=== PATIENT | male | born 1970 | race Caucasian/White ===

== ENCOUNTER 2020-09-10 17:21 | Inpatient (IN) ==
[2020-09-10] MEDS ORDERED: SODIUM CHLORIDE 0.9% 1000ML 1,000 ML IV STA (17:40)
[2020-09-10] MEDS ORDERED: CEFEPIME 2,000 MG/20 ML VIAL IV STA (17:40)
[2020-09-10] MEDS ORDERED: ACETAMINOPHEN 500 MG TAB PO STA (17:42)
[2020-09-10] MEDS ORDERED: SODIUM CHLORIDE 0.9% 1000ML 1,000 ML IV ONE (17:42)
--- NOTE | 2020-09-10 17:47 | Emergency Department Note ---
Impression & Plan Fever, Acute hypotension ED Provider Note INFORMANT: Patient ED PROVIDER(S): Bryan Alvarado MD CHIEF COMPLAINT: Fever PLAN: Disposition: Admitted Condition: Good Outpatient prescription management: none Referral: None MEDICAL DECISION MAKING: Patient presented to the emergency department because of fever and abnormal labs. He was told he was neutropenic. The patient had an IV established. Blood work was obtained. He had a culture obtained peripherally as well as through the PICC line. He was given a dose of empiric cefepime. His white blood cell count was extremely low at 420. The patient was anemic as well as thrombocytopenic. He was mildly hypokalemic. This was repleted. He did receive saline hydration. He was given Tylenol and a dose of Motrin for his fever. Consultation was made with Dr. Glenn Philippe of the [facility] service. Patient was evaluated in the ER for further management. Triage Nursing notes reviewed and agree them. Vital Signs: reviewed and remarkable for no significant abnormalities Differential diagnosis: Febrile neutropenia, viral syndrome, otitis, pharyngitis, pneumonia, influenza, meningitis, urinary tract infection, sepsis, bacteremia, as well as other pathologies. Diagnostics interpreted by me: ECG: none Cardiac Monitoring: Cardiac monitoring ordered by me: The patient was placed on continuous cardiac monitoring and observed. It revealed a normal sinus rhythm at 88 beats per minute without ectopy or evidence of dysrhythmia. Imaging studies: Chest x-ray. Findings: A chest x-ray was performed and revealed no pneumothorax, effusion, infiltrate, pulmonary edema, free air under the diaphragm, or wide mediastinum. Impression: No acute disease. HPI: The patient is a 50 year old male who presents to the Emergency Room with complaints of fever. This started today and was 102 at home. Patient is a cancer patient actively undergoing chemotherapy. He had a critically low white blood cell count reported to him today by his home nursing agency. The patient also notes the following associated symptoms, generalized weakness, lightheadedness, rigors. The patient has found no relieving factors. Current pain is rated as 0/10. 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 Pt denies LOC, headache, diaphoresis, visual changes, neck pain, chest pain, breathing difficulties, vomiting, abdominal pain, back pain, melena, hematochezia, urinary symptoms, numbness, lymphadenopathy, rash, or other complaints. ROS: See above HPI for pertinent positives & negatives. A total of 10 systems reviewed and were otherwise negative. PAST MEDICAL HISTORY:See Below , pancreatic cancer PAST SURGICAL HISTORY:See Below, Whipple FAMILY HISTORY:See Below SOCIAL HISTORY:See Below, HOME MEDICATIONS:See Below ALLERGIES:See Below VITALS:See Below PHYSICAL EXAMINATION: GENERAL: Awake, alert, well-appearing, in no distress HENT: Normocephalic, atraumatic. Oropharynx unremarkable. EYES: Pale conjunctiva. Sclera non-icteric. NECK: Inspection normal. Non-tender. Supple. No nuchal rigidity. FROM. No masses. RESPIRATORY: Clear to auscultation. No wheezes. No rales. Normal respiratory effort. CARDIAC: Normal rate. Normal rhythm. No murmurs. No rubs. Extremities warm and well perfused. Pulses equal. No JVD. There is a PICC line noted in the right upper extremity. No signs of external infection. GI: Soft, non-distended. No tenderness to palpation. No rebound or guarding. No masses. RECTAL: Deferred. MUSCULOSKELETAL: Atraumatic. Chest examination reveals no tenderness. The back is symmetrical on inspection without obvious abnormality. There is no CVA tenderness to palpation. No joint edema. LOWER EXTREMITIES: Calves are equal size bilaterally and non-tender. No edema. No discoloration. NEURO: Normal sensorium. No sensory or motor deficits noted. SKIN: Warm to touch. No rash or jaundice noted. Bryan Alvarado MD Past Med/Surg History Medical History (Updated 09/10/20 @ 17:44 by Bryan Alvarado MD) Diverticulitis Normal colonoscopy Surgical History (Updated 07/20/20 @ 08:20 by Marta Delatorre RN) History of ear surgery Replaced bones in inner left ear Family History (Updated 07/20/20 @ 08:22 by Marta Delatorre, RINA) Mother No problems noted. Father , 63yo Pancreatic cancer Brother No problems noted. Brother No problems noted. Son No problems noted. Social History (Updated 07/20/20 @ 08:25 by Marta Delatorre, RINA) Smoking Status: Never smoker Second Hand Exposure: No; Hx Alcohol Use: Yes (Social use;) Hx Substance Use: No Preferred Language: [place]ese Visual Impairment: No Limitations Hearing Ability: Normal Neurologist Required: No Beliefs That Will Affect Care: None marital status: marital status details: Has girlfriend of 22yrs Current Living Situation: Significant Other current occupational status: employed current occupation: [employer] Feels Safe at Home: Yes caffeine: No during the past year weight has: decreased > 10 lbs Allergies Allergies Allergy/AdvReac Type Severity Reaction Status Date / Time No Known Allergies Allergy Verified 09/10/20 17:54 Home Meds Home Medications Medication Instructions Recorded Confirmed acetaminophen 500 mg tablet 500 mg PO Q6H PRN 07/20/20 09/10/20 apixaban 5 mg tablet 5 mg PO BID 07/20/20 09/10/20 aspirin 81 mg tablet,delayed 81 mg PO DAILY 07/20/20 09/10/20 release lactobacillus combination no.8 3 3,000 mmu cells PO BID cap 07/20/20 09/10/20 billion cell capsule loperamide 2 mg capsule 4 mg PO QID PRN cap 07/20/20 09/10/20 ondansetron HCl 8 mg tablet 8 mg PO Q8H PRN 07/20/20 09/10/20 pantoprazole 40 mg tablet,delayed 40 mg PO DAILY 07/20/20 09/10/20 release prochlorperazine maleate 10 mg 10 mg PO Q6H PRN 07/20/20 09/10/20 tablet cholecalciferol (vitamin D3) 25 25 mcg PO DAILY 08/08/20 09/10/20 mcg (1,000 unit) capsule diphenoxylate-atropine 2.5 10 ml PO BID ml 08/08/20 09/10/20 mg-0.025 mg/5 mL oral liquid jswici-qcyvttxx-hckffhh 2 cap PO QID cap 08/08/20 09/10/20 36,000-114,000-180,000 unit capsule,delay rel psyllium husk 3.4 gram/5.4 gram 1 tbsp PO BID g 08/08/20 09/10/20 oral powder sodium 35 mEq-potassium 20 mEq-mag 0 ml IV HS ml 08/08/20 09/10/20 5 mEq/20 zP-vrzhoxr-wqgorii-acet IV Results & Data (ED) Vital Signs Vital Signs - 24 hr 09/10/20 17:22 09/10/20 18:15 09/10/20 18:18 Temperature 39.4 C H Temperature Source Oral Pulse Rate 88 87 85 Pulse Rate from SpO2 Sensor 86 87 Respiratory Rate 18 16 19 Respiratory Effort / Characteristics Non-Labored Spontaneous Respiratory Depth Normal Respiratory Pattern Regular Blood Pressure 97/60 L 104/50 L Blood Pressure Mean 72 68 Blood Pressure Position Sitting Pulse Oximetry 99 98 98 Oxygen Delivery Method Room Air Sepsis Recent Fever Within 48 Hours No Sepsis New/Unexplained Change in Mental Status N/A Sepsis Action Taken by Nursing Physician Notified 09/10/20 18:30 09/10/20 18:31 09/10/20 19:00 Temperature Temperature Source Pulse Rate Pulse Rate from SpO2 Sensor 85 83 85 Respiratory Rate 21 22 20 Respiratory Effort / Characteristics Respiratory Depth Respiratory Pattern Blood Pressure 109/57 L 110/56 L Blood Pressure Mean 74 74 Blood Pressure Position Pulse Oximetry 98 98 97 Oxygen Delivery Method Sepsis Recent Fever Within 48 Hours Sepsis New/Unexplained Change in Mental Status Sepsis Action Taken by Nursing 09/10/20 19:25 09/10/20 19:30 Temperature 39.4 C H Temperature Source Oral Pulse Rate 88 Pulse Rate from SpO2 Sensor Respiratory Rate 18 Respiratory Effort / Characteristics Respiratory Depth Respiratory Pattern Blood Pressure 105/53 L Blood Pressure Mean 70 Blood Pressure Position Pulse Oximetry 97 Oxygen Delivery Method Sepsis Recent Fever Within 48 Hours Sepsis New/Unexplained Change in Mental Status Sepsis Action Taken by Nursing Laboratory Data Result diagrams: 09/10/20 17:56 09/10/20 17:56 Lab Results 09/10/20 09/10/20 09/10/20 Range/Units 17:56 17:56 17:56 WBC 0.42 L* (4.8-10.8) K/uL RBC 2.70 L (4.7-6.1) M/uL Hgb 7.8 L (14.0-18.0) g/dL Hct 23.9 L (42-52) % MCV 88.5 (80-100) fL MCH 28.9 (25-34) pg MCHC 32.6 (32-36) g/dL RDW Std Deviation 54.8 H (36.4-46.3) fL RDW Coeff of Gael 16.9 H (11.5-14.5) % Plt Count 68 L (130-400) K/uL MPV 10.0 (7.4-10.4) fL Immature Gran % (Auto) Cancelled Neut % (Auto) Cancelled Lymph % (Auto) Cancelled Green % (Auto) Cancelled Eos % (Auto) Cancelled Baso % (Auto) Cancelled Neut # (Auto) Cancelled Lymph # (Auto) Cancelled Green # (Auto) Cancelled Eos # (Auto) Cancelled Baso # (Auto) Cancelled Immature Gran # (Auto) Cancelled Neutrophils % (Manual) Cancelled Band Neutrophils % Cancelled Lymphocytes % (Manual) Cancelled Prolymphocyte % Cancelled Reactive Lymphs % (Man) Cancelled Monocytes % (Manual) Cancelled Eosinophils % (Manual) Cancelled Basophils % (Manual) Cancelled Metamyelocytes % (Man) Cancelled Myelocytes % (Man) Cancelled Promyelocytes % (Man) Cancelled Blast Cells % (Manual) Cancelled Plasma Cell % (Manual) Cancelled Other Cells % Cancelled Nucleated RBC % Cancelled Neutrophils # (Manual) Cancelled Band Neutrophils # Cancelled Total Absolute Neuts Cancelled Lymphocytes # (Manual) Cancelled Prolymphocyte # Cancelled Reactive Lymphs # Cancelled Total Abs Lymphocytes Cancelled Monocytes # (Manual) Cancelled Eosinophils # (Manual) Cancelled Basophils # (Manual) Cancelled Metamyelocytes # (Man) Cancelled Myelocytes # (Manual) Cancelled Promyelocytes # (Man) Cancelled Blast Cells # (Man) Cancelled Plasma Cell # (Manual) Cancelled Other Cells # Cancelled Nucleated RBCs # (Man) Cancelled Hypersegmented Neuts Cancelled Hyposegmented Neuts Cancelled Hypogranular Neuts Cancelled Large Granular Lymphs Cancelled # Lrg Granular Lymphs Cancelled Hairy Cells Cancelled Smudge Cells Cancelled Toxic Granulation Cancelled Toxic Vacuolation Cancelled Dohle Bodies Cancelled Cuba Rods Cancelled Hypogranular Platelets Cancelled Clumped Platelets Cancelled Giant Platelets Cancelled Platelet Satelliting Cancelled RBC Morphology Cancelled Polychromasia Cancelled Hypochromasia Cancelled Poikilocytosis Cancelled Basophilic Stippling Cancelled Anisocytosis Cancelled Microcytosis Cancelled Macrocytosis Cancelled Spherocytes Cancelled Pappenheimer Bodies Cancelled Sickle Cells Cancelled Target Cells Cancelled Tear Drop Cells Cancelled Ovalocytes Cancelled Stomatocytes Cancelled Rodriguez-Piedmont Bodies Cancelled Echinocytes Cancelled Acanthocytes (Spur) Cancelled Rouleaux Cancelled RBC Agglutinates Cancelled Schistocytes Cancelled RBC Morph Comment Cancelled Sezary Cell Cancelled PT 11.3 (9.0-12.0) Seconds INR 1.1 (0.9-1.1) Sodium (136-145) mmol/L Potassium (3.5-5.1) mmol/L Chloride (98-107) mmol/L Carbon Dioxide (21-32) mmol/L Anion Gap (3-11) BUN (7-18) mg/dl Creatinine (0.6-1.4) mg/dl Est Cr Clr Drug Dosing ml/min Est GFR ( Amer) ml/min Est GFR (Non-Af Amer) ml/min BUN/Creatinine Ratio (10-20) Glucose (70-99) mg/dl Lactate (0.4-2.0) mmol/L Calcium (8.5-10.1) mg/dl Magnesium (1.8-2.4) mg/dl Total Bilirubin (0.2-1) mg/dl AST (15-37) U/L ALT (12-78) U/L Alkaline Phosphatase (45-117) U/L Total Protein (6.4-8.2) gm/dl Albumin (3.4-5.0) gm/dl Globulin (2.5-4.0) gm/dl Albumin/Globulin Ratio (0.9-2) COVID-19 Eval Order SARS-CoV-2 (PCR) (Negative) Blood Type O Positive Antibody Screen NEGATIVE 09/10/20 09/10/20 09/10/20 Range/Units 17:56 17:56 18:10 WBC (4.8-10.8) K/uL RBC (4.7-6.1) M/uL Hgb (14.0-18.0) g/dL Hct (42-52) % MCV (80-100) fL MCH (25-34) pg MCHC (32-36) g/dL RDW Std Deviation (36.4-46.3) fL RDW Coeff of Gael (11.5-14.5) % Plt Count (130-400) K/uL MPV (7.4-10.4) fL Immature Gran % (Auto) Neut % (Auto) Lymph % (Auto) Green % (Auto) Eos % (Auto) Baso % (Auto) Neut # (Auto) Lymph # (Auto) Green # (Auto) Eos # (Auto) Baso # (Auto) Immature Gran # (Auto) Neutrophils % (Manual) Band Neutrophils % Lymphocytes % (Manual) Prolymphocyte % Reactive Lymphs % (Man) Monocytes % (Manual) Eosinophils % (Manual) Basophils % (Manual) Metamyelocytes % (Man) Myelocytes % (Man) Promyelocytes % (Man) Blast Cells % (Manual) Plasma Cell % (Manual) Other Cells % Nucleated RBC % Neutrophils # (Manual) Band Neutrophils # Total Absolute Neuts Lymphocytes # (Manual) Prolymphocyte # Reactive Lymphs # Total Abs Lymphocytes Monocytes # (Manual) Eosinophils # (Manual) Basophils # (Manual) Metamyelocytes # (Man) Myelocytes # (Manual) Promyelocytes # (Man) Blast Cells # (Man) Plasma Cell # (Manual) Other Cells # Nucleated RBCs # (Man) Hypersegmented Neuts Hyposegmented Neuts Hypogranular Neuts Large Granular Lymphs # Lrg Granular Lymphs Hairy Cells Smudge Cells Toxic Granulation Toxic Vacuolation Dohle Bodies Cuba Rods Hypogranular Platelets Clumped Platelets Giant Platelets Platelet Satelliting RBC Morphology Polychromasia Hypochromasia Poikilocytosis Basophilic Stippling Anisocytosis Microcytosis Macrocytosis Spherocytes Pappenheimer Bodies Sickle Cells Target Cells Tear Drop Cells Ovalocytes Stomatocytes Rodriguez-Piedmont Bodies Echinocytes Acanthocytes (Spur) Rouleaux RBC Agglutinates Schistocytes RBC Morph Comment Sezary Cell PT (9.0-12.0) Seconds INR (0.9-1.1) Sodium 136 (136-145) mmol/L Potassium 3.1 L (3.5-5.1) mmol/L Chloride 103 (98-107) mmol/L Carbon Dioxide 26 (21-32) mmol/L Anion Gap 7.0 (3-11) BUN 21 H (7-18) mg/dl Creatinine 0.74 (0.6-1.4) mg/dl Est Cr Clr Drug Dosing 128.0 ml/min Est GFR ( Amer) 122.9 ml/min Est GFR (Non-Af Amer) 106.1 ml/min BUN/Creatinine Ratio 28.0 H (10-20) Glucose 110 H (70-99) mg/dl Lactate 2.0 (0.4-2.0) mmol/L Calcium 7.7 L (8.5-10.1) mg/dl Magnesium 1.1 L (1.8-2.4) mg/dl Total Bilirubin 0.8 (0.2-1) mg/dl AST 6 L (15-37) U/L ALT 13 (12-78) U/L Alkaline Phosphatase 66 (45-117) U/L Total Protein 5.8 L (6.4-8.2) gm/dl Albumin 2.3 L (3.4-5.0) gm/dl Globulin 3.5 (2.5-4.0) gm/dl Albumin/Globulin Ratio 0.6 L (0.9-2) COVID-19 Eval Order Covid19 at [facility] SARS-CoV-2 (PCR) (Negative) Blood Type Antibody Screen 09/10/20 Range/Units 18:10 WBC (4.8-10.8) K/uL RBC (4.7-6.1) M/uL Hgb (14.0-18.0) g/dL Hct (42-52) % MCV (80-100) fL MCH (25-34) pg MCHC (32-36) g/dL RDW Std Deviation (36.4-46.3) fL RDW Coeff of Gael (11.5-14.5) % Plt Count (130-400) K/uL MPV (7.4-10.4) fL Immature Gran % (Auto) Neut % (Auto) Lymph % (Auto) Green % (Auto) Eos % (Auto) Baso % (Auto) Neut # (Auto) Lymph # (Auto) Green # (Auto) Eos # (Auto) Baso # (Auto) Immature Gran # (Auto) Neutrophils % (Manual) Band Neutrophils % Lymphocytes % (Manual) Prolymphocyte % Reactive Lymphs % (Man) Monocytes % (Manual) Eosinophils % (Manual) Basophils % (Manual) Metamyelocytes % (Man) Myelocytes % (Man) Promyelocytes % (Man) Blast Cells % (Manual) Plasma Cell % (Manual) Other Cells % Nucleated RBC % Neutrophils # (Manual) Band Neutrophils # Total Absolute Neuts Lymphocytes # (Manual) Prolymphocyte # Reactive Lymphs # Total Abs Lymphocytes Monocytes # (Manual) Eosinophils # (Manual) Basophils # (Manual) Metamyelocytes # (Man) Myelocytes # (Manual) Promyelocytes # (Man) Blast Cells # (Man) Plasma Cell # (Manual) Other Cells # Nucleated RBCs # (Man) Hypersegmented Neuts Hyposegmented Neuts Hypogranular Neuts Large Granular Lymphs # Lrg Granular Lymphs Hairy Cells Smudge Cells Toxic Granulation Toxic Vacuolation Dohle Bodies Cuba Rods Hypogranular Platelets Clumped Platelets Giant Platelets Platelet Satelliting RBC Morphology Polychromasia Hypochromasia Poikilocytosis Basophilic Stippling Anisocytosis Microcytosis Macrocytosis Spherocytes Pappenheimer Bodies Sickle Cells Target Cells Tear Drop Cells Ovalocytes Stomatocytes Rodriguez-Piedmont Bodies Echinocytes Acanthocytes (Spur) Rouleaux RBC Agglutinates Schistocytes RBC Morph Comment Sezary Cell PT (9.0-12.0) Seconds INR (0.9-1.1) Sodium (136-145) mmol/L Potassium (3.5-5.1) mmol/L Chloride (98-107) mmol/L Carbon Dioxide (21-32) mmol/L Anion Gap (3-11) BUN (7-18) mg/dl Creatinine (0.6-1.4) mg/dl Est Cr Clr Drug Dosing ml/min Est GFR ( Amer) ml/min Est GFR (Non-Af Amer) ml/min BUN/Creatinine Ratio (10-20) Glucose (70-99) mg/dl Lactate (0.4-2.0) mmol/L Calcium (8.5-10.1) mg/dl Magnesium (1.8-2.4) mg/dl Total Bilirubin (0.2-1) mg/dl AST (15-37) U/L ALT (12-78) U/L Alkaline Phosphatase (45-117) U/L Total Protein (6.4-8.2) gm/dl Albumin (3.4-5.0) gm/dl Globulin (2.5-4.0) gm/dl Albumin/Globulin Ratio (0.9-2) COVID-19 Eval Order SARS-CoV-2 (PCR) NEGATIVE (Negative) Blood Type Antibody Screen Administered Medications Sodium Chloride (Nss 1000ml) 1,000 mls @ 125 mls/hr IV .Q8H STA Stop: 09/11/20 01:39 Last Admin: 09/10/20 19:18 Dose: 125 mls/hr Documented by: [id number] Potassium Chloride (K Nicola / Wtr) 10 meq in 100 mls @ 100 mls/hr IV ONE ONE Stop: 09/10/20 20:08 Last Admin: 09/10/20 19:18 Dose: 100 mls/hr Documented by: [id number] Discontinued Medications Acetaminophen (Acetaminophen 500 Mg Tab) 1,000 mg PO NOW STA Stop: 09/10/20 17:43 Last Admin: 09/10/20 18:04 Dose: 1,000 mg Documented by: [id number] Cefepime HCl (Maxipime) 2,000 mg in 20 mls @ 5 mls/min IV NOW STA; Protocol Stop: 09/10/20 17:43 Last Admin: 09/10/20 18:04 Dose: 5 mls/min Documented by: [id number] Sodium Chloride (Nss 1000ml) 1,000 mls @ 999 mls/hr IV .Q1H1M ONE Stop: 09/10/20 18:42 Last Infusion: 09/10/20 19:18 Dose: 0 mls/hr Documented by: [id number] Admin: 09/10/20 18:03 Dose: 999 mls/hr Documented by: [id number] Ibuprofen (Ibuprofen 200 Mg Tab) 400 mg PO NOW STA Stop: 09/10/20 19:25 Last Admin: 09/10/20 19:30 Dose: 400 mg Documented by: [id number] Potassium Chloride (Potassium Chloride Crtab 20 Meq Tabcr) 20 meq PO NOW STA Stop: 09/10/20 19:10 Last Admin: 09/10/20 19:18 Dose: 20 meq Documented by: [id number] Imaging Data Radiologist's Impression: Chest X-Ray 09/10/20 17:40 XR chest 1V portable HISTORY: 50 years-old Male Fever acute fever COMPARISON: CT radiation scan 07/21/2020 TECHNIQUE: Portable AP view of the chest FINDINGS: A right-sided PICC is noted with distal tip terminating in the expected location of the mid SVC. Cardiac mediastinal and hilar silhouettes are within normal limits. No pneumothorax, pleural effusion, airspace consolidation or overt pulmonary edema. Minimal linear subsegmental left lung base atelectasis/scarring. Nipple shadow projects over the lateral left lung base. Bones appear grossly intact. Cholecystectomy. IMPRESSION: No acute process. ACT 112: Negative or not required by law. The above report was generated using voice recognition software. It may contain grammatical, syntax or spelling errors. Electronically signed by: Curt Burroughs M.D. 09/10/2020 6:12 PM Discharge Plan Visit Data Chief Complaint: Fever Stated Complaint: [id number]-WHITE BLOOD COUNT LOW-CANCER PT ED Provider: Bryan Alvarado Discharge Problem: Fever, Acute hypotension Forms Stand Alone Forms: [facility] Prescriptions Prescriptions: No Action Eliquis 5 mg tablet 5 mg PO BID RF: 0 acetaminophen [Tylenol Extra Strength] 500 mg tablet 500 mg PO Q6H PRN (Reason: PAIN/FEVER) RF: 0 aspirin [Adult Low Dose Aspirin] 81 mg tablet,delayed release (DR/EC) 81 mg PO DAILY RF: 0 loperamide 2 mg capsule 4 mg PO QID PRN (Reason: Diarrhea) RF: 0 Adult Probiotic 3 billion cell capsule 3,000 mmu cells PO BID RF: 0 pantoprazole 40 mg tablet,delayed release (DR/EC) 40 mg PO DAILY RF: 0 ondansetron HCl 8 mg tablet 8 mg PO Q8H PRN (Reason: nausea and vomiting) RF: 0 prochlorperazine maleate [Compazine] 10 mg tablet 10 mg PO Q6H PRN (Reason: Nausea) RF: 0 diphenoxylate-atropine 2.5-0.025 mg/5 mL liquid 10 ml PO BID RF: 0 Creon 36,000-114,000- 180,000 unit capsule,delayed release(DR/EC) 2 cap PO QID RF: 0 Metamucil 3.4 gram/5.4 gram powder 1 tbsp PO BID RF: 0 cholecalciferol (vitamin D3) 25 mcg (1,000 unit) capsule 25 mcg PO DAILY RF: 0 TPN Electrolytes 35-20-5 mEq/20 mL solution 0 ml IV HS RF: 0
--- NOTE | 2020-09-10 18:13 | XRay Report ---
XR chest 1V portable HISTORY: 50 years-old Male Fever acute fever COMPARISON: CT radiation scan 07/21/2020 TECHNIQUE: Portable AP view of the chest FINDINGS: A right-sided PICC is noted with distal tip terminating in the expected location of the mid SVC. Card iac mediastinal and hilar silhouettes are within normal limits. No pneumothorax, pleural effusion, ai rspace consolidation or overt pulmonary edema. Minimal linear subsegmental left lung base atelectasis /scarring. Nipple shadow projects over the lateral left lung base. Bones appear grossly intact. Renetta cystectomy. IMPRESSION: No acute process. ACT 112: Negative or not required by law. The above report was generated using voice recognition software. It may contain grammatical, syntax o r spelling errors. Electronically signed by: Curt Burroughs M.D. 09/10/2020 6:12 PM
[2020-09-10 18:17] LABS: INR 1.1 (0.9-1.1); Prothrombin Time 11.3 Seconds (9.0-12.0)
[2020-09-10 18:29] LABS: Albumin Level 2.3 gm/dl (3.4-5.0); Calcium 7.7 mg/dl (8.5-10.1); Est GFR (African American) 122.9 ml/min; Est GFR (Non-African American) 106.1 ml/min; Potassium 3.1 mmol/L (3.5-5.1)
[2020-09-10 18:32] LABS: Albumin Globulin Ratio 0.6 (0.9-2); Bilirubin,Total 0.8 mg/dl (0.2-1); Globulin 3.5 gm/dl (2.5-4.0); Total Protein 5.8 gm/dl (6.4-8.2)
[2020-09-10 18:39] LABS: Hematocrit (blood only) 23.9 % (42-52); Hemoglobin 7.8 g/dL (14.0-18.0); Mean Corpuscular Hemoglobin 28.9 pg (25-34); Mean Corpuscular Hgb Conc 32.6 g/dL (32-36); Mean Corpuscular Volume 88.5 fL (80-100); Platelet Count 68 K/uL (130-400); RDW Coefficient of Variation 16.9 % (11.5-14.5); RDW Standard Deviation 54.8 fL (36.4-46.3); White Blood Count 0.42 K/uL (4.8-10.8)
[2020-09-10] MEDS ORDERED: POTASSIUM CHLORIDE CRTAB 20 MEQ TABCR PO STA (19:09)
[2020-09-10] MEDS ORDERED: POTASSIUM CHLORIDE / WTR 10 MEQ/100 ML PLCT IV ONE (19:09)
[2020-09-10] MEDS ORDERED: IBUPROFEN 200 MG TAB PO STA (19:24)
[2020-09-10 19:47] LABS: Magnesium 1.1 mg/dl (1.8-2.4)
[2020-09-10] MEDS ORDERED: VANCOMYCIN CONSULT ACTIVE PRN ×2 (20:09→22:27)
[2020-09-10] MEDS ORDERED: VANCOMYCIN HCL 1,750 MG in SODIUM CHLORIDE 0.9% 500 ML IV ONE (20:15)
[2020-09-10 20:17] LABS: Appearance Urine Clear (Clear); Bilirubin Urine Negative (Negative); Blood Urine Negative (Negative); Color Urine Yellow; Glucose Urine UA Negative (Negative); Ketones Urine Negative (Negative); Leukocyte Esterase Urine Negative (Negative); Nitrite Urine Negative (Negative); Protein Urine Negative (Negative); Specific Gravity Urine 1.023 (1.000-1.030); Urobilinogen Urine Negative (Negative)
[2020-09-10] MEDS ORDERED: MAGNESIUM SULFATE / D5W 1 GM/100 ML BAG IV STA (20:27)
--- NOTE | 2020-09-10 20:27 | History & Physical Report ---
Date of Service September 10, 2020 Assessment & Plan (1) Neutropenic fever: Received cefepime IV in the ED. Add vancomycin to be started in the ED, and daily per pharmacokinetic monitoring. Admit to vancomycin IV and Zosyn IV Famotidine 20 mg IV every 12 hours Zofran 4 mg IV every 6 hours as needed acetaminophen 610 g p.o. every 6 hours as needed for pain or fever NSS + KCl 20 mEq at 100 mils per hour Continue pantoprazole 40 mg daily Present on Admission?: Yes (2) Primary pancreatic cancer with metastasis to other site: Undergoing adjuvant chemoradiation therapy Continue Creon capsules Following with Drs. Krishnan and Grant Consult Dr. Krishnan Present on Admission?: Yes (3) Pancytopenia due to chemotherapy: Neutropenia-we will give Neupogen 480 mcg subcu x1 this evening Anemia-has not required transfusion yet. Order type and screen, will need irradiated leukoreduced PRBCs if transfused Thrombocytopenia-Follow serially Present on Admission?: Yes (4) Hypokalemia: Replace both orally and IV Repeat labs in a.m. Present on Admission?: Yes (5) Hypomagnesemia: Replace both orally and IV Repeat labs in a.m. Present on Admission?: Yes (6) Diarrhea: Leading to electrolyte losses of both potassium and magnesium Continue outpatient regimen of diphenoxylate atropine and as needed loperamide Add cholestyramine 4 g p.o. twice daily with meals, titrating up to 4 times daily as needed Present on Admission?: Yes History of Present Illness Chief Complaint: The patient presents to the emergency department with complaint of fever, and underwent most recent chemotherapy on 09/07/2020 Primary Care Provider: Trevin Hauser The patient is a 50-year-old male with a past medical history including metastatic pancreatic cancer, GERD, persistent diarrhea who presents to emergency department with complaint of fever to 102 F at home. His primary symptom is that of chronic diarrhea since April, that [facility] [place] been try to manage with Imodium and tincture of opium. Work-up in the emergency department included the following abnormal laboratories: WBC 0.42, hemoglobin 7.8, hematocrit 23.9, platelet 68, potassium 3.1, magnesium 1.1, albumin 2.3, glucose 110 and COVID-19 negative. Differential was not able to be performed due to WBC being less than 0.5. Imaging studies: Chest x-ray was negative Treatment by the ED included the following: Cefepime 2 g IV, potassium chloride 20 mEq p.o., K rider 10 mEq x 1 and normal saline 1 L followed by 125 mL's per hour. I have ordered a CT of chest, abdomen and pelvis without contrast for further assessment. Patient is also been ordered Neupogen 480 mcg SQ x 1, and is given a single dose of vancomycin IV in the ED. He will be admitted on vancomycin IV and Zosyn IV. Allergies Allergy/AdvReac Type Severity Reaction Status Date / Time No Known Allergies Allergy Verified 09/10/20 17:54 Home Medications Medication Instructions Recorded Confirmed Type acetaminophen 500 mg tablet 500 mg PO Q6H PRN 07/20/20 09/10/20 History apixaban 5 mg tablet 5 mg PO BID 07/20/20 09/10/20 History aspirin 81 mg tablet,delayed 81 mg PO DAILY 07/20/20 09/10/20 History release lactobacillus combination no.8 3 3,000 mmu cells PO BID cap 07/20/20 09/10/20 History billion cell capsule loperamide 2 mg capsule 4 mg PO QID PRN cap 07/20/20 09/10/20 History ondansetron HCl 8 mg tablet 8 mg PO Q8H PRN 07/20/20 09/10/20 History pantoprazole 40 mg tablet,delayed 40 mg PO DAILY 07/20/20 09/10/20 History release prochlorperazine maleate 10 mg 10 mg PO Q6H PRN 07/20/20 09/10/20 History tablet cholecalciferol (vitamin D3) 25 25 mcg PO DAILY 08/08/20 09/10/20 History mcg (1,000 unit) capsule diphenoxylate-atropine 2.5 10 ml PO BID ml 08/08/20 09/10/20 History mg-0.025 mg/5 mL oral liquid rtdysg-hpohbngq-qabewkg 2 cap PO QID cap 08/08/20 09/10/20 History 36,000-114,000-180,000 unit capsule,delay rel psyllium husk 3.4 gram/5.4 gram 1 tbsp PO BID g 08/08/20 09/10/20 History oral powder sodium 35 mEq-potassium 20 mEq-mag 0 ml IV HS ml 08/08/20 09/10/20 History 5 mEq/20 jF-bxkzerz-scjhfxj-acet IV Past Med/Surg History Medical History (Updated 09/10/20 @ 22:52 by Glenn Philippe MD) Diarrhea Diverticulitis Normal colonoscopy Surgical History (Updated 07/20/20 @ 08:20 by Matra Delatorre, RN) History of ear surgery Replaced bones in inner left ear Family History (Updated 07/20/20 @ 08:22 by Marta Delatorre, RN) Mother No problems noted. Father , 63yo Pancreatic cancer Brother No problems noted. Brother No problems noted. Son No problems noted. 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 Other Information That Helps Us Care for You: No Feels Safe at Home: Yes caffeine: No during the past year weight has: decreased > 10 lbs Assistive Devices: Glasses Review of Systems Review of Systems: The patient denies chest pain, palpitations, shortness of breath, dyspnea on exertion, cough, lower extremity swelling, sore throat, fevers, chills, sweats, weight change, fatigue, nausea, vomiting, diarrhea , constipation, blood in urine or stool, dysuria, urinary frequency or urgency, lightheadedness, dizziness, headache, memory loss, loss of consciousness, rash, abnormal bruising or bleeding, imbalance, focal or generalized weakness, numbness or tingling in arms or legs, generalized arthralgias or myalgias, back or neck pain, or night sweats. The review of systems is otherwise negative other than for that already noted above, and at least 10 systems have been reviewed. Physical Exam Physical Exam: The patient is awake, alert and oriented 3, well developed and well nourished, normocephalic and atraumatic, lying in bed and in no acute distress. HEENT--PERRL, EOMI, mucous membranes and oropharynx normal Neck--supple. No JVD. No bruits. Thyroid normal, trachea midline, no adenopathy. Heart--normal S1 and S2. No murmurs, rubs or gallops. Lungs--clear bilaterally, no respiratory distress, no accessory muscle use. Abdomen--normal bowel sounds and soft. Nontender. Nondistended, no hernias or masses, no organomegaly. Extremities--no cyanosis or clubbing. No edema. Dermatologic--normal skin turgor, normal color, no abnormal lymph nodes, no rash. Neurologic--cranial nerves II through XII grossly intact. Rheumatologic--normal range of motion. Psychiatric--normal affect. Results & Data Results & Data ([facility]) Vital Signs (Past 12 Hours) Vital Signs Temp Pulse Resp BP Pulse Ox 09/10/20 20:00 92 H 17 97/55 L 96 09/10/20 19:30 88 18 105/53 L 97 09/10/20 19:25 102.9 F H 09/10/20 19:00 20 110/56 L 97 09/10/20 18:31 22 98 09/10/20 18:30 21 109/57 L 98 09/10/20 18:18 85 19 98 09/10/20 18:15 87 16 104/50 L 98 09/10/20 17:22 102.9 F H 88 18 97/60 L 99 Laboratory Results Laboratory Results WBC 0.42 K/uL (4.8-10.8) L* 09/10/20 17:56 RBC 2.70 M/uL (4.7-6.1) L 09/10/20 17:56 Hgb 7.8 g/dL (14.0-18.0) L 09/10/20 17:56 Hct 23.9 % (42-52) L 09/10/20 17:56 MCV 88.5 fL (80-100) 09/10/20 17:56 MCH 28.9 pg (25-34) 09/10/20 17:56 MCHC 32.6 g/dL (32-36) 09/10/20 17:56 RDW Std Deviation 54.8 fL (36.4-46.3) H 09/10/20 17:56 RDW Coeff of Gael 16.9 % (11.5-14.5) H 09/10/20 17:56 Plt Count 68 K/uL (130-400) L 09/10/20 17:56 MPV 10.0 fL (7.4-10.4) 09/10/20 17:56 Immature Gran % (Auto) Cancelled 09/10/20 17:56 Neut % (Auto) Cancelled 09/10/20 17:56 Lymph % (Auto) Cancelled 09/10/20 17:56 Duchesne % (Auto) Cancelled 09/10/20 17:56 Eos % (Auto) Cancelled 09/10/20 17:56 Baso % (Auto) Cancelled 09/10/20 17:56 Neut # (Auto) Cancelled 09/10/20 17:56 Lymph # (Auto) Cancelled 09/10/20 17:56 [place]ne # (Auto) Cancelled 09/10/20 17:56 Eos # (Auto) Cancelled 09/10/20 17:56 Baso # (Auto) Cancelled 09/10/20 17:56 Immature Gran # (Auto) Cancelled 09/10/20 17:56 Neutrophils % (Manual) Cancelled 09/10/20 17:56 Band Neutrophils % Cancelled 09/10/20 17:56 Lymphocytes % (Manual) Cancelled 09/10/20 17:56 Prolymphocyte % Cancelled 09/10/20 17:56 Reactive Lymphs % (Man) Cancelled 09/10/20 17:56 Monocytes % (Manual) Cancelled 09/10/20 17:56 Eosinophils % (Manual) Cancelled 09/10/20 17:56 Basophils % (Manual) Cancelled 09/10/20 17:56 Metamyelocytes % (Man) Cancelled 09/10/20 17:56 Myelocytes % (Man) Cancelled 09/10/20 17:56 Promyelocytes % (Man) Cancelled 09/10/20 17:56 Blast Cells % (Manual) Cancelled 09/10/20 17:56 Plasma Cell % (Manual) Cancelled 09/10/20 17:56 Other Cells % Cancelled 09/10/20 17:56 Nucleated RBC % Cancelled 09/10/20 17:56 Neutrophils # (Manual) Cancelled 09/10/20 17:56 Band Neutrophils # Cancelled 09/10/20 17:56 Total Absolute Neuts Cancelled 09/10/20 17:56 Lymphocytes # (Manual) Cancelled 09/10/20 17:56 Prolymphocyte # Cancelled 09/10/20 17:56 Reactive Lymphs # Cancelled 09/10/20 17:56 Total Abs Lymphocytes Cancelled 09/10/20 17:56 Monocytes # (Manual) Cancelled 09/10/20 17:56 Eosinophils # (Manual) Cancelled 09/10/20 17:56 Basophils # (Manual) Cancelled 09/10/20 17:56 Metamyelocytes # (Man) Cancelled 09/10/20 17:56 Myelocytes # (Manual) Cancelled 09/10/20 17:56 Promyelocytes # (Man) Cancelled 09/10/20 17:56 Blast Cells # (Man) Cancelled 09/10/20 17:56 Plasma Cell # (Manual) Cancelled 09/10/20 17:56 Other Cells # Cancelled 09/10/20 17:56 Nucleated RBCs # (Man) Cancelled 09/10/20 17:56 Hypersegmented Neuts Cancelled 09/10/20 17:56 Hyposegmented Neuts Cancelled 09/10/20 17:56 Hypogranular Neuts Cancelled 09/10/20 17:56 Large Granular Lymphs Cancelled 09/10/20 17:56 # Lrg Granular Lymphs Cancelled 09/10/20 17:56 Hairy Cells Cancelled 09/10/20 17:56 Smudge Cells Cancelled 09/10/20 17:56 Toxic Granulation Cancelled 09/10/20 17:56 Toxic Vacuolation Cancelled 09/10/20 17:56 Dohle Bodies Cancelled 09/10/20 17:56 [place] Rods Cancelled 09/10/20 17:56 Hypogranular Platelets Cancelled 09/10/20 17:56 Clumped Platelets Cancelled 09/10/20 17:56 Giant Platelets Cancelled 09/10/20 17:56 Platelet Satelliting Cancelled 09/10/20 17:56 RBC Morphology Cancelled 09/10/20 17:56 Polychromasia Cancelled 09/10/20 17:56 Hypochromasia Cancelled 09/10/20 17:56 Poikilocytosis Cancelled 09/10/20 17:56 Basophilic Stippling Cancelled 09/10/20 17:56 Anisocytosis Cancelled 09/10/20 17:56 Microcytosis Cancelled 09/10/20 17:56 Macrocytosis Cancelled 09/10/20 17:56 Spherocytes Cancelled 09/10/20 17:56 Pappenheimer Bodies Cancelled 09/10/20 17:56 Sickle Cells Cancelled 09/10/20 17:56 Target Cells Cancelled 09/10/20 17:56 Tear Drop Cells Cancelled 09/10/20 17:56 Ovalocytes Cancelled 09/10/20 17:56 Stomatocytes Cancelled 09/10/20 17:56 [place] Bodies Cancelled 09/10/20 17:56 Echinocytes Cancelled 09/10/20 17:56 Acanthocytes (Spur) Cancelled 09/10/20 17:56 Rouleaux Cancelled 09/10/20 17:56 RBC Agglutinates Cancelled 09/10/20 17:56 Schistocytes Cancelled 09/10/20 17:56 RBC Morph Comment Cancelled 09/10/20 17:56 Sezary Cell Cancelled 09/10/20 17:56 PT 11.3 Seconds (9.0-12.0) 09/10/20 17:56 INR 1.1 (0.9-1.1) 09/10/20 17:56 Sodium 136 mmol/L (136-145) 09/10/20 17:56 Potassium 3.1 mmol/L (3.5-5.1) L 09/10/20 17:56 Chloride 103 mmol/L (98-107) 09/10/20 17:56 Carbon Dioxide 26 mmol/L (21-32) 09/10/20 17:56 Anion Gap 7.0 (3-11) 09/10/20 17:56 BUN 21 mg/dl (7-18) H 09/10/20 17:56 Creatinine 0.74 mg/dl (0.6-1.4) 09/10/20 17:56 Est Cr Clr Drug Dosing 128.0 ml/min 09/10/20 17:56 Est GFR ( Amer) 122.9 ml/min 09/10/20 17:56 Est GFR (Non-Af Amer) 106.1 ml/min 09/10/20 17:56 BUN/Creatinine Ratio 28.0 (10-20) H 09/10/20 17:56 Glucose 110 mg/dl (70-99) H 09/10/20 17:56 Lactate 2.0 mmol/L (0.4-2.0) 09/10/20 17:56 Calcium 7.7 mg/dl (8.5-10.1) L 09/10/20 17:56 Magnesium 1.1 mg/dl (1.8-2.4) L 09/10/20 17:56 Total Bilirubin 0.8 mg/dl (0.2-1) 09/10/20 17:56 AST 6 U/L (15-37) L 09/10/20 17:56 ALT 13 U/L (12-78) 09/10/20 17:56 Alkaline Phosphatase 66 U/L (45-117) 09/10/20 17:56 Total Protein 5.8 gm/dl (6.4-8.2) L 09/10/20 17:56 Albumin 2.3 gm/dl (3.4-5.0) L 09/10/20 17:56 Globulin 3.5 gm/dl (2.5-4.0) 09/10/20 17:56 Albumin/Globulin Ratio 0.6 (0.9-2) L 09/10/20 17:56 Urine Color Yellow 09/10/20 19:55 Urine Appearance Clear (Clear) 09/10/20 19:55 Urine pH 5.0 (4.5-7.5) 09/10/20 19:55 Ur Specific [place] 1.023 (1.000-1.030) 09/10/20 19:55 Urine Protein Negative (Negative) 09/10/20 19:55 Urine Glucose (UA) Negative (Negative) 09/10/20 19:55 Urine Ketones Negative (Negative) 09/10/20 19:55 Urine Blood Negative (Negative) 09/10/20 19:55 Urine Nitrite Negative (Negative) 09/10/20 19:55 Urine Bilirubin Negative (Negative) 09/10/20 19:55 Urine Urobilinogen Negative (Negative) 09/10/20 19:55 Ur Leukocyte Esterase Negative (Negative) 09/10/20 19:55 COVID-19 Eval Order Covid19 at [facility] 09/10/20 18:10 SARS-CoV-2 (PCR) NEGATIVE (Negative) 09/10/20 18:10 Blood Type O Positive 09/10/20 17:56 Antibody Screen NEGATIVE 09/10/20 17:56 Impressions Chest X-Ray 09/10/20 17:40 XR chest 1V portable HISTORY: 50 years-old Male Fever acute fever COMPARISON: CT radiation scan 07/21/2020 TECHNIQUE: Portable AP view of the chest FINDINGS: A right-sided PICC is noted with distal tip terminating in the expected location of the mid SVC. Cardiac mediastinal and hilar silhouettes are within normal limits. No pneumothorax, pleural effusion, airspace consolidation or overt pulmonary edema. Minimal linear subsegmental left lung base atelectasis/scarring. Nipple shadow projects over the lateral left lung base. Bones appear grossly intact. Cholecystectomy. IMPRESSION: No acute process. ACT 112: Negative or not required by law. The above report was generated using voice recognition software. It may contain grammatical, syntax or spelling errors. Electronically signed by: Curt Burroughs M.D. 09/10/2020 6:12 PM Abdomen/Pelvis CT 09/10/20 20:16 CT chest diagnostic wo con, CT abd pelvis wo con CT DOSE: 626.98 mGy.cm CLINICAL HISTORY: 50 years-old Male with neutropenic fever. Acute fever with chemotherapy chemotherapy. History of pancreatic carcinoma. Prior pancreatic head resection with pancreatic jejunostomy. TECHNIQUE: Multiaxial CT images of the chest, abdomen and pelvis were performed without contrast. A dose lowering technique was utilized adhering to the principles of ALARA. COMPARISON: CT abdomen from outside institution 06/08/2020 (images only without report). FINDINGS: CT CHEST: Unremarkable thyroid. Heart is normal in size without pericardial effusion. No thoracic aortic aneurysm. Prominent mediastinal lymph nodes with 10 mm right paratracheal lymph node, image 111. Right subclavian Imyecl-y-Cycd catheter distal tip terminates within the inferior SVC. No pneumothorax, pleural effusion or overt pulmonary edema. Linear subsegmental bibasilar consolidative opacities suggest atelectasis. There are no suspicious pulmonary nodules or masses identified. Unremarkable soft tissues. No acute fracture. Mild superior endplate compression at T1, likely chronic. No suspicious bone lesion identified. CT ABDOMEN/PELVIS: No pneumatosis or pneumoperitoneum. The unenhanced spleen and adrenal glands are unremarkable. Surgically absent gallbladder prior pancreatic head resection with pancreatico jejunostomy. Probable cyst of the inferior right hepatic lobe redemonstrated at 2.5 cm. Hepatic steatosis. Intrahepatic pneumobilia. Unremarkable kidneys without hydronephrosis. Urinary bladder prostate are unremarkable. No abdominal aortic aneurysm. Colonic diverticulosis. There is persistent moderate wall thickening of the proximal sigmoid colon. There is new circumferential wall thickening of the ascending, proximal and mid transverse colon. Normal appendix. Scattered small bowel air-fluid levels with stool-filled loops of small bowel. There is marked wall thickening involving a loop of stool-filled small bowel within the right mid paracentral abdomen which measures up to approximately 3 cm with associated surrounding inflammatory stranding.. Decompressed loops of small bowel are noted within the abdominal right lower quadrant.. There is inflammatory stranding with soft tissue thickening of the central mesentery. Unremarkable soft tissues. No acute fracture. No new suspicious bone lesions identified. IMPRESSION: 1. Limited exam without the use of IV contrast. No acute intrathoracic abnormality. 2. Prior Whipple procedure. There is distention of the stomach with numerous dilated air and fluid and stool-filled loops of small bowel with decompressed loops of small bowel within the abdominal right lower quadrant. Findings are suggestive of ileus versus low-grade small bowel obstruction with air present within the colon. 3. There is marked wall thickening with perienteric inflammatory stranding involving a stool-filled loop of small bowel within the right paracentral mid abdomen suggestive of a nonspecific enteritis. 4. Soft tissue thickening within the central mesentery may be secondary to reactive edema versus adenopathy. 5. Colonic diverticulosis with unchanged wall thickening of the mid sigmoid. Wall thickening of the ascending and transverse colon is likely reactive. 6. Additional findings as above. ACT 112: Negative or not required by law. Electronically signed by: Curt Burroughs M.D. 09/10/2020 9:[address] 09/10/20 20:16 CT chest diagnostic wo con, CT abd pelvis wo con CT DOSE: 626.98 mGy.cm CLINICAL HISTORY: 50 years-old Male with neutropenic fever. Acute fever with chemotherapy chemotherapy. History of pancreatic carcinoma. Prior pancreatic head resection with pancreatic jejunostomy. TECHNIQUE: Multiaxial CT images of the chest, abdomen and pelvis were performed without contrast. A dose lowering technique was utilized adhering to the principles of ALARA. COMPARISON: CT abdomen from outside institution 06/08/2020 (images only without report). FINDINGS: CT CHEST: Unremarkable thyroid. Heart is normal in size without pericardial effusion. No thoracic aortic aneurysm. Prominent mediastinal lymph nodes with 10 mm right paratracheal lymph node, image 111. Right subclavian Xlpifb-i-Eltg catheter distal tip terminates within the inferior SVC. No pneumothorax, pleural effusion or overt pulmonary edema. Linear subsegmental bibasilar consolidative opacities suggest atelectasis. There are no suspicious pulmonary nodules or masses identified. Unremarkable soft tissues. No acute fracture. Mild superior endplate compression at T1, likely chronic. No suspicious bone lesion identified. CT ABDOMEN/PELVIS: No pneumatosis or pneumoperitoneum. The unenhanced spleen and adrenal glands are unremarkable. Surgically absent gallbladder prior pancreatic head resection with pancreatico jejunostomy. Probable cyst of the inferior right hepatic lobe redemonstrated at 2.5 cm. Hepatic steatosis. Intrahepatic pneumobilia. Unremarkable kidneys without hydronephrosis. Urinary bladder prostate are unremarkable. No abdominal aortic aneurysm. Colonic diverticulosis. There is persistent moderate wall thickening of the proximal sigmoid colon. There is new circumferential wall thickening of the ascending, proximal and mid transverse colon. Normal appendix. Scattered small bowel air-fluid levels with stool-filled loops of small bowel. There is marked wall thickening involving a loop of stool-filled small bowel within the right mid paracentral abdomen which measures up to approximately 3 cm with associated surrounding inflammatory stranding.. Decompressed loops of small bowel are noted within the abdominal right lower quadrant.. There is inflammatory stranding with soft tissue thickening of the central mesentery. Unremarkable soft tissues. No acute fracture. No new suspicious bone lesions identified. IMPRESSION: 1. Limited exam without the use of IV contrast. No acute intrathoracic abnormality. 2. Prior Whipple procedure. There is distention of the stomach with numerous dilated air and fluid and stool-filled loops of small bowel with decompressed loops of small bowel within the abdominal right lower quadrant. Findings are suggestive of ileus versus low-grade small bowel obstruction with air present within the colon. 3. There is marked wall thickening with perienteric inflammatory stranding involving a stool-filled loop of small bowel within the right paracentral mid abdomen suggestive of a nonspecific enteritis. 4. Soft tissue thickening within the central mesentery may be secondary to reactive edema versus adenopathy. 5. Colonic diverticulosis with unchanged wall thickening of the mid sigmoid. Wall thickening of the ascending and transverse colon is likely reactive. 6. Additional findings as above. ACT 112: Negative or not required by law. Electronically signed by: Curt Burroughs M.D. 09/10/2020 9:54 PM Code Status & VTE Plan Code Status Full code VTE Prophylaxis Plan VTE Prophylaxis will be ordered: Yes PG Care Time/CCT Total # of Minutes Spent Total Time Spent with Patient: Total time spent is greater than 50% in coordination of care (as documented) at patient's floor/unit and/or counseling patient: Coding Level of Care Code 09331 Initial Inpt Care Lvl 3 Diagnoses Neutropenic fever D70.9; R50.81 Primary pancreatic cancer with metastasis to other site C25.9 Pancytopenia due to chemotherapy D61.810 Hypokalemia E87.6 Hypomagnesemia E83.42 Diarrhea R19.7
--- NOTE | 2020-09-10 21:56 | CT Scan Report ---
CT chest diagnostic wo con, CT abd pelvis wo con CT DOSE: 626.98 mGy.cm CLINICAL HISTORY: 50 years-old Male with neutropenic fever. Acute fever with chemotherapy chemothera py. History of pancreatic carcinoma. Prior pancreatic head resection with pancreatic jejunostomy. TECHNIQUE: Multiaxial CT images of the chest, abdomen and pelvis were performed without contrast. A dose lowering technique was utilized adhering to the principles of ALARA. COMPARISON: CT abdomen from outside institution 06/08/2020 (images only without report). FINDINGS: CT CHEST: Unremarkable thyroid. Heart is normal in size without pericardial effusion. No thoracic aortic aneury sm. Prominent mediastinal lymph nodes with 10 mm right paratracheal lymph node, image 111. Right subc lavian Xadsds-q-Voac catheter distal tip terminates within the inferior SVC. No pneumothorax, pleural effusion or overt pulmonary edema. Linear subsegmental bibasilar consolidati ve opacities suggest atelectasis. There are no suspicious pulmonary nodules or masses identified. Unr emarkable soft tissues. No acute fracture. Mild superior endplate compression at T1, likely chronic. No suspicious bone lesion identified. CT ABDOMEN/PELVIS: No pneumatosis or pneumoperitoneum. The unenhanced spleen and adrenal glands are unremarkable. Surgic ally absent gallbladder prior pancreatic head resection with pancreatico jejunostomy. Probable cyst o f the inferior right hepatic lobe redemonstrated at 2.5 cm. Hepatic steatosis. Intrahepatic pneumobil ia. Unremarkable kidneys without hydronephrosis. Urinary bladder prostate are unremarkable. No abdomi nal aortic aneurysm. Colonic diverticulosis. There is persistent moderate wall thickening of the proximal sigmoid colon. T here is new circumferential wall thickening of the ascending, proximal and mid transverse colon. Norm al appendix. Scattered small bowel air-fluid levels with stool-filled loops of small bowel. There is marked wall thickening involving a loop of stool-filled small bowel within the right mid paracentral abdomen which measures up to approximately 3 cm with associated surrounding inflammatory stranding.. Decompressed loops of small bowel are noted within the abdominal right lower quadrant.. There is inflammatory stranding with soft tissue thickening of the central mesentery. Unremarkable so ft tissues. No acute fracture. No new suspicious bone lesions identified. IMPRESSION: 1. Limited exam without the use of IV contrast. No acute intrathoracic abnormality. 2. Prior Whipple procedure. There is distention of the stomach with numerous dilated air and fluid an d stool-filled loops of small bowel with decompressed loops of small bowel within the abdominal right lower quadrant. Findings are suggestive of ileus versus low-grade small bowel obstruction with air p resent within the colon. 3. There is marked wall thickening with perienteric inflammatory stranding involving a stool-filled l oop of small bowel within the right paracentral mid abdomen suggestive of a nonspecific enteritis. 4. Soft tissue thickening within the central mesentery may be secondary to reactive edema versus aubree opathy. 5. Colonic diverticulosis with unchanged wall thickening of the mid sigmoid. Wall thickening of the a scending and transverse colon is likely reactive. 6. Additional findings as above. ACT 112: Negative or not required by law. Electronically signed by: Curt Burroughs M.D. 09/10/2020 9:54 PM
[2020-09-10] MEDS ORDERED: ONDANSETRON 4 MG OD TAB PO PRN (22:27)
[2020-09-10] MEDS ORDERED: LOPERAMIDE HCL 2 MG CAP PO PRN (22:27)
[2020-09-10] MEDS ORDERED: ACETAMINOPHEN HOME PACK 500 MG TABLET PO PRN (22:27)
[2020-09-10] MEDS ORDERED: PIPERACILL/TAZOBAC CONSULT ACTIVE PRN (22:27)
[2020-09-10] MEDS ORDERED: PROCHLORPERAZINE MALEATE 10 MG TAB PO PRN (22:27)
[2020-09-10] MEDS ORDERED: ONDANSETRON INJ 2 MG/ML 2 ML VIAL IV PRN (22:27)
[2020-09-10 22:51] LABS: Phosphorus 2.3 mg/dl (2.5-4.9)
[2020-09-10] MEDS ORDERED: FILGRASTIM 480 MCG/1.6 ML VIAL SC ONE (23:00)
[2020-09-10] MEDS ORDERED: CALCIUM CARBONATE 500 MG CHEWABLE TAB PO ONE (23:14)
[2020-09-10] MEDS: MAGNESIUM SULFATE / D5W 1 GM/100 ML BAG IV SCH (23:25)
[2020-09-10] MEDS: DIPHENOXYLATE/ATROPINE 2.5MG/0.025MG/5ML PO SCH (23:52)
[2020-09-10] MEDS: APIXABAN 5 MG TABLET PO SCH (23:52)
[2020-09-10] MEDS: ADVANCED PROBIOTIC 1250 MG CAPSULE PO SCH (23:52)
[2020-09-10] MEDS: FAMOTIDINE 20 MG in SYRINGE 3 ML IV SCH (23:53)
[2020-09-10] MEDS: NSS + 20MEQ KCL 20 MEQ/1,000 ML BAG IV SCH (23:53)
[2020-09-10] MEDS: PSYLLIUM 58.6% POWDER PACKET PO SCH (23:53)
[2020-09-10] MEDS: PANCREAZE (LIPASE 10,500U) CAP PO SCH (23:56)
[2020-09-11] MEDS ORDERED: TPN IV SCH (00:15)
[2020-09-11] MEDS: PIPERACILLIN/TAZOBACTAM 4.5 GM in DEXTROSE 5% 100 ML IV SCH ×3 (01:06→17:08)
[2020-09-11] MEDS: MAGNESIUM SULFATE / D5W 1 GM/100 ML BAG IV SCH ×2 (01:25→04:12)
[2020-09-11] MEDS: CHOLESTYRAMINE LIGHT 4 GM PKT PO SCH ×3 (01:44→22:13)
[2020-09-11] MEDS: VANCOMYCIN HCL 1,500 MG in SODIUM CHLORIDE 0.9% 500 ML IV SCH ×3 (04:49→19:48)
[2020-09-11] MEDS ORDERED: GLUCOSE 10 TABS/TUBE PO PRN (06:17)
[2020-09-11] MEDS ORDERED: GLUCOSE 40% GEL 15 GM TUBE PO PRN (06:17)
[2020-09-11] MEDS ORDERED: CARBOHYDRATES FOR HYPOGLYCEMIA PO PRN (06:17)
[2020-09-11] MEDS ORDERED: DEXTROSE 50% 50 ML SYRINGE IV PRN (06:17)
[2020-09-11] MEDS ORDERED: GLUCAGON FOR INJ 1 MG VIAL SQ PRN (06:17)
[2020-09-11 06:50] LABS: Hematocrit (blood only) 19.4 % (42-52); Hemoglobin 6.3 g/dL (14.0-18.0); Mean Corpuscular Hemoglobin 28.9 pg (25-34); Mean Corpuscular Hgb Conc 32.5 g/dL (32-36); Mean Platelet Volume 8.8 fL (7.4-10.4); Platelet Count 51 K/uL (130-400); RDW Coefficient of Variation 17.1 % (11.5-14.5); RDW Standard Deviation 55.4 fL (36.4-46.3); Red Blood Count 2.18 M/uL (4.7-6.1)
[2020-09-11 06:53] LABS: Platelet Estimate Decreased (Normal)
[2020-09-11 06:55] LABS: INR 1.1 (0.9-1.1); Partial Thromboplastin Ratio 1.4; Partial Thromboplastin Time 36.6 Seconds (21.0-31.0); Prothrombin Time 11.4 Seconds (9.0-12.0)
[2020-09-11 07:06] LABS: Albumin Level 1.7 gm/dl (3.4-5.0); BUN Creatinine Ratio 30.6 (10-20); Calcium 7.3 mg/dl (8.5-10.1); Est GFR (African American) 125.8 ml/min; Est GFR (Non-African American) 108.5 ml/min; Magnesium 2.2 mg/dl (1.8-2.4); Potassium 3.5 mmol/L (3.5-5.1)
[2020-09-11 07:15] LABS: Albumin Globulin Ratio 0.6 (0.9-2); Bilirubin,Total 0.4 mg/dl (0.2-1); Globulin 2.8 gm/dl (2.5-4.0); Phosphorus 1.7 mg/dl (2.5-4.9); Total Protein 4.5 gm/dl (6.4-8.2)
[2020-09-11] MEDS ORDERED: SODIUM CHLORIDE 0.9% 250 ML IV PRN (07:40)
[2020-09-11] MEDS: ASPIRIN 81 MG ECTAB PO SCH ×2 (09:06→09:23)
[2020-09-11] MEDS: ADVANCED PROBIOTIC 1250 MG CAPSULE PO SCH ×3 (09:07→21:17)
[2020-09-11] MEDS: CHOLECALCIFEROL 1,000 UNITS 25 MCG TAB PO SCH ×2 (09:07→09:23)
[2020-09-11] MEDS: DIPHENOXYLATE/ATROPINE 2.5MG/0.025MG/5ML PO SCH ×3 (09:07→21:16)
[2020-09-11] MEDS: PANTOprazole 40 MG TAB PO SCH ×2 (09:07→09:23)
[2020-09-11] MEDS: APIXABAN 5 MG TABLET PO SCH ×3 (09:07→21:16)
[2020-09-11] MEDS: PANCREAZE (LIPASE 10,500U) CAP PO SCH ×4 (09:08→21:18)
[2020-09-11] MEDS: PSYLLIUM 58.6% POWDER PACKET PO SCH ×2 (09:09→21:19)
--- NOTE | 2020-09-11 09:10 | Pharmacy Report ---
Pharmacy Abx Dose Short Note - Date of Service September 11, 2020 - Assessment & Plan Assessment 50 year old M receiving Vancomycin and Zosyn empirically for treatment of febrile neutropenia * PMHx significant for metastatic pancreatic cancer and persistent diarrhea * Febrile at 39.5oC. White count at 400. * Cultures pending Plan Vancomycin * Loading dose: 1750 mg (23 mg/kg) IV x 1 * Maintenance dose: 1500 mg (20 mg/kg) IV every 8 hours * Goal trough level: 15 to 20 mcg/mL * Trough level ordered for 09/12/20 prior to 1200 dose Pharmacy will continue to follow and will adjust dose/frequency as necessary. Thank you.
[2020-09-11] MEDS: INSULIN ASPART 100 UNITS/ML 3 ML PEN SC SCH ×4 (09:11→21:57)
[2020-09-11] MEDS: FAMOTIDINE 20 MG in SYRINGE 3 ML IV SCH ×2 (10:35→22:37)
[2020-09-11] MEDS ORDERED: FAMOTIDINE 20 MG in SYRINGE 3 ML IV ONE (15:45)
[2020-09-11] MEDS: NSS + 20MEQ KCL 20 MEQ/1,000 ML BAG IV SCH ×2 (16:10→23:58)
[2020-09-11 16:30] LABS: Hematocrit (blood only) 30.6 % (42-52); Hemoglobin 10.4 g/dL (14.0-18.0)
--- NOTE | 2020-09-11 17:14 | Hospitalist Progress Note ---
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 He is hemodynamically stable. NEUTROPENIC FEVER -- origin unknown at this point; patient on TPN - In the setting of pancreatic cancer, ongoing chemotherapy and radiation treatments (follows with Dr. Krishnan), as well as TPN use - Work-up as follows: - Symptomatically, reporting ongoing loose BMs since April (after procedure) as well as some mild RUQ/RLQ pain. Otherwise, well-appearing on exam. - CBC demonstrating leukopenia to 0.4 - UA without abnormalities - CT-Chest: Without acute processes or findings that would be suggestive of infectious etiology - CT-A/P: Persistent wall thickening of proximal sigmoid. New thickening of ascending proximal and mid-transverse colon. Numerous dilated air-fluid and stool-filled loops of small bowel - ileus vs. low-grade SBO. Perienteric inflammation of a stool-filled loop of small bowel within R paracentral mid-abdomen suggestive of nonspecific enteritis. - Await BCX (repeat p.r.n.) -- NG x 24hr - Patient has colonoscopy planned for - s/p cefepime, neupogen in ED - Continue Zosyn, Vancomycin for now - Unclear source at present: the enteritis and findings c/w ileus vs. SBO are noted, especially in the setting of mild abdominal pain. - Oncology consult, appreciate insight and recommendations - Tylenol p.r.n. - Maintain NSS + KCl at 100cc/hr - AM Labs: CBC, CRP, procalcitonin, lactate NONSPECIFIC ENTERITIS + RADIOLOGIC FINDINGS C/F MILD ILEUS VS. SBO - Noted on CT-A/P, as above - Patient noted to have ileus following Whipple procedure (discharged from [facility] [place] on 05/24/20) - ?Malabsorptive/post-surgical enteritis VS. radiation-induced enteritis VS. neutropenic enteritis VS. viral - Patient reporting mild right-sided abdominal tenderness on exam - No symptoms of ileus or SBO at present -- taking in liquids fine, passed BMs on Day 1 of admission - Stool culture, parasites and ova, leukocytes ordered in setting of ongoing diarrhea (neutropenic enteritis considered as possibility, too) - IV PPIs, as above - Clear liquids, advance as tolerated, monitor for sxs SBO - Consider surgical consult if abdominal pain worsens ONGOING DIARRHEA -- in setting of recent Whipple procedure - Patient reporting multi-month history of loose stools following his Whipple procedure, has been managed by [facility] [place] - May be result of GI reconstruction, accelerated passage, bile acid-origin, etc. - Suspect as the cause of hypomagnesemia, hypokalemia on arrival - Continue diphenoxylate atropine and as needed loperamide for now - Continue cholestyramine -- can increase dose p.r.n. - Stool cultures, ova, parasites, leukocytes as above - Continue TPN PANCYTOPENIA -- asymptomatic aside from fever - On admission, noted to have: 0.4 > 7.8 / 24 < 68 --> AM labs Day #1, Hgb 6.3 (after NSS bolus, mIVF @ 150, ABX, etc.) - Suspect dilutional component to ANEMIA, however, given significant drop and ongoing neutropenic fever of unknown origin and enteritis --> transfuse - s/p 2U pRBC on 09/11 --> repeat Hgb ?10.4 - If patient requires further transfusions, ensure leukoreduced and irradiated - Suspect secondary to chemotherapy - Heme occult blood, as above - Consider holding anticoagulation, antiplatelet if concern for bleed arises - CBC qAM PANCREATIC CANCER S/P WHIPPLE -- course complicated by SMA injury requiring reconstruction, prolonged ileus requiring TPN support - Followed by Dr. Krishnan -- consulted, as above - Continue Apixaban (vascular reconstruction per [facility] [place] records - Continue TPN ELECTROLYTE DERANGEMENTS -- hypoMg, hypoK - Repleted. Monitor daily. - In setting of multiple bowel movements CODE: Full code DISPO: MS/Tele FENGI: Clear Liquid, as above, NSS+KCl @ 100cc/hr PPX: Eliquis, as above * Some of patient's hospitalizations have occurred at [facility] [place]; please see their EMR for further information (2) Primary pancreatic cancer with metastasis to other site: (3) Pancytopenia due to chemotherapy: (4) Hypokalemia: (5) Hypomagnesemia: (6) Diarrhea: Admission and Anticipated Discharge Date Admission Date: September 10, 2020 Supervising Physician Co-Signing Physician Notes Attending attestation Pt seen and examined in concert with Dr. Yanez. In agreement with the documented findings as noted in the resident documentation with any exceptions or additions as noted here. Persistent fevers in the setting of neutropenia w/ active chemotherapy and radiation therapy. Ongoing abdominal pain, chiefly RLQ which has been intermittent for ~1 month which is worsened by POI. Stooling has been regular and nb/nb on a daily basis. No apparent nausea, though intermittent reflux sensation which is similar to chronic GERD. On examination, S1/S2 nl RRR no MCG. CTAB. mild abd TTP RLQ with active BS Neutropenic fever - oncology consultation - IV vancomycin and zosyn with BCx pending. Area of enteritis noted on CT abd with history of diverticulitis - endoscopy planned in outpatient for . Pancytopenia w/ anemia < 7, ANC low - neupogen administered. s/p 2U PRBC leukoirradiated with good hgb response to 10.4 Primary pancreatic cancer s/p whipple in Apr 2020 - has been on TPN since July 22 ongoing diarrhea with multiple admissions for same s/p Whipple. Trend BMP and replete as necessary. Else see resident documentation as noted. Subjective Seen at the bedside this morning. Feeling well overall. Very mild RUQ/epigastric pain, describes as heartburn in quality. Reports feeling well otherwise. No lightheadedness or dizziness. No chest pain, palpitations, or shortness of breath. No nausea or vomiting. Has been stooling. Review of Systems Review of Systems: as per HPI Physical Exam Physical Exam: General: Tired-appearing 50yoM who is alert, oriented, and appears in no acute distress. Body habitus: WNL HEENT: NCAT. Eyes - Sclera are white, anicteric, and without injection. PERRL. Cardiac: Normal rate and regular rhythm; S1 and S2 present with no murmurs, rubs, or gallops. Pulmonary: Good respiratory effort with symmetric expansion of the chest. No use of accessory muscles. Lungs were clear to auscultation bilaterally with no crack les or wheezes. Abdominal: Normoactive bowel sounds. Abdomen was soft, nondistended, and very mildly TTP at the epigastrium/RUQ. Huynh's negative. Extremities: Upper and lower extremities are warm and well perfused. No peripheral edema. Results & Data Results & Data ([facility]) Vital Signs (Past 12 Hours) Vital Signs Temp Pulse Pulse Resp BP BP Pulse Ox 09/11/20 16:55 37.1 C 09/11/20 14:15 38.3 C H 90 18 92/53 L 97 09/11/20 13:15 38.8 C H 87 20 95/59 L 93 09/11/20 12:45 38.8 C H 87 95/59 L 93 09/11/20 12:33 37.4 C 86 20 94/57 L 98 09/11/20 12:30 37.8 C H 89 18 96/59 L 98 09/11/20 12:14 37.3 C 88 18 99/63 L 99 09/11/20 11:42 37.4 C 82 18 95/57 L 99 09/11/20 10:00 36.8 C 83 16 89/56 L 99 09/11/20 09:29 36.7 C 81 18 95/60 L 99 09/11/20 09:05 92/87 L 09/11/20 08:59 36.8 C 79 18 82/57 L 100 09/11/20 08:45 36.6 C 76 16 94/55 L 100 09/11/20 08:22 36.4 C L 78 18 90/51 L 97 09/11/20 07:20 36.8 C 79 20 87/45 L 97 09/11/20 06:00 36.5 C Resident Activity Tracking Resident Involvement: Resident Care Provided Care Provided: Adult Hospital Medicine
[2020-09-11] MEDS ORDERED: CALCIUM CARBONATE 500 MG CHEWABLE TAB PO PRN (19:59)
[2020-09-11] MEDS: ACETAMINOPHEN 325 MG TAB PO PRN (21:15)
[2020-09-11] MEDS: TPN IV SCH (23:51)
[2020-09-12] MEDS: PIPERACILLIN/TAZOBACTAM 4.5 GM in DEXTROSE 5% 100 ML IV SCH ×3 (01:50→17:47)
[2020-09-12] MEDS: VANCOMYCIN HCL 1,500 MG in SODIUM CHLORIDE 0.9% 500 ML IV SCH ×3 (03:42→20:10)
[2020-09-12] MEDS: ACETAMINOPHEN 325 MG TAB PO PRN (06:04)
[2020-09-12 06:25] LABS: Hematocrit (blood only) 23.4 % (42-52); Hemoglobin 7.8 g/dL (14.0-18.0); Mean Corpuscular Hemoglobin 29.4 pg (25-34); Mean Corpuscular Hgb Conc 33.3 g/dL (32-36); Mean Corpuscular Volume 88.3 fL (80-100); Mean Platelet Volume 10.9 fL (7.4-10.4); Platelet Count 72 K/uL (130-400); RDW Coefficient of Variation 16.3 % (11.5-14.5); RDW Standard Deviation 51.9 fL (36.4-46.3); Red Blood Count 2.65 M/uL (4.7-6.1); White Blood Count 0.86 K/uL (4.8-10.8)
[2020-09-12 06:29] LABS: INR 1.1 (0.9-1.1); Partial Thromboplastin Ratio 1.4; Prothrombin Time 11.2 Seconds (9.0-12.0)
[2020-09-12 06:50] LABS: Albumin Level 1.5 gm/dl (3.4-5.0); BUN Creatinine Ratio 28.8 (10-20); Calcium 7.2 mg/dl (8.5-10.1); Creatinine Clr Calc Pharmacy 162.6 ml/min; Est GFR (African American) 131.3 ml/min; Est GFR (Non-African American) 113.3 ml/min; Magnesium 1.9 mg/dl (1.8-2.4); Potassium 3.5 mmol/L (3.5-5.1)
[2020-09-12 06:52] LABS: Albumin Globulin Ratio 0.5 (0.9-2); Bilirubin,Total 0.5 mg/dl (0.2-1); C Reactive Protein 16.1 mg/dl (0-0.29); Globulin 2.8 gm/dl (2.5-4.0); Phosphorus 1.6 mg/dl (2.5-4.9); Total Protein 4.3 gm/dl (6.4-8.2)
[2020-09-12 07:12] LABS: ALC (manual) 0.15 K/uL (1.2-3.4); ANC (manual) 0.12 K/uL (1.4-6.5); Eosinophils # (manual) 0.17 K/uL (0-0.5); Lymphocytes # (manual) 0.15 K/uL (1.2-3.4); Monocytes # (manual) 0.41 K/uL (0.11-0.59); Neutrophils # (manual) 0.12 K/uL (1.4-6.5)
[2020-09-12 07:51] LABS: Estimated Average Glucose 126 mg/dl
[2020-09-12] MEDS ORDERED: SODIUM CHLORIDE 0.9% 1000ML 250 ML IV ONE (08:01)
[2020-09-12] MEDS: PSYLLIUM 58.6% POWDER PACKET PO SCH ×2 (08:23→20:24)
[2020-09-12] MEDS: CHOLECALCIFEROL 1,000 UNITS 25 MCG TAB PO SCH (08:23)
[2020-09-12] MEDS: ADVANCED PROBIOTIC 1250 MG CAPSULE PO SCH ×2 (08:23→20:23)
[2020-09-12] MEDS: ASPIRIN 81 MG ECTAB PO SCH (08:23)
[2020-09-12] MEDS: APIXABAN 5 MG TABLET PO SCH ×2 (08:24→20:20)
[2020-09-12] MEDS: PANCREAZE (LIPASE 10,500U) CAP PO SCH ×4 (08:24→20:23)
[2020-09-12] MEDS: PANTOprazole 40 MG TAB PO SCH (08:24)
[2020-09-12] MEDS: DIPHENOXYLATE/ATROPINE 2.5MG/0.025MG/5ML PO SCH ×2 (08:24→20:23)
[2020-09-12] MEDS: INSULIN ASPART 100 UNITS/ML 3 ML PEN SC SCH ×4 (08:27→20:24)
[2020-09-12] MEDS ORDERED: POTASSIUM PHOS 3 MMOL/1 ML INFUSION IV STA (09:03)
--- NOTE | 2020-09-12 09:08 | Medical Student Progress Note ---
Date of Service September 12, 2020 Assessment & Plan (1) Neutropenic fever: In summary, this is a 50 yo gentleman with a recently diagnosed metastatic pancreatic cancer s/p Whipple's procedure in Apr currently on active chemo/radiation therapy. Presented with acute onset RUQ and a fever of 102, He was found to have pancytopenia (WBC 0.4 ) and was given 2U pRBC. Patient received cefepime and neupogen in ED. He received the following workup looking for a possible source of infection: - negative blood cultures at 48 hours for aerobic and anaerobic bacteria -stool cultures pending for shiga toxin and Echoli, WBC smear negative, positive for blood -CXR negative for pneumonia or other acute processes -UA: no abnormalities - CT-Chest:no acute processes or signs of infections - CT-A/P: thickening of sigmoid and transverse colon goode, consistent with non specific enteritis So far, no clear source of infection. Fever is likely due to neutropenia caused by chemotherapy - Continue Zosyn, Vancomycin -continue to monitor blood counts with CBC qAM -continue to monitor fever -continue IV fluids -continue current TPN regiment - Patient has colonoscopy planned for , might need to hold if symptoms of enteritis persist (2) Enteritis: Noted on CT to have persistent thickening in wall of sigmoid and acute thickening of transverse colon wall. Patient has has ongoing diarrhea since he underwent Whipple procedure for pancreatic cancer in Apr. This could radiation induced, malabsorption post Whipples procedure, or of viral etiology although less likely due to chronic nature and absence of WBC - Stool culture pending for shiga toxin and Echoli, WBC smear negative, positive for blood - Continue anti diarrhea managment medication: diphenoxylate atropine, loperamide PRN, and cholestyramine - continue IV PPIs, and fluids - Clear liquids, advance as tolerated (3) Diarrhea: chronic. has been ongoing for a few months since his underwent Whipple's procedure. no blood in the stool. Managed by [facility] -continue current TPN regimen -continue IV fluids - Continue anti diarrhea managment medication: diphenoxylate atropine, loperamide PRN, and cholestyramine (4) Pancytopenia due to chemotherapy: Due to pancreatic cancer treatment with chemotherapy. Received 2 U pRBCs, has not required more transfusions. Asymptomatic except for fever. His last Tmax was last night at 38.8. Today: WBC 0.4 -->0.86 RBC 2.18 --> 2.65 neutrophils 0.12 lymphocytes 0.15 - If patient becomes symptomatic, develops light headedness, fatigue, weakness, and requires further transfusions, give leukoreduced and irradiated RBCs - May need to hold anticoagulation, antiplatelet if numbers start to trend down or needs procedure - continue to monitor with CBC qAM Admission and Anticipated Discharge Date Admission Date: September 10, 2020 Supervising Attestation I personally examined the patient and verified all escalona points of history and exam, discussed case, and agree with decision making with Chanelle Gutierrez MS2 Feeling fairly good overall. Only complaint is right-sided abdominal pain. He has ongoing diarrheabut notes this has been basically the same since his surgery, relates largely to eating. Has had no fevers rigors or sweats. Was a little bit cold earlier but after eating sherbet, notes that he always gets cold easily after that. No cough no shortness of breath. No skin rashes. No dysuria. Blood cultures negative to date. arrives, and updated both of them to the best of my ability. Vitals noted, in general he is awake and alert pleasant no distress. HEENT normocephalic atraumatic mucous membranes moist. Breathing unlabored no accessory muscle use lungs are clear no rales rhonchi or wheezes. Cardio regular without rubs murmurs or gallops. Abdomen is soft right-sided tenderness without guarding rebound or rigidity, mostly upper to mid right abdomen. Skin is tanned without rashes pallor or icterus. Neuro shows no focal deficits. Neutropenic feverwould like to see him 24 hours fever free before switching to oral antibiotics. Right now no clear sourceit could theoretically be colitis, but I suspect more likely this is radiation-induced, although given that he will require an empiric antibiotic regimen this would cover for it anyway. He is on chronic TPNso certainly we will want to follow blood cultures out, but with no growth to date this is more reassuring. Continue current care and follow. Colitissuspect radiation-induced, cannot entirely rule out bacterial translocation as above. Will ensure that radiation oncology is aware we are seeing, so that they can guide the patient and/or adjust treatment accordingly. He is for a colonoscopy later this weekcertainly it seems like it would be helpful, but in the context of this potential acute colitis picture, more than likely delaying it would be prudentwe will defer to GI expertise on this. otherwise as above Subjective Mr. Anderson is doing well overall today. His mild RUQ/epigastric pain persists. He reports a mild headache. Otherwise feeling well. He is able to tolerate his TPN well with some nausea but no vomiting. Chronic diarrhea, no blood in the stool. No objective fevers, nightsweats, chills. No lightheadedness or dizziness. No chest pain, palpitations, or shortness of breath. Review of Systems Constitutional: no fever, no chills and no sweats Respiratory: no cough and no dyspnea on exertion Cardiovascular: no chest pain, no chest pain at rest and no dyspnea Neurologic: no tingling, no numbness and no paresthesia Physical Exam Constitutional: well developed; no acute distress Respiratory: normal respiratory effort Auscultation: lungs clear to auscultation bilaterally; no crackles, no rales and no rhonchi Cardiovascular: Rate/Rhythm: regular rate and regular rhythm Heart Sounds: normal S1 and normal S2; no gallop, no murmur and no cardiac rub Extremities: no pedal edema and no edema Gastrointestinal (Abdomen): Inspection/Auscultation: abdomen normal to inspection and normal bowel sounds; abdomen not distended Percussion/Palpation: + abdomen tender (tender on plapation, RUQ) and abdomen soft; no guarding, abdomen not rigid and no abdominal mass radiation tattoos noted Results & Data ([facility]) Vital Signs (Past 12 Hours) Vital Signs Temp Pulse Pulse Resp BP Pulse Ox 09/12/20 07:59 36.5 C 84 20 97/57 L 96 09/12/20 04:00 37.7 C H 92 H 18 100/60 95 09/12/20 00:14 85 09/11/20 22:58 37.7 C H 85 18 102/52 L 95
[2020-09-12] MEDS ORDERED: POTASSIUM PHOSPHATE 40 MMOL in SODIUM CHLORIDE 0.9% 1000ML 1,000 ML IV STA (09:10)
[2020-09-12] MEDS: CHOLESTYRAMINE LIGHT 4 GM PKT PO SCH ×2 (09:21→22:56)
[2020-09-12] MEDS: NSS + 20MEQ KCL 20 MEQ/1,000 ML BAG IV SCH ×3 (10:19→22:06)
[2020-09-12] MEDS ORDERED: VANCOMYCIN TROUGH ONE (11:30)
[2020-09-12] MEDS: FAMOTIDINE 20 MG in SYRINGE 3 ML IV SCH ×2 (11:43→22:59)
[2020-09-12] MEDS: TPN IV SCH ×2 (12:03→17:48)
--- NOTE | 2020-09-12 12:18 | Pharmacy Report ---
Pharmacy Abx Dose Short Note - Date of Service September 12, 2020 - Assessment & Plan Assessment 50 year old M receiving Vancomycin and Zosyn empirically for treatment of febrile neutropenia * PMHx significant for metastatic pancreatic cancer and persistent diarrhea * Persistently febrile and neutropenic. Blood cultures NGTD. Renal function stable. * Trough level drawn appropriately and is a ~7.6hr level. Plan Vancomycin * Trough level of 18.5 mcg/mL is therapeutic. * Continue dose of 1500mg IV every 8 hours * Goal trough level: 15 to 20mcg/mL * Trough level ordered for: 09/14 prior to the AM dose Pharmacy will continue to follow and will adjust dose/frequency as necessary. Thank you.
[2020-09-12] MEDS ORDERED: TPN IV SCH (18:00)
--- NOTE | 2020-09-12 18:18 | Billing Data ---
Date of Service September 12, 2020 Coding Level of Care Code 48812 Subseq Hosp Care Lvl 3
[2020-09-12] MEDS: MELATONIN 3 MG TAB PO PRN (21:50)
[2020-09-13] MEDS: VANCOMYCIN HCL 1,500 MG in SODIUM CHLORIDE 0.9% 500 ML IV SCH ×3 (02:58→19:47)
[2020-09-13] MEDS: PIPERACILLIN/TAZOBACTAM 4.5 GM in DEXTROSE 5% 100 ML IV SCH ×3 (02:58→18:14)
[2020-09-13] MEDS: ACETAMINOPHEN 325 MG TAB PO PRN (03:05)
[2020-09-13 06:20] LABS: Hematocrit (blood only) 23.3 % (42-52); Mean Corpuscular Hemoglobin 30.2 pg (25-34); Mean Corpuscular Hgb Conc 34.3 g/dL (32-36); Mean Corpuscular Volume 87.9 fL (80-100); Nucleated RBC # (auto) 0.02 K/uL (0-0); Nucleated RBC % (auto) 0.6 %; RDW Coefficient of Variation 16.5 % (11.5-14.5); RDW Standard Deviation 51.9 fL (36.4-46.3); Red Blood Count 2.65 M/uL (4.7-6.1); White Blood Count 3.21 K/uL (4.8-10.8)
[2020-09-13 06:32] LABS: INR 1.2 (0.9-1.1); Partial Thromboplastin Ratio 1.4; Prothrombin Time 11.7 Seconds (9.0-12.0)
[2020-09-13 06:46] LABS: Mean Platelet Volume 11.2 fL (7.4-10.4); Platelet Count 90 K/uL (130-400)
[2020-09-13 06:58] LABS: Albumin Level 1.4 gm/dl (3.4-5.0); BUN Creatinine Ratio 41.7 (10-20); Calcium 7.5 mg/dl (8.5-10.1); Creatinine Clr Calc Pharmacy 224.5 ml/min; Est GFR (African American) 149.4 ml/min; Est GFR (Non-African American) 128.9 ml/min
[2020-09-13 07:07] LABS: Albumin Globulin Ratio 0.5 (0.9-2); Bilirubin,Total 0.4 mg/dl (0.2-1); Phosphorus 3.1 mg/dl (2.5-4.9); Total Protein 4.4 gm/dl (6.4-8.2)
[2020-09-13] MEDS: MAGNESIUM SULFATE / D5W 1 GM/100 ML BAG IV SCH ×3 (07:46→11:34)
[2020-09-13] MEDS: NSS + 20MEQ KCL 20 MEQ/1,000 ML BAG IV SCH ×2 (07:46→20:28)
[2020-09-13] MEDS: CHOLECALCIFEROL 1,000 UNITS 25 MCG TAB PO SCH (07:47)
[2020-09-13] MEDS: ASPIRIN 81 MG ECTAB PO SCH (07:47)
[2020-09-13] MEDS: PANCREAZE (LIPASE 10,500U) CAP PO SCH ×4 (07:48→21:11)
[2020-09-13] MEDS: PANTOprazole 40 MG TAB PO SCH (07:48)
[2020-09-13] MEDS: APIXABAN 5 MG TABLET PO SCH ×2 (07:48→21:10)
[2020-09-13] MEDS: ADVANCED PROBIOTIC 1250 MG CAPSULE PO SCH ×2 (07:49→21:11)
[2020-09-13] MEDS: DIPHENOXYLATE/ATROPINE 2.5MG/0.025MG/5ML PO SCH ×2 (07:49→21:10)
[2020-09-13] MEDS: PSYLLIUM 58.6% POWDER PACKET PO SCH ×2 (07:49→21:12)
[2020-09-13 07:50] LABS: ALC (manual) 0.54 K/uL (1.2-3.4); ANC (manual) 1.57 K/uL (1.4-6.5); Eosinophils # (manual) 0.28 K/uL (0-0.5); Eosinophils % (manual) 8.8 %; Lymphocytes # (manual) 0.54 K/uL (1.2-3.4); Lymphocytes % (manual) 16.7 %; Metamyelocytes # (manual) 0.06 K/uL (0-0); Metamyelocytes % (manual) 1.8 %; Monocytes # (manual) 0.62 K/uL (0.11-0.59); Monocytes % (manual) 19.3 %; Myelocytes # (manual) 0.08 K/uL (0-0); Myelocytes % (manual) 2.6 %; Neutrophils # (manual) 1.57 K/uL (1.4-6.5); Promyelocytes # (manual) 0.06 K/uL (0-0); Promyelocytes % (manual) 1.8 %
[2020-09-13] MEDS: INSULIN ASPART 100 UNITS/ML 3 ML PEN SC SCH ×4 (08:41→21:00)
--- NOTE | 2020-09-13 08:56 | Consultation Report ---
DATE OF CONSULTATION: 09/13/2020 MEDICAL ONCOLOGY CONSULTATION REASON FOR CONSULTATION: Neutropenic fever in a 50-year-old gentleman with history of intermediate-grade neuroendocrine tumor of the pancreas. HISTORY OF PRESENT ILLNESS: Jorge Anderson is a very pleasant 50-year-old gentleman well known to me with history of locally advanced neuroendocrine pancreatic cancer, intermediate grade, currently receiving chemoradiation through [facility]. Not surprisingly, he presented to [facility] on 09/10/2020 with 102 fever at home. He continues to struggle with chronic diarrhea since his surgery. Mr. Anderson had been utilizing antidiarrheals and tincture of opium which have been minimally beneficial. Not surprisingly, his blood counts were found to be quite low including his neutrophil count and he was appropriately started on broad-spectrum antibiotics. Thus far, blood and stool cultures are negative. 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 His treatment was delayed because of surgical complications and prolonged healing. He was started on concurrent cisplatin and etoposide/radiation therapy on 08/08/2020. He recently finished cycle #2 on 08/31/2020. This morning, Leander seems to be in relatively good spirits and I believe discussions are underway to convert his antibiotics to oral and prepare him for discharge. PAST MEDICAL HISTORY: Significant for diverticular disease and neuroendocrine pancreatic tumor. PAST SURGICAL HISTORY: Status post ear surgery. MEDICATIONS: Include apixaban 5 mg p.o. b.i.d., aspirin 81 mg p.o. daily, loperamide 4 mg p.o. q.i.d. p.r.n., Zofran 8 mg p.o. q. 8 hours p.r.n., Protonix 40 mg p.o. daily, Compazine 10 mg p.o. q. 6 hours p.r.n., cholecalciferol 25 mcg p.o. daily, Lomotil 10 mL p.o. b.i.d., [id number]-[id number]-axavlft 2 capsules p.o. q.i.d., psyllium husk 1 tablespoon p.o. b.i.d., and Tylenol 500 mg p.o. every 6 hours. ALLERGIES: No known drug allergies. FAMILY HISTORY: His mother is otherwise healthy. Father from pancreatic cancer. SOCIAL HISTORY: The patient has a girlfriend. He is . 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 Positive for social alcohol, negative for substance abuse or cigarettes. REVIEW OF SYSTEMS: CONSTITUTIONAL: As per HPI, most notably for fever and asthenia, negative for anorexia or weight loss. SKIN: No rashes or lesions. No history of dermatoses. HEENT: Negative for headaches, lightheadedness or dizziness. No visual or hearing deficits. No sinus symptoms, sore throat or dysphagia. LYMPH: No history of lymphadenopathy or lymphoproliferative disease. CARDIAC: Negative for coronary artery disease, no angina or palpitations. PULMONARY: Negative for COPD. No shortness of breath, dyspnea or orthopnea. No cough or hemoptysis. GASTROINTESTINAL: Positive for persistent diarrhea. No abdominal pain per se. Positive for fecal occult blood testing. GENITOURINARY: No hematuria, dysuria, urinary incontinence. PSYCHIATRIC: Negative for anxiety, depression. ENDOCRINE: Negative for diabetes or thyroid disease. NEUROLOGIC: Negative for seizure, stroke, or migraine headache. MUSCULOSKELETAL: Negative for arthralgias or myalgias. No focal muscle weakness. HEMATOLOGIC: Positive for cytopenias attributable to chemotherapeutic effect. PHYSICAL EXAMINATION: GENERAL: Very pleasant 50-year-old gentleman, awake, alert and appropriate, in no acute distress. VITAL SIGNS: Temperature 36.8, pulse 91, respiratory rate 18, blood pressure 103/59. SKIN: Warm, dry, noncyanotic without petechiae, rash or ecchymosis. HEENT: Head is atraumatic, normocephalic. Eyes: PERRLA, EOMI. Sclerae nonicteric. No conjunctival injection. Nares are patent without rhinorrhea or discharge. Throat is clear. Tongue is midline. Mucous membranes are moist. NECK: Supple without JVD or thyromegaly. LYMPHATICS: No cervical, supraclavicular, axillary, or inguinal palpable nodes. HEART: Regular rate and rhythm. No clicks, rubs, murmurs, or gallops. LUNGS: Clear to auscultation bilaterally. ABDOMEN: Soft, nontender, nondistended without palpable hepatosplenomegaly. EXTREMITIES: No calf tenderness or swelling. No clubbing, cyanosis, or edema. NEUROLOGICAL: Grossly intact. LABORATORY DATA: WBC count 3210, hemoglobin 8.0, platelet count 90,000. PTT slightly elevated at 37 seconds. His chemistries are pending. RADIOGRAPHIC DATA: Uncontrasted CT scan of the abdomen and pelvis reveals prior Whipple procedure, distention of the stomach with numerous dilated air, fluid, and stool-filled loops, small bowel with decompressed loops of the small bowel within the abdominal right lower quadrant. Findings suggestive of ileus versus low-grade small-bowel obstruction. Marked wall thickening with perienteric inflammatory stranding involving a stool-filled loop. Chronic diverticulosis. Otherwise, CT scan of the chest essentially negative. IMPRESSION: 1. Neutropenic fever. 2. High-grade neuroendocrine pancreatic tumor. 3. Enteritis. 4. Chronic diarrhea. PLAN: It is my pleasure to visit with Leander upstairs at bedside. He is in excellent spirits this morning, feeling much better. Continues to receive TPN for severe protein calorie malnutrition. His cultures thus far are negative and agree with the hospitalist plan to convert him to empiric oral preferably gram-negative coverage antimicrobials leading towards discharge. He has approximately 3 fractions of radiation therapy and still a couple more cycles of chemotherapy to receive. Leander was also scheduled for a telephone conference with the image consultant in [place] and hopefully will be able to keep that encounter schedule. His peripheral blood counts have bounced back nicely, specifically white count. I would agree on holding his therapy the rest of this week and perhaps restart radiation the day after . We will discuss further with radiation oncology in this regard. I have nothing further to add. Agree with medical management otherwise. Thank you very much for allowing me to participate in his care.
--- NOTE | 2020-09-13 09:24 | Medical Student Progress Note ---
Date of Service September 13, 2020 Assessment & Plan (1) Fever: In summary, this is a 50 yo gentleman with a recently diagnosed metastatic pancreatic cancer s/p Whipple's procedure in Apr currently on active chemo/radiation therapy. Presented with acute onset RUQ and a fever of 102, He was found to have pancytopenia (WBC 0.4 ) and was given 2U pRBC. Patient received cefepime and neupogen in ED. Blood cell counts are improving. ANC is 1.57 today up from 0.12. WBC 3.21 from 0.86. one out of 2 blood cultures grew gram positive bacilli at around 72 hours. Stool culture preliminary negative at 24 hours for shiga toxin, salmonella, campylobacter jejuni, and Echoli. WBC smear negative, positive for blood Plan: - Continue Zosyn, Vancomycin, monitoring second culture for the next 24 hours to determine whether patient has bacteremia or a false positive. If false positive, continue to monitor fever and consider discharge if fever free for 48 hours If bacteremia is confirmed, continue ABx treatment for 14 days. -if second culture is positive, need to remove TPN IV access as it is likely the source or bacteremia -continue to monitor blood counts with CBC qAM -continue to monitor fever -continue IV fluids -continue current TPN regiment (2) Diarrhea: chronic. has been ongoing for a few months since he underwent Whipple's procedure. no visible blood in the stool. [place] [facility] [place] current T[place] regimen -continue IV fluids - Continue anti diarrhea managment medication: diphenoxylate atropine, loperamide PRN, and cholestyramine (3) Enteritis: Noted on CT to have persistent thickening in wall of sigmoid and acute thickening of transverse colon wall. Patient has has ongoing diarrhea since he underwent Whipple procedure for pancreatic cancer in Apr. This could radiation induced, malabsorption post Whipples procedure, or of viral etiology although less likely due to chronic nature and absence of WBC - Stool culture preliminary negative at 24 hours for shiga toxin, salmonella, campylobacter jejuni, and Echoli. WBC smear negative, positive for blood - Continue anti diarrhea managment medication: diphenoxylate atropine, loperamide PRN, and cholestyramine - continue IV PPIs, and fluids - Clear liquids, advance as tolerated (4) Pancytopenia due to chemotherapy: Trending up. Due to pancreatic cancer treatment with chemotherapy. Received 2 U pRBCs, has not required more transfusions. Asymptomatic except for fever (Tmax 38.2 last night) Today: WBC 0.86 -->3.21 RBC 2.65 neutrophils 0.12 -->1.57 lymphocytes 0.15 --> 0.54 - If patient becomes symptomatic, develops light headedness, fatigue, weakness, and requires further transfusions, give leukoreduced and irradiated RBCs - May need to hold anticoagulation, antiplatelet if numbers start to trend down or needs procedure - continue to monitor with CBC qAM Admission and Anticipated Discharge Date Admission Date: September 10, 2020 Supervising Attestation I personally examined the patient and verified all escalona points of history and exam, discussed case, and agree with decision making with Chanelle HOBBS Discussed with oncology this morning, when later in the day blood cultures started to show some degree of growth. Patient himself feels good no new complaints. Overall doing well, discussed the positive blood culture and its potential implications, as well as the need to keep him in the hospital until blood cultures have shown more growth or are finalized as a contaminant. Vitals noted, in general he is awake and alert pleasant no distress. HEENT normocephalic atraumatic mucous membranes moist. Breathing unlabored no accessory muscle use good effort skin is tanned without rashes pallor or icterus. Neuro shows no focal deficits. Neutropenic feverstill spiking fevers, would like to see him 24 hours fever free prior to discharge. Further, while it is possible that it is a contaminant, given his PICC line and TPN and severely immune compromised state, we definitely have to take his current 1 out of 2 blood culture growth quite seriously. Continue to follow for the other tube, continue to follow for speciation of what he is growing, and then build a plan based on the results. He expressed good understanding of this. Colitissuspect radiation-induced, cannot entirely rule out bacterial translocation as above. Is going to have ongoing x-ray treatments. otherwise as above Subjective Mr. Anderson is doing well today. His mild RUQ/epigastric pain persists with movement. Non tender to palpation. He is able to tolerate his TPN well with some nausea but no vomiting. His diet was advanced to regular and he is tolerating well. Chronic diarrhea, no blood in the stool. He did had a fever of 38.2 this morning. Denies nightsweats, chills. No lightheadedness or dizziness. No chest pain, palpitations, or shortness of breath. Review of Systems Respiratory: no cough, no chest congestion and no dyspnea Cardiovascular: no chest pain, no chest pain at rest, no chest pain with activity and no dyspnea Gastrointestinal: as per Subjective / HPI and + abdominal pain; no nausea and no vomiting Physical Exam Constitutional: well developed; no acute distress Respiratory: normal respiratory effort Auscultation: lungs clear to auscultation bilaterally; no crackles, no rales and no rhonchi Cardiovascular: Rate/Rhythm: regular rate and regular rhythm Heart Sounds: normal S1 and normal S2; no gallop, no murmur and no cardiac rub Extremities: no pedal edema and no edema Gastrointestinal (Abdomen): Inspection/Auscultation: abdomen normal to inspection and normal bowel sounds; abdomen not distended Percussion/Palpation: abdomen soft; abdomen nontender, no guarding, abdomen not rigid and no abdominal mass Results & Data ([facility]) Vital Signs (Past 12 Hours) Vital Signs Temp Pulse Pulse Resp BP Pulse Ox 09/13/20 07:32 36.7 C 69 18 93/56 L 97 09/13/20 05:10 36.8 C 09/13/20 03:00 38.2 C H 91 H 18 103/59 L 95 09/12/20 22:49 36.8 C 84 18 103/58 L 97 09/12/20 22:19 79 09/12/20 22:10 36.8 C
[2020-09-13] MEDS: CHOLESTYRAMINE LIGHT 4 GM PKT PO SCH ×2 (09:32→22:06)
[2020-09-13] MEDS: FAMOTIDINE 20 MG in SYRINGE 3 ML IV SCH ×2 (11:33→22:06)
[2020-09-13] MEDS: TPN IV SCH (18:14)
--- NOTE | 2020-09-13 19:14 | Billing Data ---
Date of Service September 13, 2020 Coding Level of Care Code 59802 Subseq Hosp Care Lvl 3
[2020-09-13] MEDS: MELATONIN 3 MG TAB PO PRN (21:16)
[2020-09-14] MEDS: PIPERACILLIN/TAZOBACTAM 4.5 GM in DEXTROSE 5% 100 ML IV SCH ×2 (01:58→08:59)
[2020-09-14] MEDS ORDERED: VANCOMYCIN TROUGH ONE (03:30)
[2020-09-14 04:01] LABS: Hematocrit (blood only) 24.1 % (42-52); Mean Corpuscular Hemoglobin 29.7 pg (25-34); Mean Corpuscular Hgb Conc 33.2 g/dL (32-36); Mean Corpuscular Volume 89.6 fL (80-100); Mean Platelet Volume 11.4 fL (7.4-10.4); Nucleated RBC # (auto) 0.02 K/uL (0-0); Nucleated RBC % (auto) 0.5 %; Platelet Count 126 K/uL (130-400); RDW Coefficient of Variation 16.6 % (11.5-14.5); RDW Standard Deviation 53.7 fL (36.4-46.3); Red Blood Count 2.69 M/uL (4.7-6.1); White Blood Count 5.21 K/uL (4.8-10.8)
[2020-09-14] MEDS: VANCOMYCIN HCL 1,500 MG in SODIUM CHLORIDE 0.9% 500 ML IV SCH (04:06)
[2020-09-14 04:33] LABS: Albumin Globulin Ratio 0.5 (0.9-2); Albumin Level 1.6 gm/dl (3.4-5.0); BUN Creatinine Ratio 28.3 (10-20); Bilirubin,Total 0.4 mg/dl (0.2-1); Calcium 7.8 mg/dl (8.5-10.1); Creatinine Clr Calc Pharmacy 206.6 ml/min; Est GFR (African American) 144.4 ml/min; Est GFR (Non-African American) 124.6 ml/min; Potassium 4.8 mmol/L (3.5-5.1); Total Protein 4.6 gm/dl (6.4-8.2)
[2020-09-14 04:48] LABS: ALC (manual) 0.46 K/uL (1.2-3.4); ANC (manual) 3.32 K/uL (1.4-6.5); Dohle Bodies 3+; Eosinophils # (manual) 0.23 K/uL (0-0.5); Eosinophils % (manual) 4.4 %; Giant Platelets 2+; Lymphocytes # (manual) 0.46 K/uL (1.2-3.4); Lymphocytes % (manual) 8.8 %; Metamyelocytes # (manual) 0.32 K/uL (0-0); Metamyelocytes % (manual) 6.2 %; Monocytes # (manual) 0.46 K/uL (0.11-0.59); Monocytes % (manual) 8.8 %; Myelocytes # (manual) 0.42 K/uL (0-0); Neutrophils # (manual) 3.32 K/uL (1.4-6.5); Neutrophils % (manual) 63.8 %; Toxic Granulation 2+
[2020-09-14] MEDS: NSS + 20MEQ KCL 20 MEQ/1,000 ML BAG IV SCH (06:26)
--- NOTE | 2020-09-14 07:27 | Pharmacy Report ---
Pharmacy Abx Dose Short Note - Date of Service September 14, 2020 - Assessment & Plan Assessment 50 year old M receiving Vancomycin and Zosyn empirically for treatment of febrile neutropenia * Afebrile X 24 hours. WBC/ANC recovering. Renal function stable * Trough level drawn appropriately and is at steady state, ~8hr level. Plan Vancomycin * Trough level of 22.7 mcg/mL is supratherapeutic. Pt is accumulating. * Change to 1250mg IV every 8 hours * Goal trough level: 15-20mcg/mL * Trough or random level ordered for: 09/14 afternoon Pharmacy will continue to follow and will adjust dose/frequency as necessary. Thank you.
[2020-09-14] MEDS: PANCREAZE (LIPASE 10,500U) CAP PO SCH ×2 (08:34→11:21)
[2020-09-14] MEDS: CHOLECALCIFEROL 1,000 UNITS 25 MCG TAB PO SCH (08:35)
[2020-09-14] MEDS: PANTOprazole 40 MG TAB PO SCH (08:35)
[2020-09-14] MEDS: DIPHENOXYLATE/ATROPINE 2.5MG/0.025MG/5ML PO SCH (08:36)
[2020-09-14] MEDS: ASPIRIN 81 MG ECTAB PO SCH (08:36)
[2020-09-14] MEDS: PSYLLIUM 58.6% POWDER PACKET PO SCH (08:36)
[2020-09-14] MEDS: APIXABAN 5 MG TABLET PO SCH (08:36)
[2020-09-14] MEDS: ADVANCED PROBIOTIC 1250 MG CAPSULE PO SCH (08:36)
[2020-09-14] MEDS: INSULIN ASPART 100 UNITS/ML 3 ML PEN SC SCH ×2 (08:38→12:15)
--- NOTE | 2020-09-14 09:58 | Medical Student Progress Note ---
Date of Service September 14, 2020 Assessment & Plan (1) Fever: In summary, this is a 50 yo gentleman with a recently diagnosed metastatic pancreatic cancer s/p Whipple's procedure in Apr currently on active chemo/radiation therapy. Presented with acute onset RUQ and a fever of 102, He was found to have pancytopenia (WBC 0.4 ) and was given 2U pRBC. Patient received cefepime and neupogen in ED. Blood cell counts are improving. ANC continue to go up to 3.32 up from is 1.57. WBC 5.21 up from 3.21. Till noow only one out of 2 blood cultures has grown gram positive bacilli. The second culture remains negative at about 96 hours. Stool culture preliminary negative at about 48 hours for shiga toxin, salmonella, campylobacter jejuni, and Echoli. WBC smear negative, positive for blood Plan: - Continue Zosyn, Vancomycin, continue to monitor speciation of gram + pacili and second culture to determine whether patient has bacteremia or a false positive. If false positive, continue to monitor fever and speciation of gram + bacilli. In non concering and remains fever free for 48 hours (last temp yesterday at 3 am) consider discharge If bacteremia is confirmed, continue ABx treatment for 14 days. -if second culture is positive, need to remove TPN IV access as it is likely the source or bacteremia -continue to monitor blood counts with CBC qAM -continue to monitor fever -continue IV fluids -continue current TPN regiment (2) Diarrhea: chronic. has been ongoing for a few months since he underwent Whipple's procedure. no visible blood in the stool. [place] [facility] [place]continue current TPN regimen -continue IV fluids - Continue anti diarrhea managment medication: diphenoxylate atropine, loperamide PRN, and cholestyramine (3) Enteritis: Noted on CT to have persistent thickening in wall of sigmoid and acute thickening of transverse colon wall. Patient has has ongoing diarrhea since he underwent Whipple procedure for pancreatic cancer in Apr. This could radiation induced, malabsorption post Whipples procedure, or of viral etiology although less likely due to chronic nature and absence of WBC - Stool culture preliminary negative at 24 hours for shiga toxin, salmonella, campylobacter jejuni, and Echoli. WBC smear negative, positive for blood - Continue anti diarrhea managment medication: diphenoxylate atropine, loperamide PRN, and cholestyramine - continue IV PPIs, and fluids - Clear liquids, advance as tolerated Admission and Anticipated Discharge Date Admission Date: September 10, 2020 Subjective Mr. Anderson is doing well today. His mild RUQ/epigastric pain persists with movement. Non tender to palpation. He is able to tolerate his TPN as well as solid food well. No nausea vomiting. Chronic diarrhea presists, no blood in the stool. His last fever was 3 am 09/13 at 38.2 this morning. Denies nightsweats, chills. No lightheadedness or dizziness. No chest pain, palpitations, or shortness of breath. Review of Systems Constitutional: no fever, no chills and no sweats Respiratory: no cough, no chest congestion, no dyspnea and no pain on inspiration Cardiovascular: no chest pain, no chest pain at rest, no dyspnea at rest and no dyspnea on exertion Gastrointestinal: as per Subjective / HPI and + abdominal pain; no nausea and no vomiting Physical Exam Constitutional: well developed; no acute distress Respiratory: normal respiratory effort Auscultation: lungs clear to auscultation bilaterally; no crackles, no rales and no rhonchi Cardiovascular: Rate/Rhythm: regular rate and regular rhythm Heart Sounds: normal S1 and normal S2; no gallop, no murmur and no cardiac rub Extremities: no pedal edema and no edema Gastrointestinal (Abdomen): Inspection/Auscultation: abdomen normal to inspection and normal bowel sounds; abdomen not distended Percussion/Palpation: abdomen soft; abdomen nontender, no guarding, abdomen not rigid and no abdominal mass Results & Data ([facility]) Vital Signs (Past 12 Hours) Vital Signs Temp Pulse Pulse Resp BP Pulse Ox 09/14/20 08:40 76 09/14/20 08:19 36.8 C 71 20 105/67 99 09/14/20 04:00 36.7 C 80 18 105/58 L 98 09/14/20 00:39 73 09/13/20 23:34 37.0 C 80 18 108/70 98
[2020-09-14] MEDS: CHOLESTYRAMINE LIGHT 4 GM PKT PO SCH (10:46)
[2020-09-14] MEDS: FAMOTIDINE 20 MG in SYRINGE 3 ML IV SCH (11:21)
--- NOTE | 2020-09-14 11:47 | Med Student Discharge Summary ---
Date of Service September 14, 2020 Admission HPI Per Admitting Provider The patient is a 50-year-old male with a past medical history including metastatic pancreatic cancer, GERD, persistent diarrhea who presents to emergency department with complaint of fever to 102 F at home. His primary symptom is that of chronic diarrhea since April, that [facility] [place] has been try to manage with Imodium and tincture of opium. Work-up in the emergency department included the following abnormal laboratorie s: WBC 0.42, hemoglobin 7.8, hematocrit 23.9, platelet 68, potassium 3.1, magnesium 1.1, albumin 2.3, glucose 110 and COVID-19 negative. Differential was not able to be performed due to WBC being less than 0.5. Imaging studies: Chest x-ray was negative Treatment by the ED included the following: Cefepime 2 g IV, potassium chloride 20 mEq p.o., K rider 10 mEq x 1 and normal saline 1 L followed by 125 mL's per hour. I have ordered a CT of chest, abdomen and pelvis without contrast for further assessment. Patient is also been ordered Neupogen 480 mcg SQ x 1, and is given a single dose of vancomycin IV in the ED. He will be admitted on vancomycin IV and Zosyn IV. Admission Exam (Per Admitting) Constitutional well developed; no acute distress Respiratory normal respiratory effort Auscultation: lungs clear to auscultation bilaterally; no crackles, no rales and no rhonchi Cardiovascular Rate/Rhythm: regular rate and regular rhythm Heart Sounds: normal S1 and normal S2; no gallop, no murmur and no cardiac rub Extremities: no pedal edema and no edema Gastrointestinal (Abdomen) Inspection/Auscultation: abdomen normal to inspection and normal bowel sounds; abdomen not distended Percussion/Palpation: abdomen soft; abdomen nontender, no guarding, abdomen not rigid and no abdominal mass Discharge Data Consultations 09/10/20 19:30 ED Decision to Admit Stat 09/10/20 22:27 Consult Hematology Routine 09/12/20 18:27 Consult Health Information Management Routine Hospital Course (1) Neutropenic fever: In summary, this is a 50 yo gentleman with a recently diagnosed metastatic pancreatic cancer s/p Whipple's procedure in Apr currently on active chemo/radiation therapy. Presented with acute onset RUQ and a fever of 102, He was found to have pancytopenia (WBC 0.4 ) and was given 2U pRBC. Patient received cefepime and neupogen in ED.CXR negative for pneumonia or other acute process. no abnormalities on UA. CT-Chest:no acute processes or signs of infections. CT-A/P: thickening of sigmoid and transverse colon goode, consistent with non specific enteritis Blood cell counts are improving. ANC continue to go up to 3.32 up from is 1.57. WBC 5.21 up from 3.21. Till now only one out of 2 blood cultures has grown gram positive bacilli whcih differentiated to be corynebacterium, likely to be a contaminant. The second culture remains negative at about 96 hours. Stool culture preliminary negative at about 48 hours for shiga toxin, salmonella, campylobacter jejuni, and Echoli. WBC smear negative, positive for blood Plan: -Positive cultire likely contaminat, however, with his immunpsupressed state on active chemotherapy, will disciarge woth oral ABx woth broad spectrum gram + -discontinue IV zosyn and vanc, discharge on 5 days of Augmentin (500/125) BID -continue current TPN regiment -continue to follow up with heme/onc for pancreatic cancer treatment and regular CBCs -continue to monitor fever and return to ED if fever of 38.0 C recurres and persistes for an hour or a fever of 38.3 or more (2) Enteritis: Noted on CT to have persistent thickening in wall of sigmoid and acute thickening of transverse colon wall. Patient has has ongoing diarrhea since he underwent Whipple procedure for pancreatic cancer in Apr. This is likely radiation induced, malabsorption post Whipples procedure, or of viral etiology although less likely due to chronic nature and absence of WBC, bacterial translocation less likely with positive blood culture likely due to contamination. - Stool culture preliminary negative at 48 hours for shiga toxin, salmonella, campylobacter jejuni, and Echoli. WBC smear negative, positive for blood - Continue anti diarrhea managment medication: diphenoxylate atropine, loperamide PRN, and cholestyramine (3) Diarrhea: chronic. has been ongoing for a few months since he underwent Whipple's procedure. no visible blood in the stool. Managed by [facility] [place] -continue current TPN regimen in additon to solid food intake - Continue anti diarrhea managment medication: diphenoxylate atropine, loperamide PRN, and cholestyramine -continue to f/u outpatient (4) Pancytopenia due to chemotherapy: Improving. Blood counts trending up. ANC continue to go up to 3.32 up from is 1.57. WBC 5.21 up from 3.2 -continue to follow up with heme/onc for pancreatic cancer treatment and regular CBCs -continue to monitor fever and return to ED if fever of 38.0 C recurres and persistes for an hour or a fever of 38.3 or more Discharge Plan Discharge Items Patient Disposition: Home - Home Health Services Reason For Visit: NEUTROPENIC FEVER Discharge Diagnosis: neutropenic fever Activity: Resume your previous activity Non-emergency contact: Primary Care Provider and Oncologist Call non-emergency contact if: you have any medication questions Follow-up/Referrals: Trevin Hauser D.O. [Primary Care Provider] - (Please call your primary care doctor and schedule a follow up within the next 2-3 days.) Diet: Regular Addtl Attending Provider Instructions: Mr. Anderson, It was our pleasure to care for you at [facility] from 09/10/20-09/14/20. You were admitted for neutropenic fever, meaning a fever with suppressed immune system and very few neutrophils (an infection fighter cell). You have not had a fever in more than 24 hours at this point. Your blood cultures also returned with concern for infection as we discussed with you. Thankfully, the bacteria that grew was a skin concomitant. You received IV antibiotics during admission and will be discharged home with a few more days of antibiotics, Augmentin, to ensure that there is no blood infection. Please complete the course of Augmentin over the next 5 days. Please call your primary care doctor and schedule a follow up within the next 2- 3 days. Return to the ED or call 911 with any recurrent fever, worsening abdominal pain, or any other concerning symptoms including chest pain or shortness of breath. Pending Studies at Discharge: No Stand-Alone Forms: [employer], Smoking Cessation Medications and DC Order Prescriptions: New amoxicillin-pot clavulanate [Augmentin] 250-62.5 mg/5 mL suspension for reconstitution 17.5 ml PO BID 5 Days Qty: 175 RF: 0 Continued Eliquis 5 mg tablet 5 mg PO BID RF: 0 acetaminophen [Tylenol Extra Strength] 500 mg tablet 500 mg PO Q6H PRN (Reason: PAIN/FEVER) RF: 0 aspirin [Adult Low Dose Aspirin] 81 mg tablet,delayed release (DR/EC) 81 mg PO DAILY RF: 0 loperamide 2 mg capsule 4 mg PO QID PRN (Reason: Diarrhea) RF: 0 Adult Probiotic 3 billion cell capsule 3,000 mmu cells PO BID RF: 0 pantoprazole 40 mg tablet,delayed release (DR/EC) 40 mg PO DAILY RF: 0 ondansetron HCl 8 mg tablet 8 mg PO Q8H PRN (Reason: nausea and vomiting) RF: 0 prochlorperazine maleate [Compazine] 10 mg tablet 10 mg PO Q6H PRN (Reason: Nausea) RF: 0 diphenoxylate-atropine 2.5-0.025 mg/5 mL liquid 10 ml PO BID RF: 0 Creon 36,000-114,000- 180,000 unit capsule,delayed release(DR/EC) 2 cap PO QID RF: 0 Metamucil 3.4 gram/5.4 gram powder 1 tbsp PO BID RF: 0 cholecalciferol (vitamin D3) 25 mcg (1,000 unit) capsule 25 mcg PO DAILY RF: 0 TPN Electrolytes 35-20-5 mEq/20 mL solution 0 ml IV HS RF: 0 Discharge Orders: Discharge Order (Routine); Ordered 09/14/20 Ordered By: Trevin Soler/Other Patient Handouts: A1C Admission Data Admit Date/Time: 09/10/20 20:08 Attending Provider: Kristofer Fernandez Admit Provider: Glenn Philippe Primary Care Provider: Trevin Hauser Other Providers: Glenn Philippe ; Gavin Krishnan V. ; [facility],Home Healthcare Other Interventions: Discharge Summary Assessment (RN) Last Done: 09/14/20 12:44 Supervising Attestation I personally examined the patient and verified all escalona points of history and exam, discussed case, and agree with decision making with Chanelle Gutierrez MS2 Feels good and wants to go home. Discussed plan, answered all questions to the best my ability. Vitals noted, in general he is awake and alert pleasant no distress. HEENT normocephalic atraumatic mucous membranes moist. Breathing unlabored no accessory muscle use good effort skin is tanned without rashes pallor or icterus. Neuro shows no focal deficits. Neutropenic fevernow fever free over 24 hours. No obvious focal signs of infectionsuspect the whole thing was related to chemotherapy without any overt infection. That said given his severely compromised state, we will finish out a course of antibiotics with Augmentin. His blood cultures initially raised concern, but in the end it was only 1 out of 2 and it was corynebacterium, therefore highly likely a contaminant not infection. Colitissuspect radiation-induced, discussed risks/benefits, and he is finishing XRT otherwise as above
[2020-09-14] MEDS ORDERED: VANCOMYCIN HCL 1,250 MG in SODIUM CHLORIDE 0.9% 250 ML IV SCH (12:00)
[2020-09-14 12:19] VITALS: BP 102/64; PULSE 71; TEMP 98.1; O2SAT 100
--- NOTE | 2020-09-14 18:09 | Billing Data ---
Date of Service September 14, 2020 Coding Level of Care Code D/C Day Management <30 mins
[2020-09-15] MEDS ORDERED: VANCOMYCIN TROUGH ONE ×2 (11:30→13:30)
== END 2020-09-14 14:05 | disposition home health service (06) | DRG 808 ==
LOC: ED 17:21 → 3N 20:08 → SUATTDRO 20:08 → 3N 22:11 → 2W 09-11 10:58

== ENCOUNTER 2023-11-18 09:52 | Inpatient (IN) ==
[2023-11-18] MEDS: SODIUM CHLORIDE 0.9% 1,000 ML IV SCH (10:39)
--- NOTE | 2023-11-18 10:54 | XRay Report ---
XR chest 1V portable HISTORY: Atypical chest pain. COMPARISON: Chest 09/10/2020. FINDINGS: The lungs are clear. Cardiac silhouette is normal in size. No pleural effusions. No pneumot horax. IMPRESSION: No acute process. ACT 112: Negative or not required by law. Electronically signed by: Thomas Evans M.D. 11/18/2023 10:52 AM
[2023-11-18 10:57] LABS: Basophils # (auto) 0.03 K/uL (0.00-0.20); Basophils % (auto) 0.6 %; Eosinophils # (auto) 0.01 K/uL (0.00-0.50); Eosinophils % (auto) 0.2 %; Hematocrit (blood only) 32.6 % (42.0-52.0); Hemoglobin 10.9 g/dl (14.0-18.0); Immature Granulocytes # (auto) 0.02 K/uL (0.01-0.20); Immature Granulocytes % (auto) 0.4 %; Lymphocytes # (auto) 0.67 K/uL (1.20-3.40); Lymphocytes % (auto) 13.4 %; Mean Corpuscular Hemoglobin 32.4 pg (25.0-34.0); Mean Corpuscular Hgb Conc 33.4 g/dL (32.0-36.0); Mean Platelet Volume 10.3 fL (9.4-12.4); Monocytes # (auto) 0.35 K/uL (0.11-0.59); Neutrophils # (auto) 3.92 K/uL (1.40-6.50); Neutrophils % (auto) 78.4 %; Platelet Count 154 K/uL (130-400); RDW Coefficient of Variation 13.9 % (11.5-14.5); Red Blood Count 3.36 M/uL (4.70-6.10)
[2023-11-18 11:16] LABS: Alanine Aminotransferase 287 U/L (7-52); Albumin Level 3.6 gm/dl (3.4-5.0); Alkaline Phosphatase 153 U/L (34-104); Anion Gap 8 (3-11); Aspartate Aminotransferase 391 U/L (13-39); BUN Creatinine Ratio 19.4 (10-20); Bilirubin Direct 0.3 mg/dl (0-0.2); Bilirubin,Total 0.9 mg/dl (0.2-1.0); Blood Urea Nitrogen 24 mg/dl (6-23); Calcium 8.1 mg/dl (8.6-10.3); Carbon Dioxide 20 mmol/L (21-32); Chloride 109 mmol/L (98-107); Est GFR (African American) 75.4 ml/min; Glucose 124 mg/dl (70-99(Fasting)); Magnesium 1.2 mg/dl (1.7-2.4); Potassium 2.7 mmol/L (3.5-5.1); Sodium 137 mmol/L (136-145)
[2023-11-18 11:20] LABS: Troponin I High Sensitivity 2.8 pg/ml (0-20)
[2023-11-18 11:43] LABS: Echinocytes 2+; Polychromasia 1+
[2023-11-18] MEDS: OPTIRAY 320 125ml IV ONE (11:47)
[2023-11-18] MEDS: MAGNESIUM SULFATE / D5W 1 GM/100 ML BAG IV SCH ×2 (12:01→17:32)
[2023-11-18] MEDS: POTASSIUM CHLORIDE / WTR 10 MEQ/100 ML PLCT IV SCH (12:02)
--- NOTE | 2023-11-18 12:08 | CT Scan Report ---
CT angio chest PE protocol CLINICAL HISTORY: PE TECHNIQUE: Multidetector row helical CT of the chest was performed with angiographic protocol. [place] l and sagittal reformations were obtained. Coronal and sagittal MIPS were obtained from the axial aixa a set and were submitted for review. Automated dose lowering techniques and/or adjustment according to patient size were utilized for this exam. CT DOSE: 1145.06 mGy.cm Comparison: Comparison is made to CT chest 09/23/2023 FINDINGS: Lungs and pleura: There is a 3 mm nodule in the right middle lobe (series 4 image 76). Heart and pericardium: Heart size is normal. No pericardial effusion. Vessels: No evidence of pulmonary embolism. Mediastinum and jose alberto: Subcentimeter lymph nodes are seen. Chest wall and lower neck: Unremarkable. Abdomen: For findings below the diaphragm, please refer to CT of the abdomen dated the same. Bones: Degenerative changes in the thoracic spine. IMPRESSION: No acute abnormality and in particular no evidence of pulmonary embolus. No metastatic disease is see n in the chest. Stable tiny pulmonary nodule as above. ACT 112: Negative or not required by law. Electronically signed by: Deric Horne M.D. 11/18/2023 12:07 PM
--- NOTE | 2023-11-18 12:20 | CT Scan Report ---
ABDOMEN AND PELVIS CT WITH IV CONTRAST CT DOSE: HISTORY: fatigue, chills, elevated lfts, pancreatic cancer TECHNIQUE: Multiaxial CT images of the abdomen and pelvis were performed following the use of intrave nous contrast. A dose lowering technique was utilized adhering to the principles of ALARA. COMPARISON STUDY: Abdomen and pelvis CT 09/23/2023. Abdomen and pelvis CT 04/05/2023. FINDINGS: The lung bases will be reported on the same day chest CTA. No pneumoperitoneum. No pneumato sis. No suspicious lytic or blastic osseous lesions. Hepatic steatosis. Pneumobilia. The spleen and a drenal glands are unremarkable. There are few bilateral renal calculi. No ureteral calculi. No hydron ephrosis. There is a punctate calcification either adjacent to within the left bladder wall on image 315. This remains unchanged. No bladder wall thickening. The prostate gland remains mildly enlarged. The main portal vein is patent. Postoperative changes consistent with prior Whipple procedure. Theref ore, the pancreatic head and gallbladder are surgically absent. Stable 2.2 cm right hepatic lobe cyst . Surgical clips within the retroperitoneum are noted. Soft tissue retroperitoneal thickening surroun ding the surgical clips is similar to the prior study and favors scarring from posttreatment changes. Distended and fluid-filled stomach and proximal to mid small bowel. The small bowel is distended up to 6.3 cm. This has progressed in the interval. The mid to distal loops of small bowel are decompress ed. The transition point for the bowel obstruction appears to be located within the right side of the abdomen on image 161. Therefore, these findings are consistent with a high-grade small bowel obstruc tion. Moderate circumferential thickening throughout the colon and rectum consistent with a proctocol itis. Scattered colonic diverticula. No evidence for acute diverticulitis. Normal appendix. IMPRESSION: 1. Above findings consistent with a high-grade small bowel obstruction with the transition point loca rasheeda within the right side of the abdomen. This could be on the basis of adhesions. 2. Moderate diffuse proctocolitis. This is likely due to an infectious or inflammatory process. 3. Postoperative changes consistent with prior Whipple procedure. No evidence for metastatic disease. 4. Hepatic steatosis, unchanged. 5. Additional findings as described above. ACT 112: Negative or not required by law. Electronically signed by: Thomas Evans M.D. 11/18/2023 12:18 PM
--- NOTE | 2023-11-18 12:41 | Emergency Department Note ---
Impression & Plan Acute dehydration, Hypomagnesemia, Acute hypokalemia, SBO (small bowel obstruction), Diarrhea, Primary pancreatic cancer with metastasis to other site ED Provider Note NAME: PAULINA MENESES AGE: 53 SEX: Male INFORMANT: Patient ED PROVIDER(S): Bryan Alvarado MD CHIEF COMPLAINT: Fatigue and shortness of breath PLAN: Disposition: Admitted Outpatient prescription management: none Referral: None MEDICAL DECISION MAKING: Patient presented because of fatigue, chills and shortness of breath. He noted some vague chest discomfort that was nonexertional. He has history of pancreatic cancer. Workup was initiated. Patient had low blood pressure but record review indicates this is chronic for him. Has been dealing with quite a bit of chronic diarrhea as well. This has been since his pancreatic cancer surgery. Patient was hydrated. He was found to have a low potassium and magnesium. He is mildly anemic. CT imaging of the chest did not reveal any pneumonia or pulmonary emboli. Lyme and tickborne testing was sent as the patient did spend a lot of time outdoors. He had CT imaging of the abdomen pelvis performed as his LFTs were elevated. Patient had findings concerning for bowel obstruction on CT. He does note decreased p.o. intake and bloating after eating mainly in the afternoon and evening. Patient has had no significant abdominal pain. He has had no vomiting. Consulted with general surgery, Libby Perry PA-C. Patient will be evaluated. No indication for NG tube at this moment. The potassium and magnesium were repleted. Consultation was made with Dr. Kar Jewell of the [facility] service. Patient was evaluated in the ER for further management. The patient was seen and examined with Dr. Edwards, resident physician. We discussed the case and treatments ordered, reviewed the results, and determine the disposition. I have been directly involved with the management and disposition as well as independently evaluated the patient as documented in this note. 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 Triage Nursing notes: reviewed and agree them. Vital Signs: reviewed and remarkable for hypotension which is chronic for the patient Additional History obtained from: none Chronic Medical/Social Conditions affecting care: Pancreatic cancer Prior/ Outside/ External records reviewed: none Differential Diagnosis: Infection, dehydration, metabolic abnormality, hypo/hyperglycemia, electrolyte disturbance, anemia, hypoxia, cardiac sources, intracerebral event, toxicologic, neurologic, as well as other pathologies. Diagnostics, independently interpreted by me: ECG: Twelve-lead serial sinus bradycardia first-degree AV block at [address] Cardiac Monitoring: Cardiac monitoring ordered by me: The patient was placed on continuous cardiac monitoring and observed. It revealed sinus bradycardia 54 beats per minute without ectopy or evidence of dysrhythmia. Medical decision rules: none Imaging studies: Chest x-ray. Findings: A chest x-ray was performed and revealed no pneumothorax, effusion, infiltrate, pulmonary edema, free air under the diaphragm, or wide mediastinum. Impression: No acute disease. I refer you to the EMR for further details. HPI: 53 year old Male arrives for evaluation of fatigue, chills and shortness of breath. Patient also notes dizziness and vague chest discomfort, runny nose and cough. It has been going on over the last week or so. He notes chronic diarrhea over the last several months. Patient has a history of pancreatic cancer and also had surgery for the same. Diarrhea has been persisting since that time. He does follow with the cancer center at [facility]. He notes over the last week or so that he had more bloating than usual, especially in the afternoon and evening after eating. He has not had any vomiting or abdominal pain. Denies any sick contacts. Patient does spend a significant mount of time outdoors. Unsure of any tick bites recently. Pt denies LOC, headache, diaphoresis, visual changes, neck pain, nausea, vomiting, abdominal pain, back pain, melena, hematochezia, urinary symptoms, numbness, lymphadenopathy, rash, or other complaints. PAST MEDICAL HISTORY: See Below, pancreatic cancer PAST SURGICAL HISTORY: See Below, cancer surgery SOCIAL HISTORY: See Below, non-smoker HOME MEDICATIONS: See Below ALLERGIES: See Below VITALS: See Below PHYSICAL EXAMINATION: GENERAL: Awake, alert, mildly cachectic-appearing, in no distress HENT: Normocephalic, atraumatic. Oropharynx unremarkable. EYES: Normal conjunctiva. Sclera non-icteric. NECK: Inspection normal. Non-tender. Supple. No nuchal rigidity. FROM. No masses. RESPIRATORY: Clear to auscultation. No wheezes. No rales. Normal respiratory effort. CARDIAC: Bradycardic rate. Normal rhythm. No murmurs. No rubs. Extremities warm and well perfused. Pulses equal. No JVD. GI: Soft, minimally distended. No tenderness to palpation. No rebound or guarding. No masses. RECTAL: Deferred. MUSCULOSKELETAL: Atraumatic. Chest examination reveals no tenderness. The back is symmetrical on inspection without obvious abnormality. There is no CVA tenderness to palpation. No joint edema. LOWER EXTREMITIES: Calves are equal size bilaterally and non-tender. No edema. No discoloration. NEURO: Normal sensorium. No sensory or motor deficits noted. SKIN: No rash or jaundice noted. 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 Father , 63yo Pancreatic cancer Brother No problems noted. Brother No problems noted. Son No problems noted. Social History (Updated 07/20/20 @ 08:25 by Marta Delatorre, RINA) Smoking Status: Never smoker Second Hand Exposure: No; Do You Dip or Chew Tobacco: No (1 can snuff Q 3 days x 40yrs;Quit Apr 2020); Hx Alcohol Use: Yes Hx Substance Use: No Preferred Language: Azerbaijani Communication Ability: Effective Visual Impairment: No Limitations Hearing Ability: Normal Assistant Boiler Operator Required: No Beliefs That Will Affect Care: None marital status: marital status details: Has girlfriend of 22yrs Current Living Situation: Significant Other Current Living Situation Comment: Girlfrienern[facility] [place] current occupational status: employed 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 Feels Safe at Home: Yes Diet: regular caffeine: No during the past year weight has: decreased > 10 lbs Assistive Devices: None Allergies Allergies Allergy/AdvReac Type Severity Reaction Status Date / Time No Known Allergies Allergy Verified 11/18/23 13:12 Home Meds Home Medications Medication Instructions Recorded Confirmed pantoprazole 40 mg tablet,delayed 40 mg PO DAILY 07/13/22 11/18/23 release potassium 99 mg tablet 99 mg PO DAILY 07/19/23 11/18/23 cyanocobalamin (vitamin B-12) 1,000 mcg IM MONTHLY 11/18/23 11/18/23 1,000 mcg/mL injection solution simvastatin 5 mg tablet 0 mg PO HS 11/18/23 11/18/23 Results & Data (ED) Vital Signs Vital Signs - 24 hr 11/18/23 09:56 11/18/23 10:44 11/18/23 11:00 Temperature 36.6 C Temperature Source Oral Pulse Rate 62 54 L Respiratory Rate 24 Respiratory Effort / Characteristics Non-Labored Respiratory Depth Normal Blood Pressure 96/64 L Blood Pressure Mean 74 Pulse Oximetry 98 99 Oxygen Delivery Method Room Air Room Air Sepsis Recent Fever Within 48 Hours No Sepsis New/Unexplained Change in Mental Status No Sepsis Action Taken by Nursing No Action Required 11/18/23 13:21 Temperature Temperature Source Pulse Rate 46 L Respiratory Rate 14 Respiratory Effort / Characteristics Respiratory Depth Blood Pressure 86/57 L Blood Pressure Mean 66 Pulse Oximetry 99 Oxygen Delivery Method Sepsis Recent Fever Within 48 Hours Sepsis New/Unexplained Change in Mental Status Sepsis Action Taken by Nursing Laboratory Data 11/18/23 10:39 11/18/23 10:39 Lab Results 11/18/23 11/18/23 11/18/23 Range/Units 10:39 11:15 13:26 WBC 5.00 (4.8-10.8) K/ul RBC 3.36 L (4.70-6.10) M/uL Hgb 10.9 L (14.0-18.0) g/dl Hct 32.6 L (42.0-52.0) % MCV 97.0 (80.0-100.0) fL MCH 32.4 (25.0-34.0) pg MCHC 33.4 (32.0-36.0) g/dL RDW Std Deviation 49.0 H (36.4-46.3) fL RDW Coeff of Gael 13.9 (11.5-14.5) % Plt Count 154 (130-400) K/uL MPV 10.3 (9.4-12.4) fL Immature Gran % (Auto) 0.4 % Neut % (Auto) 78.4 % Lymph % (Auto) 13.4 % Baxter % (Auto) 7.0 % Eos % (Auto) 0.2 % Baso % (Auto) 0.6 % Neut # (Auto) 3.92 (1.40-6.50) K/uL Lymph # (Auto) 0.67 L (1.20-3.40) K/uL Baxter # (Auto) 0.35 (0.11-0.59) K/uL Eos # (Auto) 0.01 (0.00-0.50) K/uL Baso # (Auto) 0.03 (0.00-0.20) K/uL Immature Gran # (Auto) 0.02 (0.01-0.20) K/uL Polychromasia 1+ Echinocytes 2+ ESR 4 (0-20) mm/hr Sodium 137 (136-145) mmol/L Potassium 2.7 L (3.5-5.1) mmol/L Chloride 109 H (98-107) mmol/L Carbon Dioxide 20 L (21-32) mmol/L Anion Gap 8 (3-11) BUN 24 H (6-23) mg/dl Creatinine 1.24 (0.6-1.4) mg/dl Est Cr Clr Drug Dosing 61.0 ml/min Est GFR ( Amer) 75.4 ml/min Est GFR (Non-Af Amer) 65.0 ml/min BUN/Creatinine Ratio 19.4 (10-20) Glucose 124 H (70-99(Fasting)) mg/dl Lactate 1.4 (0.4-2.0) mmol/L Calcium 8.1 L (8.6-10.3) mg/dl Phosphorus 3.5 (2.5-4.9) mg/dl Magnesium 1.2 L (1.7-2.4) mg/dl Total Bilirubin 0.9 (0.2-1.0) mg/dl Direct Bilirubin 0.3 H (0-0.2) mg/dl AST 391 H (13-39) U/L ALT 287 H (7-52) U/L Alkaline Phosphatase 153 H (34-104) U/L Total Creatine Kinase 60 (30-223) U/L Troponin I High Sens 2.8 (0-20) pg/ml C-Reactive Protein < 0.50 (0-0.5) mg/dl Total Protein 6.0 (6.0-8.3) gm/dl Albumin 3.6 (3.4-5.0) gm/dl Procalcitonin 0.20 (0-0.5) ng/ml Random Cortisol 10.80 mcg/dl Urine Color Urine Appearance (Clear) Urine pH (4.5-7.5) Ur Specific [place] (1.000-1.030) Urine Protein (Negative) Urine Glucose (UA) (Negative) Urine Ketones (Negative) Urine Blood (Negative) Urine Nitrite (Negative) Urine Bilirubin (Negative) Urine Urobilinogen (Negative) Ur Leukocyte Esterase (Negative) Adenovirus (PCR) Not Detected (NotDetected) Anaplasma Smear See Comment Babesia Smear See Comment B. pertussis DNA (PCR) Not Detected (NotDetected) B.parapertussis DNA PCR Not Detected (NotDetected) Lyme Disease Screen Negative (Negative) C. pneumoniae DNA (PCR) Not Detected (NotDetected) Coronavirus OC43 (PCR) Not Detected (NotDetected) Coronavirus HKU1 (PCR) Not Detected (NotDetected) Coronavirus 229E (PCR) Not Detected (NotDetected) SARS-CoV-2 (PCR) Not Detected (NotDetected) Coronavirus NL63 (PCR) Not Detected (NotDetected) Human Metapneumovir PCR Not Detected (NotDetected) Influenza Type A (PCR) Not Detected (NotDetected) Influenza Type B (PCR) Not Detected (NotDetected) M. pneumoniae (PCR) Not Detected (NotDetected) Parainfluenza 1 (PCR) Not Detected (NotDetected) Parainfluenza 2 (PCR) Not Detected (NotDetected) Parainfluenza 3 (PCR) Not Detected (NotDetected) Parainfluenza 4 (PCR) Not Detected (NotDetected) RSV (PCR) Not Detected (NotDetected) Entero/Rhino (PCR) Not Detected (NotDetected) 11/18/23 Range/Units Unknown WBC (4.8-10.8) K/ul RBC (4.70-6.10) M/uL Hgb (14.0-18.0) g/dl Hct (42.0-52.0) % MCV (80.0-100.0) fL MCH (25.0-34.0) pg MCHC (32.0-36.0) g/dL RDW Std Deviation (36.4-46.3) fL RDW Coeff of Gael (11.5-14.5) % Plt Count (130-400) K/uL MPV (9.4-12.4) fL Immature Gran % (Auto) % Neut % (Auto) % Lymph % (Auto) % Baxter % (Auto) % Eos % (Auto) % Baso % (Auto) % Neut # (Auto) (1.40-6.50) K/uL Lymph # (Auto) (1.20-3.40) K/uL Baxter # (Auto) (0.11-0.59) K/uL Eos # (Auto) (0.00-0.50) K/uL Baso # (Auto) (0.00-0.20) K/uL Immature Gran # (Auto) (0.01-0.20) K/uL Polychromasia Echinocytes ESR (0-20) mm/hr Sodium (136-145) mmol/L Potassium (3.5-5.1) mmol/L Chloride (98-107) mmol/L Carbon Dioxide (21-32) mmol/L Anion Gap (3-11) BUN (6-23) mg/dl Creatinine (0.6-1.4) mg/dl Est Cr Clr Drug Dosing ml/min Est GFR ( Amer) ml/min Est GFR (Non-Af Amer) ml/min BUN/Creatinine Ratio (10-20) Glucose (70-99(Fasting)) mg/dl Lactate (0.4-2.0) mmol/L Calcium (8.6-10.3) mg/dl Phosphorus (2.5-4.9) mg/dl Magnesium (1.7-2.4) mg/dl Total Bilirubin (0.2-1.0) mg/dl Direct Bilirubin (0-0.2) mg/dl AST (13-39) U/L ALT (7-52) U/L Alkaline Phosphatase (34-104) U/L Total Creatine Kinase (30-223) U/L Troponin I High Sens (0-20) pg/ml C-Reactive Protein (0-0.5) mg/dl Total Protein (6.0-8.3) gm/dl Albumin (3.4-5.0) gm/dl Procalcitonin (0-0.5) ng/ml Random Cortisol mcg/dl Urine Color Yellow Urine Appearance Clear (Clear) Urine pH 5.5 (4.5-7.5) Ur Specific [place] 1.040 H (1.000-1.030) Urine Protein Negative (Negative) Urine Glucose (UA) Negative (Negative) Urine Ketones Negative (Negative) Urine Blood Negative (Negative) Urine Nitrite Negative (Negative) Urine Bilirubin Negative (Negative) Urine Urobilinogen Negative (Negative) Ur Leukocyte Esterase Negative (Negative) Adenovirus (PCR) (NotDetected) Anaplasma Smear Babesia Smear B. pertussis DNA (PCR) (NotDetected) B.parapertussis DNA PCR (NotDetected) Lyme Disease Screen (Negative) C. pneumoniae DNA (PCR) (NotDetected) Coronavirus OC43 (PCR) (NotDetected) Coronavirus HKU1 (PCR) (NotDetected) Coronavirus 229E (PCR) (NotDetected) SARS-CoV-2 (PCR) (NotDetected) Coronavirus NL63 (PCR) (NotDetected) Human Metapneumovir PCR (NotDetected) Influenza Type A (PCR) (NotDetected) Influenza Type B (PCR) (NotDetected) M. pneumoniae (PCR) (NotDetected) Parainfluenza 1 (PCR) (NotDetected) Parainfluenza 2 (PCR) (NotDetected) Parainfluenza 3 (PCR) (NotDetected) Parainfluenza 4 (PCR) (NotDetected) RSV (PCR) (NotDetected) Entero/Rhino (PCR) (NotDetected) Administered Medications Discontinued Medications Sodium Chloride (Nss) 1,000 mls @ 999 mls/hr IV .Q1H1M MAEVE Stop: 11/18/23 11:30 Last Infusion: 11/18/23 11:52 Dose: Infused Documented By: NRHarvinder Admin: 11/18/23 10:39 Dose: 999 mls/hr Documented By: LEONOR Magnesium Sulfate/Dextrose (Magnesium Sulfate / D5w) 1 gm in 100 mls @ 100 mls/hr IV Q1H MAEVE Stop: 11/18/23 13:33 Last Infusion: 11/18/23 14:06 Dose: Infused Documented By: Admin: 11/18/23 12:59 Dose: 100 mls/hr Documented By: Infusion: 11/18/23 12:59 Dose: Infused Documented By: Admin: 11/18/23 12:01 Dose: 100 mls/hr Documented By: LEONOR Potassium Chloride (K Nicola / Wtr) 10 meq in 100 mls @ 100 mls/hr IV Q1H MAEVE Stop: 11/18/23 14:44 Last Admin: 11/18/23 14:11 Dose: 100 mls/hr Documented By: Infusion: 11/18/23 14:06 Dose: Infused Documented By: Admin: 11/18/23 12:59 Dose: 100 mls/hr Documented By: Infusion: 11/18/23 12:59 Dose: Infused Documented By: Admin: 11/18/23 12:02 Dose: 100 mls/hr Documented By: LEONOR Ioversol (Optiray 320 125ml) 118 ml IV ONCE ONE Stop: 11/18/23 11:47 Last Admin: 11/18/23 11:47 Dose: 118 ml Documented By: JUDY Imaging Data Radiologist's Impression: Chest X-Ray 11/18/23 10:24 XR chest 1V portable HISTORY: Atypical chest pain. COMPARISON: Chest 09/10/2020. FINDINGS: The lungs are clear. Cardiac silhouette is normal in size. No pleural effusions. No pneumothorax. IMPRESSION: No acute process. ACT 112: Negative or not required by law. Electronically signed by: Thomas Evans M.D. 11/18/2023 10:52 AM Chest CTA 11/18/23 10:42 CT angio chest PE protocol CLINICAL HISTORY: PE TECHNIQUE: Multidetector row helical CT of the chest was performed with angiographic protocol. Coronal and sagittal reformations were obtained. Coronal and sagittal MIPS were obtained from the axial data set and were submitted for review. Automated dose lowering techniques and/or adjustment according to patient size were utilized for this exam. CT DOSE: 1145.06 mGy.cm Comparison: Comparison is made to CT chest 09/23/2023 FINDINGS: Lungs and pleura: There is a 3 mm nodule in the right middle lobe (series 4 image 76). Heart and pericardium: Heart size is normal. No pericardial effusion. Vessels: No evidence of pulmonary embolism. Mediastinum and jose alberto: Subcentimeter lymph nodes are seen. Chest wall and lower neck: Unremarkable. Abdomen: For findings below the diaphragm, please refer to CT of the abdomen dated the same. Bones: Degenerative changes in the thoracic spine. IMPRESSION: No acute abnormality and in particular no evidence of pulmonary embolus. No metastatic disease is seen in the chest. Stable tiny pulmonary nodule as above. ACT 112: Negative or not required by law. Electronically signed by: Deric Horne M.D. 11/18/2023 12:07 PM Abdomen/Pelvis CT 11/18/23 11:[address] WITH IV CONTRAST CT DOSE: HISTORY: fatigue, chills, elevated lfts, pancreatic cancer TECHNIQUE: Multiaxial CT images of the abdomen and pelvis were performed following the use of intravenous contrast. A dose lowering technique was utilized adhering to the principles of ALARA. COMPARISON STUDY: Abdomen and pelvis CT 09/23/2023. Abdomen and pelvis CT 04/05/2023. FINDINGS: The lung bases will be reported on the same day chest CTA. No pneumoperitoneum. No pneumatosis. No suspicious lytic or blastic osseous lesions. Hepatic steatosis. Pneumobilia. The spleen and adrenal glands are unremarkable. There are few bilateral renal calculi. No ureteral calculi. No hydronephrosis. There is a punctate calcification either adjacent to within the left bladder wall on image 315. This remains unchanged. No bladder wall thickening. The prostate gland remains mildly enlarged. The main portal vein is patent. Postoperative changes consistent with prior Whipple procedure. Therefore, the pancreatic head and gallbladder are surgically absent. Stable 2.2 cm right hepatic lobe cyst. Surgical clips within the retroperitoneum are noted. Soft tissue retroperitoneal thickening surrounding the surgical clips is similar to the prior study and favors scarring from posttreatment changes. Distended and fluid-filled stomach and proximal to mid small bowel. The small bowel is distended up to 6.3 cm. This has progressed in the interval. The mid to distal loops of small bowel are decompressed. The transition point for the bowel obstruction appears to be located within the right side of the abdomen on image 161. Therefore, these findings are consistent with a high-grade small bowel obstruction. Moderate circumferential thickening throughout the colon and rectum consistent with a proctocolitis. Scattered colonic diverticula. No evidence for acute diverticulitis. Normal appendix. IMPRESSION: 1. Above findings consistent with a high-grade small bowel obstruction with the transition point located within the right side of the abdomen. This could be on the basis of adhesions. 2. Moderate diffuse proctocolitis. This is likely due to an infectious or inflammatory process. 3. Postoperative changes consistent with prior Whipple procedure. No evidence for metastatic disease. 4. Hepatic steatosis, unchanged. 5. Additional findings as described above. ACT 112: Negative or not required by law. Electronically signed by: Thomas Evans M.D. 11/18/2023 12:18 PM Discharge Plan Visit Data Chief Complaint: Referred by Doctor Stated Complaint: DIZZY, CHEST PAIN, FATIGUE, ABN LABS ED Provider: Bryan Alvarado ED Midlevel Provider: James Edwards Discharge Problem: Acute dehydration, Hypomagnesemia, Acute hypokalemia, SBO (small bowel obstruction), Diarrhea, Primary pancreatic cancer with metastasis to other site Forms Stand Alone Forms: [employer] Prescriptions Prescriptions: No Action pantoprazole 40 mg tablet,delayed release (DR/EC) 40 mg PO DAILY potassium 99 mg tablet 99 mg PO DAILY simvastatin 5 mg Tablet 0 mg PO HS Rx Instructions: Pt unsure of strength at this date/time. cyanocobalamin (vitamin B-12) [Vitamin B-12] 1,000 mcg/mL Solution 1,000 mcg IM MONTHLY Referrals Referrals: Trevin Hauser D.O. [Primary Care Provider] -
--- NOTE | 2023-11-18 12:58 | History & Physical Report ---
Date of Service November 18, 2023 Assessment & Plan (1) Primary pancreatic cancer with metastasis to other site: Plan: Weight loss and multiple electrolyte abnormalities after stopping his pancreatic enzymes, recommend restarting and monitor for worsening gastritis/GERD Given vitamin A deficiency will also measure for D, E, K (INR), B1, B12, folate, iron, zinc, copper deficiencies (2) Elevated transaminase level: Plan: Unclear cause of this (subacute rise) - discussed with oncology and recommended MRI abdomen liver protocol given increasing CEA Potential alternative cause is the Sandostatin although attempts and stopping this caused profound diarrhea No RUQ pain on exam Viral hepatitis panel with AM labs CK WNL Tick borne illness panel negative with PCR tests pending Hold simvastatin (3) Acute hypokalemia: Plan: Potassium chloride 40 meq PO TID Repeat with AM labs (4) Hypomagnesemia: Plan: Mg level 1.2. Mg sulfate 2g IV given in ER. Additional 4g ordered. Repeat level in AM (5) SBO (small bowel obstruction): Plan: Noted on CT but clinically does not appear to have small bowel obstruction Start on clear liquids Consult general surgery (6) Diarrhea: Plan: Chronic since Whipple's procedure however given new electrolyte abnormalities and proctocolitis on CT will retest stool for infection Failed cholestyramine as outpatient (7) Vitamin A deficiency: Plan: Reports problems with his eyes from prior ophthalmology exam. Will avoid usual high starting doses due to current elevated LFTs and potential liver toxicity Start Vitamin A 25,000 units Plan VTE Prophylaxis - Lovenox 40mg SQ QPM Diet - clear liquid Disposition - admit to PCU Admission and Anticipated Discharge Date Admission Date: November 18, 2023 History of Present Illness Chief Complaint: Generalized fatigue Primary Care Provider: Trevin Hauser Leander Anderson is a 53 year old male who presents to the ER with generalized fatigue getting progressively worse over the last week. Symptoms much worse on Saturday with lightheadedness on standing, generalized weakness. Associated shortness of breath, chills and nausea (no vomiting). No fever, respiratory, change in gastrointestinal or urinary symptoms. He reports chronic diarrhea since his Whipple's procedure which is currently no worse than usual. He notes blood was found in his stool on testing for which he has an EGD scheduled for next week but no gross melena or hematochezia. Oncologist recently started him on potassium supplementation 40 meq BID that he finished yesterday (he was not previously on potassium supplements) but he has been taking an over the counter potassium supplement since. He notably stopped taking his pancreatic enzymes Zenpep and Viokase 3 weeks ago and they were causing stomach upset and there was some concern they were causing ulcers given the microscopic blood found on fecal occult blood testing. Since coming off the pancreatic enzymes he has noticed a 10lb weight loss. He recently went to his opthamologist due to clurring of his eye sight and based on a retinal scan a vitamin A level was taken which returned undetectable. With regards to his neuroendocrine cancer he had the Whipple's procedure in 2020 followed by chemotherapy with cisplatin and etoposide. No chemotherapy since 2020 but he has been on Sandostatin injections monthly since Apr 2021. He reports trial coming off this led to uncontrollable diarrhea. He drinks alcohol socially once a week, usually three beers. Allergies Allergy/AdvReac Type Severity Reaction Status Date / Time No Known Allergies Allergy Verified 11/18/23 13:12 Home Medications Medication Instructions Recorded Confirmed Type pantoprazole 40 mg tablet,delayed 40 mg PO DAILY 07/13/22 11/18/23 History release potassium 99 mg tablet 99 mg PO DAILY 07/19/23 11/18/23 History cyanocobalamin (vitamin B-12) 1,000 mcg IM MONTHLY 11/18/23 11/18/23 History 1,000 mcg/mL injection solution simvastatin 5 mg tablet 0 mg PO HS 11/18/23 11/18/23 History Past Med/Surg History Problem List Vitamin A deficiency Elevated transaminase level SBO (small bowel obstruction) (Acute) Acute hypokalemia (Acute) Hypomagnesemia (Acute) Acute dehydration (Acute) Neuroendocrine carcinoma of pancreas (Chronic 03/28/20) Fever (Acute) Primary pancreatic cancer with metastasis to other site (Acute) Enteritis (Acute) Diarrhea (Acute) Medical History Hypomagnesemia Hypokalemia Pancytopenia due to chemotherapy Neutropenic fever Acute hypotension Normal colonoscopy Diverticulitis Surgical History History of Whipple procedure History of ear surgery Replaced bones in inner left ear Family History Mother No problems noted. Father , 63yo Pancreatic cancer Brother No problems noted. Brother No problems noted. Son No problems noted. 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 Other Information That Helps Us Care for You: No Feels Safe at Home: Yes Safety Concerns: Feels Safe At This Time Diet: regular caffeine: No during the past year weight has: decreased > 10 lbs Assistive Devices: Glasses Review of Systems Review of Systems: All systems reviewed & are unremarkable except as noted in HPI & below Physical Exam Constitutional: well developed and + frail appearing; + not well nourished and no acute distress ENMT: external ear and nose normal, oropharynx normal Respiratory: normal respiratory effort, lungs clear to auscultation Cardiovascular: RRR, no murmur, no edema Gastrointestinal (Abdomen): normal bowel sounds, soft, nontender, no hepatosplenomegaly Musculoskeletal: no cyanosis or clubbing, extremities motor strength 5/5 Skin: no rashes, warm and dry Neurologic: moves all extremities and awake; not confused Psychiatric: A+Ox3, euthymic affect Genitourinary: no CVA tenderness Results & Data Results & Data Vital Signs (Past 12 Hours) Vital Signs Temp Pulse Resp BP Pulse Ox O2 Del Method 11/18/23 10:44 54 L 11/18/23 09:56 36.6 C 62 24 96/64 L 98 Room Air Laboratory Results Abnormal lab results 11/18/23 Range/Units 10:39 RBC 3.36 L (4.70-6.10) M/uL Hgb 10.9 L (14.0-18.0) g/dl Hct 32.6 L (42.0-52.0) % RDW Std Deviation 49.0 H (36.4-46.3) fL Lymph # (Auto) 0.67 L (1.20-3.40) K/uL Potassium 2.7 L (3.5-5.1) mmol/L Chloride 109 H (98-107) mmol/L Carbon Dioxide 20 L (21-32) mmol/L BUN 24 H (6-23) mg/dl Glucose 124 H (70-99(Fasting)) mg/dl Calcium 8.1 L (8.6-10.3) mg/dl Magnesium 1.2 L (1.7-2.4) mg/dl Direct Bilirubin 0.3 H (0-0.2) mg/dl AST 391 H (13-39) U/L ALT 287 H (7-52) U/L Alkaline Phosphatase 153 H (34-104) U/L Diagnostic Findings XR chest 1V portable HISTORY: Atypical chest pain. COMPARISON: Chest 09/10/2020. FINDINGS: The lungs are clear. Cardiac silhouette is normal in size. No pleural effusions. No pneumothorax. IMPRESSION: No acute process. CT angio chest PE protocol CLINICAL HISTORY: PE TECHNIQUE: Multidetector row helical CT of the chest was performed with angiographic protocol. Coronal and sagittal reformations were obtained. Coronal and sagittal MIPS were obtained from the axial data set and were submitted for review. Automated dose lowering techniques and/or adjustment according to patient size were utilized for this exam. CT DOSE: 1145.06 mGy.cm Comparison: Comparison is made to CT chest 09/23/2023 FINDINGS: Lungs and pleura: There is a 3 mm nodule in the right middle lobe (series 4 image 76). Heart and pericardium: Heart size is normal. No pericardial effusion. Vessels: No evidence of pulmonary embolism. Mediastinum and jose alberto: Subcentimeter lymph nodes are seen. Chest wall and lower neck: Unremarkable. Abdomen: For findings below the diaphragm, please refer to CT of the abdomen dated the same. Bones: Degenerative changes in the thoracic spine. IMPRESSION: No acute abnormality and in particular no evidence of pulmonary embolus. No metastatic disease is seen in the chest. Stable tiny pulmonary nodule as above. ABDOMEN AND PELVIS CT WITH IV CONTRAST CT DOSE: HISTORY: fatigue, chills, elevated lfts, pancreatic cancer TECHNIQUE: Multiaxial CT images of the abdomen and pelvis were performed following the use of intravenous contrast. A dose lowering technique was utilized adhering to the principles of ALARA. COMPARISON STUDY: Abdomen and pelvis CT 09/23/2023. Abdomen and pelvis CT 04/05/2023. FINDINGS: The lung bases will be reported on the same day chest CTA. No pneumoperitoneum. No pneumatosis. No suspicious lytic or blastic osseous lesions. Hepatic steatosis. Pneumobilia. The spleen and adrenal glands are unremarkable. There are few bilateral renal calculi. No ureteral calculi. No hydronephrosis. There is a punctate calcification either adjacent to within the left bladder wall on image 315. This remains unchanged. No bladder wall thickening. The prostate gland remains mildly enlarged. The main portal vein is patent. Postoperative changes consistent with prior Whipple procedure. Therefore, the pancreatic head and gallbladder are surgically absent. Stable 2.2 cm right hepatic lobe cyst. Surgical clips within the retroperitoneum are noted. Soft tissue retroperitoneal thickening surrounding the surgical clips is similar to the prior study and favors scarring from posttreatment changes. Distended and fluid-filled stomach and proximal to mid small bowel. The small bowel is distended up to 6.3 cm. This has progressed in the interval. The mid to distal loops of small bowel are decompressed. The transition point for the bowel obstruction appears to be located within the right side of the abdomen on image 161. Therefore, these findings are consistent with a high-grade small bowel obstruction. Moderate circumferential thickening throughout the colon and rectum consistent with a proctocolitis. Scattered colonic diverticula. No evidence for acute diverticulitis. Normal appendix. IMPRESSION: 1. Above findings consistent with a high-grade small bowel obstruction with the transition point located within the right side of the abdomen. This could be on the basis of adhesions. 2. Moderate diffuse proctocolitis. This is likely due to an infectious or inflammatory process. 3. Postoperative changes consistent with prior Whipple procedure. No evidence for metastatic disease. 4. Hepatic steatosis, unchanged. 5. Additional findings as described above. Medications Administered ER Medications Given: Magnesium sulfate 1g IV x2 Potassium chloride 10 meq IV x3 Normal saline 1L bolus ECG Rate (beats per minute): 52 Rhythm: sinus bradycardia Findings: + 1st degree AV block Comparison ECG Date: from (October 25, 2023) Change: the following changes noted (Non specific T wave abnormality now evident in inferior leads) Code Status & VTE Plan Code Status Full VTE Prophylaxis Plan VTE Prophylaxis will be ordered: Yes PG Care Time/CCT Total # of Minutes Spent Total Time Spent with Patient: Total time spent is greater than 50% in coordination of care (as documented) at patient's floor/unit and/or counseling patient: Coding Level of Care Code 13851 INT INP/OBS CARE 375MIN Diagnoses Primary pancreatic cancer with metastasis to other site C25.9 Elevated transaminase level R74.01 Acute hypokalemia E87.6 Hypomagnesemia E83.42 SBO (small bowel obstruction) K56.609 Diarrhea R19.7 Vitamin A deficiency E50.9
[2023-11-18 14:21] LABS: Appearance Urine Clear (Clear); Bilirubin Urine Negative (Negative); Blood Urine Negative (Negative); Color Urine Yellow; Glucose Urine UA Negative (Negative); Ketones Urine Negative (Negative); Leukocyte Esterase Urine Negative (Negative); Nitrite Urine Negative (Negative); Protein Urine Negative (Negative); Urobilinogen Urine Negative (Negative); pH Urine 5.5 (4.5-7.5)
[2023-11-18 14:21] LABS: C Reactive Protein < 0.50 mg/dl (0-0.5); Creatine Kinase 60 U/L (30-223); Phosphorus 3.5 mg/dl (2.5-4.9)
[2023-11-18 14:28] LABS: Adenovirus PCR Not Detected (NotDetected); Bordetella parapertussis PCR Not Detected (NotDetected); Bordetella pertussis PCR Not Detected (NotDetected); Chlamydia pneumoniae PCR Not Detected (NotDetected); Coronavirus 229E PCR Not Detected (NotDetected); Coronavirus CoV-2 (COVID19)PCR Not Detected (NotDetected); Coronavirus HKU1 PCR Not Detected (NotDetected); Coronavirus NL63 PCR Not Detected (NotDetected); Coronavirus OC43PCR Not Detected (NotDetected); Human Metapneumovirus PCR Not Detected (NotDetected); Influenza A PCR Not Detected (NotDetected); Influenza B PCR Not Detected (NotDetected); Mycoplasma pneumoniae PCR Not Detected (NotDetected); Parainfluenza Virus 1 PCR Not Detected (NotDetected); Parainfluenza Virus 2 PCR Not Detected (NotDetected); Parainfluenza Virus 3 PCR Not Detected (NotDetected); Parainfluenza Virus 4 PCR Not Detected (NotDetected); Respiratory Syncytial VirusPCR Not Detected (NotDetected); Rhinovirus/Enterovirus PCR Not Detected (NotDetected)
[2023-11-18] MEDS: POTASSIUM CHLORIDE CRTAB 20 MEQ TABCR PO STA (16:09)
[2023-11-18] MEDS: LACTATED RINGER'S 1,000 ML IV SCH (17:32)
--- NOTE | 2023-11-18 19:12 | Surgery Consultation ---
Date of Consultation November 18, 2023 Assessment & Plan (1) SBO (small bowel obstruction): The patient is being admitted on the hospitalist service: The hospital service is having the patient undergo further evaluation due to his weakness, fatigue, electrolyte deficiencies and will defer this to their discretion From surgical perspective concern the patient's small bowel obstruction we recommend the following: Although the patient CT scan shows concern for high-grade small bowel obstruction the patient clinically does not have evidence of small bowel obstruction as his abdomen is soft without distention or pain with palpation. Patient has no nausea or vomiting. The patient is having bowel movements and is passing flatus Patient has thus far been allowed a clear liquid diet which she is tolerating I would maintain this for this evening and consideration be given to advancing further if he remains clinically stable I did discuss with the patient that if he does develop signs or symptoms of worsening small bowel obstruction additional measures can be taken such as decreasing his diet n.p.o. status and potentially placing NG tube, but neither of these interventions are required at this time as again his abdomen is completely benign and he clinically does not have any signs or symptoms of small bowel obstruction Supervising Physician Co-Signing Physician Notes I personally saw and evaluated the patient with Tai Porras PA-C and agree with the assessment and plan [address] findings concerning for SBO His CT images and results were personally viewed and interpreted by myself He has dilated small bowel, but clinically has no evidence of obstruction He is tolerating clear liquids, can maintain on this for now History of Present Illness Reason for Consultation: Concern for small bowel obstruction Attending Physician: Kar Jewell MD History of Present Illness This is a 53-year-old male who presented to the emergency department at the recommendation of his outpatient physicians. The patient has an underlying history of pancreatic cancer and he has undergone a Whipple procedure in April 2020. The patient notes that he did receive chemotherapy and abdominal radiation following this surgery and he has had no cancer recurrence to the best of his knowledge. Over the past several days the patient notes that he has had some worsening fatigue, chills, and shortness of breath. He has also had on and off diarrhea for several days. He was told by his outpatient oncologist that if he ever develops such symptoms he should report to the emergency department for further evaluation. He does note that his only prior abdominal surgery was a Whipple procedure as noted above. In addition to the symptoms noted above the patient does report some intermittent nausea without vomiting that has since abated. He notes he is passing a large amount of flatus and is having loose bowel movements as noted above. Since arrival to the hospital this man has had labs and imaging which I independent reviewed. Chest x-ray showed no evidence of pneumonia. CT scan of the chest showed no evidence of pulmonary emboli or metastatic disease in the chest. Patient had a CT scan of the abdomen pelvis that showed findings concerning for high-grade small bowel obstruction with a transition point in the right side of the abdomen felt to be likely on the basis of adhesions. There is moderate diffuse proctocolitis felt to be due to infection or inflammation. He had postoperative changes consistent with a Whipple procedure and no evidence of metastatic disease. There is no pneumatosis coli or pneumoperitoneum. Labs included CBC were white blood cell count and platelet count were normal. Patient's hemoglobin and hematocrit 10.9 and 32.6. Chemistry profile showed sodium was 137 and his potassium was 2.7. BUN and creatinine were 24 and 1.2. Lactic acid level is nonelevated at 1.4 and his magnesium was low at 1.2. Patient did have a slight elevation of his direct bilirubin 1.3 but his total bilirubin was nonelevated. AST and ALT were 391 and 287 and his alkaline phosphatase was 153 all slightly elevated. Urinalysis was not indicative of infection. The patient did have a [employer] respiratory panel sent and all viruses tested for were noted to be negative. At the time of my interview the patient was resting comfortably in bed he was no distress. Allergies Allergy/AdvReac Type Severity Reaction Status Date / Time No Known Allergies Allergy Verified 11/18/23 13:12 Home Medications Medication Instructions Recorded Confirmed Type pantoprazole 40 mg tablet,delayed 40 mg PO DAILY 07/13/22 11/18/23 History release potassium 99 mg tablet 99 mg PO DAILY 07/19/23 11/18/23 History cyanocobalamin (vitamin B-12) 1,000 mcg IM MONTHLY 11/18/23 11/18/23 History 1,000 mcg/mL injection solution simvastatin 5 mg tablet 0 mg PO HS 11/18/23 11/18/23 History Patient History Medical History Hypomagnesemia Hypokalemia Pancytopenia due to chemotherapy Neutropenic fever Acute hypotension Normal colonoscopy Diverticulitis Surgical History History of Whipple procedure History of ear surgery Replaced bones in inner left ear Family History Mother No problems noted. Father , 63yo Pancreatic cancer Brother No problems noted. Brother No problems noted. Son No problems noted. 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 Other Information That Helps Us Care for You: No Feels Safe at Home: Yes Safety Concerns: Feels Safe At This Time Diet: regular caffeine: No during the past year weight has: decreased > 10 lbs Assistive Devices: Glasses Review of Systems Review of Systems: All systems reviewed & are unremarkable except as noted in HPI & below Physical Exam Constitutional: + thin; no acute distress Eyes: no conjunctival abnormality Wears glasses ENMT: Ears: no hearing impairment and no external ear abnormality Mouth: no oropharynx abnormality Neck: trachea midline Respiratory: normal respiratory effort; no respiratory distress and no labored breathing Cardiovascular: Rate/Rhythm: regular rate and regular rhythm Gastrointestinal (Abdomen): Abdomen is soft and nonrigid. There is no distention noted. There is no pain with palpation. There is no rebound tenderness or guarding. Patient had a well-healed midline incision. I do not appreciate any hernias. Musculoskeletal: No calf tenderness Skin: no rashes Neurologic: moves all extremities Psychiatric: A+Ox3, euthymic affect Results & Data Vital Signs (Past 12 Hours) Vital Signs Temp Pulse Pulse Resp BP BP Pulse Ox 11/18/23 16:13 54 L 18 97/60 L 100 11/18/23 15:00 43 L 11/18/23 13:21 46 L 14 86/57 L 99 11/18/23 11:00 99 11/18/23 10:44 54 L 11/18/23 09:56 36.6 C 62 24 96/64 L 98 O2 Del Method 11/18/23 16:13 Room Air 11/18/23 15:00 11/18/23 13:21 11/18/23 11:00 Room Air 11/18/23 10:44 11/18/23 09:56 Room Air PG Care Time/CCT Total # of Minutes Spent Total Time Spent with Patient: Total time spent is greater than 50% in coordination of care (as documented) at patient's floor/unit and/or counseling patient: Coding Level of Care Code 68624 IN/OBS CONSULT LVL 5,80M Diagnoses SBO (small bowel obstruction) K56.609
[2023-11-18] MEDS: ENOXAPARIN INJ 40 MG/0.4 ML SYR SQ SCH (21:30)
[2023-11-18] MEDS: VITAMIN A 25,000 UNIT CAP PO SCH (21:31)
[2023-11-18] MEDS: POTASSIUM CHLORIDE CRTAB 20 MEQ TABCR PO SCH (21:31)
[2023-11-19 04:55] LABS: Adenovirus F 40/41 PCR Not Detected (NotDetected); Astrovirus PCR Not Detected (NotDetected); Campylobacter PCR Not Detected (NotDetected); Cryptosporidium PCR Not Detected (NotDetected); Cyclospora cayetanensis PCR Not Detected (NotDetected); Entamoeba histolytica PCR Not Detected (NotDetected); Enteroaggregative E.coli(EAEC) Not Detected (NotDetected); Enteropathogenic E.coli (EPEC) Not Detected (NotDetected); Enterotoxigenic E.coli (ETEC) Not Detected (NotDetected); Giardia lamblia PCR Not Detected (NotDetected); Norovirus GI/GII PCR Not Detected (NotDetected); Plesiomonas shigelloides PCR Not Detected (NotDetected); Rotavirus A PCR Not Detected (NotDetected); Salmonella PCR Not Detected (NotDetected); Sapovirus PCR Not Detected (NotDetected); Shiga-like Toxin E.coli (STEC) Not Detected (NotDetected); Shigella/Enteroinvasive E.coli Not Detected (NotDetected); Vibrio cholerae PCR Not Detected (NotDetected); Vibrio species PCR Not Detected (NotDetected); Yersinia enterocolitica PCR Not Detected (NotDetected)
--- NOTE | 2023-11-19 06:16 | Electrocardiogram Report ---
Test Reason : Blood Pressure : / mmHG Vent. Rate : 052 BPM Atrial Rate : 052 BPM P-R Int : 224 ms QRS Dur : 080 ms QT Int : 408 ms P-R-T Axes : 078 080 096 degrees QTc Int : 379 ms Sinus bradycardia with 1st degree A-V block Nonspecific ST and T wave abnormality Abnormal ECG When compared with ECG of 25-OCT-2023 09:28, Nonspecific T wave abnormality now evident in Inferior leads Confirmed by Patrick Agudelo ([id number]) on 11/19/2023 6:16:29 AM Referred By: Confirmed By:Patrick Agudelo
[2023-11-19 07:07] LABS: Basophils # (auto) 0.02 K/uL (0.00-0.20); Basophils % (auto) 0.5 %; Eosinophils # (auto) 0.04 K/uL (0.00-0.50); Hematocrit (blood only) 28.7 % (42.0-52.0); Hemoglobin 9.9 g/dl (14.0-18.0); Immature Granulocytes # (auto) 0.01 K/uL (0.01-0.20); Immature Granulocytes % (auto) 0.2 %; Lymphocytes # (auto) 0.74 K/uL (1.20-3.40); Lymphocytes % (auto) 18.4 %; Mean Corpuscular Hemoglobin 32.1 pg (25.0-34.0); Mean Corpuscular Hgb Conc 34.5 g/dL (32.0-36.0); Mean Corpuscular Volume 93.2 fL (80.0-100.0); Mean Platelet Volume 10.5 fL (9.4-12.4); Monocytes # (auto) 0.28 K/uL (0.11-0.59); Monocytes % (auto) 6.9 %; Neutrophils # (auto) 2.94 K/uL (1.40-6.50); Platelet Count 152 K/uL (130-400); RDW Coefficient of Variation 13.9 % (11.5-14.5); RDW Standard Deviation 47.2 fL (36.4-46.3); Red Blood Count 3.08 M/uL (4.70-6.10); White Blood Count 4.03 K/ul (4.8-10.8)
[2023-11-19 07:18] LABS: Albumin Globulin Ratio 1.7 (0.9-2); BUN Creatinine Ratio 17.2 (10-20); Bilirubin,Total 0.7 mg/dl (0.2-1.0); Calcium 7.5 mg/dl (8.6-10.3); Creatinine Clr Calc Pharmacy 75.7 ml/min; Est GFR (Non-African American) 85.4 ml/min; Globulin 1.8 gm/dl (2.5-4.0); Magnesium 2.1 mg/dl (1.7-2.4); Potassium 3.3 mmol/L (3.5-5.1); Total Protein 4.8 gm/dl (6.0-8.3)
[2023-11-19 07:30] LABS: INR 1.3 (0.9-1.1); Prothrombin Time 13.6 Seconds (9.0-12.0)
[2023-11-19 07:56] LABS: Ferritin 337.3 ng/ml (8-388)
--- NOTE | 2023-11-19 08:00 | Hospitalist Progress Note ---
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 Severe protein-calorie malnutrition, BMI 17.5 kg/m*m (2) Elevated transaminase level: Plan: Unclear cause of this (subacute rise) - discussed with oncology and recommended MRI abdomen liver protocol given increasing CEA Potential alternative cause is the Sandostatin although attempts and stopping this caused profound diarrhea No RUQ pain on exam Viral hepatitis panel with AM labs CK WNL Tick borne illness panel negative with PCR tests pending Hold simvastatin (3) Acute hypokalemia: Plan: Potassium chloride 40 meq PO TID For hypophosphatemia patient was given sodium phosphate IV (4) Hypomagnesemia: Plan: Mg level 1.2. Mg sulfate 2g IV given in ER. Additional 4g ordered. Repeat level in AM (5) SBO (small bowel obstruction): Plan: Noted on CT but clinically does not appear to have small bowel obstruction Start on clear liquids Consult general surgery, did not recommend NGT and are watchful waiting (6) Diarrhea: Plan: Chronic since Whipple's procedure however given new electrolyte abnormalities and proctocolitis on CT will retest stool for infection Failed cholestyramine as outpatient, on sandostatin will try 2 doses of hydrocodone and see if it improves his diarrhea (7) Vitamin A deficiency: Plan: Reports problems with his eyes from prior ophthalmology exam. Will avoid usual high starting doses due to current elevated LFTs and potential liver toxicity Start Vitamin A 25,000 units Plan VTE Prophylaxis - Lovenox 40mg SQ QPM Diet - clear liquid Admission and Anticipated Discharge Date Admission Date: November 18, 2023 Subjective Patient is fairly upbeat. Describing continued diarrhea. States that he stopped his pancreatic enzymes due to dyspepsia and upset stomach. Says that he did not feel stopping his pancreatic enzymes had any improvement in his frequency of diarrhea. Continues to take somatostatin as an outpatient. Has tried cholestyramine in the past without help Physical Exam Physical Exam: Pleasant gentleman who is underweight with a BMI of 17.5. Abdomen is with normal active bowel sounds soft nontender no focal guarding tenderness organomegaly. Results & Data Results & Data Vital Signs (Past 12 Hours) Vital Signs Temp Pulse Pulse Resp BP Pulse Ox Pulse Ox 11/19/23 07:23 51 L 11/19/23 07:22 51 L 11/19/23 07:07 97.9 F 51 L 18 93/51 L 96 11/19/23 02:47 97.7 F 53 L 17 98/57 L 97 11/18/23 23:23 97.7 F 58 L 18 108/65 96 11/18/23 21:55 45 L 11/18/23 21:33 97.9 F 51 L 16 101/63 99 11/18/23 21:16 48 L 11/18/23 20:02 99 11/18/23 20:00 45 L 16 96/60 L 98 O2 Del Method O2 Del Method 11/19/23 07:23 11/19/23 07:22 11/19/23 07:07 Room Air 11/19/23 02:47 Room Air 11/18/23 23:23 Room Air 11/18/23 21:55 11/18/23 21:33 Room Air 11/18/23 21:16 11/18/23 20:02 Room Air 11/18/23 20:00 Room Air Laboratory Results Reviewed CBC reviewed chemistry PG Care Time/CCT Total # of Minutes Spent Total Time Spent with Patient: Total time spent is greater than 50% in coordination of care (as documented) at patient's floor/unit and/or counseling patient: Coding Level of Care Code 88503 SUB INP/OBS CARE 3/50MIN Diagnoses Primary pancreatic cancer with metastasis to other site C25.9 Elevated transaminase level R74.01 Acute hypokalemia E87.6 Hypomagnesemia E83.42 SBO (small bowel obstruction) K56.609 Diarrhea R19.7 Vitamin A deficiency E50.9
[2023-11-19] MEDS: PANCREAZE (LIPASE 10,500U) CAP PO SCH (08:02)
[2023-11-19] MEDS: CEROVITE ADV FORMULA TAB PO SCH (08:03)
[2023-11-19] MEDS: PANTOprazole 40 MG TAB PO SCH (08:03)
--- NOTE | 2023-11-19 08:03 | XRay Report ---
XR skull for MRI CLINICAL HISTORY: titanium in left ear TECHNIQUE: 3 views of the skull were obtained. Comparison: None available at the time of this dictation. FINDINGS: No acute fractures are identified. The sinuses are clear. There are no soft tissue abnormal ities. Dental prostheses are seen but no other metallic foreign bodies. IMPRESSION: No evidence of acute abnormality and no concerning metallic foreign bodies. Patient is cleared for MR I. ACT 112: Negative or not required by law. Electronically signed by: Deric Horne M.D. 11/19/2023 8:02 AM
--- NOTE | 2023-11-19 08:19 | Surgery Progress Note ---
Date of Service November 19, 2023 Assessment & Plan (1) SBO (small bowel obstruction): Plan: Pt w/ history of whipple for pancreatic ca, now following for incidental finding of sbo on CT imaging he feels well this AM. had a twinge of lower abdominal discomfort, but is tolerating clears, no n/v and having + diarrhea which is his normal stool studies negative abdomen is soft, non tender, non distended can likely adv to fulls and see how he fairs if worsening discomfort in abdomen or nausea/vomiting can back diet down and consider kub Admission and Anticipated Discharge Date Admission Date: November 18, 2023 Supervising Physician Co-Signing Physician Notes I personally saw and evaluated the patient with Libby Perry PA-C and agree with the assessment and plan [address] findings concerning for SBO He remains having BM's and without abdominal pain or N/V Advance diet as tolerated Subjective Patient feeling okay this AM. Everly a twinge of lower abdominal discomfort this AM, but otherwise feeling well. Denies nausea/vomiting. Tolerating clears. + kalyn rrhea. No bloating. Physical Exam Physical Exam: awake/alert, no distress Respiratory: normal respiratory effort Gastrointestinal (Abdomen): Inspection/Auscultation: abdomen not distended Percussion/Palpation: abdomen soft; abdomen nontender Results & Data Vital Signs (Past 12 Hours) Vital Signs Temp Pulse Pulse Resp BP Pulse Ox O2 Del Method 11/19/23 07:23 51 L 11/19/23 07:22 51 L 11/19/23 07:07 97.9 F 51 L 18 93/51 L 96 Room Air 11/19/23 02:47 97.7 F 53 L 17 98/57 L 97 Room Air 11/18/23 23:23 97.7 F 58 L 18 108/65 96 Room Air 11/18/23 21:55 45 L 11/18/23 21:33 97.9 F 51 L 16 101/63 99 Room Air 11/18/23 21:16 48 L PG Care Time/CCT Total # of Minutes Spent Total Time Spent with Patient: Total time spent is greater than 50% in coordination of care (as documented) at patient's floor/unit and/or counseling patient: Coding Level of Care Code 28709 SUB INP/OBS CARE 05/16MIN Diagnoses SBO (small bowel obstruction) K56.609
[2023-11-19 09:59] LABS: Hep B Surface Ag with confirm Negative (Negative)
[2023-11-19 10:04] LABS: Hep C Ab Rflx HepCQuant RNA Negative (Negative)
[2023-11-19] MEDS ORDERED: SODIUM PHOSPHATE 3 MMOL/1 ML INFUSION IV STA (10:22)
[2023-11-19] MEDS: SODIUM PHOSPHATE 12 MMOL in SODIUM CHLORIDE 0.9% 250 ML IV ONE (11:26)
[2023-11-19] MEDS: HYDROcodone/HOMATROPINE SYRUP 5MG/1.5MG 5ML UDP PO ONE ×2 (11:26→20:16)
[2023-11-19] MEDS: GADOXETATE DISODIUM IV ONE (18:48)
--- NOTE | 2023-11-19 20:34 | Magnetic Resonance Report ---
Exam(s): MRI ABDOMEN W/WO Contrast IV Amt: 10CC EOVIT EXAM: MR Abdomen Without and With Intravenous Contrast CLINICAL HISTORY: liver protocol, Hx pancreatic cancer, high LFTs. TECHNIQUE: Multiplanar magnetic resonance images of the abdomen without and with intravenous contrast. CONTRAST: Patient received 10CC EOVIST of IV contrast COMPARISON: CT abdomen and pelvis with contrast dated 11/18/2023 FINDINGS: Lung bases: Unremarkable. No mass. No consolidation. Liver: There is a septated or two adjacent cysts measuring up to 1.7 x 2 x 2 cm along the inferior margin of the right lobe of the liver, segment 5. These were present on the previous CT examination. There is no abnormal internal solid components. No abnormal enhancement following contrast administration. There is some respiratory artifact involving the left lobe of the liver. The liver is otherwise intact without evidence for metastatic disease either on precontrast or postcontrast imaging. Gallbladder and bile ducts: Status post cholecystectomy. No ductal dilation. Pancreas: The proximal pancreas has been resected. The tail the pancreas remains. No ductal dilation. Spleen: Trace perisplenic fluid. No loculation. Adrenals: Unremarkable. No mass. Kidneys and ureters: The kidneys demonstrate normal enhancement. Simple appearing cortical cysts are noted involving the left mid to fall anteriorly measuring 14 mm medially and 9 mm laterally. No solid enhancing components. No follow-up required. No hydronephrosis. Stomach and bowel: Fluid-filled dilated small bowel loops are noted in the abdomen. The visible segments of the colon, particularly the splenic flexure and descending colon demonstrate similar mucosal thickening as on the prior examination with pericolonic edema. Intraperitoneal space: Unremarkable. No significant fluid collection. Soft tissues: Unremarkable. Vasculature: The celiac artery is patent. The DANILO is only minimally included and appears somewhat hypertrophied. The superior mesenteric artery demonstrates at least moderate ostial stenosis. The aorta is normal in caliber without dissection or aneurysm. Lymph nodes: Unremarkable. No enlarged lymph nodes. IMPRESSION: 1. There is a septated or two adjacent cysts measuring up to 1.7 x 2 x 2 cm along the inferior margin of the right lobe of the liver, segment 5. These were present on the previous CT examination. There is no abnormal internal solid components. No abnormal enhancement following contrast administration. The appearance is most consistent with an incidental simple hepatic cyst. 2. There is some respiratory artifact involving the left lobe of the liver. The liver is otherwise intact without evidence for metastatic disease either on precontrast or postcontrast imaging. 3. Fluid-filled dilated small bowel loops are noted in the abdomen. The visible segments of the colon, particularly the splenic flexure and descending colon demonstrate similar mucosal thickening as on the prior examination with pericolonic edema. No abscess. Electronically signed by: Kenan Munoz MD 11/19/23 20:33 PM
[2023-11-20 06:53] LABS: Basophils # (auto) 0.03 K/uL (0.00-0.20); Basophils % (auto) 0.6 %; Eosinophils % (auto) 1.8 %; Hemoglobin 10.2 g/dl (14.0-18.0); Immature Granulocytes # (auto) 0.03 K/uL (0.01-0.20); Immature Granulocytes % (auto) 0.6 %; Lymphocytes # (auto) 1.01 K/uL (1.20-3.40); Lymphocytes % (auto) 18.6 %; Mean Corpuscular Hemoglobin 32.1 pg (25.0-34.0); Mean Corpuscular Volume 94.3 fL (80.0-100.0); Mean Platelet Volume 10.3 fL (9.4-12.4); Monocytes # (auto) 0.35 K/uL (0.11-0.59); Monocytes % (auto) 6.4 %; Neutrophils # (auto) 3.92 K/uL (1.40-6.50); Platelet Count 133 K/uL (130-400); RDW Coefficient of Variation 14.1 % (11.5-14.5); RDW Standard Deviation 48.2 fL (36.4-46.3); Red Blood Count 3.18 M/uL (4.70-6.10); White Blood Count 5.44 K/ul (4.8-10.8)
--- NOTE | 2023-11-20 07:20 | Hospitalist Progress Note ---
Date of Service November 20, 2023 Assessment & Plan (1) Primary pancreatic cancer with metastasis to other site: Plan: Weight loss and multiple electrolyte abnormalities after stopping his pancreatic enzymes, recommend restarting and monitor for worsening gastritis/GERD Given vitamin A deficiency will also measure for D, E, K (INR), B1, B12, folate, iron, zinc, copper deficiencies MRI of abdomen 11/18 shows 2 cysts on inf liver, no solid components approx 2 cm Pt follows at [facility] Dr Gustavo Ferrera diagnosed 03/28/2020 with poorly differentiated neuroendocrine pancreatic cancer Whipple 05/09/20 Patient had improvement of diarrhea with 2 doses of hydrocodone, no additional doses ordered ,will use cautiously in the concerned area of having an ileus or adhesions causing bowel obstruction. Severe protein-calorie malnutrition, BMI 17.5 kg/m*m (2) Elevated transaminase level: Plan: Unclear cause of this (subacute rise) - MRI abdomen liver protocol given increasing CEA, only shows 2 hepatic cysts Potential alternative cause is the Sandostatin although attempts and stopping this caused profound diarrhea, next dose is scheduled for November 21 as an outpatient improving Viral hepatitis panel with hep c neg, hep Bs neg, B core neg and hep A negative CK WNL Tick borne illness panel negative with PCR tests pending Hold simvastatin (3) Acute hypokalemia: Plan: Potassium chloride 40 meq PO TID, hypomagnesemia, additional magnesium will be given For hypophosphatemia patient was given sodium phosphate IV once again 11/20/2023 (4) SBO (small bowel obstruction): Plan: Noted on CT but clinically does not appear to have small bowel obstruction Tolerated clear liquid Consult general surgery, did not recommend NGT and advancing diet (5) Diarrhea: Plan: Chronic since Whipple's procedure however given new electrolyte abnormalities and proctocolitis on CT will retest stool for infection Failed cholestyramine as outpatient, on sandostatin Improved after 2 doses of hydrocodone (6) Vitamin A deficiency: Plan: Reports problems with his eyes from prior ophthalmology exam. Will avoid usual high starting doses due to current elevated LFTs and potential liver toxicity Start Vitamin A 25,000 units Plan VTE Prophylaxis - Lovenox 40mg SQ QPM Admission and Anticipated Discharge Date Admission Date: November 18, 2023 Subjective Patient has no complaints he is pleased he is not had a bowel movement since 6 AM he has no increased abdominal pain and is tolerating full liquid diet. Patient friends and family are at bedside and updated Physical Exam Physical Exam: Pleasant gentleman who is underweight with a BMI of 17.5. Abdomen remains with normal active bowel sounds soft nontender Remains without focal guarding tenderness organomegaly. Results & Data Results & Data Vital Signs (Past 12 Hours) Vital Signs Temp Pulse Pulse Resp BP Pulse Ox O2 Del Method 11/20/23 07:16 98.4 F 56 L 18 93/53 L 96 Room Air 11/20/23 03:43 98.2 F 55 L 18 92/55 L 97 Room Air 11/19/23 23:01 98.2 F 62 18 91/48 L 96 Room Air 11/19/23 22:00 53 L 11/19/23 20:30 97.9 F 51 L 18 103/65 98 Room Air Laboratory Results Reviewed CBC reviewed chemistry augmented magnesium and phosphorus PG Care Time/CCT Total # of Minutes Spent Total Time Spent with Patient: Total time spent is greater than 50% in coordination of care (as documented) at patient's floor/unit and/or counseling patient: Coding Level of Care Code 73796 SUB INP/OBS CARE 3/50MIN Diagnoses Primary pancreatic cancer with metastasis to other site C25.9 Elevated transaminase level R74.01 Acute hypokalemia E87.6 SBO (small bowel obstruction) K56.609 Diarrhea R19.7 Vitamin A deficiency E50.9
[2023-11-20 07:27] LABS: Albumin Globulin Ratio 1.7 (0.9-2); Albumin Level 2.9 gm/dl (3.4-5.0); BUN Creatinine Ratio 10.1 (10-20); Bilirubin,Total 0.9 mg/dl (0.2-1.0); Calcium 7.7 mg/dl (8.6-10.3); Est GFR (Non-African American) 85.4 ml/min; Globulin 1.7 gm/dl (2.5-4.0); Magnesium 1.5 mg/dl (1.7-2.4); Potassium 4.4 mmol/L (3.5-5.1); Total Protein 4.6 gm/dl (6.0-8.3)
[2023-11-20] MEDS ORDERED: SODIUM PHOSPHATE 3 MMOL/1 ML INFUSION IV STA (08:26)
[2023-11-20] MEDS ORDERED: SODIUM PHOSPHATE 15 MMOL in SODIUM CHLORIDE 0.9% 250 ML IV ONE (08:45)
[2023-11-20] MEDS: SODIUM PHOSPHATE 21 MMOL in SODIUM CHLORIDE 0.9% 500 ML IV ONE (09:02)
[2023-11-20] MEDS: MAGNESIUM SULFATE / D5W 1 GM/100 ML BAG IV SCH (09:02)
--- NOTE | 2023-11-20 09:27 | Surgery Progress Note ---
Date of Service November 20, 2023 Assessment & Plan (1) SBO (small bowel obstruction): Plan: Pt w/ history of whipple for pancreatic ca, now following for incidental finding of sbo on CT imaging he feels well this AM. twinges of LLQ pain that feels like things are passing through he is tolerating fulls, no n/v and having + diarrhea which is his normal stool studies negative abdomen is soft, non tender, non distended can continue to adv to low fiber as tolerates we will sign off, but call back with questions/concerns Admission and Anticipated Discharge Date Admission Date: November 18, 2023 Subjective Patient feeling okay. Does have some intermittent twinges of pain in the lower left abdomen on occasion. He is tolerating liquids, no nausea/vomiting. + ongoing diarrhea. Physical Exam Physical Exam: awake/alert, no distress Respiratory: normal respiratory effort Gastrointestinal (Abdomen): Inspection/Auscultation: abdomen not distended Percussion/Palpation: abdomen soft; abdomen nontender Results & Data Vital Signs (Past 12 Hours) Vital Signs Temp Pulse Pulse Resp BP Pulse Ox O2 Del Method 11/20/23 07:25 51 L 11/20/23 07:16 98.4 F 56 L 18 93/53 L 96 Room Air 11/20/23 03:43 98.2 F 55 L 18 92/55 L 97 Room Air 11/19/23 23:01 98.2 F 62 18 91/48 L 96 Room Air 11/19/23 22:00 53 L PG Care Time/CCT Total # of Minutes Spent Total Time Spent with Patient: Total time spent is greater than 50% in coordination of care (as documented) at patient's floor/unit and/or counseling patient: Coding Level of Care Code 61389 SUB INP/OBS CARE 05/16MIN Diagnoses SBO (small bowel obstruction) K56.609
[2023-11-20 11:11] LABS: Hepatitis A Antibody IgM NON-REACTIVE (NON-REACTIVE); Hepatitis B Core Antibody IgM NON-REACTIVE (NON-REACTIVE)
[2023-11-21 07:32] LABS: Basophils # (auto) 0.05 K/uL (0.00-0.20); Basophils % (auto) 1.1 %; Eosinophils % (auto) 2.2 %; Hematocrit (blood only) 29.5 % (42.0-52.0); Hemoglobin 9.8 g/dl (14.0-18.0); Immature Granulocytes # (auto) 0.02 K/uL (0.01-0.20); Immature Granulocytes % (auto) 0.4 %; Lymphocytes % (auto) 19.5 %; Mean Corpuscular Hemoglobin 32.2 pg (25.0-34.0); Mean Corpuscular Hgb Conc 33.2 g/dL (32.0-36.0); Mean Platelet Volume 10.9 fL (9.4-12.4); Monocytes # (auto) 0.38 K/uL (0.11-0.59); Monocytes % (auto) 8.2 %; Neutrophils # (auto) 3.17 K/uL (1.40-6.50); Neutrophils % (auto) 68.6 %; Platelet Count 130 K/uL (130-400); RDW Standard Deviation 49.5 fL (36.4-46.3); Red Blood Count 3.04 M/uL (4.70-6.10); White Blood Count 4.62 K/ul (4.8-10.8)
[2023-11-21 07:56] LABS: Albumin Globulin Ratio 1.6 (0.9-2); Albumin Level 2.9 gm/dl (3.4-5.0); BUN Creatinine Ratio 13.5 (10-20); Bilirubin,Total 0.9 mg/dl (0.2-1.0); Creatinine Clr Calc Pharmacy 70.8 ml/min; Est GFR (African American) 93.2 ml/min; Est GFR (Non-African American) 80.5 ml/min; Globulin 1.8 gm/dl (2.5-4.0); Magnesium 1.6 mg/dl (1.7-2.4); Phosphorus 2.4 mg/dl (2.5-4.9); Potassium 4.2 mmol/L (3.5-5.1); Total Protein 4.7 gm/dl (6.0-8.3)
[2023-11-21] MEDS ORDERED: SODIUM PHOSPHATE 3 MMOL/1 ML INFUSION IV STA (08:18)
[2023-11-21 09:09] LABS: Ehrlichia chaff DNA Bld Negative (Negative)
[2023-11-21] MEDS: HYDROcodone/HOMATROPINE SYRUP 5MG/1.5MG 5ML UDP PO ONE (09:20)
[2023-11-21] MEDS: SODIUM PHOSPHATE 15 MMOL in SODIUM CHLORIDE 0.9% 250 ML IV ONE (09:23)
[2023-11-21] MEDS: MAGNESIUM SULFATE / D5W 1 GM/100 ML BAG IV ONE (09:23)
[2023-11-21 11:47] VITALS: RESP 16; TEMP 98.2; O2SAT 97
[2023-11-21 13:36] VITALS: BP 95/48; PULSE 71
--- NOTE | 2023-11-21 16:23 | Discharge Summary ---
Discharge Summary Date of Service November 21, 2023 Principal Dx & Hospital Course #1 = Principal Diagnosis (1) Primary pancreatic cancer with metastasis to other site: Weight loss and multiple electrolyte abnormalities after stopping his pancreatic enzymes, recommend restarting and monitor for worsening gastritis/GERD Given vitamin A deficiency confirmed, pending B1 copper, zinc, vitamin d , b12 MRI of abdomen 11/18 shows 2 cysts on inf liver, no solid components approx 2 cm Pt follows at [facility] Dr Gustavo Ferrera diagnosed 03/28/2020 with poorly differentiated neuroendocrine pancreatic cancer Whipple 05/09/20 Patient had improvement of diarrhea with 2 doses of hydrocodone, no additional doses ordered ,will use cautiously after discharge Severe protein-calorie malnutrition, BMI 17.5 kg/m*m (2) Elevated transaminase level: Unclear cause of this (subacute rise) - MRI abdomen liver protocol given increasing CEA, only shows 2 hepatic cysts Potential alternative cause is the Sandostatin although attempts and stopping this caused profound diarrhea, next dose is scheduled for November 21 as an outpatient improving Viral hepatitis panel with hep c neg, hep Bs neg, B core neg and hep A negative CK WNL Tick borne illness panel negative with PCR tests pending Hold simvastatin (3) SBO (small bowel obstruction): Noted on CT but clinically does not appear to have small bowel obstruction Tolerated clear liquid and advancing diet (4) Diarrhea: Chronic since Whipple's procedure however given new electrolyte abnormalities and proctocolitis on CT will retest stool for infection Failed cholestyramine as outpatient, on sandostatin Improved after 2 doses of hydrocodone, will have home dosing (5) Vitamin A deficiency: Reports problems with his eyes from prior ophthalmology exam. Will avoid usual high starting doses due to current elevated LFTs and potential liver toxicity Start Vitamin A 25,000 units continue after discharge Notes For Next Care Provider repeat vitamin A level and be careful not to over replace Admission HPI Per Admitting Provider Leander Anderson is a 53 year old male who presents to the ER with generalized fatigue getting progressively worse over the last week. Symptoms much worse on Saturday with lightheadedness on standing, generalized weakness. Associated shortness of breath, chills and nausea (no vomiting). No fever, respiratory, change in gastrointestinal or urinary symptoms. He reports chronic diarrhea since his Whipple's procedure which is currently no worse than usual. He notes blood was found in his stool on testing for which he has an EGD scheduled for next week but no gross melena or hematochezia. Oncologist recently started him on potassium supplementation 40 meq BID that he finished yesterday (he was not previously on potassium supplements) but he has been taking an over the counter potassium supplement since. He notably stopped taking his pancreatic enzymes Zenpep and Viokase 3 weeks ago and they were causing stomach upset and there was some concern they were causing ulcers given the microscopic blood found on fecal occult blood testing. Since coming off the pancreatic enzymes he has noticed a 10lb weight loss. He recently went to his opthamologist due to clurring of his eye sight and based on a retinal scan a vitamin A level was taken which returned undetectable. With regards to his neuroendocrine cancer he had the Whipple's procedure in 2020 followed by chemotherapy with cisplatin and etoposide. No chemotherapy since 2020 but he has been on Sandostatin injections monthly since Apr 2021. He reports trial coming off this led to uncontrollable diarrhea. He drinks alcohol socially once a week, usually three beers. Discharge Exam pt is without distress lungs are clear and abd is benign Updated Medication List Medication Instructions Recorded Confirmed Type pantoprazole 40 mg tablet,delayed 40 mg PO DAILY 07/13/22 11/18/23 History release potassium 99 mg tablet 99 mg PO DAILY 07/19/23 11/18/23 History cyanocobalamin (vitamin B-12) 1,000 mcg IM MONTHLY 11/18/23 11/18/23 History 1,000 mcg/mL injection solution simvastatin 5 mg tablet 0 mg PO HS 11/18/23 11/18/23 History beta carotene 7,500 mcg (25,000 7,500 mcg PO QAM #30 caps 11/21/23 Rx unit) capsule hydrocodone-homatropine 5 mg-1.5 1 tab PO BID #60 tabs 11/21/23 Rx mg tablet (Hycodan (with homatropine)) amkrwocj-wil-nzppg acid 0.4 1 tab PO QAM #30 tabs 11/21/23 Rx mg-lycopene 300 mcg-lutein 250 mcg tablet ([employer]) Hospital Stay Data Consultations 11/18/23 12:36 ED Decision to Admit Stat 11/18/23 12:53 Consult General Surgery Stat Diagnostic Imagining Performed 11/18/23 10:42 CT for pulmonary embolism PE [CT angio chest PE protocol] Stat 11/18/23 11:33 CT Abd and Pelvis [CT abd pelvis IV con only] Stat 11/19/23 18:00 MR abdomen wo/w con Routine Pending Results Patient Have Any Pending Studies at Discharge: Yes Discharge Instructions Given to Patient (Per Discharging Provider) Please use your hycodan, to control your bowel movements, start taking one in am and one in pm, adjust up or down in dosing related to your bowel frequency. please use an electrolyte containing solution to help keep your mineral levels up, some examples are gatoraide, poweraide or pedilyte or a generic equivalent please follow up with Sandra Gonzalez for continued blood work checks Total Time Total Time Spent Total Time Spent (In Minutes): It required greater than 30 minutes to prepare this patient for discharge. Coding Level of Care Code 40668 INP/OBS DISCH >30 MIN Diagnoses Primary pancreatic cancer with metastasis to other site C25.9 Elevated transaminase level R74.01 SBO (small bowel obstruction) K56.609 Diarrhea R19.7 Vitamin A deficiency E50.9
[2023-11-22 18:51] LABS: Babesia microti DNA Not Detected (Not Detected)
[2023-11-23 18:51] LABS: Alpha-Tocopherol 4.6 mg/L (5.7-19.9); Copper, Serum 23 mcg/dL (70-175); Vitamin E Beta-Gam Tocopherol <1.0 mg/L (<=4.3); Zinc 63 mcg/dL (60-130)
== END 2023-11-21 15:28 | disposition home or self-care (01) | DRG 640 ==
LOC: ED 09:52 → SUATTDRO 14:19 → EDINP 14:19 → 2S 20:47

== ENCOUNTER 2023-12-26 12:01 | Inpatient (IN) ==
--- NOTE | 2023-12-26 12:39 | Emergency Department Note ---
Impression & Plan Weakness, Acute dehydration ED Provider Note Name: PAULINA MENESES Age: 53 Sex: Male Arrives Via: Walk-In Informant: Patient and ED Provider: Tayo Mclaughlin MD Chief Complaint: Weakness Impression: As per impressions above Medical Decision Making: Pleasant 53-year-old gentleman with a history of Whipple surgery a few years ago arrives for evaluation of worsening weakness in the setting of severe diarrhea. Ongoing for several weeks though rapidly worsening post discharge few weeks ago. Patient notes lightheadedness but no acute focal deficits appreciated on my examination. Laboratory workup is consistent with pretty significant dehydration to the point of acidosis. Fluid resuscitated and feeling bit better. In setting of sepsis severe symptoms I did discuss with hospitalist and they will bring in for further management. Patient is not septic at this time. Triage/Nursing Notes reviewed by Me Differential:Infection, dehydration, metabolic abnormality, hypo/hyperglycemia, electrolyte disturbance, anemia, hypoxia, cardiac sources, intracerebral event, toxicologic, neurologic, as well as other pathologies. Vital Signs: reviewed and remarkable for mild hypotension (this is not uncommon for patient) Interventions: Normal saline bolus 2 L every Labs:ED labs Reviewed by me and remarkable for acidosis Consults:I discussed case with Dr. Jewell of the [facility] hospitalist service who will bring in for further management Plan: Disposition:Hospitalization. Condition: Good History of Present Illness: 53-year-old male arrives for evaluation of weakness. Patient notes that he had a Whipple procedure several years ago and other than some anemia issues had been doing well up until recently. States difficulty with keeping hydrated. States he tries to eat and drink as much as possible but is getting increasing diarrhea over the last few months. He was hospitalized about a month ago for multiple electrolyte abnormalities and possible small bowel obstruction. Denies any abdominal pain, vomiting, change in bowel habits the last few days. States that he is feeling very lightheaded anytime he stands now and feels like he might pass out. No new medications prior to arrival. Denies any falls, trauma, injuries. Is not having any chest pain, shortness of breath, headache, neurologic deficits or other concerning signs or symptoms. He has not noted any palpitations or irregular heartbeats. Past Medical History:See Below Home Medications:See Below Allergies:nkda Vitals:Blood Pressure: 92/64, Pulse 80, RR 18, T 36.3C, O2 100% on RA Physical Exam: GENERAL: Patient is tired/cachectic/dehydrated appearing and in minimal distress. RESPIRATORY: No dyspnea. Clear to auscultation and equal bilaterally. CARDIOVASCULAR: Regular rate and rhythm.No murmur appreciated. GASTROINTESTINAL: Abdomen soft, non-tender, no peritonitis. EXTREMITIES: Normal motion all extremities, no cyanosis, no edema. NEUROLOGIC: Alert and oriented. No focal neurologic deficits appreciated SKIN: No rash, no jaundice, no diaphoresis. 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 Father Pancreatic cancer Brother No problems noted. Brother No problems noted. Son No problems noted. 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 Feels Safe at Home: Yes Safety Concerns: Feels Safe At This Time Diet: regular caffeine: No during the past year weight has: decreased > 10 lbs Assistive Devices: Glasses Allergies Allergies Allergy/AdvReac Type Severity Reaction Status Date / Time No Known Allergies Allergy Verified 12/26/23 11:20 Home Meds Home Medications Medication Instructions Recorded Confirmed pantoprazole 40 mg tablet,delayed 40 mg PO DAILY 07/13/22 12/26/23 release cyanocobalamin (vitamin B-12) 1,000 mcg IM MONTHLY 11/18/23 12/26/23 1,000 mcg/mL injection solution cholestyramine-aspartame 4 gram 1 ea PO TID 12/26/23 12/26/23 oral powder for susp in a packet famotidine 40 mg tablet 40 mg PO DAILY 12/26/23 12/26/23 okxdfp-rxvvmvvn-gvbkqxa 2 tab PO TID 12/26/23 12/26/23 20,880-78,300-78,300 unit tablet (Viokace) yaoxul-zpghxmxp-kbzcheo 2 cap PO TID 12/26/23 12/26/23 40,000-126,000-168,000 unit capsule, delay rel (Zenpep) octreotide acetate 50 mcg/mL 0 mcg subcut MONTHLY 12/26/23 12/26/23 injection solution (Sandostatin) potassium chloride 20 mEq 20 meq PO BID 12/26/23 12/26/23 tablet,extended release Previous Rx's Medication Instructions Recorded beta carotene 7,500 mcg (25,000 7,500 mcg PO QAM #30 caps 11/21/23 unit) capsule hydrocodone-homatropine 5 mg-1.5 1 tab PO BID #60 tabs 11/21/23 mg tablet (Hycodan (with homatropine)) wqxzvioy-ipj-sbecl acid 0.4 1 tab PO QAM #30 tabs 11/21/23 mg-lycopene 300 mcg-lutein 250 mcg tablet (Cerovite Senior) Results & Data (ED) Vital Signs Vital Signs - 24 hr 12/26/23 13:00 12/26/23 13:17 12/26/23 13:30 Pulse Rate 57 L Pulse Rate [Apical] 62 Pulse Rate from SpO2 Sensor 56 L Respiratory Rate 14 16 Blood Pressure Blood Pressure [Left Arm] 93/74 L Blood Pressure Mean Blood Pressure Mean [Left Arm] 80 Pulse Oximetry 100 99 Oxygen Delivery Method Room Air Room Air 12/26/23 13:30 12/26/23 14:00 12/26/23 14:00 Pulse Rate 59 L Pulse Rate [Apical] Pulse Rate from SpO2 Sensor Respiratory Rate 19 Blood Pressure 97/71 L 97/64 L Blood Pressure [Left Arm] Blood Pressure Mean 78 66 Blood Pressure Mean [Left Arm] Pulse Oximetry 95 Oxygen Delivery Method Room Air 12/26/23 14:36 Pulse Rate 53 L Pulse Rate [Apical] Pulse Rate from SpO2 Sensor 53 L Respiratory Rate 15 Blood Pressure 91/63 L Blood Pressure [Left Arm] Blood Pressure Mean 72 Blood Pressure Mean [Left Arm] Pulse Oximetry 99 Oxygen Delivery Method Room Air Laboratory Data 12/27/23 07:58 12/27/23 07:58 Lab Results 12/26/23 12/26/23 12/26/23 Range/Units 12:32 13:15 13:50 WBC 5.50 (4.8-10.8) K/ul RBC 3.73 L (4.70-6.10) M/uL Hgb 12.3 L (14.0-18.0) g/dl Hct 35.6 L (42.0-52.0) % MCV 95.4 (80.0-100.0) fL MCH 33.0 (25.0-34.0) pg MCHC 34.6 (32.0-36.0) g/dL RDW Std Deviation 50.6 H (36.4-46.3) fL RDW Coeff of Gael 14.4 (11.5-14.5) % Plt Count 215 (130-400) K/uL MPV 10.4 (9.4-12.4) fL Immature Gran % (Auto) 0.4 % Neut % (Auto) 80.6 % Lymph % (Auto) 12.5 % [place] % (Auto) 5.6 % Eos % (Auto) 0.4 % Baso % (Auto) 0.5 % Neut # (Auto) 4.43 (1.40-6.50) K/uL Lymph # (Auto) 0.69 L (1.20-3.40) K/uL [place] # (Auto) 0.31 (0.11-0.59) K/uL Eos # (Auto) 0.02 (0.00-0.50) K/uL Baso # (Auto) 0.03 (0.00-0.20) K/uL Immature Gran # (Auto) 0.02 (0.01-0.20) K/uL Sodium 135 L (136-145) mmol/L Potassium 3.4 L (3.5-5.1) mmol/L Chloride 112 H (98-107) mmol/L Carbon Dioxide 14 L (21-32) mmol/L Anion Gap 9 (3-11) BUN 35 H (6-23) mg/dl Creatinine 1.27 (0.6-1.4) mg/dl Est Cr Clr Drug Dosing 53.4 ml/min Est GFR ( Amer) 73.2 ml/min Est GFR (Non-Af Amer) 63.2 ml/min BUN/Creatinine Ratio 27.6 H (10-20) Glucose 114 H (70-99(Fasting)) mg/dl Calcium 9.0 (8.6-10.3) mg/dl Phosphorus 3.5 (2.5-4.9) mg/dl Magnesium 1.7 (1.7-2.4) mg/dl Total Bilirubin 0.6 (0.2-1.0) mg/dl Direct Bilirubin 0.2 (0-0.2) mg/dl AST 41 H (13-39) U/L ALT 68 H (7-52) U/L Alkaline Phosphatase 142 H (34-104) U/L Troponin I High Sens 3.1 (0-20) pg/ml Total Protein 6.9 (6.0-8.3) gm/dl Albumin 3.8 (3.4-5.0) gm/dl Lipase < 3 L (11-82) U/L Procalcitonin 0.21 (0-0.5) ng/ml TSH 5.469 H (0.300-4.500) uIu/ml Free T4 0.71 (0.61-1.60) ng/dl Urine Color Yellow Urine Appearance Clear (Clear) Urine pH 6.0 (4.5-7.5) Ur Specific Maxwell 1.019 (1.000-1.030) Urine Protein 1+ H (Negative) Urine Glucose (UA) Negative (Negative) Urine Ketones Negative (Negative) Urine Blood Negative (Negative) Urine Nitrite Negative (Negative) Urine Bilirubin Negative (Negative) Urine Urobilinogen Negative (Negative) Ur Leukocyte Esterase Negative (Negative) Urine WBC (Auto) 0-5 (0-5) /hpf Urine RBC (Auto) 0-2 (0-2) /hpf U Hyaline Cast (Auto) 3-5 H (0-2) /lpf U Epithel Cells (Auto) 0-2 (0-2) /hpf Urine Bacteria (Auto) None Seen (None Seen) Granular Casts Present A (None Prsent) /lpf SARS-CoV-2 (PCR) NEGATIVE (Negative) Influenza Type A (PCR) Negative (Neg) Influenza Type B (PCR) Negative (Neg) RSV (RT-PCR) Negative (Neg) Administered Medications Lipase/Protease/Amylase (Pancreaze (Lipase 10,500u) Cap) 1 cap PO TIDM MAEVE Stop: 01/26/24 08:14 Last Admin: 12/27/23 08:53 Dose: 1 cap Documented By: NEL Cholestyramine Resin (Cholestyramine Light 4 Gm Pkt) 4 gm PO TID MAEVE Stop: 01/25/24 20:59 Last Admin: 12/27/23 10:53 Dose: 4 gm Documented By: Admin: 12/26/23 20:32 Dose: 4 gm Documented By: VIVEK Famotidine (Famotidine 40 Mg Tablet) 40 mg PO DAILY MAEVE Stop: 01/26/24 08:59 Last Admin: 12/27/23 08:46 Dose: 40 mg Documented By: NEL Thiamine HCl 500 mg/ Sodium (Chloride) 55 mls @ 210 mls/hr IV Q8H AMEVE Stop: 01/02/24 20:59 Last Infusion: 12/27/23 05:37 Dose: Infused Documented By: Admin: 12/27/23 05:21 Dose: 210 mls/hr Documented By: Infusion: 12/26/23 21:07 Dose: Infused Documented By: SARAH BETH Admin: 12/26/23 20:33 Dose: 210 mls/hr Documented By: VIVEK Miscellaneous (Zenpep ~Order Awaiting Action) 1 each N/A QS MAEVE Stop: 01/26/24 00:00 Last Admin: 12/27/23 09:52 Dose: Not Given Documented By: Admin: 12/26/23 21:14 Dose: Not Given Documented By: VIVEK Multivitamins/Minerals (Cerovite Adv Formula Tab) 1 tab PO QAM MAEVE Stop: 01/26/24 08:59 Last Admin: 12/27/23 08:46 Dose: 1 tab Documented By: NEL Pantoprazole Sodium (Pantoprazole 40 Mg Tab) 40 mg PO DAILY MAEVE Stop: 01/26/24 08:59 Last Admin: 12/27/23 08:46 Dose: 40 mg Documented By: NEL Psyllium Hydrophilic Mucilloid (Psyllium Or Guar Gum Fiber 4gm Packet) 4 gm PO BID MAEVE Stop: 01/26/24 08:59 Last Admin: 12/27/23 08:53 Dose: 4 gm Documented By: NEL Sodium Bicarbonate (Sodium Bicarbonate 650 Mg Tab) 650 mg PO BID MAEVE Stop: 01/26/24 08:59 Last Admin: 12/27/23 09:02 Dose: 650 mg Documented By: NEL Discontinued Medications Sodium Chloride (Nss) 1,000 mls @ 999 mls/hr IV .Q1H1M ONE Stop: 12/26/23 13:36 Last Infusion: 12/26/23 14:15 Dose: Infused Documented By: JOSE CARLOS Admin: 12/26/23 13:14 Dose: 999 mls/hr Documented By: JOSE CARLOS Potassium Chloride (K Nicola / Wtr) 10 meq in 100 mls @ 100 mls/hr IV Q1H MAEVE Stop: 12/26/23 17:44 Last Infusion: 12/26/23 19:11 Dose: Infused Documented By: Admin: 12/26/23 17:53 Dose: 100 mls/hr Documented By: Infusion: 12/26/23 17:25 Dose: Infused Documented By: Admin: 12/26/23 16:25 Dose: 100 mls/hr Documented By: Infusion: 12/26/23 16:18 Dose: Infused Documented By: Admin: 12/26/23 15:18 Dose: 100 mls/hr Documented By: JOSE CARLOS Thiamine HCl 500 mg/ Sodium (Chloride) 55 mls @ 210 mls/hr IV NOW STA Stop: 12/26/23 15:28 Last Infusion: 12/26/23 16:42 Dose: Infused Documented By: Admin: 12/26/23 16:26 Dose: 210 mls/hr Documented By: GAYATHRI Sodium Bicarbonate 150 meq/ (Dextrose) 1,150 mls @ 125 mls/hr IV .Q9H12M [facility] Stop: 01/25/24 15:59 Last Infusion: 12/27/23 09:52 Dose: Infused Documented By: Admin: 12/27/23 01:42 Dose: 125 mls/hr Documented By: Infusion: 12/27/23 01:42 Dose: Infused Documented By: Admin: 12/26/23 17:18 Dose: 125 mls/hr Documented By: CHAIM Potassium Chloride (Potassium Chloride 10 Meq Tabcr) 10 meq PO BID [facility] Stop: 01/26/24 08:59 Last Admin: 12/27/23 09:03 Dose: 10 meq Documented By: NEL Discharge Plan Visit Data Chief Complaint: Lethargic Stated Complaint: VERTIGO, LETHARGIC, EX WEIGHT LOSS ED Provider: Tayo Mclaughlin Discharge Problem: Weakness, Acute dehydration Patient Disposition: Admitted As Inpatient Discharge Instructions Interventions: ED Discharge Assessment Last Done: 12/26/23 17:03
[2023-12-26 13:05] LABS: Basophils # (auto) 0.03 K/uL (0.00-0.20); Basophils % (auto) 0.5 %; Eosinophils # (auto) 0.02 K/uL (0.00-0.50); Eosinophils % (auto) 0.4 %; Hematocrit (blood only) 35.6 % (42.0-52.0); Hemoglobin 12.3 g/dl (14.0-18.0); Immature Granulocytes # (auto) 0.02 K/uL (0.01-0.20); Immature Granulocytes % (auto) 0.4 %; Lymphocytes # (auto) 0.69 K/uL (1.20-3.40); Lymphocytes % (auto) 12.5 %; Mean Corpuscular Hgb Conc 34.6 g/dL (32.0-36.0); Mean Corpuscular Volume 95.4 fL (80.0-100.0); Mean Platelet Volume 10.4 fL (9.4-12.4); Monocytes # (auto) 0.31 K/uL (0.11-0.59); Monocytes % (auto) 5.6 %; Neutrophils # (auto) 4.43 K/uL (1.40-6.50); Neutrophils % (auto) 80.6 %; Platelet Count 215 K/uL (130-400); RDW Coefficient of Variation 14.4 % (11.5-14.5); RDW Standard Deviation 50.6 fL (36.4-46.3); Red Blood Count 3.73 M/uL (4.70-6.10)
[2023-12-26] MEDS: SODIUM CHLORIDE 0.9% 1,000 ML IV ONE (13:14)
[2023-12-26 13:25] LABS: Albumin Level 3.8 gm/dl (3.4-5.0); Anion Gap 9 (3-11); Bilirubin Direct 0.2 mg/dl (0-0.2); Bilirubin,Total 0.6 mg/dl (0.2-1.0); Carbon Dioxide 14 mmol/L (21-32); Chloride 112 mmol/L (98-107); Magnesium 1.7 mg/dl (1.7-2.4); Potassium 3.4 mmol/L (3.5-5.1); Sodium 135 mmol/L (136-145)
[2023-12-26 13:30] LABS: Troponin I High Sensitivity 3.1 pg/ml (0-20)
[2023-12-26 13:31] LABS: BUN Creatinine Ratio 27.6 (10-20); Blood Urea Nitrogen 35 mg/dl (6-23); Creatinine Clr Calc Pharmacy 53.4 ml/min; Est GFR (African American) 73.2 ml/min; Est GFR (Non-African American) 63.2 ml/min; Glucose 114 mg/dl (70-99(Fasting))
[2023-12-26 13:34] LABS: Alanine Aminotransferase 68 U/L (7-52); Alkaline Phosphatase 142 U/L (34-104); Aspartate Aminotransferase 41 U/L (13-39); Lipase < 3 U/L (11-82); Phosphorus 3.5 mg/dl (2.5-4.9); Total Protein 6.9 gm/dl (6.0-8.3)
[2023-12-26 13:39] LABS: Thyroid Stimulating Hormone 5.469 uIu/ml (0.300-4.500)
--- NOTE | 2023-12-26 14:02 | XRay Report ---
XR chest 1V portable HISTORY: weakness COMPARISON: Chest 11/18/2023. FINDINGS: The lungs are clear. Cardiac silhouette is normal in size. No pleural effusions. No pneumot horax. Mildly dilated gas-filled loops of bowel seen within the upper abdomen. IMPRESSION: 1. No acute process within the chest. 2. Mildly dilated gas-filled loops of bowel within the upper abdomen. Clinical correlation recommende d to assess for a developing bowel obstruction. ACT 112: Negative or not required by law. Electronically signed by: Thomas Evans M.D. 12/26/2023 2:00 PM
[2023-12-26 14:07] LABS: Influenza A virus by PCR Negative (Neg); Influenza B virus by PCR Negative (Neg); RSV by PCR Negative (Neg); SARS CoV2 RNA(COVID-19) Ceph NEGATIVE (Negative)
[2023-12-26 14:15] LABS: T4 Free Thyroxine 0.71 ng/dl (0.61-1.60)
[2023-12-26 14:19] LABS: Appearance Urine Clear (Clear); Bacteria Urine Automated None Seen (None Seen); Bilirubin Urine Negative (Negative); Blood Urine Negative (Negative); Color Urine Yellow; Epithelial Cell Urine Auto 0-2 /hpf (0-2); Glucose Urine UA Negative (Negative); Granular Casts Urine Present /lpf (None Prsent); Ketones Urine Negative (Negative); Leukocyte Esterase Urine Negative (Negative); Nitrite Urine Negative (Negative); Protein Urine 1+ (Negative); RBC Urine Automated 0-2 /hpf (0-2); Specific Gravity Urine 1.019 (1.000-1.030); Urobilinogen Urine Negative (Negative); WBC Urine Automated 0-5 /hpf (0-5)
--- NOTE | 2023-12-26 14:45 | History & Physical Report ---
Date of Service December 26, 2023 Assessment & Plan (1) Generalized weakness: Plan: Admit to [facility] telemetry Currently stable and nontoxic-appearing Presented to the ED due to progressive generalized weakness, orthostatic hypotension, and balance with ambulation, and progressive weight loss since his admission to our facility last month Appears significantly malnourished as described last admission, potassium of 3.4 No signs of infection today Suspect the majority of his weakness is due to his progressive malnutrition Review of last admission shows that his thiamine level came back undetectable but this appears to have come back after he was discharged >Will start high-dose IV thiamine on admission Will wait for VBG results but will likely be starting him on sodium bicarb drip for further hydration moving forward Will consult our dietitian for evaluation of possible TPN PT/OT consults placed, fall/aspiration precautions Regular diet with 3 times daily boost shakes Bilateral SCDs for DVT prophylaxis AM CBC, CMP, mag, PT/INR (2) Thiamine deficiency: Plan: Thiamine level obtained during his last admission was undetectable but results appear to have finalized after the patient was discharged Patient confirms he was never started on thiamine therapy outpatient Suspect a component of his weakness and gait instability is due to a significant finding deficiency Will start high-dose IV thiamine therapy today at 500 mg IV 3 times daily Patient should continue replacement on discharge (3) Metabolic acidosis with normal anion gap and bicarbonate losses: Plan: Bicarb of 14 with anion gap within normal limits at 9 Will obtain VBG at the time of admission for further evaluation Suspect he has ongoing bicarb losses from chronic diarrhea Based on VBG results we will likely start patient on sodium bicarb drip for hydration and acid/base Will obtain repeat VBG this evening to monitor for changes (4) Hypokalemia: Plan: Potassium of 3.4 Mag currently stable at 1.7 Suspect this is due to his poor absorption from previous Whipple procedure and chronic diarrhea Will give 3 doses of 10 mEq IV KCl on admission Continue to monitor on guest service aide a.m. renal function electrolytes (5) Neuroendocrine carcinoma of pancreas: Plan: Continue to follow with heme-onc on discharge for ongoing Sandostatin treatments (6) Failure to thrive in adult: Plan: Dietitian, PT/OT consults placed (7) Transaminitis: Plan: Patient noted to have mild transaminitis with AST of 41, ALT of 68, and alk phos of 122 bilirubin within normal limits Has continued to improve since last admission in October of this year Continue to monitor daily CMP for now (8) Severe protein-calorie malnutrition: Plan The patient was discussed with Dr. 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 Patient was recently admitted for and November of this year for similar complaints and was noted to have severe protein calorie malnutrition. On arrival to the ED he was noted to be hypotensive at 91/63, bradycardic with heart rate in the 50s, but otherwise stable. Labs were significant for BUN of 35, bicarb of 14 with anion gap within normal limits, chloride of 112, potassium 3.4, improving transaminitis, TSH 5.4 with free T4 within normal limits, UA with 1+ protein and 3-5 hyaline casts, with COVID- 19/influenza/RSV screen negative. Chest x-ray was negative for acute findings in the chest but did note mildly dilated gas-filled loops of bowel within the upper abdomen. Clinical correlation recommended to assess for developing bowel obstruction. Prior to admission the patient was given 1 L normal saline. Patient was sitting in bed in no acute distress at time of exam with his mother bedside, history is obtained from both. Since being discharged from our facility last month's clinical condition has continued to decline. States that "I eat like a horse but I am still losing weight". Has still been experiencing his ongoing chronic diarrhea, has started to try scheduled hydrocodone to see if this will slow his bowels. No recent fever or chills, chest pain, shortness of breath, new abdominal pain, nausea/vomiting, melena, dysuria/hematuria, recent trauma. Has been getting significantly lightheaded/dizzy with changing positions especially when going from sitting to standing, has passed out once but did not hit his head. When asked, states he does feel off balance when walking. States that he was seen by his printed circuit boards laminator earlier today before presenting to the ED and they reportedly wanted him to have an echocardiogram while here since he has not had one in many years and has been having progressive lightheadedness/dizziness. Severe severe proteincalorie malnutrition in the patient explained that he is interested in trying TPN again to see if it will help him gain weight, I explained that we can have our dietitian see him to see what they recommend but again explained that this is not a permanent solution to his ongoing severe malnutrition. Confirms that he is still a full code and he would want his son, girlfriend, and mother to make medical decisions for him together if he cannot make them himself. Please refer to Dr. Jewell's attestation for any changes to the treatment plan Allergies Allergy/AdvReac Type Severity Reaction Status Date / Time No Known Allergies Allergy Verified 12/26/23 11:20 Home Medications Medication Instructions Recorded Confirmed Type pantoprazole 40 mg tablet,delayed 40 mg PO DAILY 07/13/22 12/26/23 History release cyanocobalamin (vitamin B-12) 1,000 mcg IM MONTHLY 11/18/23 12/26/23 History 1,000 mcg/mL injection solution beta carotene 7,500 mcg (25,000 7,500 mcg PO QAM #30 caps 11/21/23 12/26/23 Rx unit) capsule hydrocodone-homatropine 5 mg-1.5 1 tab PO BID #60 tabs 11/21/23 12/26/23 Rx mg tablet (Hycodan (with homatropine)) lnjhwadd-ppi-yvbsb acid 0.4 1 tab PO QAM #30 tabs 11/21/23 12/26/23 Rx mg-lycopene 300 mcg-lutein 250 mcg tablet (Cerovite Senior) cholestyramine-aspartame 4 gram 1 ea PO TID 12/26/23 12/26/23 History oral powder for susp in a packet famotidine 40 mg tablet 40 mg PO DAILY 12/26/23 12/26/23 History tqqkel-rrtcjifo-uudidmc 2 tab PO TID 12/26/23 12/26/23 History 20,880-78,300-78,300 unit tablet (Viokace) stasad-bvirchaw-rgtqurn 2 cap PO TID 12/26/23 12/26/23 History 40,000-126,000-168,000 unit capsule, delay rel (Zenpep) octreotide acetate 50 mcg/mL 0 mcg subcut MONTHLY 12/26/23 12/26/23 History injection solution (Sandostatin) potassium chloride 20 mEq 20 meq PO BID 12/26/23 12/26/23 History tablet,extended release Past Med/Surg History Problem List (Updated 12/27/23 @ 11:28 by Nikhil Cheek MD) Chronic diarrhea Severe protein-calorie malnutrition Metabolic acidosis with normal anion gap and bicarbonate losses Thiamine deficiency Transaminitis Failure to thrive in adult Generalized weakness Hypotension Lightheadedness Sinus bradycardia Neuroendocrine carcinoma of pancreas (Chronic 03/28/20) Fever (Acute) Primary pancreatic cancer with metastasis to other site (Acute) Enteritis (Acute) Medical History Vitamin A deficiency SBO (small bowel obstruction) Acute hypokalemia Hypomagnesemia Diarrhea Hypomagnesemia Hypokalemia Pancytopenia due to chemotherapy Neutropenic fever Acute hypotension Normal colonoscopy Diverticulitis Surgical History History of Whipple procedure History of ear surgery Family History Mother No problems noted. Father Pancreatic cancer Brother No problems noted. Brother No problems noted. Son No problems noted. 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 Feels Safe at Home: Yes Safety Concerns: Feels Safe At This Time Diet: regular caffeine: No during the past year weight has: decreased > 10 lbs Assistive Devices: Glasses Physical Exam Physical Exam: Physical Exam: General: In no acute distress, stated age, Severely malnourished but nontoxic-appearing HEENT: Normocephalic, atraumatic, no scleral icterus, pupils around round, symmetrical, and reactive to light, Dry mucus membranes, trachea midline, no thyromegaly Chest/Pulm: No respiratory distress, symmetrical chest expansion, clear breath sounds throughout Cardiac: RRR, no murmurs noted Abdomen: Negative for ascites and bruising, normoactive bowel sounds, soft, non-tender to palpation throughout Musculoskeletal: Symmetrical and without signs of acute trauma, upper and lower extremities with full ROM, no atrophy, spasticity, or flaccidity Extremities: Radial, dorsalis pedis, and posterior tibial pulses are intact and symmetrical, no edema noted in the BL LE's Skin: Warm, dry, no rashes , lesions, or scars noted Neuro: Alert and oriented to person, place, month, year, and president, no focal defects, no tremors noted Psych: No acute distress, calm and cooperative during the exam Results & Data Results & Data Vital Signs (Past 12 Hours) Vital Signs Temp Pulse Pulse Resp BP BP Pulse Ox 12/26/23 14:36 53 L 15 91/63 L 99 12/26/23 14:00 97/64 L 12/26/23 14:00 59 L 19 95 12/26/23 13:30 97/71 L 12/26/23 13:30 57 L 16 99 12/26/23 13:17 12/26/23 13:00 62 14 93/74 L 100 12/26/23 12:05 36.3 C L 80 18 92/64 L 100 O2 Del Method 12/26/23 14:36 Room Air 12/26/23 14:00 12/26/23 14:00 Room Air 12/26/23 13:30 12/26/23 13:30 Room Air 12/26/23 13:17 Room Air 12/26/23 13:00 12/26/23 12:05 Room Air Laboratory Results Abnormal lab results 12/26/23 12/26/23 Range/Units 12:32 13:50 RBC 3.73 L (4.70-6.10) M/uL Hgb 12.3 L (14.0-18.0) g/dl Hct 35.6 L (42.0-52.0) % RDW Std Deviation 50.6 H (36.4-46.3) fL Lymph # (Auto) 0.69 L (1.20-3.40) K/uL Sodium 135 L (136-145) mmol/L Potassium 3.4 L (3.5-5.1) mmol/L Chloride 112 H (98-107) mmol/L Carbon Dioxide 14 L (21-32) mmol/L BUN 35 H (6-23) mg/dl BUN/Creatinine Ratio 27.6 H (10-20) Glucose 114 H (70-99(Fasting)) mg/dl AST 41 H (13-39) U/L ALT 68 H (7-52) U/L Alkaline Phosphatase 142 H (34-104) U/L Lipase < 3 L (11-82) U/L TSH 5.469 H (0.300-4.500) uIu/ml Urine Protein 1+ H (Negative) U Hyaline Cast (Auto) 3-5 H (0-2) /lpf Granular Casts Present A (None Prsent) /lpf Diagnostic Findings Chest X-Ray 12/26/23 12:37 XR chest 1V portable HISTORY: weakness COMPARISON: Chest 11/18/2023. FINDINGS: The lungs are clear. Cardiac silhouette is normal in size. No pleural effusions. No pneumothorax. Mildly dilated gas-filled loops of bowel seen within the upper abdomen. IMPRESSION: 1. No acute process within the chest. 2. Mildly dilated gas-filled loops of bowel within the upper abdomen. Clinical correlation recommended to assess for a developing bowel obstruction. ACT 112: Negative or not required by law. Electronically signed by: Thomas Evans M.D. 12/26/2023 2:00 PM ECG Additional Comments: Sinus bradycardia with first-degree AV block Code Status & VTE Plan Code Status Full code VTE Prophylaxis Plan VTE Prophylaxis will be ordered: Yes Supervising Physician Co-Signing Physician Notes I personally saw and examined the patient. I verified all escalona points and agree with Nahum East PA-C with the following exceptions and/or additions: 53 year old with neuroendocrine cancer presents to the ER with generalized weakness and loss of balance. Similar to symptoms from end of October admission. No one sided weakness, change in speech, vision or hearing. O/E A&Ox3, cachectic appearing, HS RRR, no murmurs, Chest CTAB, Abdo SNT, no CVA tenderness, left pupil appears more dilated than right but normal reactivity to light, EOMI without diplopia or significant nystagmus A/P Generalized weakness / thiamine def / severe protein calorie malnutrition - thiamine level undetectable last admission although no encephalopathy or ophthalmoplegia to suggest Wernicke's I am concerned it may be contributing towards his lack of balance therefore will treat with high dose thiamine. Consult oncology to determine if any further treatments for his neuroendocrine cancer and in addition considering senior living TPN at this stage perhaps just intermittently once his weight has improved. Continue beta-carotene supplementation Bradycardia and dizziness - he came from his cardiology appointment and Dr Pulido requested consult and echocardiogram if being admitted therefore will place these Metabolic acidosis with normal anion gap - appears dehydrated with elevated BUN, suspect bicarb losses with diarrhea. Start sodium bicarb drip and repeat bicarb and VBG in AM. Dilated left pupil - will get CT head, if normal and persistent consider brain MRI Transaminitis - appears to be improving from last admission PG Care Time/CCT Total # of Minutes Spent Total Time Spent with Patient: Total time spent is greater than 50% in coordination of care (as documented) at patient's floor/unit and/or counseling patient: C[place] [address] INT INP/OBS CARE 3/75MIN Patient Type Established Medical Decision Making High Complexity Diagnoses Generalized weakness R53.1 Thiamine deficiency E51.9 Metabolic acidosis with normal anion gap and bicarbonate losses E87.20 Hypokalemia E87.6 Neuroendocrine carcinoma of pancreas C7A.8 Failure to thrive in adult R62.7 Transaminitis R74.01 Severe protein-calorie malnutrition E43
[2023-12-26] MEDS: POTASSIUM CHLORIDE / WTR 10 MEQ/100 ML PLCT IV SCH (15:18)
[2023-12-26 15:37] LABS: Base Excess VBG -14.7 mEq/L; HCO3 VBG 10 mmol/L; Oxygen Saturation VBG 95.3 %; PCO2 VBG 20 mmHg (38-50); PO2 VBG 120 mmHg; pH VBG 7.29 (7.36-7.41)
--- NOTE | 2023-12-26 15:41 | Electrocardiogram Report ---
Test Reason : Blood Pressure : */* mmHG Vent. Rate : 56 BPM Atrial Rate : 56 BPM P-R Int : 222 ms QRS Dur : 88 ms QT Int : 406 ms P-R-T Axes : 74 84 65 degrees QTcB Int : 391 ms Sinus bradycardia with 1st degree A-V block Otherwise normal ECG When compared with ECG of 18-Nov-2023 10:27, No significant change was found Confirmed by Kuldip Castanon ([id number]) on 12/26/2023 3:41:02 PM Referred By: REFERRED SELF Confirmed By: Kuldip Castanon
[2023-12-26] MEDS ORDERED: STAT IV/IM STA (15:45)
[2023-12-26] MEDS: THIAMINE HCL 500 MG in SODIUM CHLORIDE 0.9% 50 ML IV STA (16:26)
[2023-12-26] MEDS ORDERED: CYANOCOBALAMIN 1000 MCG/ML VIAL IM SCH (17:17)
[2023-12-26] MEDS: SODIUM BICARBONATE 8.4% 150 MEQ in DEXTROSE 5% 1,000 ML IV SCH (17:18)
--- NOTE | 2023-12-26 18:05 | CT Scan Report ---
CT head/brain wo con CLINICAL HISTORY: 53 years-old Male with dilated left pupil, neuroendocrine pancreatic ca. Acute vis ual changes TECHNIQUE: Multiple axial CT images of the head were obtained without contrast. A dose lowering tech nique was utilized adhering to the principles of ALARA. CT DOSE: 625.8 mGy.cm COMPARISON: None. FINDINGS: No acute intracranial hemorrhage, midline shift, intracranial mass, hydrocephalus, territorial ischem ia or abnormal extra-axial collection. The calvarium is intact. Right mastoid and middle ear effusions. IMPRESSION: No acute intracranial abnormality. ACT 112: Negative or not required by law. The above report was generated using voice recognition software. It may contain grammatical, syntax o r spelling errors. Electronically signed by: Curt Burroughs M.D. 12/26/2023 6:03 PM
[2023-12-26] MEDS: CHOLESTYRAMINE LIGHT 4 GM PKT PO SCH (20:32)
[2023-12-26] MEDS: THIAMINE HCL 500 MG in SODIUM CHLORIDE 0.9% 50 ML IV SCH (20:33)
[2023-12-26] MEDS ORDERED: HYDROcodone/HOMATROPINE SYRUP 5MG/1.5MG 5ML UDP PO PRN (20:37)
[2023-12-27] MEDS: FAMOTIDINE 40 MG TABLET PO SCH (08:46)
[2023-12-27] MEDS: CEROVITE ADV FORMULA TAB PO SCH (08:46)
[2023-12-27] MEDS: PANTOprazole 40 MG TAB PO SCH (08:46)
[2023-12-27] MEDS: PANCREAZE (LIPASE 10,500U) CAP PO SCH (08:53)
[2023-12-27] MEDS: PSYLLIUM or GUAR GUM FIBER 4GM PACKET PO SCH (08:53)
[2023-12-27] MEDS ORDERED: VITAMIN A 25,000 UNIT CAP PO SCH (09:00)
[2023-12-27] MEDS: SODIUM BICARBONATE 650 MG TAB PO SCH (09:02)
[2023-12-27] MEDS: POTASSIUM CHLORIDE 10 MEQ TABCR PO SCH (09:03)
[2023-12-27 09:22] LABS: Basophils # (auto) 0.02 K/uL (0.00-0.20); Basophils % (auto) 0.3 %; Eosinophils # (auto) 0.03 K/uL (0.00-0.50); Eosinophils % (auto) 0.5 %; Hematocrit (blood only) 28.4 % (42.0-52.0); Hemoglobin 9.4 g/dl (14.0-18.0); Immature Granulocytes # (auto) 0.03 K/uL (0.01-0.20); Immature Granulocytes % (auto) 0.5 %; Lymphocytes # (auto) 0.53 K/uL (1.20-3.40); Lymphocytes % (auto) 9.1 %; Mean Corpuscular Hemoglobin 32.4 pg (25.0-34.0); Mean Corpuscular Hgb Conc 33.1 g/dL (32.0-36.0); Mean Corpuscular Volume 97.9 fL (80.0-100.0); Mean Platelet Volume 10.3 fL (9.4-12.4); Monocytes % (auto) 6.9 %; Neutrophils # (auto) 4.79 K/uL (1.40-6.50); Neutrophils % (auto) 82.7 %; Platelet Count 179 K/uL (130-400); RDW Coefficient of Variation 14.5 % (11.5-14.5); RDW Standard Deviation 51.8 fL (36.4-46.3)
[2023-12-27 09:40] LABS: Albumin Globulin Ratio 1.4 (0.9-2); Albumin Level 2.9 gm/dl (3.4-5.0); BUN Creatinine Ratio 26.9 (10-20); Bilirubin,Total 0.5 mg/dl (0.2-1.0); Calcium 7.2 mg/dl (8.6-10.3); Creatinine Clr Calc Pharmacy 66.3 ml/min; Est GFR (African American) 93.2 ml/min; Est GFR (Non-African American) 80.5 ml/min; Globulin 2.1 gm/dl (2.5-4.0); Potassium 2.6 mmol/L (3.5-5.1)
--- NOTE | 2023-12-27 11:29 | Hospitalist Progress Note ---
Date of Service December 27, 2023 Assessment & Plan (1) Generalized weakness: Plan: Continue OT and PT while hospitalized. Supportive care. Correct hypokalemia and thiamine deficiency. (2) Chronic diarrhea: Plan: Metamucil added to cholestyramine. Creon has been started. Negative stool BioFire. (3) Thiamine deficiency: Plan: Currently on intravenous replacement. Eventual switch to oral replacement. (4) Metabolic acidosis with normal anion gap and bicarbonate losses: Plan: Suspect chronic GI bicarbonate loss. Bicarbonate drip has been switched to oral replacement. Serial labs. (5) Hypokalemia: Plan: Oral and parenteral replacement ordered. Serial labs (6) Neuroendocrine carcinoma of pancreas: Plan: History of partial pancreatectomy in the past. Continue to follow with heme- onc on discharge for ongoing Sandostatin treatments (7) Failure to thrive in adult: Plan: OT and PT while hospitalized. Treat chronic diarrhea (8) Transaminitis: Plan: Mild. Serial labs. (9) Severe protein-calorie malnutrition: Plan: Present on admission. Dietary supplementation. Plan Hopeful discharge to home tomorrow, December 27 Admission and Anticipated Discharge Date Admission Date: December 26, 2023 Subjective Alert and oriented. He is ambulating well in the hallway. Potassium remains low at 2.6. Oral and IV replacement ordered along with serial labs. Bicarbonate drip has been switched to oral replacement. Metamucil started to help with loose stools. Creon has also been added. Hopefully he can go home tomorrow, December 27 Review of Systems 2 Review of Systems: Constitutionalno fever or chills. Cachectic appearing ENTno blurred vision, no double vision, no epistaxis, no sore throat Respiratoryno cough, no wheezing, no shortness of breath Cardiacno palpitations, no chest pain, no syncope Natalie nausea, vomiting, melena, hematochezia. Watery diarrhea GUno urinary retention, no urinary incontinence, no dysuria, no hematuria Musculoskeletalno joint pain, no muscle tenderness Skinno bruising, no rashes, no pruritus Neurogeneralized weakness. No paresthesia Psychno depression, no anxiety Physical Exam 2 Physical Exam: General-alert and oriented x3, no fever, no chills. Cachectic appearing HEENT-head atraumatic and normocephalic, pupils equal and reactive to light, extraocular muscles intact Neck-no lymphadenopathy or thyromegaly, trachea midline Chest-clear to auscultation. No rales, wheezing or rhonchi Cardiac-regular rate and rhythm, normal S1 and S2 Abdomen-normal bowel sounds, no hepatosplenomegaly Extremities-no cyanosis, clubbing, or edema Neuro-cranial nerves II through XII intact, motor and sensory function within normal limits, strength symmetrical, no focal deficits Psych-normal affect, normal mood Results & Data Results & Data Vital Signs (Past 12 Hours) Vital Signs Temp Pulse Pulse Resp BP BP Pulse Ox 12/27/23 08:28 36.6 C 51 L 16 90/47 L 99 12/27/23 07:29 58 L 12/27/23 02:55 36.3 C L 58 L 18 92/53 L 99 O2 Del Method 12/27/23 08:28 Room Air 12/27/23 07:29 12/27/23 02:55 Room Air Laboratory Results 12/27/23 07:58 12/27/23 07:58 PG Care Time/CCT Total # of Minutes Spent Total Time Spent with Patient: Total time spent is greater than 50% in coordination of care (as documented) at patient's floor/unit and/or counseling patient: Coding Level of Care Code 67924 SUB INP/OBS CARE 3/50MIN Diagnoses Generalized weakness R53.1 Chronic diarrhea K52.9 Thiamine deficiency E51.9 Metabolic acidosis with normal anion gap and bicarbonate losses E87.20 Hypokalemia E87.6 Neuroendocrine carcinoma of pancreas C7A.8 Failure to thrive in adult R62.7 Transaminitis R74.01 Severe protein-calorie malnutrition E43
--- NOTE | 2023-12-27 12:44 | XCELERA ---
[id number] \\[id number]
[2023-12-27] MEDS: POTASSIUM CHLORIDE / WTR 10 MEQ/100 ML PLCT IV SCH (13:29)
--- NOTE | 2023-12-27 15:24 | Cardiology Progress Note ---
Date of Service December 27, 2023 Assessment & Plan (1) Weakness: (2) Sinus bradycardia: (3) Lightheadedness: Plan 1. Weakness: He seems to have an element of malnutrition. Likely due to an element of malabsorption. He also has a notable sleep disturbance due to frequent diarrhea. I doubt that his low heart rate is a major factor in his overall fatigue. This could contribute to some exercise intolerance if he does not have an appropriate heart rate response. However, his symptoms are likely to improve with better nutrition and weight gain. 2. Bradycardia: He has a sinus bradycardia. He reports lower heart rates recently. This is coincided with his weight loss and the development of other symptoms. Octreotide has been associated with bradycardia, but he has been taking his medications since his initial surgery 3 years ago. No heart rates only noticed recently. I suspect that as his nutrition improves we will see improvement in his symptoms and heart rate as well. 3. Hypotension: Possibly related to an element of intravascular depletion and malnutrition. Less likely an endocrinological process such as adrenal insufficiency. It seems that the first treatment will simply be to improve his nutrition and affect some weight gain. Admission and Anticipated Discharge Date Admission Date: December 26, 2023 Subjective The patient was seen in the outpatient setting yesterday and the following history was obtained: This is a 53-year-old male who has a history of pancreatic cancer diagnosed in March 2020 and for which he has had chemotherapy and radiation therapy. He also had a Whipple procedure in April 2020. Per his history he has been cancer free for 3 years, and he was doing well for several years however over the last several months has had severe weight loss and feelings of fatigue and tiredness as well as lightheadedness associated with hypotension. He has been eating a lot (like a horse by his description) and does not feel that his diet is the issue. He has been evaluated for cancer recurrence and I believe so far nothing has been found. He is working with nutrition to try to improve his we ight, and apparently there is talk of using TPN. An echocardiogram was done June 09, 2020 and this showed normal right and left ventricular function with no valvular abnormalities. An electrocardiogram done October 25, 2023 does show sinus bradycardia at 39 bpm with first-degree AV block and a AR interval of 228 ms. This was repeated on November 18, 2023 and showed sinus bradycardia at 52 bpm with a AR interval of 224 ms. The remainder of electrocardiogram is normal. A chest CTA was done November 18, 2023, I believe to look for PE, and this showed no evidence of PE and was normal otherwise. He has been observed to have bradycardia recently. I do not know how reliable his vital signs are as they do not reflect that. He does feel that his heart rate has dropped significantly recently and he feels very fatigued and tired. His electrocardiograms do show that low heart rate. He has not worn a monitor. He does note that his blood pressure is low, and with that he feels worse and does have some lightheadedness from time to time but has not had presyncope or syncope. Today's history is consistent with yesterday's. He feels that most of his symptoms began approximately 3 months ago. This involved worsening fatigue, exercise intolerance, bradycardia, orthostatic symptoms and weight loss. Review of Systems Review of Systems: Per HPI. Frequent episodes of loose stools. He states that throughout the course of the day he has a loose stool every couple of hours. This resulted in significant sleep disturbance as well. Physical Exam Physical Exam: The patient is alert and oriented. Mood and affect appeared normal. He answered all questions appropriately. Cachectic HEENT: Pupils are equal and reactive to light and accommodation. Extraocular movements are intact. The sclerae are anicteric. Neuro: Cranial nerves intact Lungs: Clear to auscultation bilaterally. He has good air movement without use of accessory muscles. No rales wheezes or rhonchi. Cardiac: Heart demonstrates a regular rate and rhythm. Normal S1 and S2. No murmurs on examination. Pulses: The patient has palpable radial pulses bilaterally that are equal in intensity Extremities: There was no evidence of hypoperfusion. There is no cyanosis or clubbing. There is no edema. Skin: I did not appreciate any rashes on examination today. Results & Data Vital Signs (Past 12 Hours) Vital Signs Temp Pulse Pulse Resp BP BP Pulse Ox 12/27/23 15:02 64 12/27/23 11:59 36.9 C 60 16 92/48 L 99 12/27/23 08:28 36.6 C 51 L 16 90/47 L 99 12/27/23 07:29 58 L O2 Del Method 12/27/23 15:02 12/27/23 11:59 Room Air 12/27/23 08:28 Room Air 12/27/23 07:29 Laboratory Results Abnormal Lab Results 12/26/23 12/27/23 15:28 07:58 WBC 5.80 RBC 2.90 L Hgb 9.4 L D Hct 28.4 L MCV 97.9 MCH 32.4 MCHC 33.1 RDW Std Deviation 51.8 H RDW Coeff of Gael 14.5 Plt Count 179 MPV 10.3 Immature Gran % (Auto) 0.5 Neut % (Auto) 82.7 Lymph % (Auto) 9.1 [place] % (Auto) 6.9 Eos % (Auto) 0.5 Baso % (Auto) 0.3 Neut # (Auto) 4.79 Lymph # (Auto) 0.53 L [place] # (Auto) 0.40 Eos # (Auto) 0.03 Baso # (Auto) 0.02 Immature Gran # (Auto) 0.03 VBG pH 7.29 L VBG pCO2 20 L VBG pO2 120 VBG HCO3 10 VBG O2 Saturation 95.3 VBG Base Excess -14.7 Sodium 137 Potassium 2.6 L D Chloride 113 H Carbon Dioxide 17 L Anion Gap 7 BUN 28 H Creatinine 1.04 Est Cr Clr Drug Dosing 66.3 Est GFR ( Amer) 93.2 Est GFR (Non-Af Amer) 80.5 BUN/Creatinine Ratio 26.9 H Glucose 134 H Calcium 7.2 L Total Bilirubin 0.5 AST 28 ALT 46 Alkaline Phosphatase 101 Total Protein 5.0 L D Albumin 2.9 L Globulin 2.1 L Albumin/Globulin Ratio 1.4 Diagnostic Findings Echocardiogram 12/27/2023: Normal LV systolic function. No significant valvular heart disease. Normal echocardiogram ECG Additional Comments: EKG demonstrated sinus bradycardia with first-degree AV block. Otherwise unremarkable. PG Care Time/CCT Total # of Minutes Spent Total Time Spent with Patient: Total time spent is greater than 50% in coordination of care (as documented) at patient's floor/unit and/or counseling patient: Coding Level of Care Code 96792 SUB INP/OBS CARE 2/35MIN Diagnoses Weakness R53.1 Sinus bradycardia R00.1 Lightheadedness R42
[2023-12-27] MEDS: POTASSIUM CHLORIDE CRTAB 20 MEQ TABCR PO SCH (20:56)
[2023-12-28] MEDS: LACTATED RINGER'S 500 ML IV ONE (00:37)
[2023-12-28] MEDS: LACTATED RINGER'S 1,000 ML IV SCH (01:41)
[2023-12-28 07:06] LABS: Basophils # (auto) 0.03 K/uL (0.00-0.20); Basophils % (auto) 0.6 %; Eosinophils # (auto) 0.03 K/uL (0.00-0.50); Eosinophils % (auto) 0.6 %; Hematocrit (blood only) 31.7 % (42.0-52.0); Hemoglobin 10.6 g/dl (14.0-18.0); Immature Granulocytes # (auto) 0.03 K/uL (0.01-0.20); Immature Granulocytes % (auto) 0.6 %; Lymphocytes # (auto) 0.69 K/uL (1.20-3.40); Lymphocytes % (auto) 14.6 %; Mean Corpuscular Hemoglobin 32.9 pg (25.0-34.0); Mean Corpuscular Hgb Conc 33.4 g/dL (32.0-36.0); Mean Corpuscular Volume 98.4 fL (80.0-100.0); Mean Platelet Volume 10.1 fL (9.4-12.4); Monocytes % (auto) 8.5 %; Neutrophils # (auto) 3.53 K/uL (1.40-6.50); Neutrophils % (auto) 75.1 %; Platelet Count 177 K/uL (130-400); RDW Coefficient of Variation 14.5 % (11.5-14.5); RDW Standard Deviation 52.4 fL (36.4-46.3); Red Blood Count 3.22 M/uL (4.70-6.10); White Blood Count 4.71 K/ul (4.8-10.8)
[2023-12-28 07:52] LABS: Albumin Globulin Ratio 1.3 (0.9-2); BUN Creatinine Ratio 14.4 (10-20); Bilirubin,Total 0.5 mg/dl (0.2-1.0); Calcium 7.8 mg/dl (8.6-10.3); Creatinine Clr Calc Pharmacy 62.9 ml/min; Est GFR (African American) 86.2 ml/min; Est GFR (Non-African American) 74.4 ml/min; Globulin 2.4 gm/dl (2.5-4.0); Potassium 3.5 mmol/L (3.5-5.1); Total Protein 5.4 gm/dl (6.0-8.3)
[2023-12-28 08:15] LABS: Magnesium 1.5 mg/dl (1.7-2.4)
[2023-12-28 11:10] LABS: Phosphorus 2.6 mg/dl (2.5-4.9)
--- NOTE | 2023-12-28 11:49 | Hospitalist Progress Note ---
Date of Service December 28, 2023 Assessment & Plan (1) Generalized weakness: Plan: Continue OT and PT while hospitalized. Supportive care. Correct hypokalemia and thiamine deficiency. (2) Chronic diarrhea: Plan: Metamucil added to cholestyramine. Creon has been started. Negative stool BioFire. (3) Thiamine deficiency: Plan: Intravenous replacement switched to oral replacement today, December 27. (4) Metabolic acidosis with normal anion gap and bicarbonate losses: Plan: Suspect chronic GI bicarbonate loss. Bicarbonate drip has been switched to oral replacement. Serial labs. (5) Hypokalemia: Plan: Oral and parenteral replacement ordered. Serial labs (6) Neuroendocrine carcinoma of pancreas: Plan: History of partial pancreatectomy in the past. Continue to follow with heme- onc on discharge for ongoing Sandostatin treatments (7) Failure to thrive in adult: Plan: OT and PT while hospitalized. Treat chronic diarrhea (8) Transaminitis: Plan: Mild. Serial labs. (9) Severe protein-calorie malnutrition: Plan: Present on admission. Dietary supplementation. He has given consent for PICC line placement so TPN can be started todayDecember 27 (10) Orthostatic hypotension: Plan: Midodrine started today, December 27. Plan Hopeful discharge to home December 29. His PCP will need to order home TPN. Admission and Anticipated Discharge Date Admission Date: December 26, 2023 Subjective Alert and oriented. Midodrine added for blood pressure support. Intravenous thiamine converted to oral dosing. Magnesium oxide ordered for mild hypomagnesemia. He has given consent for PICC line placement so TPN can get started. Potassium improved to 3.5 with replacement therapy. Review of Systems 2 Review of Systems: Constitutionalno fever or chills. Cachectic appearing ENTno blurred vision, no double vision, no epistaxis, no sore throat Respiratoryno cough, no wheezing, no shortness of breath Cardiacno palpitations, no chest pain, no syncope Natalie nausea, vomiting, melena, hematochezia. Watery diarrhea GUno urinary retention, no urinary incontinence, no dysuria, no hematuria Musculoskeletalno joint pain, no muscle tenderness Skinno bruising, no rashes, no pruritus Neurogeneralized weakness. No paresthesia Psychno depression, no anxiety Physical Exam 2 Physical Exam: General-alert and oriented x3, no fever, no chills. Cachectic appearing HEENT-head atraumatic and normocephalic, pupils equal and reactive to light, extraocular muscles intact Neck-no lymphadenopathy or thyromegaly, trachea midline Chest-clear to auscultation. No rales, wheezing or rhonchi Cardiac-regular rate and rhythm, normal S1 and S2 Abdomen-normal bowel sounds, no hepatosplenomegaly Extremities-no cyanosis, clubbing, or edema Neuro-cranial nerves II through XII intact, motor and sensory function within normal limits, strength symmetrical, no focal deficits Psych-normal affect, normal mood Results & Data Results & Data Vital Signs (Past 12 Hours) Vital Signs Temp Pulse Pulse Resp BP BP Pulse Ox 12/28/23 11:23 36.8 C 64 18 94/36 L 99 12/28/23 08:49 36.7 C 60 16 92/55 L 99 12/28/23 07:36 55 L 12/28/23 03:01 36.4 C L 58 L 16 93/58 L 99 O2 Del Method 12/28/23 11:23 Room Air 12/28/23 08:49 Room Air 12/28/23 07:36 12/28/23 03:01 Room Air Laboratory Results 12/28/23 06:20 12/28/23 06:20 PG Care Time/CCT Total # of Minutes Spent Total Time Spent with Patient: Total time spent is greater than 50% in coordination of care (as documented) at patient's floor/unit and/or counseling patient: Coding Level of Care Code 60327 SUB INP/OBS CARE 3/50MIN Diagnoses Generalized weakness R53.1 Chronic diarrhea K52.9 Thiamine deficiency E51.9 Metabolic acidosis with normal anion gap and bicarbonate losses E87.20 Hypokalemia E87.6 Neuroendocrine carcinoma of pancreas C7A.8 Failure to thrive in adult R62.7 Transaminitis R74.01 Severe protein-calorie malnutrition E43 Orthostatic hypotension I95.1
[2023-12-28] MEDS ORDERED: TPN/PPN CONSULT PHARMACY SCH (12:03)
[2023-12-28] MEDS: MIDODRINE HCL 2.5 MG TAB PO SCH (12:11)
[2023-12-28] MEDS: MAGNESIUM OXIDE 400 MG TAB PO SCH (12:12)
--- NOTE | 2023-12-28 14:40 | Pharmacy Report ---
Pharmacy Initial PN Consult Nt - Date of Service December 28, 2023 - [facility] Pharmacy has been consulted on this date to manage parenteral nutrition orders and order appropriate labs. As part of the Nutrition Support Team Guidelines, pharmacy will work in conjunction with dietary when determining the patients caloric needs. - Subjective * The patient is a 53 year old Male admitted on 12/26/23 for GENERALIZED WEAKNESS, FAILURE TO THRIVE. * Patient is to receive parenteral nutrition for Severe protein-calorie malnutrition. PICC line placement today. * Pertinent PMHx: Neuroendocrine carcinoma of pancreas, partial pancreatectomy in the past. Continues to follow with heme-onc for ongoing Sandostatin treatments. Hx of Whipple procedure, chronic diarrhea, questionable absorption capabilities. Multiple electrolyte imbalances. - Objective Vascular Access: * Patient currently has a peripheral line, PICC Line placement today. * Will make PN peripheral formula today, so as to decrease dextrose content for day 1 of PN, and while awaiting PICC Placement. Change to central formulation tomorrow (12/28). Peripheral formula may be administered centrally if PICC is ready by 1600 today when PN starts. Height & Weight (Last Documented) Height 6 ft 3 in Weight 59.1 kg Diet Order(s) 12/26/23 Dinner Diet Intake & Ouput (24hrs) 12/27/23 12/28/23 12/29/23 06:59 06:59 06:59 Intake Total 3485 / 3485 3135.833 / 3135.833 573.333 / 573.333 Output Total / Balance 3478 / 3478 3135.833 / 3135.833 573.333 / 573.333 Selected Laboratory Results 12/28/23 06:20 Sodium 138 Potassium 3.5 D Chloride 120 H Carbon Dioxide 12 L Anion Gap 6 BUN 16 Creatinine 1.11 Est GFR ( Amer) 86.2 Est GFR (Non-Af Amer) 74.4 BUN/Creatinine Ratio 14.4 Glucose 105 H Calcium 7.8 L Phosphorus 2.6 Magnesium 1.5 L Total Bilirubin 0.5 AST 31 ALT 49 Alkaline Phosphatase [address] - Follow Up Nutrition Assessment Start: 12/27/23 12 :00 Freq: Status: Active Protocol: Document 12/28/23 10:31 WN (Rec: 12/28/23 10:40 WN [id number]) RD - Initial Nutrition Assessment Start: 12/27/23 11:32 Freq: Status: Active Protocol: Document 12/27/23 11:32 WN (Rec: 12/27/23 12:00 WN [id number]) - Assessment & Plan Assessment: * Appreciate dietitians recommendations for macronutrients. * Patient receiving Protonix, famotidine, thiamine, multivitamin with minerals PO starting today. Plan: * For Day #1 of PPN administration, the following will be ordered: * Macronutrients: * Amino Acids: 85 grams/day * Dextrose: 100 grams/day * Lipids: 50 grams/day * Micronutrients: * Potassium phosphate: 30 mMol/day * Magnesium sulfate: 16.24 mEq/day * For Day #2 of PPN administration: * change to central formulation after PICC line placed * Add Multivitamin, trace minerals, and thiamine, d/t questionable absorption capabilities. * Total volume of 2014 mL will be infused over 24 hours and will provide 1180 kcal/day * Patient is on PPN which has a maximum mOsm/L of 900. Final osmolarity of current solution is 715 mOsm/L. * Labs will be ordered per PN protocol. * Pharmacy will follow and adjust PN orders on a daily basis. Thank you!
[2023-12-28] MEDS ORDERED: DEXTROSE 10% 1,000 ML IV PRN (16:00)
[2023-12-28] MEDS: TPN/PPN CONSULT PHARMACY STA (16:11)
[2023-12-28] MEDS: PERIPHERAL TPN IV SCH (16:11)
[2023-12-28] MEDS: [UNRECOGNIZED DRUG - OTHER] IV SCH (16:11)
[2023-12-28] MEDS: CLINOLIPID 20% IV FAT EMULSION 250 ML IV SCH (16:12)
--- NOTE | 2023-12-28 16:20 | Oncology Consultation ---
Date of Consultation December 28, 2023 Assessment & Plan (1) Orthostatic hypotension: Management per primary, continue IV fluids, adequate nutrition support, dietary consult. (2) Weakness: Physical therapy and Occupational Therapy (3) Neuroendocrine carcinoma of pancreas: outpatient resumption of therapy with Sandostatin Plan medical oncology will continue to follow make recommendations as appropriate. 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 CT CA 03/11/20 revealed 0.4 cm pulm nodule in middle lobe; mild intrahepatic and extrahepatic biliary ductal dilation; pancreatic ductal dilation of 0.7 cm; stable well defined mass within the second and third portion of the duodenum measuring 8.2 x 4.5 cm - mass infiltrated the ampulla causing upstream intra and extrahepatic biliary ductal and pancreatic ductal dilation. 2. Evaluated at [facility] [place] 03/28/[place]; EUS revealed mass in duodenum as well as mass in head of pancreas measuring 6.5 x 8.0 cm. Small atypical cells were identified. Biopsy of duodenal mass showed rare atypical cells suggestive of neuroendocrine tumor. 3. Developed jaundice with T. bili level of 2.9 in . Underwent Whipple procedure on 05/09/[address] Damon; total of 24 LN were dissected, 5 of which were positive from the peripancreatic region. Partial resection of distal stomach showed chronic inflammation. Partial resection of duodenum showed involvement of neuroendocrine tumor. Tumor located in the pancreatic head was c/w neuroendocrine tumor, poorly differentiated measuring 6.5 x 5.0 x 4.0 cm. Tumor invaded ampulla of Vater and duodenal wall and peripancreatic soft tissues. Lymphovascular and perineural invasion were present. Pancreatic neck uninvolved. Uncinate margin was involved with invasive disease. Bile duct margin was uninvolved. Final pathologic stage was pT3 pN1 Stage III. 4. Re-admitted post operatively for diarrhea; underwent partial resection of small bowel on 05/16/19 revealing mucosal necrosis but no evidence of carcinoma. 5. Post op CT 05/19/20 showed post surgical changes; portacaval lymphadenopathy likely reactive; small right pleural effusion. 6. He started adjuvant chemoradiation with Cisplatin/Etoposide on 08/08/20. 7. Completed RT course on 09/15/20. 8. CT AP 11/14 with post operative changes; interval decrease in mesenteric edema; small collection within right paracolic gutter as well as small cystic lesion at inferior aspect of the right lobe of liver; no new mass lesions or pathological LN identified. CT chest 11/14 with no evidence of metastatic disease. 9. CT CAP 02/10 with mild thickening of small bowel loops and transverse colon; prior whipple procedure; irregular soft tissue density within central mesentery is again noted, measures 3 cm and could represent post operative scarring and less likely residual tumor. Chest with no evidence of metastatic disease. 10. CT AP 05/08/21 with new hypodense focus abutting the undersurface of the liver near the gallbladder fossa which measures 3.0 x 1.9 cm; could represent residual fluid collection, short term follow up recommended. CT chest neg for metastatic disease. 11. Developed chronic diarrhea; recommended starting Sandostatin [id number] in . 12. CT CAP 11/29 with no evidence of metastatic disease; he does have colonic wall thickening c/w nonspecific colitis. 13. CT CAP 03/26/22 with no evidence of metastatic disease; he does have nonspecific colitis noted, unchanged from prior exam. Current status: Dotatate 64 scan in August/2022 was negative for progression of disease (See scanned [facility] report) # Diarrhea. Chronic and unassociated with other dramatic carcinoid-like symptoms. May represent anatomic disruption after his previous surgeries. Working with Dr. Gustavo Ferrera at [facility] to try to improve # Intestinal malabsorption/B12 deficiency/anemia Ongoing diarrhea and altered intestinal anatomy have been associated B12 deficiency, levels have been stable on parenteral replacement. We will periodically recheck iron levels as well given his longstanding mild anemia #Prolonged use of chewing tobacco, stopped at the time of his initial NET diagnosis. Uses a nontobacco herbal supplement now. the patient is a very pleasant 53-year-old gentleman with a history of neuroendocrine tumor of the pancreas, with chronic diarrhea who is currently getting Sandostatin treatments. He has been admitted to [facility] with progressive weakness. Allergies Allergy/AdvReac Type Severity Reaction Status Date / Time No Known Allergies Allergy Verified 12/26/23 11:20 Home Medications Medication Instructions Recorded Confirmed Type pantoprazole 40 mg tablet,delayed 40 mg PO DAILY 07/13/22 12/26/23 History release cyanocobalamin (vitamin B-12) 1,000 mcg IM MONTHLY 11/18/23 12/26/23 History 1,000 mcg/mL injection solution beta carotene 7,500 mcg (25,000 7,500 mcg PO QAM #30 caps 11/21/23 12/26/23 Rx unit) capsule hydrocodone-homatropine 5 mg-1.5 1 tab PO BID #60 tabs 11/21/23 12/26/23 Rx mg tablet (Hycodan (with homatropine)) iyuncnzw-qrj-vrawn acid 0.4 1 tab PO QAM #30 tabs 11/21/23 12/26/23 Rx mg-lycopene 300 mcg-lutein 250 mcg tablet (Cerovite Senior) cholestyramine-aspartame 4 gram 1 ea PO TID 12/26/23 12/26/23 History oral powder for susp in a packet famotidine 40 mg tablet 40 mg PO DAILY 12/26/23 12/26/23 History qamqpr-bsvxmfbx-qexwmvl 2 tab PO TID 12/26/23 12/26/23 History 20,880-78,300-78,300 unit tablet (Viokace) wtxtbg-aqiynzrw-khughxa 2 cap PO TID 12/26/23 12/26/23 History 40,000-126,000-168,000 unit capsule, delay rel (Zenpep) octreotide acetate 50 mcg/mL 0 mcg subcut MONTHLY 12/26/23 12/26/23 History injection solution (Sandostatin) potassium chloride 20 mEq 20 meq PO BID 12/26/23 12/26/23 History tablet,extended release Patient History Medical History Vitamin A deficiency SBO (small bowel obstruction) Acute hypokalemia Hypomagnesemia Diarrhea Hypomagnesemia Hypokalemia Pancytopenia due to chemotherapy Neutropenic fever Acute hypotension Normal colonoscopy Diverticulitis Surgical History History of Whipple procedure History of ear surgery Family History Mother No problems noted. Father Pancreatic cancer Brother No problems noted. Brother No problems noted. Son No problems noted. 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 [employer] Feels Safe at Home: Yes Safety Concerns: Feels Safe At This Time Diet: regular caffeine: No during the past year weight has: decreased > 10 lbs Assistive Devices: None Review of Systems Review of Systems: All systems reviewed & are unremarkable except as noted in HPI & below Constitutional: as per Subjective / HPI Eyes: as per Subjective / HPI Ear, Nose, Mouth, Throat: as per Subjective / HPI Respiratory: as per Subjective / HPI Cardiovascular: as per Subjective / HPI Gastrointestinal: as per Subjective / HPI Genitourinary: + as per Subjective / HPI Musculoskeletal: as per Subjective / HPI Integumentary: as per Subjective / HPI Neurologic: as per Subjective / HPI Physical Exam Constitutional: WD/WN, vitals as above Eyes: PERRL, conjunctivae normal, anicteric sclerae ENMT: external ear and nose normal, oropharynx normal Neck: trachea midline, no thyromegaly Respiratory: normal respiratory effort, lungs clear to auscultation Cardiovascular: RRR, no murmur, no edema Gastrointestinal (Abdomen): normal bowel sounds, soft, nontender, no hepatosplenomegaly Musculoskeletal: no cyanosis or clubbing, extremities motor strength 5/5 Skin: no rashes, warm and dry Neurologic: patellar DTR's 2+ bilat, sensation intact Psychiatric: A+Ox3, euthymic affect Genitourinary: no testicular masses, no penis abnormality Lymphatic: no cervical or axillary lymphadenopathy Results & Data Vital Signs (Past 12 Hours) Vital Signs Temp Pulse Pulse Resp BP Pulse Ox O2 Del Method 12/28/23 11:23 36.8 C 64 18 94/36 L 99 Room Air 12/28/23 08:49 36.7 C 60 16 92/55 L 99 Room Air 12/28/23 07:36 55 L
[2023-12-28] MEDS: STOP CLINOLIPID SCH (22:19)
[2023-12-29 08:08] LABS: Basophils # (auto) 0.04 K/uL (0.00-0.20); Basophils % (auto) 0.8 %; Eosinophils # (auto) 0.07 K/uL (0.00-0.50); Eosinophils % (auto) 1.4 %; Hematocrit (blood only) 32.5 % (42.0-52.0); Hemoglobin 10.6 g/dl (14.0-18.0); Immature Granulocytes # (auto) 0.03 K/uL (0.01-0.20); Immature Granulocytes % (auto) 0.6 %; Lymphocytes # (auto) 0.64 K/uL (1.20-3.40); Lymphocytes % (auto) 12.9 %; Mean Corpuscular Hemoglobin 32.8 pg (25.0-34.0); Mean Corpuscular Hgb Conc 32.6 g/dL (32.0-36.0); Mean Corpuscular Volume 100.6 fL (80.0-100.0); Monocytes # (auto) 0.45 K/uL (0.11-0.59); Monocytes % (auto) 9.1 %; Neutrophils # (auto) 3.74 K/uL (1.40-6.50); Neutrophils % (auto) 75.2 %; Platelet Count 169 K/uL (130-400); RDW Coefficient of Variation 14.7 % (11.5-14.5); RDW Standard Deviation 54.6 fL (36.4-46.3); Red Blood Count 3.23 M/uL (4.70-6.10); White Blood Count 4.97 K/ul (4.8-10.8)
[2023-12-29] MEDS: THIAMINE HCL 100 MG TAB PO SCH (08:46)
[2023-12-29 09:08] LABS: Albumin Globulin Ratio 1.3 (0.9-2); BUN Creatinine Ratio 15.2 (10-20); Bilirubin,Total 0.6 mg/dl (0.2-1.0); Calcium 7.5 mg/dl (8.6-10.3); Creatinine Clr Calc Pharmacy 72.3 ml/min; Est GFR (Non-African American) 85.4 ml/min; Globulin 2.4 gm/dl (2.5-4.0); Magnesium 1.8 mg/dl (1.7-2.4); Phosphorus 2.5 mg/dl (2.5-4.9); Potassium 3.5 mmol/L (3.5-5.1); Total Protein 5.4 gm/dl (6.0-8.3)
[2023-12-29] MEDS: MIDODRINE HCL 10 MG TAB PO SCH (12:51)
--- NOTE | 2023-12-29 14:26 | Hospitalist Progress Note ---
Date of Service December 29, 2023 Assessment & Plan (1) Generalized weakness: Plan: Continue OT and PT while hospitalized. Supportive care. Correct hypokalemia and thiamine deficiency. (2) Chronic diarrhea: Plan: Metamucil added to cholestyramine. Creon was started to replace his usual pancreas enzymes he takes at home. Negative stool BioFire. (3) Thiamine deficiency: Plan: Intravenous replacement switched to oral replacement on December 27. (4) Metabolic acidosis with normal anion gap and bicarbonate losses: Plan: Suspect chronic GI bicarbonate loss. Bicarbonate drip has been switched to oral replacement. Serial labs. (5) Hypokalemia: Plan: Oral and parenteral replacement ordered. Serial labs. Now acceptable at 3.5 (6) Neuroendocrine carcinoma of pancreas: Plan: History of partial pancreatectomy in the past. Continue to follow with heme- onc on discharge for ongoing Sandostatin treatments (7) Failure to thrive in adult: Plan: OT and PT while hospitalized. Treat chronic diarrhea (8) Transaminitis: Plan: Mild. Serial labs. (9) Severe protein-calorie malnutrition: Plan: Present on admission. Currently receiving TPN through PICC line that has been placed. Primary care provider will need to arrange home TPN going forward. (10) Orthostatic hypotension: Plan: Midodrine started on December 27. Dosage uptitrated today, December 28 Plan Hopeful discharge to home December 29. His PCP will need to order home TPN. Admission and Anticipated Discharge Date Admission Date: December 26, 2023 Subjective Alert and oriented. No distress. He now has a PICC line in place and TPN has been started yesterday, December 27. Midodrine was started yesterday, December 27, and dosage uptitrated today, December 28. Blood pressure remains borderline low. Mild hypomagnesemia has been corrected. Potassium stable at 3.5. New medications include midodrine, Metamucil, magnesium oxide, and thiamine. Hopefully he can go home tomorrow, December 29. Home TPN will need to be arranged by PCP Review of Systems 2 Review of Systems: Constitutionalno fever or chills. Cachectic appearing ENTno blurred vision, no double vision, no epistaxis, no sore throat Respiratoryno cough, no wheezing, no shortness of breath Cardiacno palpitations, no chest pain, no syncope Natalie nausea, vomiting, melena, hematochezia. Watery diarrhea GUno urinary retention, no urinary incontinence, no dysuria, no hematuria Musculoskeletalno joint pain, no muscle tenderness Skinno bruising, no rashes, no pruritus Neurogeneralized weakness. No paresthesia Psychno depression, no anxiety Physical Exam 2 Physical Exam: General-alert and oriented x3, no fever, no chills. Cachectic appearing HEENT-head atraumatic and normocephalic, pupils equal and reactive to light, extraocular muscles intact Neck-no lymphadenopathy or thyromegaly, trachea midline Chest-clear to auscultation. No rales, wheezing or rhonchi Cardiac-regular rate and rhythm, normal S1 and S2 Abdomen-normal bowel sounds, no hepatosplenomegaly Extremities-no cyanosis, clubbing, or edema Neuro-cranial nerves II through XII intact, motor and sensory function within normal limits, strength symmetrical, no focal deficits Psych-normal affect, normal mood Results & Data Results & Data Vital Signs (Past 12 Hours) Vital Signs Temp Pulse Pulse Resp BP BP Pulse Ox 12/29/23 11:18 36.5 C 63 16 96/61 L 98 12/29/23 07:40 36.7 C 59 L 17 89/50 L 98 12/29/23 07:05 57 L 12/29/23 03:30 36.3 C L 61 18 96/59 L 99 O2 Del Method 12/29/23 11:18 Room Air 12/29/23 07:40 Room Air 12/29/23 07:05 12/29/23 03:30 Room Air Laboratory Results 12/29/23 07:38 12/29/23 07:38 PG Care Time/CCT Total # of Minutes Spent Total Time Spent with Patient: Total time spent is greater than 50% in coordination of care (as documented) at patient's floor/unit and/or counseling patient: Coding Level of Care Code 76631 SUB INP/OBS CARE 2/35MIN Diagnoses Generalized weakness R53.1 Chronic diarrhea K52.9 Thiamine deficiency E51.9 Metabolic acidosis with normal anion gap and bicarbonate losses E87.20 Hypokalemia E87.6 Neuroendocrine carcinoma of pancreas C7A.8 Failure to thrive in adult R62.7 Transaminitis R74.01 Severe protein-calorie malnutrition E43 Orthostatic hypotension I95.1
[2023-12-29] MEDS: [UNRECOGNIZED DRUG - OTHER] IV SCH (16:22)
[2023-12-29] MEDS: CLINOLIPID 20% IV FAT EMULSION 250 ML IV SCH (16:22)
[2023-12-29] MEDS: CENTRAL TPN IV SCH (16:22)
[2023-12-29] MEDS: ZENPEP 40000 UNIT PO SCH (18:36)
[2023-12-30 08:32] LABS: BUN Creatinine Ratio 25.8 (10-20); Calcium 7.3 mg/dl (8.6-10.3); Creatinine Clr Calc Pharmacy 80.4 ml/min; Est GFR (African American) 111.6 ml/min; Est GFR (Non-African American) 96.3 ml/min; Phosphorus 2.8 mg/dl (2.5-4.9); Potassium 3.5 mmol/L (3.5-5.1)
[2023-12-30] MEDS: CLINOLIPID 20% IV FAT EMULSION 250 ML IV SCH (17:08)
[2023-12-30] MEDS: [UNRECOGNIZED DRUG - OTHER] IV SCH (17:12)
[2023-12-30] MEDS: CENTRAL TPN IV SCH (17:12)
--- NOTE | 2023-12-30 17:28 | Hospitalist Progress Note ---
Date of Service December 30, 2023 Assessment & Plan (1) Severe protein-calorie malnutrition: Plan: Present on admission. 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 May have some component of short gut syndrome as he has had about 6 to 8 inches of small intestine removed with his Whipple. He has chronic diarrhea. He is able to eat 100% of his meals but continues to lose weight and has a BMI of 16.7. He also has significant nutritional deficiencies and electrolyte abnormalities as well as orthostatic hypotension. Electrolytes have been replaced, currently receiving TPN through PICC line that has been placed. IV thiamine has been replaced and is now in his TPN Continue pancreatic enzymes, cholestyramine resin has been added Continue replacing electrolytes in the TPN as well as with p.o. magnesium and potassium, p.o. thiamine He will need close follow-up with PCP after discharge with home TPN being arranged prior to discharge. If PCP desires, he could be referred to an outpatient specialist in parenteral feeding (2) Orthostatic hypotension: Plan: Likely due to profound dehydration from malabsorption and chronic profuse diarrhea He has been hydrated with IV fluids and TPN Midodrine started and blood pressures seem to be improved although still low normal (3) Generalized weakness: Plan: Continue OT and PT while hospitalized. Supportive care. Corrected hypokalemia and thiamine deficiency (4) Chronic diarrhea: Plan: Metamucil added to cholestyramine. Continue pancreatic enzymes Negative stool BioFire. He is on Sandostatin once a month also for diarrhea Follow with GI as an outpatient (5) Thiamine deficiency: Plan: B1 level was undetectable during a previous recent admission Intravenous replacement switched to oral replacement on December 27 and should be continued (6) Metabolic acidosis with normal anion gap and bicarbonate losses: Plan: Suspect chronic GI bicarbonate loss. Bicarbonate drip has been switched to oral replacement. Serial labs do show improvement but remains mildly low at 20 Follow BMP (7) Hypokalemia: Plan: Oral and parenteral replacement ordered. Serial labs. Now acceptable at 3.5 Continue oral potassium supplementation on top of TPN (8) Neuroendocrine carcinoma of pancreas: Plan: History of partial pancreatectomy in the past. Continue to follow with heme- onc on discharge for ongoing Sandostatin treatments which he reports are for his diarrhea, not for his cancer He has been followed regularly for blood work and follow-up with oncology (9) Transaminitis: Plan: Mild. Serial labs show improvement Plan DVT prophylaxis-add Lovenox Disposition-continued stay while awaiting approval through case management for TPN at home Admission and Anticipated Discharge Date Admission Date: December 29, 2023 Subjective Patient feeling well. Is eating 100% of all of his trays. Continues to have typically around 8-9 loose stools through the night and then none during the day. He is tolerating TPN and has a PICC line in place. I discussed his care with the pharmacist and the case maker. Physical Exam Constitutional: + thin; no acute distress Respiratory: normal respiratory effort, lungs clear to auscultation Cardiovascular: RRR, no murmur, no edema Gastrointestinal (Abdomen): Inspection/Auscultation: normal bowel sounds; + abdomen abnormal to inspection (Midline surgical scar) and abdomen not distended Percussion/Palpation: abdomen soft; abdomen nontender and no guarding Psychiatric: A+Ox3, euthymic affect Results & Data Results & Data Vital Signs (Past 12 Hours) Vital Signs Temp Pulse Resp BP BP Pulse Ox O2 Del Method 12/30/23 15:46 36.7 C 60 16 96/58 L 98 Room Air 12/30/23 07:58 37.0 C 52 L 14 98/63 L 100 Room Air Laboratory Results CBC from yesterday, BMP, magnesium, phosphorus reviewed PG Care Time/CCT Total # of Minutes Spent Total Time Spent with Patient: Total time spent is greater than 50% in coordination of care (as documented) at patient's floor/unit and/or counseling patient: Coding Level of Care Code 00987 SUB INP/OBS CARE 2/35MIN Diagnoses Severe protein-calorie malnutrition E43 Orthostatic hypotension I95.1 Generalized weakness R53.1 Chronic diarrhea K52.9 Thiamine deficiency E51.9 Metabolic acidosis with normal anion gap and bicarbonate losses E87.20 Hypokalemia E87.6 Neuroendocrine carcinoma of pancreas C7A.8 Transaminitis R74.01
[2023-12-30] MEDS: ENOXAPARIN INJ 40 MG/0.4 ML SYR SQ SCH (19:58)
[2023-12-31 07:33] LABS: Hematocrit (blood only) 27.4 % (42.0-52.0); Hemoglobin 9.5 g/dl (14.0-18.0); Mean Corpuscular Hemoglobin 32.8 pg (25.0-34.0); Mean Corpuscular Hgb Conc 34.7 g/dL (32.0-36.0); Mean Corpuscular Volume 94.5 fL (80.0-100.0); Mean Platelet Volume 10.7 fL (9.4-12.4); Platelet Count 138 K/uL (130-400); RDW Coefficient of Variation 14.5 % (11.5-14.5); RDW Standard Deviation 50.2 fL (36.4-46.3); White Blood Count 4.89 K/ul (4.8-10.8)
[2023-12-31 07:37] LABS: Basophils # (auto) 0.04 K/uL (0.00-0.20); Basophils % (auto) 0.8 %; Eosinophils # (auto) 0.04 K/uL (0.00-0.50); Eosinophils % (auto) 0.8 %; Immature Granulocytes # (auto) 0.04 K/uL (0.01-0.20); Immature Granulocytes % (auto) 0.8 %; Lymphocytes # (auto) 0.73 K/uL (1.20-3.40); Lymphocytes % (auto) 14.9 %; Monocytes # (auto) 0.58 K/uL (0.11-0.59); Monocytes % (auto) 11.9 %; Neutrophils # (auto) 3.46 K/uL (1.40-6.50); Neutrophils % (auto) 70.8 %
[2023-12-31 07:41] LABS: Albumin Level 2.9 gm/dl (3.4-5.0); BUN Creatinine Ratio 31.3 (10-20); Bilirubin Direct 0.2 mg/dl (0-0.2); Bilirubin,Total 0.6 mg/dl (0.2-1.0); Calcium 7.4 mg/dl (8.6-10.3); Creatinine Clr Calc Pharmacy 85.3 ml/min; Est GFR (African American) 114.8 ml/min; Est GFR (Non-African American) 99.1 ml/min; Phosphorus 2.7 mg/dl (2.5-4.9); Potassium 3.8 mmol/L (3.5-5.1)
[2023-12-31] MEDS: HYDROCODONE/ACETAMOPHEN 5/325MG TAB PO PRN (14:05)
[2023-12-31] MEDS: AA 8%/D14W 1L 1,075 ML in Central TPN bag 0 ML IV SCH (17:30)
[2023-12-31] MEDS: CLINOLIPID 20% IV FAT EMULSION 250 ML IV SCH (17:30)
[2023-12-31] MEDS: ENOXAPARIN INJ 40 MG/0.4 ML SYR SQ SCH (17:39)
--- NOTE | 2023-12-31 17:46 | Hospitalist Progress Note ---
Date of Service December 31, 2023 Assessment & Plan (1) Severe protein-calorie malnutrition: Plan: Present on admission. 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 May have some component of short gut syndrome as he has had about 6 to 8 inches of small intestine removed with his Whipple. He has chronic diarrhea. He is able to eat 100% of his meals but continues to lose weight and has a BMI of 16.7. He also has significant nutritional deficiencies and electrolyte abnormalities as well as orthostatic hypotension. Electrolytes have been replaced, currently receiving TPN through PICC line that has been placed. IV thiamine has been replaced and is now in his TPN Continue pancreatic enzymes, cholestyramine resin has been added Continue replacing electrolytes in the TPN as well as with p.o. magnesium and potassium, p.o. thiamine He will need close follow-up with PCP after discharge with home TPN being arranged prior to discharge. If PCP desires, he could be referred to an outpatient specialist in parenteral feeding (2) Orthostatic hypotension: Plan: Likely due to profound dehydration from malabsorption and chronic profuse diarrhea He has been hydrated with IV fluids and TPN Midodrine started and orthostatic blood pressures are improved although still low normal (3) Generalized weakness: Plan: Continue OT and PT while hospitalized. Supportive care. Corrected hypokalemia and thiamine deficiency (4) Chronic diarrhea: Plan: Metamucil added to cholestyramine. Continue pancreatic enzymes Negative stool BioFire. He is on Sandostatin once a month also for diarrhea Follow with GI as an outpatient Just had EGD and colonoscopy a few weeks ago that he was told were normal GERD-increase Protonix to bid, continue pepcid (5) Thiamine deficiency: Plan: B1 level was undetectable during a previous recent admission Intravenous replacement switched to oral replacement on December 27 and should be continued (6) Metabolic acidosis with normal anion gap and bicarbonate losses: Plan: Suspect chronic GI bicarbonate loss. Bicarbonate drip has been switched to oral replacement. Serial labs do show improvement but remains mildly low at 19 Follow BMP (7) Hypokalemia: Plan: Oral and parenteral replacement ordered. Serial labs. Now acceptable at 3.8 Continue oral potassium supplementation on top of TPN but reduce po dose to only 20 meq po daily continue magnesium replacement in TPN and po (8) Neuroendocrine carcinoma of pancreas: Plan: History of partial pancreatectomy in the past. Continue to follow with heme- onc on discharge for ongoing Sandostatin treatments which he reports are for his diarrhea, not for his cancer He has been followed regularly for blood work and follow-up with oncology (9) Transaminitis: Plan: Mild. Serial labs show improvement Plan DVT prophylaxis-Lovenox Disposition-continued stay while awaiting approval through case management for TPN at home, likely discharge tomorrow Admission and Anticipated Discharge Date Admission Date: December 29, 2023 Anticipated date of discharge: 01/01/24 Subjective having the same 8-9 loose stools last night, nonbloody. Has some heartburn for the last month worse with eating Physical Exam Constitutional: + thin; no acute distress Respiratory: normal respiratory effort, lungs clear to auscultation Cardiovascular: RRR, no murmur, no edema Gastrointestinal (Abdomen): Inspection/Auscultation: normal bowel sounds; + abdomen abnormal to inspection (Midline surgical scar) and abdomen not distended Percussion/Palpation: abdomen soft; abdomen nontender and no guarding Psychiatric: A+Ox3, euthymic affect Results & Data Results & Data Vital Signs (Past 12 Hours) Vital Signs Temp Pulse Resp BP Pulse Ox O2 Del Method 12/31/23 14:20 36.6 C 54 L 18 100/61 95 Room Air 12/31/23 07:54 36.8 C 56 L 18 82/56 L 98 Room Air Laboratory Results CBC, CMP, mag, phos reviewed PG Care Time/CCT Total # of Minutes Spent Total Time Spent with Patient: Total time spent is greater than 50% in coordination of care (as documented) at patient's floor/unit and/or counseling patient: Coding Level of Care Code 80333 SUB INP/OBS CARE 2/35MIN Diagnoses Severe protein-calorie malnutrition E43 Orthostatic hypotension I95.1 Generalized weakness R53.1 Chronic diarrhea K52.9 Thiamine deficiency E51.9 Metabolic acidosis with normal anion gap and bicarbonate losses E87.20 Hypokalemia E87.6 Neuroendocrine carcinoma of pancreas C7A.8 Transaminitis R74.01
[2023-12-31] MEDS: PANTOprazole 40 MG TAB PO SCH (20:11)
[2024-01-01] MEDS: POTASSIUM CHLORIDE CRTAB 20 MEQ TABCR PO SCH (08:29)
[2024-01-01 08:41] LABS: BUN Creatinine Ratio 31.6 (10-20); Calcium 7.4 mg/dl (8.6-10.3); Creatinine Clr Calc Pharmacy 87.1 ml/min; Est GFR (African American) 117.2 ml/min; Est GFR (Non-African American) 101.1 ml/min; Magnesium 1.9 mg/dl (1.7-2.4); Phosphorus 3.1 mg/dl (2.5-4.9); Potassium 3.7 mmol/L (3.5-5.1)
[2024-01-01] MEDS: CALCIUM CARBONATE 500 MG CHEWABLE TAB PO PRN (14:37)
[2024-01-01 15:11] VITALS: BP 95/61; PULSE 63; RESP 18; TEMP 98.2; O2SAT 99
--- NOTE | 2024-01-01 16:43 | Discharge Summary ---
Discharge Summary Date of Service January 01, 2024 Principal Dx & Hospital Course #1 = Principal Diagnosis (1) Severe protein-calorie malnutrition: Present on admission. 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 May have some component of short gut syndrome as he has had about 6 to 8 inches of small intestine removed with his Whipple. He has chronic diarrhea. He is able to eat 100% of his meals but continues to lose weight and has a BMI of 16.1. He also has significant nutritional deficiencies and electrolyte abnormalities as well as orthostatic hypotension. Electrolytes have been replaced, currently receiving TPN through PICC line that has been placed. IV thiamine has been replaced and is now in his TPN and taking po Continue pancreatic enzymes, cholestyramine resin for diarrhea. He reports fiber supplement makes no difference so this was stopped Continue replacing electrolytes in the TPN as well as with p.o. magnesium, but can dc po potassium as it causes significant heartburn and K+ levels now normal He will need close follow-up with PCP after discharge with home TPN -I discussed his care with his PCP on the phone on the day of discharge. He will have once weekly labs reviewed by Pharmacist at [facility] and PCP with recommendations of changes to TPN made on a weekly basis Pt prefers to shorten his infusion time to 12 hours overnight if possible (2) Orthostatic hypotension: Likely due to profound dehydration from malabsorption and chronic profuse diarrhea He has been hydrated with IV fluids and TPN Midodrine started and orthostatic blood pressures are improved although still low normal. He is fairly asymptomatic at this point Started thigh high compression stockings Can likely wean off midodrine in the future with PCP after nutritional and volume status continues to improve (3) Generalized weakness: Continue OT and PT while hospitalized. Supportive care. Corrected hypokalemia and thiamine deficiency, orthostasis (4) Chronic diarrhea: Ongoing for years, seen by GI chronically. With h/o bowel resection, partial gastrectomy Continue cholestyramine. Continue pancreatic enzymes Negative stool BioFire. He is on Sandostatin once a month also for diarrhea Follow with GI as an outpatient Just had EGD and colonoscopy a few weeks ago that he was told were normal GERD-increase Protonix to bid, continue pepcid (5) Thiamine deficiency: B1 level was undetectable during a previous recent admission Intravenous replacement switched to oral replacement on December 27 and should b e continued (6) Metabolic acidosis with normal anion gap and bicarbonate losses: Suspect chronic GI bicarbonate loss. Bicarbonate drip has been switched to oral replacement. Serial labs do show improvement but remains mildly low at 21 Follow BMP as outpt continue sodium bicarb tablets 650mg po daily after discharge (7) Hypokalemia: Oral and parenteral replacement ordered. Serial labs. Now acceptable at 3.7 Can dc oral potassium supplementation as it causes heartburn Potassium included in TPN continue magnesium replacement in TPN and po weekly labs on TPN to monitor levels (8) Neuroendocrine carcinoma of pancreas: History of partial pancreatectomy in the past. Continue to follow with heme- onc on discharge for ongoing Sandostatin treatments which he reports are for his diarrhea, not for his cancer He has been followed regularly for blood work and follow-up with oncology. He is currently in remission (9) Transaminitis: Mild. Serial labs show improvement Plan DVT prophylaxis-Lovenox Disposition-dc to home with home TPN arrangements made Notes For Next Care Provider Needs close f/u on home TPN, once weekly labs Can wean off midodrine as nutritional status improves Medication Changes From Visit see list Admission HPI Per Admitting Provider Leander is a 53-year-old male with a past medical history significant for metastatic neuroendocrine carcinoma of the pancreas (currently on Sandostatin) status post Whipple procedure in April 2020, severe proteincalorie malnutrition, chronic diarrhea who presented to the [facility] ED on 12/26/2023 due to recurrent generalized weakness, poor oral intake, dehydration, lightheadedness. Patient was recently admitted for and November of this year for similar complaints and was noted to have severe protein calorie malnutrition. On arrival to the ED he was noted to be hypotensive at 91/63, bradycardic with heart rate in the 50s, but otherwise stable. Labs were significant for BUN of 35, bicarb of 14 with anion gap within normal limits, chloride of 112, potassium 3.4, improving transaminitis, TSH 5.4 with free T4 within normal limits, UA with 1+ protein and 3-5 hyaline casts, with COVID- 19/influenza/RSV screen negative. Chest x-ray was negative for acute findings in the chest but did note mildly dilated gas-filled loops of bowel within the upper abdomen. Clinical correlation recommended to assess for developing bowel obstruction. Prior to admission the patient was given 1 L normal saline. Patient was sitting in bed in no acute distress at time of exam with his mother bedside, history is obtained from both. Since being discharged from our facility last month's clinical condition has continued to decline. States that "I eat like a horse but I am still losing weight". Has still been experiencing his ongoing chronic diarrhea, has started to try scheduled hydrocodone to see if this will slow his bowels. No recent fever or chills, chest pain, shortness of breath, new abdominal pain, nausea/vomiting, melena, dysuria/hematuria, recent trauma. Has been getting significantly lightheaded/dizzy with changing positions especially when going from sitting to standing, has passed out once but did not hit his head. When asked, states he does feel off balance when walking. States that he was seen by his concrete products machine operator earlier today before presenting to the ED and they reportedly wanted him to have an echocardiogram while here since he has not had one in many years and has been having progressive lightheadedness/dizziness. Severe severe proteincalorie malnutrition in the patient explained that he is interested in trying TPN again to see if it will help him gain weight, I explained that we can have our dietitian see him to see what they recommend but again explained that this is not a permanent solution to his ongoing severe malnutrition. Confirms that he is still a full code and he would want his son, girlfriend, and mother to make medical decisions for him together if he cannot make them himself. Please refer to Dr. Jewell's attestation for any changes to the treatment plan Discharge Exam Constitutional + thin; no acute distress Respiratory normal respiratory effort, lungs clear to auscultation Cardiovascular RRR, no murmur, no edema Gastrointestinal (Abdomen) Inspection/Auscultation: normal bowel sounds; + abdomen abnormal to inspection (Midline surgical scar) and abdomen not distended Percussion/Palpation: abdomen soft; abdomen nontender and no guarding Psychiatric A+Ox3, euthymic affect Discharge Plan Discharge Items Patient Disposition: Home - Home Health Services Reason For Visit: GENERALIZED WEAKNESS, FAILURE TO THRIVE Discharge Diagnosis: Severe protein calorie malnutrition Electrolyte abnormalities Pancreatic insufficiency with chronic diarrhea History of neuroendocrine tumor of the pancreas Orthostatic hypotension Condition on Discharge: Fair Activity: As commented below Lifting: Gradually increase as tolerated Bathing Comment: Keep PICC line dry Exercise/Sports: Gradually increase as tolerated Weightbearing: Full weightbearing Non-emergency contact: Primary Care Provider Call non-emergency contact if: you have any medication questions and your symptoms worsen Follow-up/Referrals: Trevin Hauser D.O. [Primary Care Provider] - (Please follow up within 1-2 weeks for a hospital follow up appointment.) Diet: Regular Addtl Attending Provider Instructions: You were admitted with failure to thrive, severe malnutrition, and low blood pressures. You were started on TPN to improve your nutritional status. You were started on a medication called midodrine to keep your blood pressures from dropping too low. You may be able to wean off of this medication in the future once your nutritional status improves. You should continue to wear the compression stockings daily to keep your blood from pooling in your legs when you stand up. You will have once weekly blood work checked to monitor you nutritional status. You can discuss with Rustam about shortening the length of your TPN infusion to overnight in the near future. Pending Studies at Discharge: No Stand-Alone Forms: My [facility], Smoking Cessation Medications and DC Order Prescriptions: New hydrocodone-acetaminophen 5-325 mg Tablet 1 tab PO BID PRN (Reason: pain) Qty: 60 0RF midodrine 10 mg Tablet 10 mg PO TID@0800,1200,1700 Qty: 90 0RF sodium bicarbonate 650 mg Tablet 650 mg PO DAILY Qty: 30 0RF thiamine HCl (vitamin B1) 100 mg Tablet 100 mg PO QAM Qty: 30 0RF Rx Instructions: OTC magnesium oxide 400 mg (241.3 mg magnesium) Tablet 400 mg PO BID Qty: 60 0RF calcium carbonate [Tums] 200 mg calcium (500 mg) Tablet,Chewable 1,500 mg PO BID PRN (Reason: heartburn) Qty: 30 0RF Rx Instructions: OTC Continued cholestyramine-aspartame 4 gram powder in packet 1 ea PO TID famotidine 40 mg tablet 40 mg PO DAILY cyanocobalamin (vitamin B-12) 1,000 mcg/mL Solution 1,000 mcg IM MONTHLY beta carotene 7,500 mcg (25,000 unit) Capsule 7,500 mcg PO QAM Qty: 30 0RF octreotide acetate [Sandostatin] 50 mcg/mL Solution 0 mcg SUBCUT MONTHLY Rx Instructions: Per patient he gets 2 injections every 30 days but doesn't remember the strength Viokace 20,880-78,300- 78,300 unit tablet 2 tab PO TID Zenpep 40,000-126,000- 168,000 unit capsule,delayed release(DR/EC) 2 cap PO TID Changed pantoprazole 40 mg tablet,delayed release (DR/EC) 40 mg PO BID Qty: 60 0RF Discontinued potassium chloride 20 mEq tablet extended release 20 meq PO BID Cerovite Senior 0.4 mg-300 mcg- 250 mcg Tablet 1 tab PO QAM Qty: 30 0RF hydrocodone-homatropine [Hycodan (with homatropine)] 5-1.5 mg tablet 1 tab PO BID Qty: 60 0RF Rx Instructions: use as needed to help bowel movement Discharge Orders: Discharge Order (Routine); Ordered 01/01/24 Ordered By: Emilie Benitez Admission Data Admit Date/Time: 12/29/23 11:45 Attending Provider: Emilie Benitez Admit Provider: Kar Jewell Primary Care Provider: Trevin Hauser Other Providers: Kar Jewell; Thomas Pulido; LuanJuno Hospital Stay Data Consultations 12/26/23 16:28 ED Decision to Admit Stat 12/26/23 17:17 Consult Cardiology Routine Consult Oncology Routine Diagnostic Imagining Performed 12/26/23 16:17 CT head/brain wo con Stat Pending Results Patient Have Any Pending Studies at Discharge: No Discharge Instructions Given to Patient (Per Discharging Provider) You were admitted with failure to thrive, severe malnutrition, and low blood pressures. You were started on TPN to improve your nutritional status. You were started on a medication called midodrine to keep your blood pressures from dropping too low. You may be able to wean off of this medication in the future once your nutritional status improves. You should continue to wear the compression stockings daily to keep your blood from pooling in your legs when you stand up. You will have once weekly blood work checked to monitor you nutritional status. You can discuss with [facility] about shortening the length of your TPN infusion to overnight in the near future. Total Time Total Time Spent Total Time Spent (In Minutes): 40 min Total Time Includes: Examination of the Patient, Discharge Planning, Medication Reconciliation and Communication With Other Providers Coding Level of Care Code 76549 INP/OBS DISCH >30 MIN Diagnoses Severe protein-calorie malnutrition E43 Orthostatic hypotension I95.1 Generalized weakness R53.1 Chronic diarrhea K52.9 Thiamine deficiency E51.9 Metabolic acidosis with normal anion gap and bicarbonate losses E87.20 Hypokalemia E87.6 Neuroendocrine carcinoma of pancreas C7A.8 Transaminitis R74.01
== END 2024-01-01 18:06 | disposition home health service (06) | DRG 392 ==
LOC: 2W 12:01 → ED 12:01 → SUATTDRO 14:55 → 2W 17:03 → SUATTDRO 12-29 11:45 → 3N 12-29 22:49
DX: Z90.411 Acquired partial absence of pancreas; E87.8 Other disorders of electrolyte and fluid balance, not elsewhere classified; I95.1 Orthostatic hypotension; E53.8 Deficiency of other specified B group vitamins; R74.01 Elevation of levels of liver transaminase levels; K52.9 Noninfective gastroenteritis and colitis, unspecified; E83.42 Hypomagnesemia; E87.6 Hypokalemia; E87.20 Acidosis, unspecified; K86.89 Other specified diseases of pancreas; E51.9 Thiamine deficiency, unspecified; Z90.49 Acquired absence of other specified parts of digestive tract; Z68.1 Body mass index [BMI] 19.9 or less, adult; K90.9 Intestinal malabsorption, unspecified; K90.821 Short bowel syndrome with colon in continuity; Z87.891 Personal history of nicotine dependence; E86.0 Dehydration; Z85.07 Personal history of malignant neoplasm of pancreas; Z79.899 Other long term (current) drug therapy

== ENCOUNTER 2024-02-06 08:33 | Inpatient (IN) ==
--- NOTE | 2024-02-06 08:52 | Emergency Department Note ---
Impression & Plan SBO (small bowel obstruction), Abdominal pain, lower ED Provider Note NAME: PAULINA MENESES AGE: 53 SEX: Male INFORMANT: Patient ED PROVIDER(S): Bryan Alvarado MD CHIEF COMPLAINT: Abdominal pain PLAN: Disposition: Admitted Outpatient prescription management: none Referral: None MEDICAL DECISION MAKING: Patient presented because abdominal pain. Workup was initiated. CBC and chemistries were unremarkable. Patient did have abdominal distention. He was treated with IV Dilaudid and Zofran. Patient was also hydrated. He underwent CT imaging and this revealed a high-grade bowel obstruction. Discussed this with the patient. Patient had NG tube ordered. Consulted with general surgery and the team did evaluate the patient in the emergency department. Consultation was made with Dr. Jewell of the [facility] service. Patient was evaluated in the ER for further management. Care/management discussed with: store manager Level of care consideration(s): After review of the information above and other included data, I feel the patient requires escalation of care to admission Triage Nursing notes: reviewed and agree them. Vital Signs: reviewed and remarkable for no significant abnormalities Additional History obtained from: none Chronic Medical/Social Conditions affecting care: Malnutrition, history of Whipple Prior/ Outside/ External records reviewed: Hospital discharge summary reviewed from 01/01/2024. Patient admitted for protein calorie malnutrition. Differential Diagnosis: Bowel obstruction, appendicitis, testicular torsion, infections, diverticulitis, UTI, mesenteric ischemia, aortic pathology, inflammatory bowel disease, renal colic, PUD, pancreatitis, biliary pathology, hernia, volvulus, constipation, as well as other pathologies. Diagnostics, independently interpreted by me: ECG: none Cardiac Monitoring: Cardiac monitoring ordered by me: The patient was placed on continuous cardiac monitoring and observed. It revealed a normal sinus rhythm at 67 beats per minute without ectopy or evidence of dysrhythmia. Medical decision rules: none Imaging studies: CT scan of the abdomen pelvis reveals high-grade bowel obstruction with marked distention of the small bowel as well as stomach. HPI: 53 year old Male arrives for evaluation of lower abdominal pain. This started 3-4 weeks ago and is worsening. The patient also notes the following associated symptoms, abd distension. No vomiting. Last BM yesterday. Concerned due to reports of twisted bowel. The patient has taken no medication for relieving factors. Current pain is rated as 9/10. Pt denies LOC, headache, fevers, chills, diaphoresis, visual changes, neck pain, chest pain, breathing difficulties, vomiting, back pain, melena, hematochezia, urinary symptoms, numbness, weakness, lymphadenopathy, rash, or other complaints. . PAST MEDICAL HISTORY: See Below, pancreatic cancer PAST SURGICAL HISTORY: See Below, whipple in SOCIAL HISTORY: See Below, non-smoker HOME MEDICATIONS: See Below ALLERGIES: See Below VITALS: See Below PHYSICAL EXAMINATION: GENERAL: Awake, alert, thin-appearing, in no distress HENT: Normocephalic, atraumatic. Oropharynx unremarkable. EYES: Normal conjunctiva. Sclera non-icteric. NECK: Inspection normal. Non-tender. Supple. No nuchal rigidity. FROM. No masses. RESPIRATORY: Clear to auscultation. No wheezes. No rales. Normal respiratory effort. CARDIAC: Normal rate. Normal rhythm. No murmurs. No rubs. Extremities warm and well perfused. Pulses equal. No JVD. GI: Soft, mildly-distended. lower tenderness to palpation. No rebound or guarding. No masses. RECTAL: Deferred. MUSCULOSKELETAL: Atraumatic. Chest examination reveals no tenderness. The back is symmetrical on inspection without obvious abnormality. There is no CVA tenderness to palpation. No joint edema. LOWER EXTREMITIES: Calves are equal size bilaterally and non-tender. No edema. No discoloration. NEURO: Normal sensorium. No sensory or motor deficits noted. SKIN: No rash or jaundice noted. 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 Father Pancreatic cancer Brother No problems noted. Brother No problems noted. Son No problems noted. 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 Feels Safe at Home: Yes Diet: regular caffeine: No during the past year weight has: decreased > 10 lbs Assistive Devices: None Allergies Allergies Allergy/AdvReac Type Severity Reaction Status Date / Time No Known Allergies Allergy Verified 12/26/23 11:20 Home Meds Home Medications Medication Instructions Recorded Confirmed cyanocobalamin (vitamin B-12) 1,000 mcg IM MONTHLY 11/18/23 02/06/24 1,000 mcg/mL injection solution cholestyramine-aspartame 4 gram 1 ea PO TID 12/26/23 02/06/24 oral powder for susp in a packet lqfhko-zbdwgwnk-fetpsjs 2 tab PO TID 12/26/23 02/06/24 20,880-78,300-78,300 unit tablet (Viokace) rtofjv-lfctyyow-ayufzhb 2 cap PO TID 12/26/23 02/06/24 40,000-126,000-168,000 unit capsule, delay rel (Zenpep) octreotide acetate 50 mcg/mL 0 mcg subcut MONTHLY 12/26/23 02/06/24 injection solution (Sandostatin) IV admin extension set-filter 02/06/24 02/06/24 Previous Rx's Medication Instructions Recorded beta carotene 7,500 mcg (25,000 7,500 mcg PO QAM #30 caps 11/21/23 unit) capsule calcium carbonate (Tums) 1,500 mg (7.5 x 200 mg calcium 01/01/24 (500 mg)) PO BID PRN heartburn #30 tabs hydrocodone 5 mg-acetaminophen 325 1 tab PO BID PRN pain #60 tabs 01/01/24 mg tablet midodrine 10 mg tablet 10 mg PO TID@0800,1200,1700 #90 01/01/24 tabs pantoprazole 40 mg tablet,delayed 40 mg PO BID #60 tabs 01/01/24 release thiamine HCl (vitamin B1) 100 mg 100 mg PO QAM #30 tabs 01/01/24 tablet Results & Data (ED) Vital Signs Vital Signs - 24 hr 02/06/24 08:37 02/06/24 10:02 02/06/24 10:05 Temperature 36.5 C Temperature Source Temporal Artery Scan Pulse Rate 69 Pulse Rate [Finger] 66 Pulse Rhythm [Finger] Regular Pulse Strength [Finger] Normal Respiratory Rate 20 14 Respiratory Effort / Characteristics Non-Labored Spontaneous Non-Labored Respiratory Depth Normal Normal Blood Pressure 105/74 Blood Pressure [Right Arm] 96/69 L Blood Pressure Mean 84 Blood Pressure Mean [Right Arm] 78 Pulse Oximetry 99 98 99 Oxygen Delivery Method Room Air Room Air Room Air Sepsis Recent Fever Within 48 Hours No Sepsis New/Unexplained Change in Mental Status No Sepsis Action Taken by Nursing No Action Required 02/06/24 11:46 Temperature Temperature Source Pulse Rate Pulse Rate [Finger] 67 Pulse Rhythm [Finger] Pulse Strength [Finger] Respiratory Rate 15 Respiratory Effort / Characteristics Respiratory Depth Blood Pressure Blood Pressure [Right Arm] 105/75 Blood Pressure Mean Blood Pressure Mean [Right Arm] 85 Pulse Oximetry 99 Oxygen Delivery Method Room Air Sepsis Recent Fever Within 48 Hours Sepsis New/Unexplained Change in Mental Status Sepsis Action Taken by Nursing Laboratory Data 02/06/24 09:04 02/06/24 09:04 Lab Results 02/06/24 Range/Units 09:04 WBC 6.03 (4.8-10.8) K/ul RBC 3.36 L (4.70-6.10) M/uL Hgb 10.3 L (14.0-18.0) g/dl Hct 32.5 L (42.0-52.0) % MCV 96.7 (80.0-100.0) fL MCH 30.7 (25.0-34.0) pg MCHC 31.7 L (32.0-36.0) g/dL RDW Std Deviation 45.4 (36.4-46.3) fL RDW Coeff of Gael 12.7 (11.5-14.5) % Plt Count 209 (130-400) K/uL MPV 10.7 (9.4-12.4) fL Immature Gran % (Auto) 0.3 % Neut % (Auto) 79.1 % Lymph % (Auto) 10.0 % [place] % (Auto) 9.6 % Eos % (Auto) 0.5 % Baso % (Auto) 0.5 % Neut # (Auto) 4.77 (1.40-6.50) K/uL Lymph # (Auto) 0.60 L (1.20-3.40) K/uL [place] # (Auto) 0.58 (0.11-0.59) K/uL Eos # (Auto) 0.03 (0.00-0.50) K/uL Baso # (Auto) 0.03 (0.00-0.20) K/uL Immature Gran # (Auto) 0.02 (0.01-0.20) K/uL Sodium 137 (136-145) mmol/L Potassium 4.3 (3.5-5.1) mmol/L Chloride 101 (98-107) mmol/L Carbon Dioxide 29 (21-32) mmol/L Anion Gap 7 (3-11) BUN 32 H (6-23) mg/dl Creatinine 0.83 (0.6-1.4) mg/dl Est Cr Clr Drug Dosing 92.3 ml/min eGFR 103.36 BUN/Creatinine Ratio 38.6 H (10-20) Glucose 129 H (70-99(Fasting)) mg/dl Calcium 8.6 (8.6-10.3) mg/dl Magnesium 1.9 (1.7-2.4) mg/dl Total Bilirubin 0.4 (0.2-1.0) mg/dl AST 29 (13-39) U/L ALT 23 (7-52) U/L Alkaline Phosphatase 125 H (34-104) U/L Total Protein 6.8 (6.0-8.3) gm/dl Albumin 3.4 (3.4-5.0) gm/dl Globulin 3.4 (2.5-4.0) gm/dl Albumin/Globulin Ratio 1.0 (0.9-2) Lipase < 3 L (11-82) U/L Administered Medications Hydromorphone HCl (Hydromorphone Inj 0.5 Mg/0.5 Ml Syr) 0.5 mg IV Q15M PRN PRN Reason: Pain Stop: 02/20/24 08:52 Last Admin: 02/06/24 09:03 Dose: 0.5 mg Documented By: JIMMIE Discontinued Medications Sodium Chloride (Nss) 1,000 mls @ 999 mls/hr IV .Q1H1M ONE Stop: 02/06/24 10:13 Last Infusion: 02/06/24 10:49 Dose: Infused Documented By: Admin: 02/06/24 09:31 Dose: 999 mls/hr Documented By: JIMMIE Ioversol (Optiray 320 100ml) 94 ml IV ONCE ONE Stop: 02/06/24 11:09 Last Admin: 02/06/24 11:08 Dose: 94 ml Documented By: JOAQUIM Ondansetron HCl (Ondansetron Inj 2 Mg/Ml 2 Ml Vial) 4 mg IV NOW STA Stop: 02/06/24 08:54 Last Admin: 02/06/24 09:03 Dose: 4 mg Documented By: JIMMIE Imaging Data Radiologist's Impression: Abdomen/Pelvis CT 02/06/24 08:[address] WITH IV AND ORAL CONTRAST CT DOSE: 755.03 mGy.cm HISTORY: Acute generalized abdominal pain lower abd pain, hx of whipple, ?volvulus?colon obs TECHNIQUE: Multiaxial CT images of the abdomen and pelvis were performed following the IV administration of 94 cc of Optiray and oral contrast. A dose lowering technique was utilized adhering to the principles of ALARA. COMPARISON STUDY: 11/18/2023 CT, MRI abdomen 11/19/2023 FINDINGS: Catheter is in the distal right atrium. Bibasilar opacities favor atelectasis. No pneumatosis or pneumoperitoneum. Unremarkable spleen and adrenal glands. Prior Whipple procedure with pneumobilia redemonstrated. Hepatic steatosis. Unchanged 2.5 cm hypodense lesion within the inferior right hepatic lobe. Patency of the hepatic and portal veins. There is narrowing of the fabiana splenic confluence. No hydronephrosis. 3 mm nonobstructing calculus at the inferior pole right kidney. There are a few bilateral renal cysts. Nonspecific urinary bladder wall thickening. The aorta and IVC are within normal limits. No pathologically enlarged lymph nodes identified. There is a right femoral hernia which contains a nonobstructed loop of bowel. Colonic diverticulosis. Moderate colonic fecal retention. There is wall thickening and inflammatory stranding throughout the majority of the colon and rectum, similar to prior. In the stomach and small bowel are markedly dilated. Left abdominal small bowel loops measure up to approximately 8 cm with air-fluid levels. Transition point again noted within the right mid abdomen may be secondary to underlying adhesions. Mesenteric and body wall edema. No acute fracture or destructive bone lesion. IMPRESSION: 1. High-grade small bowel obstruction and with marked dilation of the stomach and proximal small bowel. Transition point is present within the right abdomen, likely secondary to underlying adhesions. 2. No pneumatosis or pneumoperitoneum. 3. Prior Whipple procedure. 4. Findings compatible with a nonspecific pancolitis, similar to the 11/18/2023 exam. 5. Right nephrolithiasis. No hydronephrosis. ACT 112: Negative or not required by law. The above report was generated using voice recognition software. It may contain grammatical, syntax or spelling errors. Electronically signed by: Curt Burroughs M.D. 02/06/2024 11:47 AM Discharge Plan Visit Data Chief Complaint: GI Assessment Stated Complaint: TWISTED BOWEL/ABD PAIN, CONSTIPATION, NOT EATING ED Provider: Bryan Alvarado Discharge Problem: SBO (small bowel obstruction), Abdominal pain, lower Forms Stand Alone Forms: [employer] Prescriptions Prescriptions: No Action cholestyramine-aspartame 4 gram powder in packet 1 ea PO TID (DME) TPN IV Set with Filter Infusion Set MISCELLANEOUS cyanocobalamin (vitamin B-12) 1,000 mcg/mL Solution 1,000 mcg IM MONTHLY beta carotene 7,500 mcg (25,000 unit) Capsule 7,500 mcg PO QAM Qty: 30 0RF octreotide acetate [Sandostatin] 50 mcg/mL Solution 0 mcg SUBCUT MONTHLY Rx Instructions: Per patient he gets 2 injections every 30 days but doesn't remember the strength Viokace 20,880-78,300- 78,300 unit tablet 2 tab PO TID Zenpep 40,000-126,000- 168,000 unit capsule,delayed release(DR/EC) 2 cap PO TID hydrocodone-acetaminophen 5-325 mg Tablet 1 tab PO BID PRN (Reason: pain) Qty: 60 0RF midodrine 10 mg Tablet 10 mg PO TID@0800,1200,1700 Qty: 90 0RF calcium carbonate [Tums] 200 mg calcium (500 mg) Tablet,Chewable 1,500 mg PO BID PRN (Reason: heartburn) Qty: 30 0RF Rx Instructions: OTC thiamine HCl (vitamin B1) 100 mg Tablet 100 mg PO QAM Qty: 30 0RF Rx Instructions: OTC pantoprazole 40 mg tablet,delayed release (DR/EC) 40 mg PO BID Qty: 60 0RF Referrals Referrals: Trevin Hauser D.O. [Primary Care Provider] -
[2024-02-06] MEDS: ONDANSETRON INJ 2 MG/ML 2 ML VIAL IV STA (09:03)
[2024-02-06] MEDS: HYDROmorphone INJ 0.5 MG/0.5 ML SYR IV PRN (09:03)
[2024-02-06 09:20] LABS: Basophils # (auto) 0.03 K/uL (0.00-0.20); Basophils % (auto) 0.5 %; Eosinophils # (auto) 0.03 K/uL (0.00-0.50); Eosinophils % (auto) 0.5 %; Hematocrit (blood only) 32.5 % (42.0-52.0); Hemoglobin 10.3 g/dl (14.0-18.0); Immature Granulocytes # (auto) 0.02 K/uL (0.01-0.20); Immature Granulocytes % (auto) 0.3 %; Mean Corpuscular Hemoglobin 30.7 pg (25.0-34.0); Mean Corpuscular Hgb Conc 31.7 g/dL (32.0-36.0); Mean Corpuscular Volume 96.7 fL (80.0-100.0); Mean Platelet Volume 10.7 fL (9.4-12.4); Monocytes # (auto) 0.58 K/uL (0.11-0.59); Monocytes % (auto) 9.6 %; Neutrophils # (auto) 4.77 K/uL (1.40-6.50); Neutrophils % (auto) 79.1 %; Platelet Count 209 K/uL (130-400); RDW Coefficient of Variation 12.7 % (11.5-14.5); RDW Standard Deviation 45.4 fL (36.4-46.3); Red Blood Count 3.36 M/uL (4.70-6.10); White Blood Count 6.03 K/ul (4.8-10.8)
[2024-02-06] MEDS: SODIUM CHLORIDE 0.9% 1,000 ML IV ONE (09:31)
[2024-02-06 09:34] LABS: Anion Gap 7 (3-11); BUN Creatinine Ratio 38.6 (10-20); Blood Urea Nitrogen 32 mg/dl (6-23); Calcium 8.6 mg/dl (8.6-10.3); Carbon Dioxide 29 mmol/L (21-32); Chloride 101 mmol/L (98-107); Creatinine Clr Calc Pharmacy 92.3 ml/min; Glucose 129 mg/dl (70-99(Fasting)); Potassium 4.3 mmol/L (3.5-5.1); Sodium 137 mmol/L (136-145)
[2024-02-06 09:36] LABS: Alanine Aminotransferase 23 U/L (7-52); Albumin Level 3.4 gm/dl (3.4-5.0); Alkaline Phosphatase 125 U/L (34-104); Aspartate Aminotransferase 29 U/L (13-39); Bilirubin,Total 0.4 mg/dl (0.2-1.0); Globulin 3.4 gm/dl (2.5-4.0); Lipase < 3 U/L (11-82); Total Protein 6.8 gm/dl (6.0-8.3)
[2024-02-06 10:02] LABS: Magnesium 1.9 mg/dl (1.7-2.4)
[2024-02-06] MEDS: OPTIRAY 320 100ml IV ONE (11:08)
--- NOTE | 2024-02-06 11:49 | CT Scan Report ---
ABDOMEN AND PELVIS CT WITH IV AND ORAL CONTRAST CT DOSE: 755.03 mGy.cm HISTORY: Acute generalized abdominal pain lower abd pain, hx of whipple, ?volvulus?colon obs TECHNIQUE: Multiaxial CT images of the abdomen and pelvis were performed following the IV administrat ion of 94 cc of Optiray and oral contrast. A dose lowering technique was utilized adhering to the pr inciples of ZORA. COMPARISON STUDY: 11/18/2023 CT, MRI abdomen 11/19/2023 FINDINGS: Catheter is in the distal right atrium. Bibasilar opacities favor atelectasis. No pneumatos is or pneumoperitoneum. Unremarkable spleen and adrenal glands. Prior Whipple procedure with pneumobi carina redemonstrated. Hepatic steatosis. Unchanged 2.5 cm hypodense lesion within the inferior right he patic lobe. Patency of the hepatic and portal veins. There is narrowing of the fabiana splenic confluen ce. No hydronephrosis. 3 mm nonobstructing calculus at the inferior pole right kidney. There are a fe w bilateral renal cysts. Nonspecific urinary bladder wall thickening. The aorta and IVC are within no rmal limits. No pathologically enlarged lymph nodes identified. There is a right femoral hernia which contains a nonobstructed loop of bowel. Colonic diverticulosis. Moderate colonic fecal retention. There is wall thickening and inflammatory s tranding throughout the majority of the colon and rectum, similar to prior. In the stomach and small bowel are markedly dilated. Left abdominal small bowel loops measure up to approximately 8 cm with ai r-fluid levels. Transition point again noted within the right mid abdomen may be secondary to underly ing adhesions. Mesenteric and body wall edema. No acute fracture or destructive bone lesion. IMPRESSION: 1. High-grade small bowel obstruction and with marked dilation of the stomach and proximal small teresa l. Transition point is present within the right abdomen, likely secondary to underlying adhesions. 2. No pneumatosis or pneumoperitoneum. 3. Prior Whipple procedure. 4. Findings compatible with a nonspecific pancolitis, similar to the 11/18/2023 exam. 5. Right nephrolithiasis. No hydronephrosis. ACT 112: Negative or not required by law. The above report was generated using voice recognition software. It may contain grammatical, syntax o r spelling errors. Electronically signed by: Curt Burroughs M.D. 02/06/2024 11:47 AM
--- NOTE | 2024-02-06 13:05 | Surgery Consultation ---
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 CT scan of abd/pelvis with high grade SBO with transition point in the RLQ with marked distention of stomach and small bowel (8.0 cm). He is currently hemodynamically stable with no peritoneal signs although diffusely distended abdomen (although improving after NGT inserted and 1 liter of thick gastric contents removed). No leukocytosis. No acute surgical intervention required at this time, I question of possible chronic dilatation of intestine given prior hospitalization in October 2023 with high grade SBO with small bowel dilatated at 6.5 cm at that time without any symptoms. Recommend hospitalist admit, NGT for decompression, NPO for bowel rest, IV fluids, pain management and antiemetics as needed, encouraged ambulation to increase GI motility. May need to consider TPN in next day or two given likelihood of NGT for a few days. If no improvement or concern for need of surgical intervention, he likely would required transfer to tertiary center given his complex surgical history. Dr. carbajal has seen and examined pt, agrees with above. History of Present Illness Reason for Consultation: High grade SBO Requesting Physician: Bryan Alvarado MD> Attending Physician: Bryan Alvarado MD History of Present Illness Mr. Anderson is a 53 year old male with history of neuroendocrine tumor of pancreas s/p Whipple procedure in 2020 presented to emergency department with 1 week of persistent LLQ abdominal pain with significant bloating, nausea, dry heaves, belching, and decreased stool output. Initial concern for twisting of colon as he was told his colon was twisted on colonoscopy a few weeks ago and was scheduled for barium enema. States he hasn't been able to eat much in last week. Last bowel movement was yesterday morning at 10 am but more soft formed compared to his usual diarrhea 8-9 times a day (this has been since his surgery in 2020). Pain about a 10/10 upon presented now currently 8/10. His surgery was done in [place] but has not been back due to complications from the surgery. He was recently here in October for CT scan showing high grade obstruction but was asymptomatic at the time. Did not require NGT during that admission. Allergies Allergy/AdvReac Type Severity Reaction Status Date / Time No Known Allergies Allergy Verified 12/26/23 11:20 Home Medications Medication Instructions Recorded Confirmed Type cyanocobalamin (vitamin B-12) 1,000 mcg IM MONTHLY 11/18/23 02/06/24 History 1,000 mcg/mL injection solution beta carotene 7,500 mcg (25,000 7,500 mcg PO QAM #30 caps 11/21/23 02/06/24 Rx unit) capsule cholestyramine-aspartame 4 gram 1 ea PO TID 12/26/23 02/06/24 History oral powder for susp in a packet dmgrid-oxqdjjih-mjfeqck 2 tab PO TID 12/26/23 02/06/24 History 20,880-78,300-78,300 unit tablet (Viokace) kebhaj-imfyrdbh-jvsestf 2 cap PO TID 12/26/23 02/06/24 History 40,000-126,000-168,000 unit capsule, delay rel (Zenpep) octreotide acetate 50 mcg/mL 0 mcg subcut MONTHLY 12/26/23 02/06/24 History injection solution (Sandostatin) calcium carbonate (Tums) 1,500 mg (7.5 x 200 mg calcium 01/01/24 02/06/24 Rx (500 mg)) PO BID PRN heartburn #30 tabs hydrocodone 5 mg-acetaminophen 325 1 tab PO BID PRN pain #60 tabs 01/01/24 02/06/24 Rx mg tablet midodrine 10 mg tablet 10 mg PO TID@0800,1200,1700 #90 01/01/24 02/06/24 Rx tabs pantoprazole 40 mg tablet,delayed 40 mg PO BID #60 tabs 01/01/24 02/06/24 Rx release thiamine HCl (vitamin B1) 100 mg 100 mg PO QAM #30 tabs 01/01/24 02/06/24 Rx tablet IV admin extension set-filter 02/06/24 02/06/24 History Patient History Medical History Vitamin A deficiency SBO (small bowel obstruction) Acute hypokalemia Hypomagnesemia Diarrhea Hypomagnesemia Hypokalemia Pancytopenia due to chemotherapy Neutropenic fever Acute hypotension Normal colonoscopy Diverticulitis Surgical History History of Whipple procedure History of ear surgery Family History Mother No problems noted. Father Pancreatic cancer Brother No problems noted. Brother No problems noted. Son No problems noted. 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 Feels Safe at Home: Yes Diet: regular caffeine: No during the past year weight has: decreased > 10 lbs Assistive Devices: None Review of Systems Review of Systems: All systems reviewed & are unremarkable except as noted in HPI & below Physical Exam Constitutional: WD/WN, vitals as above cooperative and comfortable; no acute distress and not ill appearing Respiratory: normal respiratory effort, lungs clear to auscultation Gastrointestinal (Abdomen): Inspection/Auscultation: + abdomen distended (significant distention) and + abdominal surgical scar (midline laparotomy scar with nylon sutures present at inferior aspect); + abnormal bowel sounds Percussion/Palpation: + abdomen tender (mild tenderness of the LLQ) and abdomen soft; no guarding, abdomen not rigid, no hernia and abdomen not firm NGT was placed just prior to my examination: thick bilious output in canister which filled to 1 liter during my examination. Skin: no rashes, warm and dry Psychiatric: A+Ox3, euthymic affect Results & Data Vital Signs (Past 12 Hours) Vital Signs Temp Pulse Pulse Resp BP BP Pulse Ox 02/06/24 11:46 67 15 105/75 99 02/06/24 10:05 66 14 96/69 L 99 02/06/24 10:02 98 02/06/24 08:37 36.5 C 69 20 105/74 99 O2 Del Method 02/06/24 11:46 Room Air 02/06/24 10:05 Room Air 02/06/24 10:02 Room Air 02/06/24 08:37 Room Air Laboratory Results 02/06/24 Range/Units 09:04 WBC 6.03 (4.8-10.8) K/ul RBC 3.36 L (4.70-6.10) M/uL Hgb 10.3 L (14.0-18.0) g/dl Hct 32.5 L (42.0-52.0) % MCV 96.7 (80.0-100.0) fL MCH 30.7 (25.0-34.0) pg MCHC 31.7 L (32.0-36.0) g/dL RDW Std Deviation 45.4 (36.4-46.3) fL RDW Coeff of Gael 12.7 (11.5-14.5) % Plt Count 209 (130-400) K/uL MPV 10.7 (9.4-12.4) fL Immature Gran % (Auto) 0.3 % Neut % (Auto) 79.1 % Lymph % (Auto) 10.0 % Corson % (Auto) 9.6 % Eos % (Auto) 0.5 % Baso % (Auto) 0.5 % Neut # (Auto) 4.77 (1.40-6.50) K/uL Lymph # (Auto) 0.60 L (1.20-3.40) K/uL Corson # (Auto) 0.58 (0.11-0.59) K/uL Eos # (Auto) 0.03 (0.00-0.50) K/uL Baso # (Auto) 0.03 (0.00-0.20) K/uL Immature Gran # (Auto) 0.02 (0.01-0.20) K/uL Sodium 137 (136-145) mmol/L Potassium 4.3 (3.5-5.1) mmol/L Chloride 101 (98-107) mmol/L Carbon Dioxide 29 (21-32) mmol/L Anion Gap 7 (3-11) BUN 32 H (6-23) mg/dl Creatinine 0.83 (0.6-1.4) mg/dl Est Cr Clr Drug Dosing 92.3 ml/min eGFR 103.36 BUN/Creatinine Ratio 38.6 H (10-20) Glucose 129 H (70-99(Fasting)) mg/dl Calcium 8.6 (8.6-10.3) mg/dl Magnesium 1.9 (1.7-2.4) mg/dl Total Bilirubin 0.4 (0.2-1.0) mg/dl AST 29 (13-39) U/L ALT 23 (7-52) U/L Alkaline Phosphatase 125 H (34-104) U/L Total Protein 6.8 (6.0-8.3) gm/dl Albumin 3.4 (3.4-5.0) gm/dl Globulin 3.4 (2.5-4.0) gm/dl Albumin/Globulin Ratio 1.0 (0.9-2) Lipase < 3 L (11-82) U/L Diagnostic Findings ABDOMEN AND PELVIS CT WITH IV AND ORAL CONTRAST CT DOSE: 755.03 mGy.cm HISTORY: Acute generalized abdominal pain lower abd pain, hx of whipple, ?volvulus?colon obs TECHNIQUE: Multiaxial CT images of the abdomen and pelvis were performed following the IV administration of 94 cc of Optiray and oral contrast. A dose lowering technique was utilized adhering to the principles of ALARA. COMPARISON STUDY: 11/18/2023 CT, MRI abdomen 11/19/2023 FINDINGS: Catheter is in the distal right atrium. Bibasilar opacities favor atelectasis. No pneumatosis or pneumoperitoneum. Unremarkable spleen and adrenal glands. Prior Whipple procedure with pneumobilia redemonstrated. Hepatic steatosis. Unchanged 2.5 cm hypodense lesion within the inferior right hepatic lobe. Patency of the hepatic and portal veins. There is narrowing of the fabiana splenic confluence. No hydronephrosis. 3 mm nonobstructing calculus at the inferior pole right kidney. There are a few bilateral renal cysts. Nonspecific urinary bladder wall thickening. The aorta and IVC are within normal limits. No pathologically enlarged lymph nodes identified. There is a right femoral hernia which contains a nonobstructed loop of bowel. Colonic diverticulosis. Moderate colonic fecal retention. There is wall thickening and inflammatory stranding throughout the majority of the colon and rectum, similar to prior. In the stomach and small bowel are markedly dilated. Left abdominal small bowel loops measure up to approximately 8 cm with air-fluid levels. Transition point again noted within the right mid abdomen may be secondary to underlying adhesions. Mesenteric and body wall edema. No acute fracture or destructive bone lesion. IMPRESSION: 1. High-grade small bowel obstruction and with marked dilation of the stomach and proximal small bowel. Transition point is present within the right abdomen, likely secondary to underlying adhesions. 2. No pneumatosis or pneumoperitoneum. 3. Prior Whipple procedure. 4. Findings compatible with a nonspecific pancolitis, similar to the 11/18/2023 exam. 5. Right nephrolithiasis. No hydronephrosis. I personally reviewed ct scan images above and CT scan from 10/2023 and concur with above findings
--- NOTE | 2024-02-06 13:45 | History & Physical Report ---
Date of Service February 06, 2024 Assessment & Plan (1) SBO (small bowel obstruction): Plan: Acute, high-grade SBO - Admit to med/surg - NPO status - VS per unit protocol - Resume TPN, pharmacy on consult - Continue NGT to LIS - General surgery on consult and following, appreciate assistance - As output from NG tapers, recommend clamping and allowing patient to ambulate - Pain control with Morphine 2mg IV q3 for moderate pain, 4mg q3 for severe pain, and IV APAP for mild pain - Antiemetics with Zofran 4mg IV q6 prn n/v (2) Severe protein-calorie malnutrition: Plan: Chronic - Resume TPN - Hold supplements while NPO - Outpatient f/u (3) Chronic diarrhea: Plan: Chronic - Managed with octreotide, which will be placed on hold d/t NPO status - Last BM yesterday 02/04 Plan Lovenox added for DVT ppx which will start on 02/06 in AM. Repeat AM labs including CBC, BMP, and mag. Above plan of care has been d/w Dr. Jewell. Further orders will be implemented as clinically warranted. History of Present Illness Chief Complaint: Abdominal pain Primary Care Provider: Trevin Tabor is a 53 yo M with a pmhx of neuroendocrine tumor s/p whipple procedure in 2020 at [facility] resulting in chronic moderate to severe protein calorie malnutrition and chronic diarrhea who presents to the ER today c/o abd pain in his LLQ and nausea that has been progressively worsening over the past week. He was started on chronic TPN due to PCM and ongoing weight loss. He does have a RUE PICC in place. He denies fever, chills. He has been having decreased appetite but is still eating, but pain was made worsened by eating. He presented to the ER where he underwent a CTAP that demonstrated a high-grade SBO with transition point in the RLQ with marked distension of the stomach and small bowel measuring 8.0cm. NGT was ordered and placed in the ER with marked output in a short period of time. He is otherwise HD stable with no peritoneal signs or leukocytosis. Surgery was consulted and evaluated patient in the ER and did not feel that he warranted any surgical intervention at this time and recommended medical management. Patient has subsequently been referred for admission to the hospital medicine team. Allergies Allergy/AdvReac Type Severity Reaction Status Date / Time No Known Allergies Allergy Verified 12/26/23 11:20 Home Medications Medication Instructions Recorded Confirmed Type cyanocobalamin (vitamin B-12) 1,000 mcg IM MONTHLY 11/18/23 02/06/24 History 1,000 mcg/mL injection solution beta carotene 7,500 mcg (25,000 7,500 mcg PO QAM #30 caps 11/21/23 02/06/24 Rx unit) capsule cholestyramine-aspartame 4 gram 1 ea PO TID 12/26/23 02/06/24 History oral powder for susp in a packet krfiae-fhsjocqc-mwgfmku 2 tab PO TID 12/26/23 02/06/24 History 20,880-78,300-78,300 unit tablet (Viokace) zwenwc-zpadpdlo-aypeife 2 cap PO TID 12/26/23 02/06/24 History 40,000-126,000-168,000 unit capsule, delay rel (Zenpep) octreotide acetate 50 mcg/mL 0 mcg subcut MONTHLY 12/26/23 02/06/24 History injection solution (Sandostatin) calcium carbonate (Tums) 1,500 mg (7.5 x 200 mg calcium 01/01/24 02/06/24 Rx (500 mg)) PO BID PRN heartburn #30 tabs hydrocodone 5 mg-acetaminophen 325 1 tab PO BID PRN pain #60 tabs 01/01/24 02/06/24 Rx mg tablet midodrine 10 mg tablet 10 mg PO TID@0800,1200,1700 #90 01/01/24 02/06/24 Rx tabs pantoprazole 40 mg tablet,delayed 40 mg PO BID #60 tabs 01/01/24 02/06/24 Rx release thiamine HCl (vitamin B1) 100 mg 100 mg PO QAM #30 tabs 01/01/24 02/06/24 Rx tablet IV admin extension set-filter 02/06/24 02/06/24 History Past Med/Surg History Problem List (Updated 02/06/24 @ 13:02 by Bryan Alvarado MD) SBO (small bowel obstruction) (Acute) Abdominal pain, lower (Acute) Orthostatic hypotension Chronic diarrhea Severe protein-calorie malnutrition Metabolic acidosis with normal anion gap and bicarbonate losses Thiamine deficiency Failure to thrive in adult Hypotension Sinus bradycardia Neuroendocrine carcinoma of pancreas (Chronic 03/28/20) Fever (Acute) Primary pancreatic cancer with metastasis to other site (Acute) Enteritis (Acute) Medical History Vitamin A deficiency SBO (small bowel obstruction) Acute hypokalemia Hypomagnesemia Diarrhea Hypomagnesemia Hypokalemia Pancytopenia due to chemotherapy Neutropenic fever Acute hypotension Normal colonoscopy Diverticulitis Surgical History History of Whipple procedure History of ear surgery Family History Mother No problems noted. Father Pancreatic cancer Brother No problems noted. Brother No problems noted. Son No problems noted. 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 Denies fever, chills, fatigue, headache, nasal congestion, sore throat, cough, chest pain, shortness of breath, palpitations, orthopnea, PND, constipation, dysuria, hematuria, frequency, back pain, joint pain or swelling, easy bruising or bleeding, skin lesions or rashes. Physical Exam 2 Physical Exam: GENERAL: 53 yo thin WM. NAD. EYES: EOMI. PERRLA. Anicteric. HENT: Moist mucous membranes. No cervical lymphadenopathy. LUNGS: Clear to auscultation bilaterally. No W/R/R. CARDIOVASCULAR: Regular rate and rhythm. No M/G/R. No JVD. ABDOMEN: Soft, moderately distended. No rigidity, rebound tenderness or guarding. Absent bowel sounds. EXTREMITIES: No edema. Non-tender. Peripheral pulses +2/4. NEUROLOGIC: A&O x3. No focal neurological deficits. CN II-XII grossly intact. PSYCHIATRIC: Cooperative. Appropriate mood and affect. SKIN: Warm, dry, intact. Sutures noted on bottom of abdomen from recent internal suture removal in [place]. Results & Data Results & Data Vital Signs (Past 12 Hours) Vital Signs Temp Pulse Pulse Resp BP BP Pulse Ox 02/06/24 11:46 67 15 105/75 99 02/06/24 10:05 66 14 96/69 L 99 02/06/24 10:02 98 02/06/24 08:37 36.5 C 69 20 105/74 99 O2 Del Method 02/06/24 11:46 Room Air 02/06/24 10:05 Room Air 02/06/24 10:02 Room Air 02/06/24 08:37 Room Air Laboratory Results 02/06/24 09:04 02/06/24 09:04 Diagnostic Findings Abdomen/Pelvis CT 02/06/24 08:[address] WITH IV AND ORAL CONTRAST CT DOSE: 755.03 mGy.cm HISTORY: Acute generalized abdominal pain lower abd pain, hx of whipple, ?volvulus?colon obs TECHNIQUE: Multiaxial CT images of the abdomen and pelvis were performed following the IV administration of 94 cc of Optiray and oral contrast. A dose lowering technique was utilized adhering to the principles of ALARA. COMPARISON STUDY: 11/18/2023 CT, MRI abdomen 11/19/2023 FINDINGS: Catheter is in the distal right atrium. Bibasilar opacities favor atelectasis. No pneumatosis or pneumoperitoneum. Unremarkable spleen and adrenal glands. Prior Whipple procedure with pneumobilia redemonstrated. Hepatic steatosis. Unchanged 2.5 cm hypodense lesion within the inferior right hepatic lobe. Patency of the hepatic and portal veins. There is narrowing of the fabiana splenic confluence. No hydronephrosis. 3 mm nonobstructing calculus at the inferior pole right kidney. There are a few bilateral renal cysts. Nonspecific urinary bladder wall thickening. The aorta and IVC are within normal limits. No pathologically enlarged lymph nodes identified. There is a right femoral hernia which contains a nonobstructed loop of bowel. Colonic diverticulosis. Moderate colonic fecal retention. There is wall thickening and inflammatory stranding throughout the majority of the colon and rectum, similar to prior. In the stomach and small bowel are markedly dilated. Left abdominal small bowel loops measure up to approximately 8 cm with air-fluid levels. Transition point again noted within the right mid abdomen may be secondary to underlying adhesions. Mesenteric and body wall edema. No acute fracture or destructive bone lesion. IMPRESSION: 1. High-grade small bowel obstruction and with marked dilation of the stomach and proximal small bowel. Transition point is present within the right abdomen, likely secondary to underlying adhesions. 2. No pneumatosis or pneumoperitoneum. 3. Prior Whipple procedure. 4. Findings compatible with a nonspecific pancolitis, similar to the 11/18/2023 exam. 5. Right nephrolithiasis. No hydronephrosis. ACT 112: Negative or not required by law. The above report was generated using voice recognition software. It may contain grammatical, syntax or spelling errors. Electronically signed by: Curt Burroughs M.D. 02/06/2024 11:47 AM Code Status & VTE Plan Code Status Conditional code, DNI - confirmed with patient Supervising Physician Co-Signing Physician Notes I personally saw and examined the patient. I independently reviewed the labs, EKG, imaging, problem list, medication list, past medical history and family history. I verified all escalona points and agree with Lori Chaparro PA-C with the following exceptions and/or additions: 53 year old male presents to the ER with abdominal pain. SBO on CT. Abdominal pain much improved when seen from earlier in the day now with NG tube in place O/E HS RRR, no murmurs, Chest CTAB, Abd A/P SBO - IV fluids, TPN (to start tomorrow), NG tube, NPO, consult general surgery PG Care Time/CCT Total # of Minutes Spent Total Time Spent with Patient: Total time spent is greater than 50% in coordination of care (as documented) at patient's floor/unit and/or counseling patient: 77 minutes Coding Level of Care Code 70044 INT INP/OBS CARE 3/75MIN Diagnoses SBO (small bowel obstruction) K56.609 Severe protein-calorie malnutrition E43 Chronic diarrhea K52.9
[2024-02-06 15:03] LABS: Appearance Urine Clear (Clear); Bilirubin Urine Negative (Negative); Blood Urine Negative (Negative); Color Urine Yellow; Glucose Urine UA Negative (Negative); Ketones Urine Negative (Negative); Leukocyte Esterase Urine Negative (Negative); Nitrite Urine Negative (Negative); Protein Urine Negative (Negative); Specific Gravity Urine > 1.045 (1.000-1.030); Urobilinogen Urine Negative (Negative); pH Urine 5.5 (4.5-7.5)
[2024-02-06] MEDS ORDERED: TPN/PPN CONSULT PHARMACY SCH (15:55)
[2024-02-06] MEDS: CHLORASEPTIC (PHENOL) 1.4% SOLN 180 ML BTL MT PRN (18:15)
[2024-02-06] MEDS ORDERED: Nursing to Pharmacy Communication SCH (18:45)
[2024-02-06] MEDS: LACTATED RINGER'S 1,000 ML IV SCH (20:30)
[2024-02-06] MEDS: PANTOprazole 40 MG/10 ML SYR IV SCH (20:58)
[2024-02-07 07:02] LABS: Basophils # (auto) 0.04 K/uL (0.00-0.20); Basophils % (auto) 1.4 %; Eosinophils # (auto) 0.08 K/uL (0.00-0.50); Eosinophils % (auto) 2.8 %; Hematocrit (blood only) 29.3 % (42.0-52.0); Hemoglobin 9.1 g/dl (14.0-18.0); Immature Granulocytes # (auto) 0.02 K/uL (0.01-0.20); Immature Granulocytes % (auto) 0.7 %; Lymphocytes # (auto) 0.52 K/uL (1.20-3.40); Lymphocytes % (auto) 18.3 %; Mean Corpuscular Hemoglobin 30.6 pg (25.0-34.0); Mean Corpuscular Hgb Conc 31.1 g/dL (32.0-36.0); Mean Corpuscular Volume 98.7 fL (80.0-100.0); Mean Platelet Volume 10.7 fL (9.4-12.4); Monocytes # (auto) 0.45 K/uL (0.11-0.59); Monocytes % (auto) 15.8 %; Neutrophils # (auto) 1.73 K/uL (1.40-6.50); Platelet Count 177 K/uL (130-400); RDW Coefficient of Variation 12.5 % (11.5-14.5); RDW Standard Deviation 45.6 fL (36.4-46.3); Red Blood Count 2.97 M/uL (4.70-6.10); White Blood Count 2.84 K/ul (4.8-10.8)
[2024-02-07] MEDS ORDERED: TPN/PPN CONSULT PHARMACY STA (07:15)
[2024-02-07 07:26] LABS: BUN Creatinine Ratio 23.5 (10-20); Bilirubin,Total 0.4 mg/dl (0.2-1.0); Calcium 8.2 mg/dl (8.6-10.3); Creatinine Clr Calc Pharmacy 94.7 ml/min; Magnesium 1.6 mg/dl (1.7-2.4); Phosphorus 3.3 mg/dl (2.5-4.9); Potassium 4.5 mmol/L (3.5-5.1)
[2024-02-07] MEDS: ACETAMINOPHEN 1,000 MG/100 ML VIAL IV PRN (07:52)
[2024-02-07] MEDS: MoRPHine SULFATE 2 MG/ML CARP IV PRN (09:27)
[2024-02-07] MEDS: ENOXAPARIN INJ 40 MG/0.4 ML SYR SQ SCH (09:28)
--- NOTE | 2024-02-07 10:52 | Hospitalist Progress Note ---
<Statement entered by Sejal Goyal MD - 02/07/24 17:07> I have reviewed vital signs, chart notes, labs and imaging. I have also discussed the management of the patient with the DARINEL and I agree with the exam findings documented in the history and physical examination and the documented assessment and plan unless otherwise stated below. Continue to hold octreotide until bowel obstruction completely resolved Date of Service February 07, 2024 Assessment & Plan (1) SBO (small bowel obstruction): Plan: Acute, high-grade SBO - NPO status - Continue NGT to LIS - continues to have decent output - General surgery consulted - if needs surgery will need transferred given surgical hx - continue NGT - Continue TPN - As output from NG tapers, recommend clamping and allowing patient to ambulate - Pt reports that he had recent colonoscopy at [facility] and was told that he had twisting in his colon and is supposed to have a barium enema - Requesting records (2) Severe protein-calorie malnutrition: Plan: Chronic - Resume TPN - Hold supplements while NPO - Outpatient f/u (3) Chronic diarrhea: Plan: Chronic - Managed with octreotide, which will be placed on hold d/t NPO status - Last BM 02/04 Plan Dispo: continued inpatient stay DVT proh: Lovenox Family updated at bedside 02/06 Admission and Anticipated Discharge Date Admission Date: February 06, 2024 Subjective Patient seen this morning, family present at bedside. Feeling well - abdominal pain is improving. States that he is hungry but still having large amount of NG output. Passing gas when he urinates, no bowel movement since admission. States that he had recent colonscopy with [facility] and concerns for ?twisted colon and they wanted to do Barium Enema. Review of Systems Review of Systems: All systems reviewed & are unremarkable except as noted in Subjective Physical Exam Physical Exam: General: NAD, VS as above HEENT: NG tube in place, with continued output Resp: normal respiratory effort, lungs clear to auscultation CV: RRR, no murmur, Abd: hypoactive bowel sounds, soft, non tender. Extremities: Moves all extremities, no edema Neuro: A&O x3, Skin: intact, no lesions noted - sutures lower abdominal incision, no signs of infection Results & Data Results & Data Vital Signs (Past 12 Hours) Vital Signs Temp Pulse Resp BP Pulse Ox O2 Del Method 02/07/24 07:10 98.6 F 53 L 16 93/52 L 97 Room Air Laboratory Results CBC, chemistry and urine reviewed PG Care Time/CCT Total # of Minutes Spent Total Time Spent with Patient: Total time spent is greater than 50% in coordination of care (as documented) at patient's floor/unit and/or counseling patient: Coding Level of Care Code 95329 SUB INP/OBS CARE 3/50MIN Diagnoses SBO (small bowel obstruction) K56.609 Severe protein-calorie malnutrition E43 Chronic diarrhea K52.9
--- NOTE | 2024-02-07 12:04 | Surgery Progress Note ---
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 CT scan of abd/pelvis with high grade SBO with transition point in the RLQ with marked distention of stomach and small bowel (8.0 cm). He is currently hemodynamically stable with no peritoneal signs although diffusely distended abdomen (although improving after NGT inserted and 1 liter of thick gastric contents removed). No leukocytosis. No acute surgical intervention required at this time, I question of possible chronic dilatation of intestine given prior hospitalization in October 2023 with high grade SBO with small bowel dilatated at 6.5 cm at that time without any symptoms. 02/07/2024: avss abdomen significantly softer and mildly distended today but still having significant NGT output, over 2 liters since placed no abdominal pain, passing gas Plan: Continue NGT for decompression. Given initial SB dilation and dilated stomach he likely will require NGT for a few days. encouraged ambulation today to increase GI motility continue TPN Continue medical management If no improvement with conservative measures and surgical intervention required, he likely would require transfer to tertiary center given history of Whipple procedure and complications from his surgery which was done at [place]. Patient however does not want to go to [place]. [facility] surgery covering the weekend Dr. Dee has seen and examined patient, agrees with above. Admission and Anticipated Discharge Date Admission Date: February 06, 2024 Subjective Feeling okay, no abdominal pain, no nausea no vomiting Passing some gas when urinating however no bowel movement Abdomen feels softer and is almost flat. Physical Exam Constitutional: WD/WN, vitals as above + thin, + frail appearing, cooperative and comfortable; no acute distress Respiratory: normal respiratory effort; no respiratory distress Gastrointestinal (Abdomen): Inspection/Auscultation: abdomen normal to inspection, + abdomen distended (Mild distention) and + abdominal surgical scar (Midline laparotomy) Percussion/Palpation: abdomen soft and + tympanic to percussion; abdomen nontender, no guarding, abdomen not rigid and abdomen not firm NG tube with copious amounts of thick bilious output in canister. Canister is currently full Skin: no rashes, warm and dry Psychiatric: Orientation: alert and oriented x 3 Results & Data Vital Signs (Past 12 Hours) Vital Signs Temp Pulse Resp BP Pulse Ox O2 Del Method 02/07/24 07:10 37.0 C 53 L 16 93/52 L 97 Room Air Laboratory Results 02/07/24 02/07/24 02/07/24 Range/Units 06:47 06:27 01:04 WBC 2.84 L (4.8-10.8) K/ul RBC 2.97 L (4.70-6.10) M/uL Hgb 9.1 L (14.0-18.0) g/dl Hct 29.3 L (42.0-52.0) % MCV 98.7 (80.0-100.0) fL MCH 30.6 (25.0-34.0) pg MCHC 31.1 L (32.0-36.0) g/dL RDW Std Deviation 45.6 (36.4-46.3) fL RDW Coeff of Gael 12.5 (11.5-14.5) % Plt Count 177 (130-400) K/uL MPV 10.7 (9.4-12.4) fL Immature Gran % (Auto) 0.7 % Neut % (Auto) 61.0 % Lymph % (Auto) 18.3 % Stephens % (Auto) 15.8 % Eos % (Auto) 2.8 % Baso % (Auto) 1.4 % Neut # (Auto) 1.73 (1.40-6.50) K/uL Lymph # (Auto) 0.52 L (1.20-3.40) K/uL Stephens # (Auto) 0.45 (0.11-0.59) K/uL Eos # (Auto) 0.08 (0.00-0.50) K/uL Baso # (Auto) 0.04 (0.00-0.20) K/uL Immature Gran # (Auto) 0.02 (0.01-0.20) K/uL Sodium 138 (136-145) mmol/L Potassium 4.5 (3.5-5.1) mmol/L Chloride 105 (98-107) mmol/L Carbon Dioxide 32 (21-32) mmol/L Anion Gap 1 L (3-11) BUN 19 (6-23) mg/dl Creatinine 0.81 (0.6-1.4) mg/dl Est Cr Clr Drug Dosing 94.7 ml/min eGFR 104.12 BUN/Creatinine Ratio 23.5 H (10-20) Glucose 99 (70-99(Fasting)) mg/dl POC Glucose 105 H 96 (70-99) mg/dl Calcium 8.2 L (8.6-10.3) mg/dl Phosphorus 3.3 (2.5-4.9) mg/dl Magnesium 1.6 L (1.7-2.4) mg/dl Total Bilirubin 0.4 (0.2-1.0) mg/dl AST 20 (13-39) U/L ALT 18 (7-52) U/L Alkaline Phosphatase 104 (34-104) U/L Triglycerides 62 (0-150) mg/dl Urine Color Urine Appearance (Clear) Urine pH (4.5-7.5) Ur Specific [place] (1.000-1.030) Urine Protein (Negative) Urine Glucose (UA) (Negative) Urine Ketones (Negative) Urine Blood (Negative) Urine Nitrite (Negative) Urine Bilirubin (Negative) Urine Urobilinogen (Negative) Ur Leukocyte Esterase (Negative) 02/06/24 02/06/24 Range/Units 18:30 14:48 WBC (4.8-10.8) K/ul RBC (4.70-6.10) M/uL Hgb (14.0-18.0) g/dl Hct (42.0-52.0) % MCV (80.0-100.0) fL MCH (25.0-34.0) pg MCHC (32.0-36.0) g/dL RDW Std Deviation (36.4-46.3) fL RDW Coeff of Gael (11.5-14.5) % Plt Count (130-400) K/uL MPV (9.4-12.4) fL Immature Gran % (Auto) % Neut % (Auto) % Lymph % (Auto) % Stephens % (Auto) % Eos % (Auto) % Baso % (Auto) % Neut # (Auto) (1.40-6.50) K/uL Lymph # (Auto) (1.20-3.40) K/uL Stephens # (Auto) (0.11-0.59) K/uL Eos # (Auto) (0.00-0.50) K/uL Baso # (Auto) (0.00-0.20) K/uL Immature Gran # (Auto) (0.01-0.20) K/uL Sodium (136-145) mmol/L Potassium (3.5-5.1) mmol/L Chloride (98-107) mmol/L Carbon Dioxide (21-32) mmol/L Anion Gap (3-11) BUN (6-23) mg/dl Creatinine (0.6-1.4) mg/dl Est Cr Clr Drug Dosing ml/min eGFR BUN/Creatinine Ratio (10-20) Glucose (70-99(Fasting)) mg/dl POC Glucose 90 (70-99) mg/dl Calcium (8.6-10.3) mg/dl Phosphorus (2.5-4.9) mg/dl Magnesium (1.7-2.4) mg/dl Total Bilirubin (0.2-1.0) mg/dl AST (13-39) U/L ALT (7-52) U/L Alkaline Phosphatase (34-104) U/L Triglycerides (0-150) mg/dl Urine Color Yellow Urine Appearance Clear (Clear) Urine pH 5.5 (4.5-7.5) Ur Specific [place] > 1.045 H (1.000-1.030) Urine Protein Negative (Negative) Urine Glucose (UA) Negative (Negative) Urine Ketones Negative (Negative) Urine Blood Negative (Negative) Urine Nitrite Negative (Negative) Urine Bilirubin Negative (Negative) Urine Urobilinogen Negative (Negative) Ur Leukocyte Esterase Negative (Negative)
--- NOTE | 2024-02-07 12:17 | Pharmacy Report ---
Pharmacy Initial PN Consult Nt - Date of Service February 07, 2024 - Scope Pharmacy has been consulted on this date to manage parenteral nutrition orders and order appropriate labs. As part of the Nutrition Support Team Guidelines, pharmacy will work in conjunction with dietary when determining the patients caloric needs. - Subjective * The patient is a 53 year old Male admitted on 02/06/24 for TWISTED BOWEL/ABD PAIN, CONSTIPATION, NOT EATING. - Objective Vascular Access: * Patient currently has a central line Height & Weight (Last Documented) Height 6 ft 3 in Weight 65 kg Diet Order(s) 02/06/24 15:43 NPO Intake & Ouput (24hrs) 02/06/24 02/07/24 02/08/24 06:59 06:59 06:59 Intake Total 1922.917 / 1922.917 795.833 / 795.833 Output Total 2400 / 2400 800 / 800 Balance -477.083 / -477.083 -4.167 / -4.167 Selected Laboratory Results 02/07/24 06:27 Sodium 138 Potassium 4.5 Chloride 105 Carbon Dioxide 32 Anion Gap 1 L BUN 19 Creatinine 0.81 BUN/Creatinine Ratio 23.5 H Glucose 99 Calcium 8.2 L Phosphorus 3.3 Magnesium 1.6 L Total Bilirubin 0.4 AST 20 ALT 18 Alkaline Phosphatase [address] - Initial Nutrition Assessment Start: 02/07/24 10:35 Freq: Status: Active Protocol: Document 02/07/24 10:35 [id number] (Rec: 02/07/24 10:55 [id number]) - Assessment & Plan Assessment: * Appreciate dietitians recommendations for macronutrients. Patient on chronic cyclic TPN outpatient, did obtain most recent order from [facility]. Will plan to utilize similar parameters for TPN today. Plan: * For Day #1 of TPN administration, the following will be ordered: * Macronutrients: * Amino Acids: 96 grams/day * Dextrose: 168 grams/day * Lipids: 50 grams/day * Micronutrients: * Sodium phosphate: 30 mMol/day * Sodium acetate: 70 mEq/day * Potassium chloride: 30 mEq/day * Magnesium sulfate: 16.24 mEq/day * Calcium gluconate: 4.65 mEq/day * Multivitamins: 10 mL/day * Trace elements: 1 mL/day * Thiamine: 100 mg/day * Total volume of 1286 mL will be infused over 12 hours and will provide 1455 kcal/day (will run from 7145-9917) * Labs will be ordered per PN protocol. * Pharmacy will follow and adjust PN orders on a daily basis. Thank you!
[2024-02-07] MEDS: CLINOLIPID 20% IV FAT EMULSION 250 ML IV SCH (16:52)
[2024-02-07] MEDS: [UNRECOGNIZED DRUG - OTHER] IV SCH (16:58)
[2024-02-07] MEDS: CENTRAL TPN IV SCH (16:58)
[2024-02-07] MEDS: [UNRECOGNIZED DRUG - REMARK] ONE (17:04)
[2024-02-07] MEDS: MoRPHine SULFATE 4 MG/ML 1 ML CARP\\VIAL IV PRN (21:41)
[2024-02-07] MEDS: STOP CLINOLIPID SCH (23:03)
[2024-02-08] MEDS: [UNRECOGNIZED DRUG - REMARK] SCH (05:05)
[2024-02-08 06:37] LABS: Hematocrit (blood only) 30.8 % (42.0-52.0); Hemoglobin 10.1 g/dl (14.0-18.0); Mean Corpuscular Hemoglobin 31.2 pg (25.0-34.0); Mean Corpuscular Hgb Conc 32.8 g/dL (32.0-36.0); Mean Corpuscular Volume 95.1 fL (80.0-100.0); Mean Platelet Volume 10.6 fL (9.4-12.4); Platelet Count 206 K/uL (130-400); RDW Coefficient of Variation 12.1 % (11.5-14.5); RDW Standard Deviation 42.5 fL (36.4-46.3); Red Blood Count 3.24 M/uL (4.70-6.10); White Blood Count 4.69 K/ul (4.8-10.8)
[2024-02-08 06:40] LABS: BUN Creatinine Ratio 33.8 (10-20); Calcium 8.1 mg/dl (8.6-10.3); Creatinine Clr Calc Pharmacy 93.6 ml/min; Magnesium 1.7 mg/dl (1.7-2.4); Phosphorus 3.6 mg/dl (2.5-4.9); Potassium 4.5 mmol/L (3.5-5.1)
--- NOTE | 2024-02-08 08:21 | Hospitalist Progress Note ---
Date of Service February 08, 2024 Assessment & Plan (1) SBO (small bowel obstruction): Plan: 53 y/o with history of pancreatic neuroendocrine tumor and Whipple procedure in 2020 with severe protein calorie malnutrition and recent initiation of outpatient TPN as well as chronic diarrhea thought to be related to pancreatic insufficiency on octreotide. Admitted with high grade SBO with transition point in RLQ based on CT -continue conservative treatment with NG tube decompression. NG output has really fallen off since middle of last night, did have small loose stool at 2AM. reviewed recs and surgery note continue NG tube today potentially may discontinue tomorrow -continue TPN -ambulate -UOP and blood pressure improved over past 24h -daily BMP, mag, phos while on TPN - reviewed today electrolytes normal, Cr 1.74. WBC 4 and remains afebrile -general surgery following. would need transfer if surgical intervention required [facility] that the total the colon was tortuous with several sharp turns and was difficult to access colonoscopically, recommended barium enema which is scheduled later this month. Reviewed admission CT from 02/05, he does have diverticulosis and wall thickening and inflammatory stranding throughout the majority of the colon and rectum which is similar to prior CTs over the last few years however there is no volvulus noted. It is unclear to me whether he would still benefit from the barium enema study or whether this can be canceled (2) Severe protein-calorie malnutrition: Plan: continue TPN access: PICC line reviewed labs today white blood count normal improved to 4, hemoglobin stable at 10, sodium normal 138 potassium normal 4.5 BUN 25/creatinine 0.74, magnesium low normal at 1.7 Daily BMP while on TPN, daily CBC for bowel obstruction (3) Chronic diarrhea: Plan: Chronic, attributed to pancreatic insufficiency. Note that CTs mention a nonspecific colitis picture for last several years - Managed with octreotide, held because of bowel obstruction Plan Dispo: continued inpatient stay DVT proh: Lovenox Family updated at bedside 02/06 Admission and Anticipated Discharge Date Admission Date: February 06, 2024 Subjective small loose stool at 2AM feels hungry no abdominal pain no distention NG tube output has been quite low since the middle of the night Physical Exam 2 Physical Exam: PHYSICAL EXAMINATION Last 24h vital signs reviewed, see documentation in flowsheet General: comfortable appearing, no distress, . Thin/cachectic appearing with bitemporal wasting sarcopenia of arms and legs interosseous muscle wasting of hands HEENT: Normocephalic, atraumatic, pupils round and equal, sclerae anicteric, no conjunctival injection, moist mucus membranes Lungs: Normal respiratory effort. Clear to auscultation bilaterally. No RRW Heart: Regular rate and rhythm, no murmurs. No JVD Abdomen: Soft, nontender, nondistended. few sutures near the umbilicus intact no erythema no drainage. Bowel sounds present. NG tube with small amount of yellow drainage in canister Extremities: Warm, dry, well-perfused. No extremity edema. right upper extremity PICC line Neuro: Alert and oriented x 4, face symmetric, moves 4 extremities well Psych: Normal affect and behavior Results & Data Results & Data Vital Signs (Past 12 Hours) Vital Signs Temp Pulse Resp BP Pulse Ox O2 Del Method 02/08/24 07:08 36.8 C 60 17 100/88 100 Room Air Laboratory Results 02/08/24 05:39 02/08/24 05:39 PG Care Time/CCT Total # of Minutes Spent Total Time Spent with Patient: Total time spent is greater than 50% in coordination of care (as documented) at patient's floor/unit and/or counseling patient: Coding Level of Care Code 79522 SUB INP/OBS CARE 2/35MIN Diagnoses SBO (small bowel obstruction) K56.609 Severe protein-calorie malnutrition E43 Chronic diarrhea K52.9
--- NOTE | 2024-02-08 09:05 | Surgery Progress Note ---
Date of Service February 08, 2024 Assessment & Plan (1) SBO (small bowel obstruction): Plan: After placement of NG tube his distention and pain improved significantly His NG tube has put out less over the last shift Will keep him n.p.o. with NG tube in place for today until he has more significant return of bowel function Will continue to follow Admission and Anticipated Discharge Date Admission Date: February 06, 2024 Subjective Patient seen and examined. Abdominal pain much less. He did have a very small bowel movement and is passing some flatus. Afebrile. Review of Systems Constitutional: no fever and no chills Respiratory: no cough and no dyspnea Cardiovascular: no chest pain and no dyspnea on exertion Gastrointestinal: + abdominal pain; no nausea and no vomit ing Integumentary: no acne, no lesions, no changing lesions and no sores Psychiatric: no behavioral changes and no anhedonia Physical Exam Constitutional: WD/WN, vitals as above Respiratory: normal respiratory effort, lungs clear to auscultation Cardiovascular: RRR, no murmur, no edema Gastrointestinal (Abdomen): Soft, minimally tender to palpation right lower quadrant, nondistended, no guarding or rebound Nylon sutures in place in the mid abdomen without erythema or drainage Results & Data Vital Signs (Past 12 Hours) Vital Signs Temp Pulse Resp BP Pulse Ox O2 Del Method 02/08/24 07:08 36.8 C 60 17 100/88 100 Room Air PG Care Time/CCT Total # of Minutes Spent Total Time Spent with Patient: Total time spent is greater than 50% in coordination of care (as documented) at patient's floor/unit and/or counseling patient: Coding Level of Care Code 46922 SUB INP/OBS CARE 25MIN Diagnoses SBO (small bowel obstruction) K56.609
[2024-02-08] MEDS: CENTRAL TPN IV SCH (17:16)
[2024-02-08] MEDS: CLINOLIPID 20% IV FAT EMULSION 250 ML IV SCH (17:16)
[2024-02-08] MEDS: [UNRECOGNIZED DRUG - OTHER] IV SCH (17:16)
[2024-02-09 06:58] LABS: BUN Creatinine Ratio 37.2 (10-20); Calcium 8.4 mg/dl (8.6-10.3); Creatinine Clr Calc Pharmacy 87.2 ml/min; Magnesium 1.9 mg/dl (1.7-2.4); Potassium 4.6 mmol/L (3.5-5.1)
--- NOTE | 2024-02-09 10:51 | Surgery Progress Note ---
Date of Service February 09, 2024 Assessment & Plan (1) SBO (small bowel obstruction): Plan: Remove NG tube today and trial clear liquids, would not advance past this for today Surgery will continue to follow Admission and Anticipated Discharge Date Admission Date: February 06, 2024 Subjective Patient seen and examined. Minimal NG tube output. He states he is passing a lot of gas without BM. Denies abdominal pain. Afebrile. Review of Systems Constitutional: no fever and no chills Respiratory: no cough and no dyspnea Cardiovascular: no chest pain and no dyspnea on exertion Gastrointestinal: no abdominal pain, no nausea and no vomiting Integumentary: no rash and no non-healing lesions Psychiatric: no behavioral changes and no depression Physical Exam Constitutional: WD/WN, vitals as above Respiratory: normal respiratory effort, lungs clear to auscultation Cardiovascular: RRR, no murmur, no edema Gastrointestinal (Abdomen): Soft, nontender, nondistended Results & Data Vital Signs (Past 12 Hours) Vital Signs Temp Pulse Resp BP Pulse Ox O2 Del Method 02/09/24 06:57 36.8 C 72 16 91/59 L 98 Room Air PG Care Time/CCT Total # of Minutes Spent Total Time Spent with Patient: Total time spent is greater than 50% in coordination of care (as documented) at patient's floor/unit and/or counseling patient: Coding Level of Care Code 42704 SUB INP/OBS CARE /25MIN Diagnoses SBO (small bowel obstruction) K56.609
--- NOTE | 2024-02-09 14:04 | Hospitalist Progress Note ---
Date of Service February 09, 2024 Assessment & Plan (1) SBO (small bowel obstruction): Plan: 53 y/o with history of pancreatic neuroendocrine tumor and Whipple procedure in 2020 with severe protein calorie malnutrition and recent initiation of outpatient TPN as well as chronic diarrhea thought to be related to pancreatic insufficiency on octreotide. Admitted with high grade SBO with transition point in RLQ based on CT -treated conservatively with NG tube. General surgery consulting - reviewed recs in note. Discontinue NG tube and stay on clears today. discussed with Dr. Boyd -continue TPN. Reviewed BMP - electrolytes normal, Cr normal, BUN slightly elevated [facility] notes that the total the colon was tortuous with several sharp turns and was difficult to access colonoscopically, recommended barium enema which is scheduled later this month. Reviewed admission CT from 02/05, he does have diverticulosis and wall thickening and inflammatory stranding throughout the majority of the colon and rectum which is similar to prior CTs over the last few years however there is no volvulus noted. It is unclear to me whether he would still benefit from the barium enema study or whether this can be canceled (2) Severe protein-calorie malnutrition: Plan: continue TPN access: PICC line Daily BMP while on TPN, daily CBC for bowel obstruction (3) Chronic diarrhea: Plan: Chronic, attributed to pancreatic insufficiency. Note that CTs mention a nonspecific colitis picture for last several years - Managed with octreotide, held because of bowel obstruction Plan Dispo: continued inpatient stay DVT proh: [place] Family updated at bedside 02/06 Admission and Anticipated Discharge Date Admission Date: February 06, 2024 Subjective Doing well. No abdominal pain or distention. Passing gas. No stools overnight. No nausea or vomiting. NG output has been nil the last 24h maybe 150 mL Physical Exam 2 Physical Exam: PHYSICAL EXAMINATION Last 24h vital signs reviewed, see documentation in flowsheet General: awake in bed, pretty cheerful today HEENT: Normocephalic, atraumatic, pupils round and equal, sclerae anicteric, no conjunctival injection, moist mucus membranes. NG in place, minimal drainage in canister Lungs: Normal respiratory effort. Clear to auscultation bilaterally. No RRW Heart: Regular rate and rhythm, no murmurs. No JVD Abdomen: Soft, nontender, nondistended. few sutures near the umbilicus intact no erythema no drainage. Bowel sounds present. Extremities: Warm, dry, well-perfused. No extremity edema. right upper extremity PICC line Neuro: Alert and oriented x 4, face symmetric, moves 4 extremities well Psych: Normal affect and behavior Results & Data Results & Data Vital Signs (Past 12 Hours) Vital Signs Temp Pulse Resp BP Pulse Ox O2 Del Method 02/09/24 06:57 36.8 C 72 16 91/59 L 98 Room Air Laboratory Results 02/08/24 05:39 02/09/24 05:26 PG Care Time/CCT Total # of Minutes Spent Total Time Spent with Patient: Total time spent is greater than 50% in coordination of care (as documented) at patient's floor/unit and/or counseling patient: Coding Level of Care Code 84467 SUB INP/OBS CARE 2/35MIN Diagnoses SBO (small bowel obstruction) K56.609 Severe protein-calorie malnutrition E43 Chronic diarrhea K52.9
[2024-02-09] MEDS: CLINOLIPID 20% IV FAT EMULSION 250 ML IV SCH (17:18)
[2024-02-09] MEDS: [UNRECOGNIZED DRUG - OTHER] IV SCH (17:19)
[2024-02-09] MEDS: CENTRAL TPN IV SCH (17:19)
[2024-02-10 06:41] LABS: Hematocrit (blood only) 35.3 % (42.0-52.0); Hemoglobin 11.1 g/dl (14.0-18.0); Mean Corpuscular Hemoglobin 30.4 pg (25.0-34.0); Mean Corpuscular Hgb Conc 31.4 g/dL (32.0-36.0); Mean Corpuscular Volume 96.7 fL (80.0-100.0); Mean Platelet Volume 10.6 fL (9.4-12.4); Platelet Count 202 K/uL (130-400); RDW Coefficient of Variation 12.4 % (11.5-14.5); RDW Standard Deviation 44.1 fL (36.4-46.3); Red Blood Count 3.65 M/uL (4.70-6.10); White Blood Count 7.84 K/ul (4.8-10.8)
[2024-02-10 07:03] LABS: BUN Creatinine Ratio 37.1 (10-20); Calcium 8.7 mg/dl (8.6-10.3); Creatinine Clr Calc Pharmacy 77.2 ml/min; Magnesium 1.8 mg/dl (1.7-2.4); Phosphorus 3.1 mg/dl (2.5-4.9); Potassium 4.1 mmol/L (3.5-5.1)
--- NOTE | 2024-02-10 07:44 | XRay Report ---
KUB HISTORY: Acute fever with generalized abdominal pain fever, SBO COMPARISON: CT 02/06/2024 FINDINGS: Surgical clips and suture material is again noted projected over the abdomen. There is pers istent prominent dilation involving small bowel loops within the central abdomen, mildly improved fro m the comparison CT. Right nephrolithiasis better seen on prior CT study. No pneumoperitoneum or pne umatosis. No fracture. IMPRESSION: Persistent small bowel obstruction with mildly improved small bowel distention compared to the Octobe r 2023 CT examination. ACT 112: Negative or not required by law. The above report was generated using voice recognition software. It may contain grammatical, syntax o r spelling errors. Electronically signed by: Curt Burroughs M.D. 02/10/2024 7:43 AM
[2024-02-10] MEDS: ACETAMINOPHEN 1,000 MG/100 ML VIAL IV STA (08:49)
--- NOTE | 2024-02-10 09:44 | Hospitalist Progress Note ---
<Statement entered by Sejal Goyal MD - 02/10/24 18:18> I have reviewed vital signs, chart notes, labs and imaging. I have personally seen, evaluated and examined the patient. I have also discussed the management of the patient with the DARINEL and I agree with the exam findings documented in the history and physical examination and the documented assessment and plan unless otherwise stated below. On my exam it is clear that he is having more abdominal distention today than yesterday with there was none, he has high-pitched tinkling bowel sounds reviewed KUB today which shows persistent of small bowel obstruction discussed with surgery team, replacing NG tube. unfortunately he has persistent small bowel obstruction and did not tolerate advancement of diet. He may require transfer to tertiary care for surgical treatment he does not want to go to [facility] but he will consider [facility]. Continue TPN continue conservative treatment for now he had a fever to 38.9 this morning which has not recurred may be related to the SBO, however he is at risk for bacteremia even fungemia given his PICC line and TPN. Blood cultures were obtained. he has no pulmonary symptoms lungs are clear no hypoxia suspect just pneumonia, urinalysis is normal. Date of Service February 10, 2024 Assessment & Plan (1) SBO (small bowel obstruction): Plan: 53 y/o w/ h/o pancreatic neuroendocrine tumor and Whipple procedure in 2020 with severe protein calorie malnutrition and recent initiation of outpatient TPN as well as chronic diarrhea thought to be related to pancreatic insufficiency on octreotide. Admitted with high grade SBO with transition point in RLQ based on CT - Initially treated conservatively with NGT. General surgery consulting - reviewed recs in note. - Discontinued NGT 02/08; NPO today 2/2 new fever and exam findings - Increased abdominal distention on exam and tinkles heard to auscultation; new onset fever; Sx informed -> NGT restarted 02/09 per recs - KUB- Persistent SBO, mildly improved distention compared to 02/06/24 CT examination. - Continue TPN - Reviewed CBC, BMP - CBC stable, electrolytes normal, Cr normal, BUN increasing 29-> 33 likely from n.p.o. status and/or TPN, with soft BP; fluid bolus ordered [facility] gastroenterology physician notes that the total the colon was tortuous with several sharp turns and was difficult to access colonoscopically, recommended barium enema which is scheduled later this month. - Admission CT 02/05- Diverticulosis, wall thickening, inflammatory stranding throughout the majority of the colon and rectum; Similar to prior CTs over the last few years; however there is no volvulus noted. - Barium enema study benefit ? (2) Fever: Plan: Noted on 02/09 around 0700 + 0800; ? source - Denies dysuria/LUTS, increasing abdominal pain or N/V, or symptoms near PICC line - No concerning findings to include new onset murmur, abnormal lung sounds, or abnormal skin findings. - Tylenol IV given, decreased temp without return thus far - WBC 7.84 - Pending blood cultures - Pending UA result (3) Severe protein-calorie malnutrition: Plan: Continue TPN, NGT restartd 02/09 per Sx recs - Access: PICC line - Daily BMP while on TPN, daily CBC for bowel obstruction (4) Chronic diarrhea: Plan: Chronic, attributed to pancreatic insufficiency. Note that CTs mention a nonspecific colitis picture for last several years - Managed with octreotide, held because of bowel obstruction Plan Dispo: continued inpatient stay VTE prophylaxis: Lovenox Code: Conditional; Cardiac ONLY Admission and Anticipated Discharge Date Admission Date: February 06, 2024 Subjective Pt is laying in bed at time of visit. States that he is experiencing ongoing abdominal pain, generalized in nature and same severity as initial presentation. Noticed that he felt feverish throughout the night. Continues to pass gas, however denies bowel movement or N/V. Denies chest pain, shortness of breath, headache, and numbness/tingling. Nursing concerns: Reports fever of 39.1 around 0800. Review of Systems Review of Systems: All systems reviewed & are unremarkable except as noted in Subjective Physical Exam Constitutional: + thin; no acute distress Respiratory: normal respiratory effort, lungs clear to auscultation Cardiovascular: RRR, no murmur, no edema Gastrointestinal (Abdomen): Inspection/Auscultation: + abdomen distended and + abdominal surgical scar (Sutures near umbilicus, no erythema or discharge present); + abnormal bowel sounds (Tinkles) Musculoskeletal: PICC in RUE Psychiatric: A+Ox3, euthymic affect Results & Data Results & Data Vital Signs (Past 12 Hours) Vital Signs Temp Pulse Resp BP Pulse Ox O2 Del Method 02/10/24 09:09 37.5 C 02/10/24 08:07 39.1 C H 02/10/24 07:10 38.9 C H 95 H 14 95/58 L 93 Room Air PG Care Time/CCT Total # of Minutes Spent Total Time Spent with Patient: Total time spent is greater than 50% in coordination of care (as documented) at patient's floor/unit and/or counseling patient: Coding [place] [address] SUB INP/OBS CARE 2/35MIN Patient Type Established History Expanded Problem Focused Exam Expanded Problem Focused Medical Decision Making Moderate Complexity Diagnoses SBO (small bowel obstruction) K56.609 Fever R50.9 Severe protein-calorie malnutrition E43 Chronic diarrhea K52.9 Time Spent (min) 35
--- NOTE | 2024-02-10 10:23 | Surgery Progress Note ---
Date of Service February 10, 2024 Assessment & Plan (1) SBO (small bowel obstruction): (2) Neuroendocrine carcinoma of pancreas: Plan 53 yo male with history of neuroendocrine tumor of pancreas s/p Whipple procedure in 2020 with complications with severe protein calorie malnutrition and chronic diarrhea on Octreotide presenting to ED with 1 week history of persistent increasing LLQ abdominal pain with nausea and increasing abdominal distention. CT scan of abd/pelvis with high grade SBO with transition point in the RLQ with marked distention of stomach and small bowel (8.0 cm). He is currently hemodynamically stable with no peritoneal signs although diffusely distended abdomen (although improving after NGT inserted and 1 liter of thick gastric contents removed). No leukocytosis. No acute surgical intervention required at this time, I question of possible chronic dilatation of intestine given prior hospitalization in October 2023 with high grade SBO with small bowel dilatated at 6.5 cm at that time without any symptoms. 02/10/2024: febrile this am tmax of 39.1 KUB with persistent SBO abdomen distended again but soft and minimal tenderness Plan: Recommend replacement of NGT for decompression encourage ambulation to increase GI motility continue TPN Continue medical management Discussed with Dr. Dee who will evaluate patient later today Admission and Anticipated Discharge Date Admission Date: February 06, 2024 Subjective was feeling good until last night had chills, sweats. Fever this am at 800, 39.1 no abdominal pain, n,v but feeling more distended again since NGT removed. Had left sided pain after chicken broth last night similar to prior to coming to ER urinating without difficulty, no burning passing gas with urination but no bowel movement since admission no chest pain or shortness of breath Physical Exam Constitutional: + thin, + cachectic, + frail appearing, cooperative and comfortable; no acute distress Respiratory: normal respiratory effort; no respiratory distress Gastrointestinal (Abdomen): Inspection/Auscultation: + abdomen distended and + abdominal surgical scar (midline laparotomy scar) Percussion/Palpation: abdomen soft and + tympanic to percussion; abdomen nontender, no guarding and abdomen not rigid There are nylon sutures present at inferior aspect of midline laparotomy scar Skin: no rashes, warm and dry Psychiatric: Orientation: alert and oriented x 3 Results & Data Vital Signs (Past 12 Hours) Vital Signs Temp Pulse Resp BP Pulse Ox O2 Del Method 02/10/24 09:09 37.5 C 02/10/24 08:07 39.1 C H 02/10/24 07:10 38.9 C H 95 H 14 95/58 L 93 Room Air Laboratory Results 02/10/24 02/10/24 02/09/24 Range/Units 05:44 05:30 23:28 WBC 7.84 (4.8-10.8) K/ul RBC 3.65 L (4.70-6.10) M/uL Hgb 11.1 L (14.0-18.0) g/dl Hct 35.3 L (42.0-52.0) % MCV 96.7 (80.0-100.0) fL MCH 30.4 (25.0-34.0) pg MCHC 31.4 L (32.0-36.0) g/dL RDW Std Deviation 44.1 (36.4-46.3) fL RDW Coeff of Gael 12.4 (11.5-14.5) % Plt Count 202 (130-400) K/uL MPV 10.6 (9.4-12.4) fL Sodium 138 (136-145) mmol/L Potassium 4.1 (3.5-5.1) mmol/L Chloride 103 (98-107) mmol/L Carbon Dioxide 30 (21-32) mmol/L Anion Gap 5 (3-11) BUN 33 H (6-23) mg/dl Creatinine 0.89 (0.6-1.4) mg/dl Est Cr Clr Drug Dosing 77.2 ml/min eGFR 101.20 BUN/Creatinine Ratio 37.1 H (10-20) Glucose 119 H (70-99(Fasting)) mg/dl POC Glucose 116 H 168 H (70-99) mg/dl Calcium 8.7 (8.6-10.3) mg/dl Phosphorus 3.1 (2.5-4.9) mg/dl Magnesium 1.8 (1.7-2.4) mg/dl 02/09/24 02/09/24 Range/Units 16:33 11:21 WBC (4.8-10.8) K/ul RBC (4.70-6.10) M/uL Hgb (14.0-18.0) g/dl Hct (42.0-52.0) % MCV (80.0-100.0) fL MCH (25.0-34.0) pg MCHC (32.0-36.0) g/dL RDW Std Deviation (36.4-46.3) fL RDW Coeff of Gael (11.5-14.5) % Plt Count (130-400) K/uL MPV (9.4-12.4) fL Sodium (136-145) mmol/L Potassium (3.5-5.1) mmol/L Chloride (98-107) mmol/L Carbon Dioxide (21-32) mmol/L Anion Gap (3-11) BUN (6-23) mg/dl Creatinine (0.6-1.4) mg/dl Est Cr Clr Drug Dosing ml/min eGFR BUN/Creatinine Ratio (10-20) Glucose (70-99(Fasting)) mg/dl POC Glucose 89 104 H (70-99) mg/dl Calcium (8.6-10.3) mg/dl Phosphorus (2.5-4.9) mg/dl Magnesium (1.7-2.4) mg/dl Diagnostic Findings KUB HISTORY: Acute fever with generalized abdominal pain fever, SBO COMPARISON: CT 02/06/2024 FINDINGS: Surgical clips and suture material is again noted projected over the abdomen. There is persistent prominent dilation involving small bowel loops within the central abdomen, mildly improved from the comparison CT. Right n ephrolithiasis better seen on prior CT study. No pneumoperitoneum or pneumatosis. No fracture. IMPRESSION: Persistent small bowel obstruction with mildly improved small bowel distention compared to the February 06, 2024 CT examination.
[2024-02-10] MEDS: LACTATED RINGER'S 500 ML IV ONE (13:30)
[2024-02-10 15:53] LABS: Appearance Urine Clear (Clear); Bacteria Urine Automated None Seen (None Seen); Bilirubin Urine Negative (Negative); Blood Urine Negative (Negative); Color Urine Yellow; Epithelial Cell Urine Auto 0-2 /hpf (0-2); Glucose Urine UA Negative (Negative); Ketones Urine Negative (Negative); Leukocyte Esterase Urine Negative (Negative); Nitrite Urine Negative (Negative); Protein Urine Trace (Negative); RBC Urine Automated 0-2 /hpf (0-2); Urobilinogen Urine Negative (Negative); WBC Urine Automated 0-5 /hpf (0-5)
[2024-02-10] MEDS: CENTRAL TPN IV SCH (16:59)
[2024-02-10] MEDS: [UNRECOGNIZED DRUG - OTHER] IV SCH (16:59)
[2024-02-10] MEDS: CLINOLIPID 20% IV FAT EMULSION 250 ML IV SCH (16:59)
[2024-02-10 20:27] LABS: A calco-baum cmplx NotReported Not Detected (NotDetected); Bact fragilis Not Reported Not Detected (NotDetected); Blood Culture Id Panel See PCR Comment (NotDetected); C auris Not Reported Not Detected (NotDetected); CTX-M Resistant Gene Not Detected (NotDetected); Calbicans Not Reported Not Detected (NotDetected); Candida glabrata Not Reported Not Detected (NotDetected); Candida krusei Not Reported Not Detected (NotDetected); Cneoformans/gatti Not Reported Not Detected (NotDetected); Cparapsilosis Not Reported Not Detected (NotDetected); E cloacae compx Not Reported Not Detected (NotDetected); Efaecalis Not Reported Not Detected (NotDetected); Efaecium Not Reported Not Detected (NotDetected); Enterobacterales Not Reported DETECTED (NotDetected); Escherichia coli Not Reported DETECTED (NotDetected); H influenzae Not Reported Not Detected (NotDetected); IMP Resistant Gene Not Detected (NotDetected); K aerogenes Not Reported Not Detected (NotDetected); KPC Resistant Gene Not Detected (NotDetected); Koxytoca Not Reported Not Detected (NotDetected); Kpneumoniae grp Not Reported Not Detected (NotDetected); Lmonocyt Not Reported Not Detected (NotDetected); N meningitidis Not Reported Not Detected (NotDetected); NDM Resistant Gene Not Detected (NotDetected); OXA 48 Like Resistant Gene Not Detected (NotDetected); P aeruginosa Not Reported Not Detected (NotDetected); Proteus spp Not Reported Not Detected (NotDetected); Salmonella spp Not Reported Not Detected (NotDetected); Staph lugdunensis Not Reported Not Detected (NotDetected); Staph spp. Not Reported Not Detected (NotDetected); Staphaureus Not Reported Not Detected (NotDetected); Staphepi Not Reported Not Detected (NotDetected); Stenmaltophilia Not Reported Not Detected (NotDetected); Strep agal(GrpB) Not Reported Not Detected (NotDetected); Strep pneum Not Reported Not Detected (NotDetected); Strep pyog (GrpA) Not Reported Not Detected (NotDetected); Strep spp Not Reported Not Detected (NotDetected); VIM Resistant Gene Not Detected (NotDetected); mcr-1 Colistin Resistant Gene Not Detected (NotDetected)
[2024-02-10 20:52] LABS: Enterobacterales DETECTED (NotDetected)
[2024-02-10] MEDS: PIPERACILLIN/TAZOBACTAM 4.5 GM/100 ML BAG IV ONE (21:58)
[2024-02-11] MEDS: PIPERACILLIN/TAZOBACTAM 4.5 GM/100 ML BAG IV SCH (03:50)
[2024-02-11 06:36] LABS: Hematocrit (blood only) 31.3 % (42.0-52.0); Hemoglobin 9.9 g/dl (14.0-18.0); Mean Corpuscular Hemoglobin 30.5 pg (25.0-34.0); Mean Corpuscular Hgb Conc 31.6 g/dL (32.0-36.0); Mean Corpuscular Volume 96.3 fL (80.0-100.0); Mean Platelet Volume 10.4 fL (9.4-12.4); Platelet Count 188 K/uL (130-400); RDW Coefficient of Variation 12.6 % (11.5-14.5); RDW Standard Deviation 44.2 fL (36.4-46.3); Red Blood Count 3.25 M/uL (4.70-6.10); White Blood Count 5.18 K/ul (4.8-10.8)
[2024-02-11 07:03] LABS: BUN Creatinine Ratio 41.9 (10-20); Calcium 8.4 mg/dl (8.6-10.3); Creatinine Clr Calc Pharmacy 72.8 ml/min; Magnesium 1.9 mg/dl (1.7-2.4); Phosphorus 3.8 mg/dl (2.5-4.9)
--- NOTE | 2024-02-11 08:52 | Hospitalist Progress Note ---
Date of Service February 11, 2024 Assessment & Plan (1) SBO (small bowel obstruction): Plan: 53 y/o w/ h/o pancreatic neuroendocrine tumor and Whipple procedure in 2020 with severe protein calorie malnutrition and recent initiation of outpatient TPN as well as chronic diarrhea thought to be related to pancreatic insufficiency on octreotide. Admitted with high grade SBO with transition point in RLQ based on CT. - General surgery consulting - reviewed recs in note. - NGT restarted 02/09; 2,400 mL removed via NG tube today - Trial removal of NG tube tomorrow (02/11) per gen surg recs - KUB 02/09- Persistent SBO, mildly improved distention compared to 02/06/24 CT examination.; No repeat KUB at this time - Continue TPN - Reviewed CBC, BMP - CBC stable, electrolytes normal, Cr normal, BUN increasing despite trial support with fluids so will continue to monitor [facility] [address] gastroenterology physician notes that the total the colon was tortuous with several sharp turns and was difficult to access colonoscopically, recommended barium enema which is scheduled later this month. - Admission CT 02/05- Diverticulosis, wall thickening, inflammatory stranding throughout the majority of the colon and rectum; Similar to prior CTs over the last few years; however there is no volvulus noted. - Barium enema study benefit ? - Received most recent colonoscopy report today from 12/12/23: Nonbleeding internal hemorrhoids; Diverticulosis sigmoid; 1 polyp cecum, removed; Looping L colon w/ areas sharp angulation/potential twisting; Examined portion of ileum normal; Otherwise normal: Recs as followed -"if future LGI issues occur, barium enema to evaluate the architecture of the colon to include investigation for potential volvulus; due to other current issues, avoid study at this time if possible" (2) Bacteremia: Plan: Fever noted on 02/09 around 0700 + 0800; ? source - Denies dysuria/LUTS, increasing abdominal pain or N/V, or symptoms near PICC line - No concerning findings to include new onset murmur, abnormal lung sounds, or abnormal skin findings. - Tylenol IV given, decreased temp without return thus far - WBC 7.84 - UA w/o evidence of UTI - Blood cx- Gram negative bacilli, [employer] Blood cxs shows pansensitive E. coli; suspect related to SBO - Pending repeat blood cultures from PICC - PICC site w/o erythema, edema, purulent discharge; no removal at this time - Started on Zosyn IV, continue (3) Severe protein-calorie malnutrition: Plan: Continue TPN, NGT restarted 02/09 per Sx recs - Access: PICC line - Daily BMP while on TPN, daily CBC for bowel obstruction - Was notified by pharmacy that 2 L Clinimix TPN bags were ; patient received 1,000 mL today compared to normal 1,200 mL, decrease in daily calories for today. Dietary made aware (4) Chronic diarrhea: Plan: Chronic, attributed to pancreatic insufficiency. Note that CTs mention a nonspecific colitis picture for last several years - Managed with octreotide, held because of bowel obstruction - No recent BM; passing gas Plan BP borderline low at baseline per patient - Decreasing morphine to 2 mg versus 4 mg and at times to low blood pressure to go into normal range - Will also likely improve bowel motility Patient has appointment with Sandra Gonzalez PA-C, on 02/13 at [facility]- will reach out to provider regarding upcoming infusion in the case the patient is still admitted and make a game plan Patient has sutures in lower abdomen area of umbilicus; states they are to be removed Tuesday 02/13. Dispo: continued inpatient stay, no transfer anticipated at this time VTE prophylaxis: Lovenox Code: Conditional; Cardiac ONLY Admission and Anticipated Discharge Date Admission Date: February 06, 2024 Supervising Physician Co-Signing Physician Notes Physician Certified Social Workers In Health Care Supervision note: I have not personally seen and examined the patient, but discussed and verified the escalona points of the history and physical along with the plan with MOLINA Zarco with the following exceptions and/or additions: None Subjective Pt is seen laying in bed at time of visit. States that he is feeling much better today compared to yesterday. Only complaint today is slightly irritated throat secondary to NG tube placement yesterday. Continues to experience very mild abdominal pain, located mainly in the RUQ. Continues to pass gas, however has not had a bowel movement since Saturday of last week. Denies N/V/D/C. Additionally denies chest pain, shortness of breath, headache, vision changes. Review of Systems Review of Systems: All systems reviewed & are unremarkable except as noted in Subjective Physical Exam Respiratory: normal respiratory effort, lungs clear to auscultation Cardiovascular: RRR, no murmur, no edema Gastrointestinal (Abdomen): Inspection/Auscultation: abdomen normal to inspection, normal bowel sounds and + abdominal surgical scar (Vertical surgical scar central abdomen; sutures at level of umbilicus); abdomen not distended Percussion/Palpation: abdomen soft; abdomen nontender, no guarding and abdomen not rigid Psychiatric: Orientation: alert and oriented x 3 Results & Data Results & Data Vital Signs (Past 12 Hours) Vital Signs Temp Pulse Resp BP Pulse Ox O2 Del Method 02/11/24 07:29 37.0 C 66 16 99/63 L 98 Room Air PG Care Time/CCT Total # of Minutes Spent Total Time Spent with Patient: Total time spent is greater than 50% in coordination of care (as documented) at patient's floor/unit and/or counseling patient: Coding [place] [address] SUB INP/OBS CARE 2/35MIN Patient Type Established Medical Decision Making Moderate Complexity Diagnoses SBO (small bowel obstruction) K56.609 Bacteremia R78.81 Severe protein-calorie malnutrition E43 Chronic diarrhea K52.9 Time Spent (min) 35
--- NOTE | 2024-02-11 12:37 | Pharmacy Report ---
Pharmacy PN Follow-up Note - Date of Service February 11, 2024 - Subjective Patient is currently on day #5 of cyclic TPN continued from outpatient for severe malnutrition. h/o neuroendocrine tumor s/p Whipple procedure in 2020. - Objective Height & Weight (Last Documented) Height 6 ft 3 in Weight 57.351 kg Diet Order(s) 02/10/24 07:15 NPO Intake & Ouput (24hrs) 02/10/24 02/11/24 02/12/24 06:59 06:59 06:59 Intake Total 1727.000 / 8940.971 6219.799 / 2144.799 100 / 100 Output Total 400 / 400 3025 / 3025 350 / 350 Balance 1327.000 / 1327.000 -880.201 / -880.201 -250 / -250 Selected Laboratory Results 02/11/24 05:58 Sodium 136 Potassium 4.0 Chloride 101 Carbon Dioxide 30 Anion Gap 5 BUN 39 H Creatinine 0.93 BUN/Creatinine Ratio 41.9 H Glucose 106 H Calcium 8.4 L Phosphorus 3.8 Magnesium 1.9 - Assessment & Plan Assessment: Patient on chronic cyclic TPN. Persistent small bowel obstruction. On 02/09, patient had increased abdominal distention, fever, failed diet advancement, and NGT resumed. Blood cultures ordered - preliminary results report gram negative bacilli (BCID2 detected E. coli). Per provider, no signs of infection at PICC site. Provider suspects E.coli is from GI source rather than catheter related BSI and would like to proceed with TPN today. * Repeat BC ordered. If repeat culture is positive or any evidence of catheter related BSI, consider holding TPN. Macronutrients will be increased today per patient is receiving full amount of daily calories via TPN while inhouse. At home, patient eats in addition to TPN (refer to dietary recommendations from 02/07/24). Plan: * For Day #5 of TPN administration, the following will be ordered: * Macronutrients: * Amino Acids: 120 grams/day * Dextrose: 210 grams/day * Lipids: 50 grams/day * Micronutrients: * Sodium phosphate: 24 mMol/day * Sodium chloride: 50 mEq/day * Sodium acetate: 40 mEq/day * Potassium chloride: 10 mEq/day * Magnesium sulfate: 12.18 mEq/day * Calcium gluconate: 4.65 mEq/day * Multivitamins: 10 mL/day * Trace elements: 1 mL/day * Thiamine: 100 mg/day * Total volume of 1578 mL will be infused over 12 hours and will provide 1694 kcal/day * Labs will be ordered per PN protocol. * Pharmacy will follow and adjust PN orders on a daily basis. Thank you!
--- NOTE | 2024-02-11 12:59 | Surgery Progress Note ---
Date of Service February 11, 2024 Assessment & Plan (1) SBO (small bowel obstruction): Plan: bowel function resolving leave NG today remove in AM if fails then will need transfer for possible exploration Admission and Anticipated Discharge Date Admission Date: February 06, 2024 Subjective passing flatus pain resolved still significant NG output Review of Systems Constitutional: no fever and no chills Respiratory: no cough and no dyspnea Cardiovascular: no chest pain Gastrointestinal: + change in bowel habits; no abdominal p ain, no nausea and no vomiting Genitourinary: no dysuria Neurologic: no localized weakness and no generalized weakness Psychiatric: no behavioral changes Physical Exam Constitutional: WD/WN, vitals as above Gastrointestinal (Abdomen): Inspection/Auscultation: abdomen normal to inspection and normal bowel sounds; abdomen not distended Percussion/Palpation: abdomen soft; abdomen nontender, no guarding and abdomen not rigid Results & Data Vital Signs (Past 12 Hours) Vital Signs Temp Pulse Resp BP Pulse Ox O2 Del Method 02/11/24 07:29 37.0 C 66 16 99/63 L 98 Room Air
[2024-02-11] MEDS ORDERED: CENTRAL TPN IV SCH (17:00)
[2024-02-11] MEDS ORDERED: [UNRECOGNIZED DRUG - OTHER] IV SCH (17:00)
[2024-02-11] MEDS: AA 8%/D14W 1L 1,078 ML in Central TPN bag 0 ML IV SCH (17:09)
[2024-02-11] MEDS: CLINOLIPID 20% IV FAT EMULSION 250 ML IV SCH (17:10)
[2024-02-11] MEDS ORDERED: ACETAMINOPHEN 1,000 MG/100 ML VIAL IV PRN (17:50)
[2024-02-11] MEDS: MoRPHine SULFATE 2 MG/ML CARP IV ONE (18:08)
[2024-02-11] MEDS: MoRPHine SULFATE 2 MG/ML CARP IV PRN (20:29)
[2024-02-12 06:29] LABS: Hematocrit (blood only) 30.3 % (42.0-52.0); Hemoglobin 9.8 g/dl (14.0-18.0); Mean Corpuscular Hemoglobin 30.7 pg (25.0-34.0); Mean Corpuscular Hgb Conc 32.3 g/dL (32.0-36.0); Mean Platelet Volume 10.7 fL (9.4-12.4); Platelet Count 205 K/uL (130-400); RDW Coefficient of Variation 12.5 % (11.5-14.5); RDW Standard Deviation 43.7 fL (36.4-46.3); Red Blood Count 3.19 M/uL (4.70-6.10); White Blood Count 4.17 K/ul (4.8-10.8)
[2024-02-12 07:04] LABS: BUN Creatinine Ratio 39.1 (10-20); Calcium 8.2 mg/dl (8.6-10.3); Magnesium 1.8 mg/dl (1.7-2.4); Phosphorus 3.9 mg/dl (2.5-4.9); Potassium 3.6 mmol/L (3.5-5.1)
[2024-02-12] MEDS: ONDANSETRON INJ 2 MG/ML 2 ML VIAL IV PRN (08:08)
[2024-02-12] MEDS: MoRPHine SULFATE 2 MG/ML CARP IV PRN ×2 (09:12→12:19)
--- NOTE | 2024-02-12 11:54 | Surgery Progress Note ---
Date of Service February 12, 2024 Assessment & Plan (1) SBO (small bowel obstruction): Plan: not progressing well no peritoneal signs would transfer to surgeons at [place] per patient wishes and complex nature of his previous operations will sign off Admission and Anticipated Discharge Date Admission Date: February 06, 2024 Subjective not progressing NG with increased outtput passing some flatus Review of Systems Constitutional: no fever and no chills Gastrointestinal: + change in bowel habits; no abdominal p ain, no nausea and no vomiting Physical Exam Gastrointestinal (Abdomen): Inspection/Auscultation: abdomen normal to inspection; abdomen not distended Percussion/Palpation: abdomen soft; abdomen nontender, no guarding and abdomen not rigid Results & Data Vital Signs (Past 12 Hours) Vital Signs Temp Pulse Resp BP Pulse Ox O2 Del Method 02/12/24 06:32 36.9 C 65 16 96/63 L 99 Room Air
--- NOTE | 2024-02-12 14:41 | Discharge Summary ---
Discharge Summary Date of Service February 12, 2024 Principal Dx & Hospital Course #1 = Principal Diagnosis (1) SBO (small bowel obstruction): 53 y/o w/ h/o pancreatic neuroendocrine tumor and Whipple procedure in 2020 with severe protein calorie malnutrition and recent initiation of outpatient TPN as well as chronic diarrhea thought to be related to pancreatic insufficiency on octreotide. Admitted with high grade SBO with transition point in RLQ based on CT. - General surgery consulting - reviewed recs in note. - NGT restarted 02/09; 2,400 mL removed 02/10; 1,600 mL removed 02/11 - Gen sx recommended transfer to tertiary care center for worsening of symptoms and prior surgical complications from Whipple; transferring to [place], surgical oncology to Dr. Zuñiga. - KUB 02/09- Persistent SBO, mildly improved distention compared to 02/06/24 CT examination.; No repeat KUB - Continue TPN - Reviewed CBC, BMP - CBC stable, electrolytes normal, Cr normal, BUN decreasing from previously [facility] gastroenterology physician notes that the total the colon was tortuous with several sharp turns and was difficult to access colonoscopically, recommended barium enema which is scheduled later this month. - Admission CT 02/05- Diverticulosis, wall thickening, inflammatory stranding throughout the majority of the colon and rectum; Similar to prior CTs over the last few years; however there is no volvulus noted. - Received most recent colonoscopy report today from 12/12/23: Nonbleeding internal hemorrhoids; Diverticulosis sigmoid; 1 polyp cecum, removed; Looping L colon w/ areas sharp angulation/potential twisting; Examined portion of ileum normal; Otherwise normal: Recs as followed -"if future LGI issues occur, barium enema to evaluate the architecture of the colon to include investigation for potential volvulus; due to other current issues, avoid study at this time if possible" 02/11: Patient is having mild left upper quadrant discomfort, however states that the pain is very minimal. Had nausea in the a.m., without vomiting. Has been utilizing morphine 4 mg after trial of decreasing to 2 mg without relief. Continuing to have sore throat from NGT placement and removal. Denies D/C, chest pain, shortness of breath, numbness/tingling, headache, vision changes. Patient informed that he will be transferred to [place] for further medical management and surgical intervention. Patient understood and agreeable. (2) Bacteremia: Fever noted on 02/09 around 0700 + 0800; Determine most likely from SBO - WBC 7.84-> 4.17 (02/11) - UA w/o evidence of UTI - Blood cx- E.coli-resistant to AMpicillin,Gentamicin, Bactrim and Intermediate resistance to Unasyn and Tobramycin; suspect related to translocation from SBO - Pending repeat blood cultures from PICC-no growth to date - PICC site w/o erythema, edema, purulent discharge; no removal at this time - Zosyn IV, continue (3) Severe protein-calorie malnutrition: Continue TPN, NGT restarted 02/09 per Sx recs - Access: PICC line - Daily BMP while on TPN, daily CBC for bowel obstruction (4) Chronic diarrhea: Chronic, attributed to pancreatic insufficiency. Note that CTs mention a nonspecific colitis picture for last several years - Managed with octreotide, held because of bowel obstruction - Scheduled to have dose Sandostatin on 02/13; Spoke with Sandra Gonzalez PA-C, on 02/11; Pt ok to miss this dose; If starts to have diarrhea, provide short acting; to reschedule upon d/c - No recent BM; passing gas Plan BP borderline low at baseline per patient - Trial decreasing morphine from 4 mg to 2 mg every 3 hours; no relief, requested 4 mg - Trialed lower dose to improve bowel motility and improved soft BP; patient states blood pressures are always on lower end Patient has sutures in lower abdomen area of umbilicus (cosmetic, s/p prior surgical intervention) and on the medial aspect of R buttock (cyst removal); states they are to be removed Tuesday 02/13. Dispo: Transfer to [place], Surgical Oncology; hemodynamically stable for transfer VTE prophylaxis: Lovenox Code: Conditional; Cardiac ONLY Complete patient education of current condition and management was provided. All questions that the patient asked were answered, and the patient demonstrated complete understanding. Notes For Next Care Provider Continue TPN Continue IV Zosyn for bacteremia E. coli Pending PICC blood cultures Admission HPI Per Admitting Provider Leander is a 53 yo M with a pmhx of neuroendocrine tumor s/p whipple procedure in 2020 at [facility] resulting in chronic moderate to severe protein calorie malnutrition and chronic diarrhea who presents to the ER today c/o abd pain in his LLQ and nausea that has been progressively worsening over the past week. He was started on chronic TPN due to PCM and ongoing weight loss. He does have a RUE PICC in place. He denies fever, chills. He has been having decreased appetite but is still eating, but pain was made worsened by eating. He presented to the ER where he underwent a CTAP that demonstrated a high-grade SBO with transition point in the RLQ with marked distension of the stomach and small bowel measuring 8.0cm. NGT was ordered and placed in the ER with marked output in a short period of time. He is otherwise HD stable with no peritoneal signs or leukocytosis. Surgery was consulted and evaluated patient in the ER and did not feel that he warranted any surgical intervention at this time and recommended medical management. Patient has subsequently been referred for admission to the hospital medicine team. Admission Exam Per Admitting Provider GENERAL: 53 yo thin WM. NAD. EYES: EOMI. PERRLA. Anicteric. HENT: Moist mucous membranes. No cervical lymphadenopathy. LUNGS: Clear to auscultation bilaterally. No W/R/R. CARDIOVASCULAR: Regular rate and rhythm. No M/G/R. No JVD. ABDOMEN: Soft, moderately distended. No rigidity, rebound tenderness or guarding. Absent bowel sounds. EXTREMITIES: No edema. Non-tender. Peripheral pulses +2/4. NEUROLOGIC: A&O x3. No focal neurological deficits. CN II-XII grossly intact. PSYCHIATRIC: Cooperative. Appropriate mood and affect. SKIN: Warm, dry, intact. Sutures noted on bottom of abdomen from recent internal suture removal in [place]. Discharge Exam Constitutional + thin; no acute distress ENMT NG tube R nare Respiratory normal respiratory effort, lungs clear to auscultation Cardiovascular RRR, no murmur, no edema Gastrointestinal (Abdomen) Inspection/Auscultation: abdomen normal to inspection, + abdomen distended (Mildly), normal bowel sounds and + abdominal surgical scar (Vertical surgical scar central abdomen; sutures at level of umbilicus) Percussion/Palpation: abdomen soft; abdomen nontender, no guarding and abdomen not rigid Skin Sutures located at medial aspect of right buttocks, placed by Dr. Cornejo in [place] s/p cyst removal Psychiatric A+Ox3, euthymic affect Orientation: alert and oriented x 3 Discharge Plan Discharge Items Patient Disposition: Transfer Acute Care Hospital Reason For Visit: TWISTED BOWEL/ABD PAIN, CONSTIPATION, NOT EATING Discharge Diagnosis: Unresolving SBO s/p Whipple procedure complications Activity: Resume your previous activity Non-emergency contact: Primary Care Provider Call non-emergency contact if: you have any medication questions, your symptoms worsen, your pain is not controlled, your pain is worsening, your pain is unusual for you and your pain is concerning for you Follow-up/Referrals: Trevin Hauser D.O. [Primary Care Provider] - Diet: Other - See Diet Comment Diet Comment: N.p.o. Addtl Attending Provider Instructions: Transfer to [place]- Surgical Oncology Pending Studies at Discharge: Yes Studies:: Final results of blood culture from PICC Stand-Alone Forms: My [facility] Skilled Items Patient informed of condition?: Yes DNR: No (Conditional code- ) Discharge Level of Care: Other Communicable Disease: No Discharge Prognosis: Deteriorating Lines: PICC Urinary Catheter: No Medications and DC Order Prescriptions: Continued cholestyramine-aspartame 4 gram powder in packet 1 ea PO TID (DME) TPN IV Set with Filter Infusion Set MISCELLANEOUS cyanocobalamin (vitamin B-12) 1,000 mcg/mL Solution 1,000 mcg IM MONTHLY beta carotene 7,500 mcg (25,000 unit) Capsule 7,500 mcg PO QAM Qty: 30 0RF octreotide acetate [Sandostatin] 50 mcg/mL Solution 0 mcg SUBCUT MONTHLY Rx Instructions: Per patient he gets 2 injections every 30 days but doesn't remember the strength Viokace 20,880-78,300- 78,300 unit tablet 2 tab PO TID Zenpep 40,000-126,000- 168,000 unit capsule,delayed release(DR/EC) 2 cap PO TID hydrocodone-acetaminophen 5-325 mg Tablet 1 tab PO BID PRN (Reason: pain) Qty: 60 0RF midodrine 10 mg Tablet 10 mg PO TID@0800,1200,1700 Qty: 90 0RF calcium carbonate [Tums] 200 mg calcium (500 mg) Tablet,Chewable 1,500 mg PO BID PRN (Reason: heartburn) Qty: 30 0RF Rx Instructions: OTC thiamine HCl (vitamin B1) 100 mg Tablet 100 mg PO QAM Qty: 30 0RF Rx Instructions: OTC pantoprazole 40 mg tablet,delayed release (DR/EC) 40 mg PO BID Qty: 60 0RF Discharge Orders: Discharge Order (Routine); Ordered 02/12/24 Ordered By: Lorri Zarco Admission Data Admit Date/Time: 02/06/24 13:40 Attending Provider: Emilie Benitez Admit Provider: Kar Jewell Primary Care Provider: Trevin Hauser Other Providers: Leander Dee; Kar Jewell; [facility] Hospital Stay Data Consultations 02/06/24 12:51 Consult General Surgery Stat ED Decision to Admit Stat Diagnostic Imagining Performed 02/06/24 08:53 CT Abd and Pelvis [CT abd pelvis oral and IV con] Stat Pending Results Patient Have Any Pending Studies at Discharge: Yes Discharge Instructions Given to Patient (Per Discharging Provider) Transfer to [place]- Surgical Oncology Supervising Physician Co-Signing Physician Notes PA Supervision Note: I personally saw and examined the patient. I verified all escalona points and agree with MOLINA Zarco with the following exceptions and/or additions: S-Pt passing some flatus but no BM, still large amount of output from NGT and some abd pain. Surgery recommends transfer O- Vitals reviewed Gen: [AAOx3, thin] HEENT: [anicteric sclerae, EOMI] CV: [RRR no mgr nl S1S2] Pulm: [CTAB no wcr] Abd: [hypoactive/no BS, scaphoid abdomen, old surgical scar, a few nylon sutures at inferior portion of old surgical wound,mild diffuse TTP Ext: [no edema Skin: [no rashes, warm/dry] Neuro: [full strength throughout] CBC, BMP reviewed A/P-53 yo male here with SBP, persistent despite NGT for many days, with h/o Whipple--> needs transfer to surgical oncology at [facility] for laparoscopy and possible [place] Total Time Total Time Spent Total Time Spent (In Minutes): 50 Total Time Includes: Examination of the Patient, Discharge Planning, Medication Reconciliation and Communication With Other Providers Coding Level of Care Code 04576 INP/OBS DISCH >30 MIN Diagnoses SBO (small bowel obstruction) K56.609 Bacteremia R78.81 Severe protein-calorie malnutrition E43 Chronic diarrhea K52.9 Time Spent (min) 50
[2024-02-12] MEDS: CENTRAL TPN IV SCH (17:22)
[2024-02-12] MEDS: [UNRECOGNIZED DRUG - OTHER] IV SCH (17:22)
[2024-02-12] MEDS: CLINOLIPID 20% IV FAT EMULSION 250 ML IV SCH (17:24)
[2024-02-13 06:55] LABS: Albumin Level 3.1 gm/dl (3.4-5.0); BUN Creatinine Ratio 34.4 (10-20); Bilirubin,Total 0.3 mg/dl (0.2-1.0); Calcium 8.5 mg/dl (8.6-10.3); Creatinine Clr Calc Pharmacy 73.1 ml/min; Magnesium 1.9 mg/dl (1.7-2.4); Phosphorus 4.1 mg/dl (2.5-4.9); Potassium 4.1 mmol/L (3.5-5.1)
[2024-02-13 07:13] VITALS: BP 103/67; PULSE 63; RESP 18; TEMP 98.2; O2SAT 100
== END 2024-02-13 07:57 | disposition short-term general hospital (02) | DRG 388 ==
LOC: ED 08:33 → SUATTDRO 13:40 → 3E 13:40